=== PATIENT | male | born 1950 | race Caucasian/White ===

== ENCOUNTER 2020-07-03 07:52 | Outpatient (REF) | payer OTHER, SELFPAY ==
--- NOTE | 2020-07-03 | XR_ITS ---
EXAMINATION: LEFT KNEE X-RAY CLINICAL INFORMATION: Pain COMPARISON: None TECHNIQUE: 3 views of the left knee FINDINGS: Bone alignment is normal. No fracture or dislocation is seen. There is arthritis at the medial femoral tibial and patellofemoral joints with joint space narrowing and osteophyte formation. There is a small joint effusion. IMPRESSION: Arthritis and small joint effusion. EXAMINATION: Right shoulder x-ray CLINICAL INFORMATION: Pain COMPARISON: None. TECHNIQUE: 2 views of the right shoulder FINDINGS: Bone alignment is normal. No acute fracture or dislocation is seen. There is a mild arthritis at the glenohumeral joint and moderate arthritis at the acromioclavicular joint with joint space narrowing and osteophyte formation. There are degenerative changes of the greater tuberosity. Soft tissues are unremarkable. There may be an old right anterior fourth rib fracture. IMPRESSION: Arthritis.
== END 2020-07-03 07:53 | disposition home or self-care (01) ==
LOC: HO.XRAY 07:52
PROVIDERS: PCP Internal Medicine; Visit Provider Internal Medicine
DX: M25.511 Pain in right shoulder (principal); M25.562 Pain in left knee; I25.10 Atherosclerotic heart disease of native coronary artery without angina pectoris
CPT/HCPCS: 73030; 73560

== ENCOUNTER → 2020-07-11 12:57 | Outpatient (REF) | payer OTHER, SELFPAY ==
--- NOTE | 2020-07-11 12:55 | CA_ITS ---
Transthoracic Echocardiogram Patient (Last, First, Middle): Серегй Harvey, Gender: Male Date of : 1950 Age: 70 Procedure Date: 07/11/2020 Procedure Type: Transthoracic Echocardiogram Location: OP Height: 172.72 cm Weight: 104.33 kg BSA: 2.17 m2 Heart Rate: bpm BP: 138 / 82 mmHg Plastics Nurse: Referring MD: Bryson Templeton MD Symptoms: I77.810 ascendingaorta dilatation Study Quality: Fair ECG Rhythm: Sinus Conclusions: - Normal left ventricular cavity size. There is mildly increased left ventricular wall thickness. The left ventricular systolic function is low normal. - Normal right ventricular cavity size and systolic function. - There is trace mitral valve regurgitation. - There is moderate dilatation of the ascending aorta (4.24 cm). Findings Left Ventricle Normal left ventricular cavity size. There is mildly increased left ventricular wall thickness. The left ventricular systolic function is low normal. The visually estimated ejection fraction is between 50-55%. Regional wall motion abnormalities can not be excluded due to suboptimal endocardial definition. Abnormal diastolic function is noted. Spectral Doppler is indicative of an impaired relaxation filling pattern. E/E prime ratio is between 8 and 15 consistent with indeterminate filling pressures. Right Ventricle Normal right ventricular cavity size and systolic function. Atria The left atrium is moderately dilated. Interatrial shunt cannot be excluded by color Doppler. Aortic Valve There is a normal trileaflet aortic valve. There is mild calcification of the aortic valve. There is no aortic valve stenosis. There is trace (trivial) aortic valve regurgitation. Mitral Valve Normal mitral valve structure and function. There is mild mitral annular calcification. There is trace mitral valve regurgitation. There is no mitral valve stenosis. Pulmonic Valve The pulmonic valve is likely normal. Tricuspid Valve Normal tricuspid valve structure and function. There is trace tricuspid valve regurgitation. Normal right atrial pressure. There is no evidence of pulmonary hypertension. Great Vessels There is moderate dilatation of the ascending aorta. The visualized portions of the pulmonary artery and branches are normal. Venous The inferior vena cava is normal in size and collapses greater than 50% with inspiration. Pericardium/Pleural There is no evidence of pericardial effusion. Prior Study Comparison Changes noted compared to prior study dated: 01/12/2020. EF low normal. Ascending aorta 4.24 cm (previously measured at 4.4 cm). No significant change in aortic size. Recommendations, Care & Conclusions Recommend contrast in the future to improve endocardial definition. Measurements 2D Linear Measurements IVSd: 1.29 0.6-0.9/0.6-1.0 cm LVIDd: 3.78 3.9-5.3/4.2-5.9 cm LVIDd Index: 1.74 2.4-3.2/2.2-3.1 cm/m2 LVIDs: 2.58 2.0-3.6 cm LVPWd: 1.20 0.7-1.1 cm Ao Root: 3.60 2.1-3.5 cm LA Diam: 3.60 2.7-3.8/3.0-4.0 cm LAIDs Index: 1.66 1.5-2.3 cm/m2 LV Mass: 200.18 67-162/88-224 g LV Mass Index: 92.25 43-95/49-115 g/m2 LVOT Diam: 2.60 3.0+(-)1.3 cm 2D Systolic Function EF 4C: 49.40 >55% EF 2C: 44.80 >55% EF BiP: 48.40 >55% Mitral Valve MV Pk E: 0.61 MV PK A: 0.77 MV Decel Time: 222.00 E/A: 0.80 E'Lateral: 5.13 E'Medial: 4.93 E/E' Med: 12.40 E/E' Lat: 11.90 PHT: 65.00 MVA PHT: 3.38 Decel [place]: 2.76 Aortic Valve AoV Pk Bo: 1.58 AoV Mn Bo: 1.05 AoV VTI: 0.34 AoV Pk Grad: 10.00 Aov Mn Grad: 5.00 ANIRUDH Cont.VTI: 3.59 LVOT LVOT Pk Bo: 0.99 LVOT Mn Bo: 0.60 LVOT VTI: 0.25 LVOT Pk Grad: 4.00 LVOT Mn Grad: 2.00 LVOT Diam: 2.60 LVOT Area: 5.31 Diastolic Function MV Pk E: 0.61 MV Pk A: 0.77 E/A: 0.80 E'Medial: 4.93 E/E' Med: 12.40 E' Laterial: 5.13 E/E' Lat: 11.90 Tricuspid Valve TR Pk Bo: 1.58 TR Pk Grad: 10.00 RA Press: 3.00 RVSP: 13.00 Great Vessels Aorta Ao Root-2D: 3.60 2.0-3.7 cm Ao Asc: 4.24 2.1-3.4 cm Pulmonary Valve PV Pk Bo: 1.05 Peak PV Grad: 4.00 Updated in Other Vendor System with Status of Final Juaquin Fraser MD electronically signed on 07/12/2020 4:22:08 PM with status of Final
== END ==
LOC: HO.CARD 12:57
PROVIDERS: PCP Internal Medicine; Visit Provider Internal Medicine
DX: E66.9 Obesity, unspecified (principal); Z68.34 Body mass index [BMI] 34.0-34.9, adult; I77.810 Thoracic aortic ectasia; Z71.3 Dietary counseling and surveillance
CPT/HCPCS: 93306

== ENCOUNTER → 2020-08-14 15:48 | Outpatient (BNVA) | payer OTHER, SELFPAY | PROVIDERS: PCP Internal Medicine; Visit Provider Dietitian, Registered | DX: Z76.89 Persons encountering health services in other specified circumstances (principal) ==

== ENCOUNTER → 2020-10-25 09:51 | Outpatient (BNVA) | payer OTHER, SELFPAY | PROVIDERS: PCP Internal Medicine; Visit Provider Surgery | DX: L02.211 Cutaneous abscess of abdominal wall (principal) | CPT/HCPCS: 99202 ==

== ENCOUNTER → 2020-11-08 10:06 | Outpatient (BNVA) | payer OTHER, SELFPAY | PROVIDERS: PCP Internal Medicine; Visit Provider Surgery | DX: L02.211 Cutaneous abscess of abdominal wall (principal) | CPT/HCPCS: 99212 ==

== ENCOUNTER → 2020-11-13 14:04 | Outpatient (BNVA) | payer OTHER, SELFPAY | PROVIDERS: PCP Internal Medicine; Referring Provider Internal Medicine; Visit Provider Dietitian, Registered ==

== ENCOUNTER 2020-11-15 12:05 | Outpatient (REF) | payer OTHER, SELFPAY | END 2020-11-15 12:06 | disposition home or self-care (01) | LOC: HO.LAB 12:05 | PROVIDERS: Visit Provider Internal Medicine | DX: Z20.822 Contact with and (suspected) exposure to COVID-19 (principal) | CPT/HCPCS: 36415; C9803; U0003; U0005 ==

== ENCOUNTER → 2020-11-29 09:25 | Outpatient (BNVA) | payer OTHER, SELFPAY | PROVIDERS: PCP Internal Medicine; Referring Provider Internal Medicine; Visit Provider Internal Medicine Gastroenterology | DX: K21.9 Gastro-esophageal reflux disease without esophagitis (principal); D12.6 Benign neoplasm of colon, unspecified | CPT/HCPCS: 99212; Q3014 ==

== ENCOUNTER 2020-12-05 08:13 | Outpatient (REF) | payer OTHER, SELFPAY ==
[2020-12-05 08:57] LABS: MANUAL DIFF FLAG NO
[2020-12-05 09:01] LABS: Basophils Percent Auto 0.7 % (0-2); Eosinophils Absolute Auto 0.3 X10*3/uL (0.0-0.4); Eosinophils Percent Auto 5.1 % (0-4); Hematocrit 44.6 % (42-52); Hemoglobin 14.7 g/dl (14.0-18.0); Imm Gran Abs Auto 0.04 X10*3/uL (0.00-0.03); Imm Gran Pct Auto 0.7 % (0.0-0.4); Lymphocytes Absolute Auto 1.6 X10*3/uL (1.2-4.9); Lymphocytes Percent Auto 28.9 % (20-40); Mean Corpuscular Hemoglobin 31.1 pg (27.0-33.0); Mean Corpuscular Volume 94.3 fL (80-98); Mean Platelet Volume 11.1 fL (9.4-12.4); Monocytes Absolute Auto 0.5 X10*3/uL (0.1-1.2); Monocytes Percent Auto 8.6 % (2-11); Neutrophils Absolute Auto 3.1 X10*3/uL (2.0-8.3); Platelet Count 167 X10*3/uL (160-400); Red Blood Count 4.73 X10*6/uL (4.60-5.80); Red Cell Distribution Width 12.2 % (11.0-16.0); White Blood Count 5.5 X10*3/uL (4.8-10.8)
[2020-12-05 09:29] LABS: Alanine Aminotransferase 18 U/L (0-40); Albumin Level 4.2 g/dL (3.5-5.0); Alkaline Phosphatase 119 U/L (39-117); Anion Gap 9 (12-20); Aspartate Amino Transferase 20 U/L (5-37); Bilirubin Total 0.7 mg/dL (0.0-1.0); Blood Urea Nitrogen 9 mg/dL (9-16); Carbon Dioxide 34 mmol/L (22-29); Chloride 100 mmol/L (96-108); Cholesterol 168 mg/dL; Estimated Glomerular Filt Rate > 60; Glucose Random 134 mg/dL (60-115); HDL Cholesterol 44 mg/dL; LDL Cholesterol Calculated 80 mg/dl; Potassium 4.4 mmol/L (3.3-5.1); Sodium 139 mmol/L (135-145); Total Protein 7.3 g/dL (6.5-8.0); Triglycerides 221 mg/dL
[2020-12-05 10:00] LABS: Folate 8.6 ng/mL (> or = 4.0); Vitamin B12 311 pg/mL (200-900)
[2020-12-05 11:17] LABS: Creatinine Urine 65.42 mg/dL; Microalbum/Creatinine Ratio Ur 22.9 ug/mg cr
== END 2020-12-05 08:14 | disposition home or self-care (01) ==
LOC: HO.LAB 08:13
PROVIDERS: PCP Internal Medicine; Visit Provider Internal Medicine
DX: L02.211 Cutaneous abscess of abdominal wall (principal); E78.00 Pure hypercholesterolemia, unspecified; I25.10 Atherosclerotic heart disease of native coronary artery without angina pectoris; E11.65 Type 2 diabetes mellitus with hyperglycemia; Z79.82 Long term (current) use of aspirin; Z79.899 Other long term (current) drug therapy
CPT/HCPCS: 36415; 80053; 80061; 82043; 82607; 82746; 84443; 85025; 99212

== ENCOUNTER 2021-02-05 08:07 | Day surgery (SDC) | payer OTHER, SELFPAY ==
--- NOTE | 2021-01-31 10:36 | HO.ANESPROP2 ---
Documented by User: Deepti Hernandez 01/31/21 10:39 HPI - Anesthesia Eval Consult details Narrative: 70yo M for Colonoscopy PMFSH Active Problems Active Problems: All Active Problems (Updated 01/15/21 @ 07:32 by Stephanie Elizabeth MD) Tubular adenoma of colon (Acute) Impaired glucose tolerance (Acute) Obesity (BMI 30-39.9) (Acute) Abdominal wall abscess (Acute) Ascending aorta dilatation (Acute) Coronary artery disease (Acute) GERD (gastroesophageal reflux disease) (Acute) Hypercholesterolemia (Acute) Obstructive sleep apnea (Acute) COPD (chronic obstructive pulmonary disease) (Acute) Hypertension (Acute) Past Medical History Medical History Ascending aorta dilatation COPD (chronic obstructive pulmonary disease) Coronary artery disease Degenerative disc disease, lumbar GERD (gastroesophageal reflux disease) History of renal calculi Hypercholesterolemia Hypertension Knee osteoarthritis Obesity (BMI 30-39.9) Obstructive sleep apnea Osteoarthritis of right shoulder Peripheral vascular disease Polysubstance abuse Tubular adenoma of colon Vitamin D deficiency Family History Family History Father Stroke Heart attack Mother No problems noted. Sister Breast cancer Surgical History Surgical History History of esophagogastroduodenoscopy (EGD) Hx laparoscopic cholecystectomy Hx of colonoscopy No pertinent past surgical history Social History Social History Household Members: Spouse Alcohol intake: current Alcohol intake frequency: does not drink Smoking Status: Never smoker Second Hand Smoke Exposure: No Use of substances other than those prescribed or required for medical reasons: No Advance Directives: No Advance Directives Information Provided: Yes Recently lost weight without trying: No Nutrition Risks: No Nutritional Risk Meds Allergies Allergy/AdvReac Type Severity Reaction Status Date / Time No Known Allergies Allergy Verified 12/05/20 09:54 Home Medications Medication Instructions Recorded Confirmed Last Taken Type gabapentin 300 mg capsule 300 mg PO TID 07/20/20 12/05/20 Unknown History lisinopril 40 mg tablet 40 mg PO DAILY 07/20/20 12/05/20 Unknown History furosemide 20 mg tablet 20 mg PO DAILY 10/16/20 12/05/20 Unknown History Exam Exam Date and Time: January 31, 2021 1036 Pertinent Lab Results Pertinent Lab Results: Laboratory Tests 12/05/20 12/05/20 08:28 08:28 WBC 5.5 Hgb 14.7 Hct 44.6 Plt Count 167 Sodium 139 Potassium 4.4 Chloride 100 Carbon Dioxide 34 H BUN 9 Creatinine 0.95 Narrative Narrative: ECHO 06/2020 Conclusions: - Normal left ventricular cavity size. There is mildly increased left ventricular wall thickness. The left ventricular systolic function is low normal. - Normal right ventricular cavity size and systolic function. - There is trace mitral valve regurgitation. - There is moderate dilatation of the ascending aorta (4.24 cm). Per 03/2020 Cardiac note Myocardial perfusion imaging study (2017) shows nontransmural infarct of inferior wall with no ischemia. Clinically, no angina. Continue medical therapy for stable coronary disease. Assessment and Plan Assessment Anesthesia Assessment: Chart Reviewed Documented by User: Davis Santos 02/05/21 09:17 [facility] Past Medical History Medical History Ascending aorta dilatation COPD (chronic obstructive pulmonary disease) Coronary artery disease Degenerative disc disease, lumbar GERD (gastroesophageal reflux disease) History of renal calculi Hypercholesterolemia Hypertension Knee osteoarthritis Obesity (BMI 30-39.9) Obstructive sleep apnea Osteoarthritis of right shoulder Peripheral vascular disease Polysubstance abuse Tubular adenoma of colon Vitamin D deficiency Family History Family History Father Stroke Heart attack Mother No problems noted. Sister Breast cancer Surgical History Surgical History History of esophagogastroduodenoscopy (EGD) Hx laparoscopic cholecystectomy Hx of colonoscopy No pertinent past surgical history Social History Social History Household Members: Spouse Alcohol intake: current Alcohol intake frequency: does not drink Smoking Status: Never smoker Second Hand Smoke Exposure: No Use of substances other than those prescribed or required for medical reasons: No Advance Directives: No Advance Directives Information Provided: Yes Recently lost weight without trying: No Nutrition Risks: No Nutritional Risk Meds Allergies Allergy/AdvReac Type Severity Reaction Status Date / Time No Known Allergies Allergy Verified 12/05/20 09:54 Home Medications Medication Instructions Recorded Confirmed Last Taken Type gabapentin 300 mg capsule 300 mg PO TID 07/20/20 12/05/20 Unknown History lisinopril 40 mg tablet 40 mg PO DAILY 07/20/20 12/05/20 Unknown History furosemide 20 mg tablet 20 mg PO DAILY 10/16/20 12/05/20 Unknown History Exam Airway Mallampati Class: II TM Dist: >3cm Neck ROM: Full Denture: Upper and Lower Heart: [id number] Lungs: decrease breath sounds bilaterally Assessment and Plan Assessment Anesthesia Assessment: Anesthesia Plan Discussed, PAT Visit and Chart Reviewed Final Anesthetic Review NPO: Yes ASA Class: III Final Preanesthetic Review: No Changes in Pt Med Stat, Meds/Allgs Chart Reviewed, Consent Obtained/Reviewed and Anes Risks/Benef Reviewed Patient Risk: Intermediate Procedure Risk: Low Assessment/Block/Sedation in SS: Assess/Block/Sedation-SS Anesthetic Plan Anesthetic Plan: MAC: and Agree w/ Assess. and Plan Disposition: Standard PACU
[2021-02-05 08:24] VITALS: BP 159/82; PULSE 63; RESP 18; TEMP 36.4; O2SAT 96; BMI 34.9
[2021-02-05] MEDS: Lactated Ringers 1,000 ML 50 ML IV (08:40)
--- NOTE | 2021-02-05 08:45 | MHC.SHP ---
Pre-Procedural Eval Section B Chief Complaint: tubular adenoma of colon Relevant Family History (Specify if Yes): No Relevant Social History: None Present Medications: see Short Stay Collaborative assessment Medical History: Significant History (Ascending aorta dilatation COPD (chronic obstructive pulmonary disease) Coronary artery disease Degenerative disc disease, lumbar GERD (gastroesophageal reflux disease) History of renal calculi Hypercholesterolemia Hypertension Knee osteoarthritis Obesity (BMI 30-39.9) Obstructive sleep apnea Osteoa) History of Previous Operations: Relevant previous surgery/procedure and date(s) (cholecystectomy) Allergies: Allergies Allergy/AdvReac Type Severity Reaction Status Date / Time No Known Allergies Allergy Verified 12/05/20 09:54 Review of Systems Sugical H&P ROS: Negative: Constitution, Cardiovascular, Respiratory, Neurological, Psychiatric, Hem-Onc, Allergic/Immunologic, Gastrointestinal, Genitourinary, Musculoskeletal, Integumentary, Endocrine and Eyes/Ears/Nose/Throat Exam Surgical H&P Exam: Normal: HEENT, Normal: Heart, Normal: Lungs, Normal: Extremities, Normal: Abdomen, Normal: Skin and Normal: Neurological Plan Diagnosis/Plan: Unchanged I have reviewed the history and physical and performed a pertinent physical examination on my patient. No changes have occurred unless specified.
--- NOTE | 2021-02-05 08:46 | PM.OP ---
Brief Operative Note Date of Service: 02/05/21 Pre-op diagnosis: hx of colon polyps Post-op diagnosis: same Procedure: see op note Surgeon: Miley Charles MD Anesthesia: MAC Was an [employer] used for this Procedure?: No Estimated blood loss (mL): 0 Condition: stable Disposition: PACU
--- NOTE | 2021-02-05 08:46 | W.PM.OPN ---
Operative Note Operative Note Date of Service: 02/05/21 Narrative: Operative Information Procedure Description: Colonoscopy COLONOSCOPY Instrument: Olympus variable stiffness pediatric scope 190L Colonoscopy Monitoring: Vital signs and clinical assessment, continuous EKG monitoring, Pulse oximetry, Carbon Dioxide monitoring and blood pressure monitoring were done throughout the procedure. Colon withdrawal time was 14 minutes. Procedure: The patient was placed in the left lateral decubitis position and pre-procedure medications were administered. After a digital rectal examination of the ano-rectum, the video colonoscope was inserted into the rectum and advanced through the colon to the cecum/TI. The colonoscope was slowly withdrawn in a retrograde panoramic fashion and the colon mucosa was carefully examined including a retroflexed view of the rectum. Findings and interventions are described below. Procedure Difficulty:easy Findings: Terminal Ileum-normal Cecum:normal Ascending Colon: normal Transverse Colon -normal Descending Colon: x 3 polyps noted, 8-10 mm, x 2 removed with forceps and x1 with cold snare Sigmoid Colon: moderate severe diverticulosis with mucosal hypertrophy and variable sized tics Rectum: Retroflexion with large internal hemorrhoids, grade II Anorectum - internal hemorrhoids noted on forward view as well as an external hemorrhoid Colon preparation: [place] Bowel Preparation Scale Right colon; 2 Transverse colon: 2 Left colon; 1 (0 = Unprepared colon segment with mucosa not seen due to solid stool that cannot be cleared. 1 = Portion of mucosa of the colon segment seen, but other areas of the colon segment not well seen due to staining, residual stool and/or opaque liquid. 2 = Minor amount of residual staining, small fragments of stool and/or opaque liquid, but mucosa of colon segment seen well. 3 = Entire mucosa of colon segment seen well with no residual staining, small fragments of stool or opaque liquid) Impression and Post Procedure Diagnosis: polyps internal hemorrhoids diverticular disease Plan: High fiber diet leaflet Avoid straining at stool, epsom salts and sitz bath on d/c, anusol supps or cream --may need surgical referral if symptomatic Repeat Colonoscopy in 5 years or earlier if clinically indicated Above findings were reviewed with the patient and relevant handouts were provided if indicated.
[2021-02-05 09:28] VITALS: BP 113/58; PULSE 63; RESP 16; TEMP 35.9; O2SAT 97
[2021-02-05 09:44] VITALS: BP 122/69; PULSE 52; RESP 18; TEMP 36.6; O2SAT 95
--- NOTE | 2021-02-05 12:43 | HO.POSTANES ---
Post Anesthesia Evaluation Post Anesthesia Evaluation Vital Signs: Vital Signs Temp Pulse Resp BP Pulse Ox 02/05/21 09:44 97.9 F 52 18 122/69 95 02/05/21 09:28 96.6 F L 63 16 113/58 L 97 02/05/21 08:24 97.5 F 63 18 159/82 H 96 Anesthesia: Monitored Mental Status: Awake Pain Control: Satisfactory Nausea/Vomiting: None Hydration: Adequate Anesthesia-Related Issues: No Anes. Related Issues Comments: w
== END 2021-02-05 11:11 | disposition home or self-care (01) ==
PROVIDERS: PCP Internal Medicine; Visit Provider Internal Medicine Gastroenterology
PROC: 0DJD8ZZ Inspection of Lower Intestinal Tract, Via Natural or Artificial Opening Endoscopic (ICD-10-PCS; CPT 45378; principal; 2021-02-05 09:10)
DX: Z12.11 Encounter for screening for malignant neoplasm of colon (principal); Z86.010 Personal history of colon polyps; D12.4 Benign neoplasm of descending colon; K57.30 Diverticulosis of large intestine without perforation or abscess without bleeding; K64.1 Second degree hemorrhoids; K21.9 Gastro-esophageal reflux disease without esophagitis; I10 Essential (primary) hypertension; J44.9 Chronic obstructive pulmonary disease, unspecified; G47.33 Obstructive sleep apnea (adult) (pediatric); Z90.49 Acquired absence of other specified parts of digestive tract; Z79.899 Other long term (current) drug therapy
CPT/HCPCS: 45385; 45380; 88305

== ENCOUNTER → 2021-02-12 14:09 | Outpatient (BNVA) | payer OTHER, SELFPAY | PROVIDERS: PCP Internal Medicine; Visit Provider Dietitian, Registered | DX: E66.9 Obesity, unspecified (principal); Z68.35 Body mass index [BMI] 35.0-35.9, adult | CPT/HCPCS: 97803 ==

== ENCOUNTER → 2021-05-14 13:31 | Outpatient (BNVA) | payer OTHER, SELFPAY | PROVIDERS: PCP Internal Medicine; Visit Provider Dietitian, Registered | DX: E66.9 Obesity, unspecified (principal); Z68.35 Body mass index [BMI] 35.0-35.9, adult; R73.02 Impaired glucose tolerance (oral); Z71.3 Dietary counseling and surveillance | CPT/HCPCS: 97803 ==

== ENCOUNTER → 2021-06-15 08:41 | Outpatient (BNVA) | payer OTHER, SELFPAY | PROVIDERS: PCP Internal Medicine; Referring Provider Internal Medicine; Visit Provider Internal Medicine Gastroenterology | DX: K21.9 Gastro-esophageal reflux disease without esophagitis (principal); D12.6 Benign neoplasm of colon, unspecified | CPT/HCPCS: 99212 ==

== ENCOUNTER → 2021-06-25 12:16 | Outpatient (BNVA) | payer OTHER, SELFPAY | PROVIDERS: PCP Internal Medicine; Visit Provider Dietitian, Registered | DX: E66.9 Obesity, unspecified (principal) | CPT/HCPCS: 97803 ==

== ENCOUNTER 2021-08-15 07:33 | Outpatient (REF) | payer OTHER, SELFPAY ==
[2021-08-15 07:50] LABS: MANUAL DIFF FLAG NO
[2021-08-15 08:16] LABS: Basophils Percent Auto 0.5 % (0-2); Eosinophils Absolute Auto 0.3 X10*3/uL (0.0-0.4); Eosinophils Percent Auto 5.5 % (0-4); Hematocrit 44.9 % (42.0-52.0); Hemoglobin 14.6 g/dl (14.0-18.0); Imm Gran Abs Auto 0.02 X10*3/uL (0.00-0.03); Imm Gran Pct Auto 0.4 % (0.0-0.4); Lymphocytes Absolute Auto 1.6 X10*3/uL (1.2-4.9); Lymphocytes Percent Auto 29.3 % (20-40); Mean Corpuscular HGB Conc 32.5 g/dl (31.0-36.0); Mean Corpuscular Hemoglobin 30.5 pg (27.0-33.0); Mean Corpuscular Volume 93.7 fL (80.0-98.0); Mean Platelet Volume 10.8 fL (9.4-12.4); Monocytes Absolute Auto 0.6 X10*3/uL (0.1-1.2); Monocytes Percent Auto 10.8 % (2-11); Neutrophils Absolute Auto 2.9 x10*3/uL (2.0-8.3); Neutrophils Percent Auto 53.5 % (45-73); Platelet Count 172 X10*3/uL (160-400); Red Blood Count 4.79 X10*6/uL (4.60-5.80); Red Cell Distribution Width 12.8 % (11.0-16.0); White Blood Count 5.5 X10*3/uL (4.8-10.8)
[2021-08-15 08:25] LABS: Estimated Average Glucose 126 mg/dL
[2021-08-15 08:47] LABS: B Type Natriuretic Peptide 32 pg/mL (<100)
[2021-08-15 08:54] LABS: Alanine Aminotransferase 29 U/L (0-40); Albumin Level 4.1 g/dL (3.5-5.0); Alkaline Phosphatase 100 U/L (39-117); Anion Gap 12 (12-20); Aspartate Amino Transferase 28 U/L (5-37); Blood Urea Nitrogen 15 mg/dL (9-16); Calcium 9.2 mg/dL (8.4-10.2); Carbon Dioxide 28 mmol/L (22-29); Chloride 103 mmol/L (96-108); Cholesterol 153 mg/dL; Estimated Glomerular Filt Rate > 60; Glucose Random 127 mg/dL (60-115); HDL Cholesterol 45 mg/dL; LDL Cholesterol Calculated 76 mg/dl; Potassium 4.3 mmol/L (3.3-5.1); Sodium 139 mmol/L (135-145); Total Protein 7.3 g/dL (6.5-8.0); Triglycerides 162 mg/dL
[2021-08-15 09:16] LABS: Free T4 (Free Thyroxine) 1.03 ng/dL (0.71-1.85); Thyroid Stimulating Hormone 1.15 uIU/mL (0.32-4.0)
[2021-08-15 09:20] LABS: Creatinine Urine 186.86 mg/dL
[2021-08-15 09:32] LABS: Folate 8.4 ng/mL (> or = 4.0); Vitamin B12 328 pg/mL (200-900)
== END 2021-08-15 07:34 | disposition home or self-care (01) ==
LOC: HO.LAB 07:33
PROVIDERS: PCP Internal Medicine; Visit Provider Internal Medicine
DX: I25.10 Atherosclerotic heart disease of native coronary artery without angina pectoris (principal); E11.65 Type 2 diabetes mellitus with hyperglycemia; E78.00 Pure hypercholesterolemia, unspecified
CPT/HCPCS: 36415; 80053; 80061; 82607; 82746; 83036; 83880; 84439; 84443; 85025

== ENCOUNTER → 2021-09-13 14:19 | Outpatient (BNVA) | payer OTHER, SELFPAY | PROVIDERS: PCP Internal Medicine; Referring Provider Internal Medicine; Visit Provider Internal Medicine | DX: I77.810 Thoracic aortic ectasia (principal); I25.10 Atherosclerotic heart disease of native coronary artery without angina pectoris; I10 Essential (primary) hypertension; R00.1 Bradycardia, unspecified | CPT/HCPCS: 93005; 99212 ==

== ENCOUNTER 2021-09-28 08:38 | Outpatient (REF) | payer OTHER, SELFPAY ==
[2021-09-28 10:17] LABS: Binax Internal Control QC Valid; Binax Now Covid-19 Ag Positive (Negative)
== END 2021-09-28 08:39 | disposition home or self-care (01) ==
LOC: HO.LAB 08:38
PROVIDERS: PCP Internal Medicine; Visit Provider Internal Medicine
DX: Z20.822 Contact with and (suspected) exposure to COVID-19 (principal)
CPT/HCPCS: 36415; C9803

== ENCOUNTER 2021-10-02 10:35 | Outpatient (REF) | payer OTHER, SELFPAY ==
[2021-10-02 13:25] LABS: Binax Internal Control QC Valid; Binax Now Covid-19 Ag Positive (Negative)
== END 2021-10-02 10:36 | disposition home or self-care (01) ==
LOC: HO.LAB 10:35
PROVIDERS: Visit Provider Internal Medicine
DX: Z20.822 Contact with and (suspected) exposure to COVID-19 (principal)
CPT/HCPCS: C9803

== ENCOUNTER 2021-10-09 07:56 | Outpatient (REF) | payer OTHER, SELFPAY ==
[2021-10-09 08:32] LABS: COVID-19 Test Positive (Negative); IDNOW Serial# 16C4AD1C
== END 2021-10-09 07:57 | disposition home or self-care (01) ==
LOC: HO.LAB 07:56
PROVIDERS: Visit Provider Internal Medicine
DX: Z20.822 Contact with and (suspected) exposure to COVID-19 (principal)
CPT/HCPCS: 87635; C9803

== ENCOUNTER 2021-10-15 08:32 | Outpatient (REF) | payer OTHER, SELFPAY ==
[2021-10-15 09:46] LABS: Binax Internal Control QC Valid; Binax Now Covid-19 Ag Negative (Negative)
== END 2021-10-15 08:33 | disposition home or self-care (01) ==
LOC: HO.LAB 08:32
PROVIDERS: Visit Provider Internal Medicine
DX: Z20.822 Contact with and (suspected) exposure to COVID-19 (principal)
CPT/HCPCS: C9803

== ENCOUNTER → 2021-10-23 13:54 | Outpatient (REF) | payer OTHER, SELFPAY ==
--- NOTE | 2021-10-23 13:57 | CA_ITS ---
Transthoracic Echocardiogram Patient (Last, First, Middle): Сергей Harvey, Gender: Male Date of : 1950 Age: 71 Procedure Date: 10/23/2021 Procedure Type: Transthoracic Echocardiogram Location: OP Height: 172.72 cm Weight: 104.33 kg BSA: 2.17 m2 Heart Rate: bpm BP: 138 / 72 mmHg Abalone Diver: MICHEL Referring MD: Neo Baig MD Symptoms: I77.810 - Thoracic aortic ectasia Study Quality: Good ECG Rhythm: Sinus Conclusions: - The left ventricular systolic function is normal. The calculated ejection fraction is 54% by biplane method. - The basal inferior segment is hypokinetic. - There is mild calcification of the aortic valve. - There is mild dilatation of the ascending aorta measuring 4.30 cm. Findings Left Ventricle Normal left ventricular cavity size. There is moderately increased left ventricular wall thickness. The left ventricular systolic function is normal. The calculated ejection fraction is 54% by biplane method. There is evidence of regional wall motion abnormalities. E/E prime ratio is between 8 and 15 consistent with indeterminate filling pressures. Evidence suggests grade I (mild) diastolic dysfunction. Wall Motion Rest Echo Findings The basal inferior segment is hypokinetic. Right Ventricle Normal right ventricular cavity size and systolic function. Atria Both atria are normal in size. Aortic Valve There is a normal trileaflet aortic valve. There is mild calcification of the aortic valve. There is no aortic valve stenosis. There is trace (trivial) aortic valve regurgitation. Mitral Valve The mitral valve appears normal. There is trace mitral valve regurgitation. There is no mitral valve stenosis. Pulmonic Valve The pulmonic valve was not well visualized. Tricuspid Valve Normal tricuspid valve structure. There is trace tricuspid valve regurgitation. The pulmonary artery systolic pressure is normal. Great Vessels There is mild dilatation of the ascending aorta measuring 4.30 cm. Venous The inferior vena cava is normal in size and collapses greater than 50% with inspiration. Pericardium/Pleural There is no evidence of pericardial effusion. Prior Study Comparison Changes noted compared to prior study dated: 07/11/2020. See comment on wall motion. Measurements 2D Linear Measurements IVSd: 1.27 0.6-0.9/0.6-1.0 cm LVIDd: 5.31 3.9-5.3/4.2-5.9 cm LVIDd Index: 2.45 2.4-3.2/2.2-3.1 cm/m2 LVIDs: 3.83 2.0-3.6 cm LVPWd: 1.62 0.7-1.1 cm Ao Root: 3.50 2.1-3.5 cm LA Diam: 3.40 2.7-3.8/3.0-4.0 cm LAIDs Index: 1.57 1.5-2.3 cm/m2 LV Mass: 417.71 67-162/88-224 g LV Mass Index: 192.49 43-95/49-115 g/m2 LVOT Diam: 2.10 3.0+(-)1.3 cm 2D Systolic Function EF 4C: 50.20 >55% EF 2C: 56.10 >55% EF BiP: 53.70 >55% Mitral Valve MV Pk E: 0.69 MV PK A: 0.74 MV Decel Time: 247.00 E/A: 0.90 E'Lateral: 6.42 E'Medial: 6.09 E/E' Med: 11.40 E/E' Lat: 10.80 PHT: 72.00 MVA PHT: 3.06 Decel [place]: 2.81 Aortic Valve AoV Pk Bo: 1.52 AoV Mn Bo: 1.12 AoV VTI: 0.36 AoV Pk Grad: 9.00 Aov Mn Grad: 5.00 ANIRUDH Cont.VTI: 2.34 LVOT LVOT Pk Bo: 1.02 LVOT Mn Bo: 0.72 LVOT VTI: 0.25 LVOT Pk Grad: 4.00 LVOT Mn Grad: 2.00 LVOT Diam: 2.10 LVOT Area: 3.46 Diastolic Function MV Pk E: 0.69 MV Pk A: 0.74 E/A: 0.90 E'Medial: 6.09 E/E' Med: 11.40 E' Laterial: 6.42 E/E' Lat: 10.80 Right Ventricle TAPSE (mm): 27.00 TVS' Bo: 14.00 Tricuspid Valve TR Pk Bo: 1.51 TR Pk Grad: 9.00 RA Press: 3.00 RVSP: 12.00 Great Vessels Aorta Ao Root-2D: 3.50 2.0-3.7 cm Ao Asc: 4.30 2.1-3.4 cm Ao Arch: 3.40 Updated in Other Vendor System with Status of Final Bryson Templeton MD electronically signed on 10/24/2021 11:59:20 AM with status of Final
== END ==
LOC: HO.CARD 13:54
PROVIDERS: PCP Internal Medicine; Visit Provider Internal Medicine
DX: I77.810 Thoracic aortic ectasia (principal)
CPT/HCPCS: 93306

== ENCOUNTER → 2021-12-18 15:15 | Outpatient (REF) | payer OTHER, SELFPAY | LOC: HO.SL 15:15 | PROVIDERS: PCP Internal Medicine; Visit Provider Internal Medicine | DX: G47.33 Obstructive sleep apnea (adult) (pediatric) (principal) | CPT/HCPCS: 95806 ==

== ENCOUNTER 2022-01-28 07:00 | Outpatient (REF) | payer OTHER, SELFPAY ==
[2022-01-28 08:11] LABS: Alanine Aminotransferase 22 U/L (0-40); Alkaline Phosphatase 105 U/L (39-117); Anion Gap 12 (12-20); Aspartate Amino Transferase 23 U/L (5-37); Bilirubin Total 0.8 mg/dL (0.0-1.0); Blood Urea Nitrogen 10 mg/dL (9-16); Calcium 9.8 mg/dL (8.4-10.2); Carbon Dioxide 30 mmol/L (22-29); Chloride 102 mmol/L (96-108); Cholesterol 148 mg/dL; Estimated Glomerular Filt Rate > 60; Glucose Random 140 mg/dL (60-115); HDL Cholesterol 46 mg/dL; LDL Cholesterol Calculated 76 mg/dl; Potassium 4.7 mmol/L (3.3-5.1); Sodium 139 mmol/L (135-145); Total Protein 7.8 g/dL (6.5-8.0); Triglycerides 131 mg/dL
== END 2022-01-28 07:01 | disposition home or self-care (01) ==
LOC: HO.LAB 07:00
PROVIDERS: PCP Internal Medicine; Visit Provider Internal Medicine
DX: E78.00 Pure hypercholesterolemia, unspecified (principal)
CPT/HCPCS: 36415; 80053; 80061

== ENCOUNTER → 2022-02-06 14:22 | Outpatient (BNVA) | payer OTHER, SELFPAY | PROVIDERS: PCP Internal Medicine; Visit Provider Internal Medicine | DX: J43.1 Panlobular emphysema (principal); G47.33 Obstructive sleep apnea (adult) (pediatric); E66.9 Obesity, unspecified; Z68.36 Body mass index [BMI] 36.0-36.9, adult | CPT/HCPCS: 99202 ==

== ENCOUNTER → 2022-04-03 10:21 | Outpatient (BNVA) | payer OTHER, SELFPAY | PROVIDERS: PCP Internal Medicine; Visit Provider Internal Medicine | DX: J43.1 Panlobular emphysema (principal); G47.33 Obstructive sleep apnea (adult) (pediatric); E66.9 Obesity, unspecified; Z68.36 Body mass index [BMI] 36.0-36.9, adult | CPT/HCPCS: 99212 ==

== ENCOUNTER 2022-04-25 15:40 | Outpatient (REF) | payer OTHER, SELFPAY ==
--- NOTE | 2022-04-25 17:06 | PFT_ITS ---
Forced vital capacity 87%, FEV1 93%, FEV1/FVC ratio 81. SHP09-26 124% and MVV is 100%. Post bronchodilator therapy, there is no change. Total lung capacity 87%. Residual volume 88%. Diffusion capacity 72% CONCLUSION: Normal pulmonary function test. No evidence of obstructive or restrictive pulmonary disorder. MD YARITZA Maynard/IDANIA / [id number]
== END 2022-04-25 15:41 | disposition home or self-care (01) ==
LOC: HO.RESP 15:40
PROVIDERS: PCP Internal Medicine; Visit Provider Internal Medicine
DX: E66.9 Obesity, unspecified (principal); J43.1 Panlobular emphysema
CPT/HCPCS: 94060; 94727; 94729

== ENCOUNTER 2022-06-25 07:06 | Outpatient (REF) | payer OTHER, SELFPAY ==
[2022-06-25 07:39] LABS: MANUAL DIFF FLAG NO
[2022-06-25 08:04] LABS: Basophils Percent Auto 0.7 % (0-2); Eosinophils Absolute Auto 0.3 X10*3/uL (0.0-0.4); Eosinophils Percent Auto 5.1 % (0-4); Hematocrit 46.8 % (42.0-52.0); Hemoglobin 15.3 g/dl (14.0-18.0); Imm Gran Abs Auto 0.02 X10*3/uL (0.00-0.03); Imm Gran Pct Auto 0.3 % (0.0-0.4); Lymphocytes Absolute Auto 1.4 X10*3/uL (1.2-4.9); Lymphocytes Percent Auto 24.7 % (20-40); Mean Corpuscular HGB Conc 32.7 g/dl (31.0-36.0); Mean Corpuscular Hemoglobin 30.7 pg (27.0-33.0); Mean Corpuscular Volume 93.8 fL (80.0-98.0); Mean Platelet Volume 10.4 fL (9.4-12.4); Monocytes Absolute Auto 0.6 X10*3/uL (0.1-1.2); Monocytes Percent Auto 9.8 % (2-11); Neutrophils Absolute Auto 3.4 x10*3/uL (2.0-8.3); Neutrophils Percent Auto 59.4 % (45-73); Platelet Count 172 X10*3/uL (160-400); Red Blood Count 4.99 X10*6/uL (4.60-5.80); Red Cell Distribution Width 12.8 % (11.0-16.0); White Blood Count 5.7 X10*3/uL (4.8-10.8)
[2022-06-25 08:23] LABS: Estimated Average Glucose 128 mg/dL; Hemoglobin A1c % 6.1 %
[2022-06-25 08:37] LABS: Appearance Urine Cloudy; Color Urine Yellow; Glucose Urine UA Negative (Negative); Leukocyte Esterase Urine Negative (Negative); Nitrite Urine Negative (Negative); PH 8.5 (5.0-9.0); Specific Gravity - Urine 1.015 (1.005-1.025); UMIC TRIGGER UA YES; Urine Blood Large (3+) (Negative); Urine Ketones Negative (Negative); Urine Protein Negative (Neg-Trace)
[2022-06-25 08:41] LABS: Alanine Aminotransferase 31 U/L (0-40); Albumin Level 4.3 g/dL (3.5-5.0); Alkaline Phosphatase 107 U/L (39-117); Anion Gap 14 (12-20); Aspartate Amino Transferase 28 U/L (5-37); Bilirubin Total 0.7 mg/dL (0.0-1.0); Blood Urea Nitrogen 13 mg/dL (9-16); Calcium 9.4 mg/dL (8.4-10.2); Carbon Dioxide 29 mmol/L (22-29); Chloride 102 mmol/L (96-108); Cholesterol 142 mg/dL; Estimated Glomerular Filt Rate > 60; Glucose Random 128 mg/dL (60-115); HDL Cholesterol 50 mg/dL; LDL Cholesterol Calculated 71 mg/dl; Potassium 4.9 mmol/L (3.3-5.1); Sodium 140 mmol/L (135-145); Total Protein 7.8 g/dL (6.5-8.0); Triglycerides 105 mg/dL
[2022-06-25 08:42] LABS: Bacteria Urine None Seen (None Seen); Hyaline Casts Urine 0-2 /LPF (0-2); RBC Urine >20 /HPF (0-2); Squamous Epithelial Cell Urine 0-2 /HPF (0-2); WBC Urine 0-5 /HPF (0-5)
[2022-06-25 08:44] LABS: Creatinine Urine 58.81 mg/dL
[2022-06-25 08:47] LABS: Free T4 (Free Thyroxine) 0.94 ng/dL (0.71-1.85); Thyroid Stimulating Hormone 0.86 uIU/mL (0.32-4.0)
[2022-06-25 09:06] LABS: Folate 10.9 ng/mL (> or = 4.0); Vitamin B12 337 pg/mL (200-900)
== END 2022-06-25 07:07 | disposition home or self-care (01) ==
LOC: HO.LAB 07:06
PROVIDERS: PCP Internal Medicine; Visit Provider Internal Medicine
DX: G47.33 Obstructive sleep apnea (adult) (pediatric) (principal); E66.9 Obesity, unspecified; I25.10 Atherosclerotic heart disease of native coronary artery without angina pectoris; E78.00 Pure hypercholesterolemia, unspecified; E11.65 Type 2 diabetes mellitus with hyperglycemia; Z79.899 Other long term (current) drug therapy; Z99.89 Dependence on other enabling machines and devices
CPT/HCPCS: 36415; 80053; 80061; 81001; 82043; 82607; 82746; 83036; 84439; 84443; 85025; 99212

== ENCOUNTER 2022-07-26 10:48 | Emergency (ER) | payer OTHER, SELFPAY ==
--- NOTE | ~2022-07-26 | XR_ITS ---
EXAMINATION: XR LUMBOSACRAL SPINE CLINICAL INFORMATION: Pain COMPARISON: 11/20/2018 TECHNIQUE: Three views of the lumbosacral spine. FINDINGS: No acute fracture or subluxation. Grade 1 anterolisthesis of L4 on L5 is unchanged. Vertebral body height and alignment otherwise maintained. Disc spaces are maintained. Small multilevel endplate osteophytes. Left abdominal calcification noted measuring 2.1 cm. This is similar to prior. Right upper quadrant surgical clips. XR/XR lumbar spine 2-3V IMPRESSION: Mild degenerative changes of the lumbar spine, similar to prior.
--- NOTE | ~2022-07-26 | CT_ITS ---
EXAMINATION: CT ABDOMEN AND PELVIS WITHOUT CONTRAST CLINICAL INFORMATION: Left flank pain. COMPARISON: CT abdomen pelvis 01/09/2017 TECHNIQUE: Multidetector volumetric imaging was performed from the superior aspect of the liver through the pubic symphysis. Sagittal and coronal reformatted images were obtained on the technologist's workstation. This CT examination was performed using dose optimization techniques as appropriate, variously including the following: *Automated exposure control *Adjustment of mA and/or kV according to patient size (this includes techniques or standardized protocols for targeted exams where dose is matched to indication/reason for exam; i.e. extremities or head) *Use of iterative reconstruction technique DLP: 800 mGy-cm FINDINGS: LUNG BASES: The visualized lung bases are unremarkable. LIVER, GALLBLADDER, AND BILIARY TREE: The liver is normal in size, shape, and attenuation. No focal hepatic lesion or biliary ductal dilatation is present. Status post cholecystectomy. PANCREAS: Unremarkable. SPLEEN: Unremarkable. ADRENAL GLANDS: Unremarkable. KIDNEYS AND URETERS: Left kidney: Rounded calcification in the renal pelvis measuring 1.6 x 2 x 1 cm. This has a density measurement of 1304 Hounsfield units. This stone is 11 cm from the posterior skin line. No hydronephrosis. No hydroureter. Right kidney: No calculus or hydronephrosis. BLADDER: Unremarkable. GASTROINTESTINAL TRACT: The small and large bowel are unremarkable. The appendix is unremarkable. ABDOMINAL WALL: No significant hernia is appreciated. Intramuscular lipoma along the right flank involving the abdominal wall measuring 4 x 5 x 2 cm. Axial image 46/98 series 3. LYMPH NODES: Normal. VASCULAR: Unremarkable. PELVIC VISCERA: Prostate measures 5 cm transverse. OSSEOUS STRUCTURES: Multilevel degenerative spondylosis spine. CT/CT abdomen pelvis wo IV con IMPRESSION: 1. Large stone in the left renal pelvis. No hydronephrosis. 2. Status post cholecystectomy. Fleischner guidelines were followed.
[2022-07-26 10:54] VITALS: BP 158/77; PULSE 82; RESP 20; TEMP 37.1; O2SAT 95; BMI 36.5
--- NOTE | 2022-07-26 14:40 | ED.GENADULT ---
HPI - General Adult General Chief complaint: Back Pain/Injury Stated complaint: back pain Time Seen by Provider: 07/26/22 13:08 Source: patient Mode of arrival: ambulatory Limitations: no limitations History of Present Illness HPI narrative: 72 yold mal presents to the ED for lower back pain radiating down leg. Patient states having these symptoms for the past 2 weeks. Patient denies any abdominal pain, nausea, vomitting, fever, chills, hematuria, testicular pain, or any recent trauma. Related Data Previous Rx's Medication Instructions Recorded gabapentin 300 mg capsule 300 mg PO TID #270 caps 06/13/21 furosemide 20 mg tablet 20 mg PO DAILY 60 days #60 tabs 06/29/21 atorvastatin 40 mg tablet 40 mg PO DAILY 90 days #90 tabs 10/19/21 zohra.stocking,knee,reg,xlrg #12 ea 10/29/21 AUTO PAP 6-20 cm H2O humidified AIR #1 ea 12/26/21 aspirin 81 mg tablet,delayed 81 mg PO DAILY 90 days #90 tabs 01/18/22 release (Adult Aspirin Regimen) amlodipine 5 mg tablet 5 mg PO DAILY #90 tabs 03/11/22 blood sugar diagnostic (FreeStyle #100 ea 04/26/22 Lite Strips) blood-glucose meter (FreeStyle #1 ea 04/26/22 Lite Meter kit) lancets 28 gauge (FreeStyle #100 ea 04/26/22 Lancets) meloxicam 7.5 mg tablet 7.5 mg PO DAILY #90 tabs 05/01/22 clotrimazole 1 % topical cream 1 appl topical BID 4 weeks #45 06/07/22 grams miconazole nitrate 2 % topical 1 appl topical BID 90 days #85 06/07/22 powder (Zeasorb AF) grams omeprazole 20 mg capsule,delayed 20 mg PO DAILY #90 caps 06/26/22 release sennosides 8.6 mg-docusate sodium 2 tab-cap PO BEDTIME #60 tabs 06/26/22 50 mg tablet (Senna-S) oxycodone 5 mg capsule 5 mg PO Q8H PRN pain 3 days #9 caps 07/26/22 prednisone 20 mg tablet 40 mg PO DAILY 5 days #10 tabs 07/26/22 Allergies Allergy/AdvReac Type Severity Reaction Status Date / Time No Known Allergies Allergy Verified 06/26/22 14:07 Review of Systems Review of Systems: Back pain Yes all other systems are reviewed and are negative [facility] Past Medical History Medical History (Updated 07/27/22 @ 00:03 by Jose Cyr) Ascending aorta dilatation Constipation COPD (chronic obstructive pulmonary disease) Coronary artery disease Degenerative disc disease, lumbar GERD (gastroesophageal reflux disease) History of renal calculi Hypercholesterolemia Hypertension Knee osteoarthritis Obesity (BMI 30-39.9) Obstructive sleep apnea STANLEY (obstructive sleep apnea) Osteoarthritis of right shoulder Peripheral vascular disease Polysubstance abuse Tubular adenoma of colon Vitamin D deficiency Surgical History History of esophagogastroduodenoscopy (EGD) Hx laparoscopic cholecystectomy Hx of colonoscopy No pertinent past surgical history Family History Family History Father Stroke Heart attack Mother No problems noted. Sister Breast cancer Social History Social History Household Members: Spouse Housing: Apartment Alcohol intake: current Alcohol intake frequency: does not drink Patient Tobacco Use Status: Never used Tobacco Smoked in Last 30 Days: No e-Cigarette/Vaping Use: Never Used Second Hand Smoke Exposure: No Use of substances other than those prescribed or required for medical reasons: No Advance Directives: No Advance Directives Information Provided: Yes service: No Current occupational status: retired and disabled Cognitive needs: No Hearing needs: No Vision needs: Yes Physical Exam ED Vital Signs: Vital Signs - 24 hr 07/26/22 19:44 Temperature 97.9 F Pulse Rate 88 Respiratory Rate 14 Blood Pressure 164/91 H Pulse Oximetry 96 Oxygen Delivery Method Room Air BMI result Body Mass Index 36.5 Const General: cooperative, healthy appearing, comfortable, no acute distress, well developed, alert, awake and Physically active Orientation/consciousness: oriented to time and patient oriented x3 HENMT Head: Yes normal to inspection, Yes No palpable skull fracture present, Yes normocephalic, Yes atraumatic and No abrasion Eyes General: appearance normal, both eyes and all related structures Neck Neck: Yes normal visual inspection, Yes full ROM, Yes no lymphadenopathy, Yes no meningeal signs, Yes trachea midline, Yes supple, No anterior neck swelling and No tender Chest Chest palpation & inspection: normal inspection of the chest and normal palpation of entire chest wall Resp Effort & Inspection: normal respiratory effort and able to speak in complete sentences Auscultation: clear to auscultation bilaterally Cardio Jugular venous distension: no JVD Heart sounds: S1 normal heart sound present and S2 normal heart sound present GI Inspection: Yes normal to inspection and No abdominal wall ecchymosis Palpation (GI): Soft to palpation, not firm, nontender, no guarding and not rigid General: Yes CVA tenderness (left) and Yes no CVA tenderness Back/Spine/Pelvis Back: no CVA tenderness, CVA tenderness (left) and back tenderness (lumbar) Skin General skin exam: no rashes or lesions noted and elasticity normal Neuro General: oriented to time, patient oriented x3, gait normal, tone normal, no meningeal signs and CN's II-XI intact bilaterally Cranial nerves: Yes CN's II-XII intact bilaterally Extrem General: Yes normal to inspection and Yes full ROM Psych Appearance: grossly normal, well kempt and not disheveled Course Course Course Narrative: by x-ray ordered and UA. Toradol steroid ordered Reevaluation(s) Reevaluation #1: had x-ray shows spinal arthritis but due to small blood in urine patient was sent for abdominal CT scan to rule out kidney stones. CT scan shows left renal kidney stone without any hydronephrosis. Negative for any ureter stone. CBC normal. Negative for renal failure. UA negative for UTI. Patient is safe for discharge Time: 19:11 Medical Decision Making [facility] Narrative Medical decision making narrative: Kidney stones. Lumbar radiculpathy Lab Data Result diagrams: 07/26/22 18:41 07/26/22 18:41 Labs: Lab Results 07/26/22 07/26/22 07/26/22 Range/Units 15:28 18:41 18:41 WBC 6.9 (4.8-10.8) X10*3/uL RBC 5.32 (4.60-5.80) X10*6/uL Hgb 16.3 (14.0-18.0) g/dl Hct 48.9 (42.0-52.0) % MCV 91.9 (80.0-98.0) fL MCH 30.6 (27.0-33.0) pg MCHC 33.3 (31.0-36.0) g/dl RDW 12.5 (11.0-16.0) % Plt Count 166 (160-400) X10*3/uL MPV 10.3 (9.4-12.4) fL Immature Gran % (Auto) 0.3 (0.0-0.4) % Neut % (Auto) 80.7 H (45-73) % Lymph % (Auto) 15.6 L (20-40) % Reynolds % (Auto) 2.0 (2-11) % Eos % (Auto) 1.0 (0-4) % Baso % (Auto) 0.4 (0-2) % Lymph # (Auto) 1.1 L (1.2-4.9) X10*3/uL Reynolds # (Auto) 0.1 (0.1-1.2) X10*3/uL Eos # (Auto) 0.1 (0.0-0.4) X10*3/uL Baso # (Auto) 0.0 (0.0-0.2) X10*3/uL Abs Immat Gran (auto) 0.02 (0.00-0.03) X10*3/uL Absolute Neuts (auto) 5.5 (2.0-8.3) x10*3/uL Absolute Nucleated RBC 0.000 (0.0-0.012) X10*3/uL Nucleated RBC % (auto) 0.0 (0.0-0.2) /100WBC Sodium 140 (135-145) mmol/L Potassium 4.3 (3.3-5.1) mmol/L Chloride 101 (96-108) mmol/L Carbon Dioxide 27 (22-29) mmol/L Anion Gap 16 (12-20) BUN 9 (9-16) mg/dL Creatinine 0.91 (0.5-1.4) mg/dL Estim Creat Clear Calc 86.4 Estimated GFR > 60 Random Glucose 153 H (60-115) mg/dL Calcium 9.8 (8.4-10.2) mg/dL Total Bilirubin 1.5 H (0.0-1.0) mg/dL AST 30 (5-37) U/L ALT 34 (0-40) U/L Alkaline Phosphatase 127 H (39-117) U/L Total Protein 8.4 H (6.5-8.0) g/dL Albumin 4.6 (3.5-5.0) g/dL Urine Color Yellow Urine Appearance Clear Urine pH 7.5 (5.0-9.0) Ur Specific [place] 1.010 (1.005-1.025) Urine Protein Negative (Neg-Trace) mg/dL Urine Glucose (UA) Negative (Negative) mg/dL Urine Ketones Negative (Negative) mg/dL Urine Blood Trace H (Negative) Urine Nitrite Negative (Negative) Ur Leukocyte Esterase Negative (Negative) Urine RBC 0-2 (0-2) /HPF Urine WBC 0-5 (0-5) /HPF Ur Squamous Epith Cells 0-2 (0-2) /HPF Urine Bacteria None Seen (None Seen) Hyaline Casts 0-2 (0-2) /LPF Discharge Plan Discharge Clinical Impression: Lumbar radiculopathy, Kidney stone Patient Disposition: Home, Self-Care Instructions: Kidney Stones (ED), Lumbar Radiculopathy (ED) Additional Instructions: La radiograf?a muestra radiculopat?a lumbar. La tomograf?a computarizada del abdomen y la pelvis muestra un c?lculo en la pelvis renal izquierda. El an?lisis de torie result? normal. La funci?n renal es normal. La orina muestra torie linda negativa para infecci?n. Ser? dado de ana con analg?sicos y esteroides. Debe hacer un seguimiento con frey proveedor de atenci?n primaria y frey neur?logo. Regrese al servicio de urgencias por cualquier incontinencia urinaria o intestinal, fiebre, escalofr?os, dolor de espalda intenso, hematuria, n?useas, v?mitos, dolor testicular, secreci?n del pene o cualquier otro s?ntoma preocupante. Prescriptions: New oxycodone 5 mg capsule 5 mg PO Q8H PRN (Reason: pain) 3 Days Qty: 9 0RF Rx Instructions: Partial Fill upon patient request. side effect is drowsiness. Do not take at work or while driving. prednisone 20 mg tablet 40 mg PO DAILY 5 Days Qty: 10 0RF No Action gabapentin 300 mg capsule 300 mg PO TID Qty: 270 2RF furosemide 20 mg tablet 20 mg PO DAILY 60 Days Qty: 60 0RF Rx Instructions: Must make a cardiology follow-up for refills (DME) zohra.stocking,knee,reg,xlrg Misc See Rx Instructions .Route Qty: 12 0RF Rx Instructions: As directed 20-30 mm HG (DME) AUTO PAP 6-20 cm H2O humidified AIR See Rx Instructions .Route .MEDSUPPLY Qty: 1 0RF Rx Instructions: As directed amlodipine 5 mg tablet 5 mg PO DAILY Qty: 90 2RF meloxicam 7.5 mg tablet 7.5 mg PO DAILY Qty: 90 0RF (DME) blood-glucose meter [FreeStyle Lite Meter] Kit See Rx Instructions .ROUTE .MEDSUPPLY Qty: 1 0RF Rx Instructions: As directed (DME) FreeStyle Lite Strips Strip See Rx Instructions .ROUTE .MEDSUPPLY Qty: 100 3RF Rx Instructions: As directed check the BS QD (DME) lancets [FreeStyle Lancets] 28 gauge misc See Rx Instructions .ROUTE .MEDSUPPLY Qty: 100 3RF Rx Instructions: As directed check BS QD omeprazole 20 mg capsule,delayed release(DR/EC) 20 mg PO DAILY Qty: 90 1RF sennosides-docusate sodium [Senna-S] 8.6-50 mg tablet 2 tab-cap PO BEDTIME Qty: 60 0RF atorvastatin 40 mg tablet 40 mg PO DAILY 90 Days Qty: 90 3RF aspirin [Adult Aspirin Regimen] 81 mg tablet,delayed release (DR/EC) 81 mg PO DAILY 90 Days Qty: 90 3RF clotrimazole 1 % cream 1 appl topical BID 28 Days Qty: 45 1RF miconazole nitrate [Zeasorb AF] 2 % powder 1 appl topical BID 90 Days Qty: 85 0RF Referrals: [facility] [Provider Group] ( lumbar radiculopathy. Kidney stones) Po,Neo Oro MD [Primary Care Provider] - ( Lumbar radiculopathy. Kidney stone) Interventions: ED Discharge Assessment Last Done: 07/26/22 19:46 Discharge Date/Time: 07/26/22 19:46 Print Language: Turkish
[2022-07-26 15:20] VITALS: BP 162/85; PULSE 65; RESP 12; O2SAT 97
[2022-07-26] MEDS: Ketorolac Tromethamine 30 MG/ML VIAL IM (15:23)
[2022-07-26] MEDS: predniSONE 20 MG TABLET 40 MG PO (15:24)
[2022-07-26 15:36] LABS: Appearance Urine Clear; Color Urine Yellow; Glucose Urine UA Negative (Negative); Leukocyte Esterase Urine Negative (Negative); Nitrite Urine Negative (Negative); PH 7.5 (5.0-9.0); UMIC TRIGGER UACC YES; Urine Blood Trace (Negative); Urine Ketones Negative (Negative); Urine Protein Negative (Neg-Trace)
[2022-07-26 15:41] LABS: Bacteria Urine None Seen (None Seen); Hyaline Casts Urine 0-2 /LPF (0-2); RBC Urine 0-2 /HPF (0-2); Squamous Epithelial Cell Urine 0-2 /HPF (0-2); WBC Urine 0-5 /HPF (0-5)
[2022-07-26 18:45] LABS: MANUAL DIFF FLAG NO
[2022-07-26 18:46] LABS: Basophils Percent Auto 0.4 % (0-2); Eosinophils Absolute Auto 0.1 X10*3/uL (0.0-0.4); Hematocrit 48.9 % (42.0-52.0); Hemoglobin 16.3 g/dl (14.0-18.0); Imm Gran Abs Auto 0.02 X10*3/uL (0.00-0.03); Imm Gran Pct Auto 0.3 % (0.0-0.4); Lymphocytes Absolute Auto 1.1 X10*3/uL (1.2-4.9); Lymphocytes Percent Auto 15.6 % (20-40); Mean Corpuscular HGB Conc 33.3 g/dl (31.0-36.0); Mean Corpuscular Hemoglobin 30.6 pg (27.0-33.0); Mean Corpuscular Volume 91.9 fL (80.0-98.0); Mean Platelet Volume 10.3 fL (9.4-12.4); Monocytes Absolute Auto 0.1 X10*3/uL (0.1-1.2); Neutrophils Absolute Auto 5.5 x10*3/uL (2.0-8.3); Neutrophils Percent Auto 80.7 % (45-73); Platelet Count 166 X10*3/uL (160-400); Red Blood Count 5.32 X10*6/uL (4.60-5.80); Red Cell Distribution Width 12.5 % (11.0-16.0); White Blood Count 6.9 X10*3/uL (4.8-10.8)
[2022-07-26 19:02] LABS: Alanine Aminotransferase 34 U/L (0-40); Albumin Level 4.6 g/dL (3.5-5.0); Alkaline Phosphatase 127 U/L (39-117); Anion Gap 16 (12-20); Aspartate Amino Transferase 30 U/L (5-37); Bilirubin Total 1.5 mg/dL (0.0-1.0); Blood Urea Nitrogen 9 mg/dL (9-16); Calcium 9.8 mg/dL (8.4-10.2); Carbon Dioxide 27 mmol/L (22-29); Chloride 101 mmol/L (96-108); Creatinine Clr Calc Pharmacy 86.4; Estimated Glomerular Filt Rate > 60; Glucose Random 153 mg/dL (60-115); Potassium 4.3 mmol/L (3.3-5.1); Sodium 140 mmol/L (135-145); Total Protein 8.4 g/dL (6.5-8.0)
[2022-07-26 19:44] VITALS: BP 164/91; PULSE 88; RESP 14; TEMP 36.6; O2SAT 96
--- NOTE | 2022-07-26 19:45 | PC.NURSE ---
Pt aox4. Discharged instructions reviewed with pt. Pt verbalizes understanding.
== END 2022-07-26 19:46 | disposition home or self-care (01) ==
PROVIDERS: Physician Assistant; Emergency Provider Emergency Medicine; PCP Internal Medicine
DX: N20.0 Calculus of kidney (principal); M54.50 Low back pain, unspecified; M79.605 Pain in left leg; M79.604 Pain in right leg; Z79.899 Other long term (current) drug therapy
CPT/HCPCS: 36415; 72100; 74176; 80053; 81001; 85025; 96372; 99284; J1885

== ENCOUNTER → 2022-08-08 13:01 | Outpatient (BNVA) | payer OTHER, SELFPAY | PROVIDERS: PCP Physician Assistant; Visit Provider Urology | DX: N20.0 Calculus of kidney (principal); R10.9 Unspecified abdominal pain | CPT/HCPCS: 99202 ==

== ENCOUNTER 2022-08-28 08:14 | Day surgery (SDC) | payer OTHER, SELFPAY ==
--- NOTE | 2022-08-27 09:22 | HO.ANESPROP2 ---
HPI - Anesthesia Eval Consult details Narrative: 72yo M?for Left Lithotripsy ESW Follows [facility] [place] cardiology yearly for CAD, asc PMFSH Active Problems Active Problems: All Active Problems (Updated 08/08/22 @ 14:12 by Shaina Bianchi MD) Kidney stone on left side (Acute) Flank pain (Acute) Nephrolithiasis (Acute) Constipation (Acute) Vertigo (Acute) Hearing difficulty (Acute) Impacted cerumen of both ears (Acute) Tinea pedis (Acute) Dizziness (Acute) Knee osteoarthritis (Acute) STANLEY (obstructive sleep apnea) (Acute) Type 2 diabetes mellitus with hyperglycemia (Acute) COVID-19 virus infection (Acute) Sinus bradycardia (Acute) Essential hypertension (Acute) Atherosclerotic cardiovascular disease (Acute) Osteoarthritis of knees, bilateral (Acute) Peripheral vascular disease (Acute) Tubular adenoma of colon (Acute) Obesity (BMI 30-39.9) (Acute) Abdominal wall abscess (Acute) Ascending aorta dilatation (Acute) Coronary artery disease (Acute) GERD (gastroesophageal reflux disease) (Acute) Hypercholesterolemia (Acute) Obstructive sleep apnea (Acute) COPD (chronic obstructive pulmonary disease) (Acute) Past Medical History Medical History Ascending aorta dilatation Constipation COPD (chronic obstructive pulmonary disease) Coronary artery disease Degenerative disc disease, lumbar GERD (gastroesophageal reflux disease) History of renal calculi Hypercholesterolemia Hypertension Knee osteoarthritis Obesity (BMI 30-39.9) Obstructive sleep apnea STANLEY (obstructive sleep apnea) Osteoarthritis of right shoulder Peripheral vascular disease Polysubstance abuse Tubular adenoma of colon Vitamin D deficiency Family History Family History Father Stroke Heart attack Mother No problems noted. Sister Breast cancer Surgical History Surgical History History of esophagogastroduodenoscopy (EGD) Hx laparoscopic cholecystectomy Hx of colonoscopy No pertinent past surgical history Social History Social History Household Members: Spouse Housing: Apartment Alcohol intake: current Alcohol intake frequency: does not drink Patient Tobacco Use Status: Never used Tobacco e-Cigarette/Vaping Use: Never Used Second Hand Smoke Exposure: No service: No Current occupational status: retired and disabled Cognitive needs: No Hearing needs: No Vision needs: Yes Meds Allergies Allergy/AdvReac Type Severity Reaction Status Date / Time No Known Allergies Allergy Verified 08/08/22 13:12 Exam Exam Date and Time: August 27, 2022921 Narrative Narrative: ECHO 10/2021 Conclusions: - The left ventricular systolic function is normal.? The ? calculated ejection fraction is 54% by biplane method. ? - The basal inferior segment is hypokinetic. ? - There is mild calcification of the aortic valve. ? - There is mild dilatation of the ascending aorta measuring 4.30 cm.??
--- NOTE | 2022-08-27 13:53 | HO.ANESPROP2 ---
Documented by User: Deepti Hernandez NP 08/27/22 14:11 HPI - Anesthesia Eval Consult details Narrative: 72yo M for Left Lithotripsy ESW Cardiac cleared Unless any new concerns since last seen, may proceed with procedure for kidney stones. Low to intermediate cardiac risk. Pulmo cleared FROM PULMONARY POINT OF VIEW , NO CONTRAINDICATION , PT DOES NOT NEED TO USE CPAP DURING THE PROCEDURE T/C with patients 08/27/22: Pt has not had any CP or SOB. Intermittent lower extremity long standing. [facility] Active Problems Active Problems: All Active Problems (Updated 08/08/22 @ 14:12 by Shaina Bianchi MD) Kidney stone on left side (Acute) Flank pain (Acute) Nephrolithiasis (Acute) Constipation (Acute) Vertigo (Acute) Hearing difficulty (Acute) Impacted cerumen of both ears (Acute) Tinea pedis (Acute) Dizziness (Acute) Knee osteoarthritis (Acute) STANLEY (obstructive sleep apnea) (Acute) Type 2 diabetes mellitus with hyperglycemia (Acute) COVID-19 virus infection (Acute) Sinus bradycardia (Acute) Essential hypertension (Acute) Atherosclerotic cardiovascular disease (Acute) Osteoarthritis of knees, bilateral (Acute) Peripheral vascular disease (Acute) Tubular adenoma of colon (Acute) Obesity (BMI 30-39.9) (Acute) Abdominal wall abscess (Acute) Ascending aorta dilatation (Acute) Coronary artery disease (Acute) GERD (gastroesophageal reflux disease) (Acute) Hypercholesterolemia (Acute) Obstructive sleep apnea (Acute) COPD (chronic obstructive pulmonary disease) (Acute) Past Medical History Medical History Ascending aorta dilatation Constipation COPD (chronic obstructive pulmonary disease) Coronary artery disease Degenerative disc disease, lumbar GERD (gastroesophageal reflux disease) History of renal calculi Hypercholesterolemia Hypertension Knee osteoarthritis Obesity (BMI 30-39.9) Obstructive sleep apnea STANLEY (obstructive sleep apnea) Osteoarthritis of right shoulder Peripheral vascular disease Polysubstance abuse Tubular adenoma of colon Vitamin D deficiency Family History Family History Father Stroke Heart attack Mother No problems noted. Sister Breast cancer Surgical History Surgical History History of esophagogastroduodenoscopy (EGD) Hx laparoscopic cholecystectomy Hx of colonoscopy No pertinent past surgical history Social History Social History Household Members: Spouse Housing: Apartment Alcohol intake: current Alcohol intake frequency: former alcohol drinker Patient Tobacco Use Status: Never used Tobacco e-Cigarette/Vaping Use: Never Used Second Hand Smoke Exposure: No Use of substances other than those prescribed or required for medical reasons: No Are you DNR?: No Advance Directives: No Advance Directives Information Provided: Yes service: No Current occupational status: retired and disabled Cognitive needs: No Hearing needs: No Vision needs: Yes Meds Allergies Allergy/AdvReac Type Severity Reaction Status Date / Time No Known Allergies Allergy Verified 08/08/22 13:12 Exam Exam Date and Time: August 27, 2022 1353 Pertinent Lab Results Pertinent Lab Results: Laboratory Tests 07/26/22 07/26/22 18:41 18:41 WBC 6.9 Hgb 16.3 Hct 48.9 Plt Count 166 Sodium 140 Potassium 4.3 Chloride 101 Carbon Dioxide 27 BUN 9 Creatinine 0.91 Narrative Narrative: ECHO 10/2021 Conclusions: - The left ventricular systolic function is normal.? The ? calculated ejection fraction is 54% by biplane method. ? - The basal inferior segment is hypokinetic. ? - There is mild calcification of the aortic valve. ? - There is mild dilatation of the ascending aorta measuring 4.30 cm.?? Assessment and Plan Assessment Anesthesia Assessment: Chart Reviewed Documented by User: Marta Javier MD 08/28/22 11:19 PMFSH Active Problems Active Problems: All Active Problems (Updated 08/08/22 @ 14:12 by Shaina Bianchi MD) Kidney stone on left side (Acute) Flank pain (Acute) Nephrolithiasis (Acute) Constipation (Acute) Vertigo (Acute) Hearing difficulty (Acute) Impacted cerumen of both ears (Acute) Tinea pedis (Acute) Dizziness (Acute) Knee osteoarthritis (Acute) Type 2 diabetes mellitus with hyperglycemia (Acute) COVID-19 virus infection (Acute) Sinus bradycardia (Acute) Essential hypertension (Acute) Atherosclerotic cardiovascular disease (Acute) Osteoarthritis of knees, bilateral (Acute) Peripheral vascular disease (Acute) Tubular adenoma of colon (Acute) Obesity (BMI 30-39.9) (Acute) Abdominal wall abscess (Acute) Ascending aorta dilatation (Acute)- 4.3cm Coronary artery disease (Acute)- Denies recent chest pain GERD (gastroesophageal reflux disease) (Acute) Hypercholesterolemia (Acute) Obstructive sleep apnea (Acute)- Uses CPAP sometimes COPD (chronic obstructive pulmonary disease) (Acute) Past Medical History Medical History Ascending aorta dilatation Constipation COPD (chronic obstructive pulmonary disease) Coronary artery disease Degenerative disc disease, lumbar GERD (gastroesophageal reflux disease) History of renal calculi Hypercholesterolemia Hypertension Knee osteoarthritis Obesity (BMI 30-39.9) Obstructive sleep apnea STANLEY (obstructive sleep apnea) Osteoarthritis of right shoulder Peripheral vascular disease Polysubstance abuse Tubular adenoma of colon Vitamin D deficiency Family History Family History Father Stroke Heart attack Mother No problems noted. Sister Breast cancer Family history of problems with anesthesia: No Surgical History Surgical History History of esophagogastroduodenoscopy (EGD) Hx laparoscopic cholecystectomy Hx of colonoscopy No pertinent past surgical history History of Problems with Anesthesia: No Social History Social History Household Members: Spouse Housing: Apartment Alcohol intake: current Alcohol intake frequency: former alcohol drinker Patient Tobacco Use Status: Never used Tobacco e-Cigarette/Vaping Use: Never Used Second Hand Smoke Exposure: No Use of substances other than those prescribed or required for medical reasons: No Are you DNR?: No Advance Directives: No Advance Directives Information Provided: Yes service: No Current occupational status: retired and disabled Cognitive needs: No Hearing needs: No Vision needs: Yes Meds Allergies Allergy/AdvReac Type Severity Reaction Status Date / Time No Known Allergies Allergy Verified 08/08/22 13:12 Exam Height,Weight and Vital Signs: Height 5 ft 8 in Weight 104.043 kg Vital Signs Temp Pulse Resp BP Pulse Ox O2 Del Method 08/28/22 09:33 97.7 F 57 16 164/79 H 96 Room Air Narrative Narrative: ECHO 10/2021 Conclusions: - The left ventricular systolic function is normal.? The ? calculated ejection fraction is 54% by biplane method. ? - The basal inferior segment is hypokinetic. ? - There is mild calcification of the aortic valve. ? - There is mild dilatation of the ascending aorta measuring 4.30 cm.?? EKG 09/13/21 SB 48. Non-specific St and T wave abnormality Airway Mallampati Class: II TM Dist: >3cm Neck ROM: Full Denture: Upper and Lower Heart: RRR Lungs: CTAB Assessment and Plan Assessment Anesthesia Assessment: Anesthesia Plan Discussed Final Anesthetic Review Family History of Problems with Anesthesia: No History of Problems with Anesthesia: No NPO: Yes ASA Class: III Final Preanesthetic Review: No Changes in Pt Med Stat, Meds/Allgs Chart Reviewed, Consent Obtained/Reviewed and Anes Risks/Benef Reviewed Patient Risk: Intermediate Procedure Risk: Low Assessment/Block/Sedation in SS: Assess/Block/Sedation- Anesthetic Plan Anesthetic Plan: MAC: Disposition: Standard PACU
[2022-08-28] VITALS (25 sets, daily range): BP systolic 141–189; BP diastolic 58–96; PULSE 47–75; RESP 12–20; TEMP 36.5–37.1; O2SAT 93–99; BMI 34.9; BMI 35.8
--- NOTE | ~2022-08-28 | XR_ITS ---
EXAMINATION: XR ABDOMEN KUB CLINICAL INDICATION: Pre-ESWL COMPARISON: 07/26/2022 TECHNIQUE: AP view of the abdomen. FINDINGS: There is a 2.5 cm calculus overlying the left renal pelvis, corresponding to the appearance on prior CT. No additional suspicious calcifications overlying the expected position of either kidney or ureter. Right upper quadrant surgical clips. The lung bases are clear. Degenerative change throughout the spine. Nonobstructive bowel gas pattern. Phleboliths in the pelvis. XR/XR KUB IMPRESSION: 2.5 cm calculus overlying the left renal pelvis. This corresponds to the appearance on prior CT.
--- NOTE | ~2022-08-28 | CT_ITS ---
EXAMINATION: CT ABDOMEN AND PELVIS WITHOUT CONTRAST CLINICAL INFORMATION: Pain following left ESWL COMPARISON: CT 07/26/2022 TECHNIQUE: Multidetector volumetric imaging was performed from the superior aspect of the liver through the pubic symphysis. Sagittal and coronal reformatted images were obtained on the technologist's workstation. This CT examination was performed using dose optimization techniques as appropriate, variously including the following: *Automated exposure control *Adjustment of mA and/or kV according to patient size (this includes techniques or standardized protocols for targeted exams where dose is matched to indication/reason for exam; i.e. extremities or head) *Use of iterative reconstruction technique DLP: 627 mGy-cm FINDINGS: LUNG BASES: The visualized lung bases are unremarkable. LIVER, GALLBLADDER, AND BILIARY TREE: The liver is normal in size, shape, and attenuation. No focal hepatic lesion or biliary ductal dilatation is present. Gallbladder surgically absent. No change. PANCREAS: Unremarkable. SPLEEN: Unremarkable. ADRENAL GLANDS: Unremarkable. KIDNEYS AND URETERS: There is a left subcapsular hematoma which measures approximately 6.9 cm in AP dimension, up to 2.8 cm in transverse dimension, and a length of 9.3 cm along the periphery of the upper in the midpole. Mild perinephric stranding which is slightly increased. Previously demonstrated calculus in the renal pelvis now appears elongated, likely innumerable tiny fragments conforming to the posterior upper and mid calyces and renal pelvis with a small amount of debris in the dependent urinary bladder. No hydronephrosis. BLADDER: Thin layer of calcific debris in the dependent urinary bladder. GASTROINTESTINAL TRACT: The small and large bowel are unremarkable. The appendix is unremarkable. ABDOMINAL WALL: No significant hernia is appreciated. LYMPH NODES: Normal. VASCULAR: Scattered atherosclerotic calcifications. PELVIC VISCERA: Unremarkable. OSSEOUS STRUCTURES: Unremarkable. CT/CT abdomen pelvis wo IV con IMPRESSION: 1. There is a left renal subcapsular hematoma which measures approximately 6.9 x 2.8 x 9.3 cm. Mass effect greatest on the upper and midpole aspects. 2. Previously demonstrated calculus in the left renal pelvis now appears elongated, likely innumerable tiny fragments conforming to the posterior calyx and renal pelvis with a small amount of debris in the dependent urinary bladder. No hydronephrosis.
--- NOTE | 2022-08-28 10:50 | MHC.SHP ---
Pre-Procedural Eval Section A Date of Service: 08/28/22 The patient is an INPATIENT: No Section B Chief Complaint: Calculus of kidney Allergies: Allergies Allergy/AdvReac Type Severity Reaction Status Date / Time No Known Allergies Allergy Verified 08/08/22 13:12 Plan Diagnosis/Plan: Unchanged I have reviewed the history and physical and performed a pertinent physical examination on my patient. No changes have occurred unless specified. Large Left renal stone. Discussed planned staged procedure due to size of stone, likely need to repeat procedure if stone is not completely fragmented due to sized > 1 cm. Discussed risks to include but not limited to, blood in the urine, bruising to the skin, kidney hematoma, possible need for another procedure if a stone fragment obstructs the ureter while passing,
--- NOTE | 2022-08-28 12:22 | W.PM.OPN ---
Operative Note Operative Note Date of Service: 08/28/22 Narrative: PreOperative Diagnosis:? ? Left Renal stone Post Operative Diagnosis:?Left? Renal stone Procedure:?Left? ESWL Surgeon:?Dr Shaina Bianchi Anesthesia:? General Indications for procedure: The patient understands ESWL may be a staged procedure and subsequent intervention may be required based on imaging after ESWL.? They also understand? there is a risk of bleeding to the kidney, infection, damage to adjacent organs, and stone migration following the procedure. - Imaging KUB 2 cm left renal stone Procedure: After informed consent was verified the patient was brought to the operating room and placed in a supine position.? Anesthesia was performed per protocol. Safety pause time-out was performed. Imaging was displayed in the room and laterality confirmed. ESWL was performed.?The stone was visualized on both fluoroscopy and ultrasound.? Shockwave lithotripsy was performed, the first 300 shocks at 60 hertz.? A pause for 3 minutes.? A total of 2000 shocks to a maximum of power of 20 with a maximum rate of 120 hertz.? Some fragmentation of the stone was appreciated. The patient tolerated the procedure well and was transferred to the recovery area upon completion. There was no evidence for flank discoloration. Complications: None
[2022-08-28] MEDS: Acetaminophen 325 MG TABLET 650 MG PO ×2 (13:03→19:10)
[2022-08-28] MEDS: fentaNYL citrate/PF 100 MCG/2 ML VIAL 25 MCG IVPUSH ×4 (13:04→14:10)
[2022-08-28] MEDS: oxyCODONE HCl Immed Release 5 MG TABLET PO ×2 (13:27→19:11)
[2022-08-28] MEDS: ondansetron HCL 4 MG/2 ML VIAL IVPUSH (15:31)
[2022-08-28] MEDS: Sodium Chloride 0.45 % 1,000 ML 100 ML IVCONT (18:29)
[2022-08-28] MEDS: Docusate Sodium 100 MG CAPSULE PO (19:14)
[2022-08-28 19:28] LABS: MANUAL DIFF FLAG NO
[2022-08-28 19:34] LABS: Basophils Percent Auto 0.2 % (0-2); Eosinophils Percent Auto 0.1 % (0-4); Hematocrit 45.3 % (42.0-52.0); Hemoglobin 15.2 g/dl (14.0-18.0); Imm Gran Abs Auto 0.03 X10*3/uL (0.00-0.03); Imm Gran Pct Auto 0.3 % (0.0-0.4); Lymphocytes Absolute Auto 1.1 X10*3/uL (1.2-4.9); Lymphocytes Percent Auto 10.5 % (20-40); Mean Corpuscular HGB Conc 33.6 g/dl (31.0-36.0); Mean Corpuscular Hemoglobin 30.8 pg (27.0-33.0); Mean Corpuscular Volume 91.7 fL (80.0-98.0); Mean Platelet Volume 10.2 fL (9.4-12.4); Monocytes Absolute Auto 0.9 X10*3/uL (0.1-1.2); Monocytes Percent Auto 7.9 % (2-11); Neutrophils Absolute Auto 8.7 x10*3/uL (2.0-8.3); Platelet Count 193 X10*3/uL (160-400); Red Blood Count 4.94 X10*6/uL (4.60-5.80); Red Cell Distribution Width 12.7 % (11.0-16.0); White Blood Count 10.7 X10*3/uL (4.8-10.8)
[2022-08-28 19:48] LABS: Anion Gap 14 (12-20); Blood Urea Nitrogen 11 mg/dL (9-16); Calcium 9.3 mg/dL (8.4-10.2); Carbon Dioxide 28 mmol/L (22-29); Chloride 102 mmol/L (96-108); Creatinine Clr Calc Pharmacy 64.6; Estimated Glomerular Filt Rate 60; Glucose Random 148 mg/dL (60-115); Potassium 4.2 mmol/L (3.3-5.1); Sodium 140 mmol/L (135-145)
[2022-08-29] MEDS: Sodium Chloride 0.45 % 1,000 ML 100 ML IVCONT (03:58)
[2022-08-29 04:00] VITALS: BP 158/83; PULSE 91; RESP 18; TEMP 37.1; O2SAT 94
[2022-08-29 07:27] VITALS: BP 164/85; PULSE 80; RESP 18; TEMP 37.7; O2SAT 91
--- NOTE | 2022-08-29 08:28 | MHC.CM.PN ---
DP: PT MEDICALLY CLEARED FOR DC HOME, NO SERVICES. PER PT, BROTHER WILL TRANSPORT HOME.
[2022-08-29] MEDS: oxyCODONE HCl Immed Release 5 MG TABLET PO (09:01)
--- NOTE | 2022-08-29 14:13 | HO.POSTANES ---
Post Anesthesia Evaluation Post Anesthesia Evaluation Vital Signs: Vital Signs Temp Pulse Resp BP Pulse Ox O2 Del Method 08/29/22 07:27 99.8 F 80 18 164/85 H 91 L Room Air 08/29/22 04:00 98.7 F 91 18 158/83 H 94 Room Air Anesthesia: General Mental Status: Awake Pain Control: Satisfactory Nausea/Vomiting: None Hydration: Adequate Anesthesia-Related Issues: No Anes. Related Issues
== END 2022-08-29 12:08 | disposition home or self-care (01) ==
LOC: HO.SSS 12:26 → HO.S3 17:40
PROVIDERS: PCP Internal Medicine; Visit Provider Urology
PROC: (CPT 50590; principal; 2022-08-28 10:10)
DX: N20.0 Calculus of kidney (principal); N99.840 Postprocedural hematoma of a genitourinary system organ or structure following a genitourinary system procedure; Y83.8 Other surgical procedures as the cause of abnormal reaction of the patient, or of later complication, without mention of misadventure at the time of the procedure; Y92.234 Operating room of hospital as the place of occurrence of the external cause; I10 Essential (primary) hypertension; I25.10 Atherosclerotic heart disease of native coronary artery without angina pectoris; J44.9 Chronic obstructive pulmonary disease, unspecified; Z79.82 Long term (current) use of aspirin; Z79.899 Other long term (current) drug therapy
CPT/HCPCS: 50590; 36415; 74018; 74176; 80048; 85025; J0690; J2405; J3010

== ENCOUNTER → 2022-09-17 13:57 | Outpatient (BNVA) | payer OTHER, SELFPAY | PROVIDERS: PCP Internal Medicine; Referring Provider Internal Medicine; Visit Provider Internal Medicine | DX: I25.10 Atherosclerotic heart disease of native coronary artery without angina pectoris (principal); I77.810 Thoracic aortic ectasia; I10 Essential (primary) hypertension; I45.10 Unspecified right bundle-branch block; Z79.899 Other long term (current) drug therapy | CPT/HCPCS: 93005; 99212 ==

== ENCOUNTER 2022-09-25 11:50 | Outpatient (REF) | payer OTHER, SELFPAY ==
--- NOTE | ~2022-09-25 | XR_ITS ---
EXAMINATION: XR ABDOMEN KUB CLINICAL INDICATION: Calculus of kidney COMPARISON: 08/28/2022 TECHNIQUE: AP view of the abdomen. FINDINGS: Nonobstructive abdominal bowel gas pattern. Right upper quadrant cholecystectomy clips. Degenerative changes of the lumbar spine. The previously seen 2.5 cm left renal calculus is no longer seen. There is crescentic 1.3 cm density which is most likely associated with a bowel loop rather than a calcification. There is a left pelvic phlebolith. XR/XR KUB IMPRESSION: Previously seen 2.5 cm left renal calculus no longer seen. There is a crescentic 1.3 cm density projecting in the region of the left kidney which is most likely from a bowel loop rather than a residual calcification.
== END 2022-09-25 11:51 | disposition home or self-care (01) ==
LOC: HO.XRAY 11:50
PROVIDERS: PCP Internal Medicine; Visit Provider Urology
DX: N20.0 Calculus of kidney (principal)
CPT/HCPCS: 74018

== ENCOUNTER → 2022-09-26 10:48 | Outpatient (BNVA) | payer OTHER, SELFPAY | PROVIDERS: PCP Internal Medicine; Visit Provider Internal Medicine | DX: G47.33 Obstructive sleep apnea (adult) (pediatric) (principal); J43.1 Panlobular emphysema; E66.9 Obesity, unspecified; Z68.34 Body mass index [BMI] 34.0-34.9, adult | CPT/HCPCS: 99212 ==

== ENCOUNTER → 2022-10-02 12:47 | Outpatient (BNVA) | payer OTHER, SELFPAY | PROVIDERS: PCP Internal Medicine; Visit Provider Urology | DX: Z13.89 Encounter for screening for other disorder (principal) ==

== ENCOUNTER → 2022-10-07 08:12 | Outpatient (REF) | payer OTHER, SELFPAY ==
--- NOTE | 2022-10-07 08:14 | CA_ITS ---
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 Low normal LV systolic function with LVEF of 50-55% with impaired relaxation filling pattern 2. Mildly dilated left atrium 3. Mild aortic regurgitation 4. Mildly dilated ascending aorta at 4.1 cm on this study 5. Normal RV systolic pressure 6. No gross pericardial effusion Findings Left Ventricle Normal left ventricular cavity size. There is mildly increased left ventricular wall thickness. The left ventricular systolic function is low normal. The visually estimated ejection fraction is between 50-55%. Spectral Doppler is indicative of an impaired relaxation filling pattern. E/E prime ratio is between 8 and 15 consistent with indeterminate filling pressures. Right Ventricle Normal right ventricular cavity size and systolic function. Atria The left atrium is mildly dilated. There is no evidence of interatrial shunt. The right atrium is normal in size. Aortic Valve There is mild thickening of the aortic valve. There is no aortic valve stenosis. There is mild aortic valve regurgitation. Mitral Valve There is mild anterior and posterior mitral leaflet thickening. There is trace mitral valve regurgitation. There is no mitral valve stenosis. Pulmonic Valve The pulmonic valve was not well visualized. Tricuspid Valve Likely normal tricuspid valve structure and function. There is trace tricuspid valve regurgitation. The right ventricular systolic pressure is normal. The right ventricular systolic pressure is 23 mmHg. Normal right atrial pressure. There is no evidence of pulmonary hypertension. Great Vessels The pulmonary artery was not well visualized. There is mild dilatation of the ascending aorta measuring 4.10 cm. Venous The inferior vena cava is normal in size and collapses greater than 50% with inspiration. Pericardium/Pleural There is no evidence of pericardial effusion. Prior Study Comparison No significant change compared to prior study dated: 10/23/2021. Measurements 2D Linear Measurements IVSd: 1.36 0.6-0.9/0.6-1.0 cm LVIDd: 5.01 3.9-5.3/4.2-5.9 cm LVIDd Index: 2.32 2.4-3.2/2.2-3.1 cm/m2 LVIDs: 3.44 2.0-3.6 cm LVPWd: 1.35 0.7-1.1 cm Ao Root: 3.80 2.1-3.5 cm LA Diam: 4.40 2.7-3.8/3.0-4.0 cm LAIDs Index: 2.04 1.5-2.3 cm/m2 LV Mass: 347.72 67-162/88-224 g LV Mass Index: 160.98 43-95/49-115 g/m2 LVOT Diam: 2.50 3.0+(-)1.3 cm 2D Systolic Function EF 4C: 55.30 >55% EF 2C: 41.90 >55% EF BiP: 50.50 >55% Mitral Valve MV Pk E: 0.44 MV PK A: 0.79 MV Decel Time: 249.00 E/A: 0.60 E'Lateral: 6.09 E'Medial: 4.79 E/E' Med: 9.10 E/E' Lat: 7.20 PHT: 73.00 MVA PHT: 3.01 Decel [place]: 1.75 Aortic Valve AoV Pk Bo: 1.62 AoV Mn Bo: 1.05 AoV VTI: 0.37 AoV Pk Grad: 10.00 Aov Mn Grad: 6.00 ANIRUDH Cont.VTI: 2.99 AI Pk Bo: 4.31 AI [place]: 2.35 LVOT LVOT Pk Bo: 0.92 LVOT Mn Bo: 0.61 LVOT VTI: 0.22 LVOT Pk Grad: 3.00 LVOT Mn Grad: 2.00 LVOT Diam: 2.50 LVOT Area: 4.91 Diastolic Function MV Pk E: 0.44 MV Pk A: 0.79 E/A: 0.60 E'Medial: 4.79 E/E' Med: 9.10 E' Laterial: 6.09 E/E' Lat: 7.20 Right Ventricle TAPSE (mm): 21.00 TVS' Bo: 10.00 Tricuspid Valve TR Pk Bo: 2.26 TR Pk Grad: 20.00 RA Press: 3.00 RVSP: 23.00 Great Vessels Aorta Ao Root-2D: 3.80 2.0-3.7 cm Ao Asc: 4.10 2.1-3.4 cm Pulmonary Valve PV Pk Bo: 1.00 Peak PV Grad: 4.00 Updated in Other Vendor System with Status of Final Guilherme Ward MD electronically signed on 10/08/2022 11:56:30 AM with status of Final
== END ==
LOC: HO.CARD 08:12
PROVIDERS: PCP Internal Medicine; Visit Provider Internal Medicine
DX: I77.810 Thoracic aortic ectasia (principal)
CPT/HCPCS: 93306

== ENCOUNTER → 2022-10-11 08:06 | Outpatient (REF) | payer OTHER, SELFPAY ==
--- NOTE | ~2022-10-11 | NM_ITS ---
Myocardial perfusion study Indication: Atherosclerotic heart disease to evaluate for myocardial ischemia Technique: The patient was brought in for a Lexiscan perfusion study on 10/11/2022. Patient performed low-level exercise and was injected 0.4 mg of Lexiscan intravenously. Within a minute of injection, 35 mCi of sestamibi was given intravenously. Images were obtained using the SPECT gamma camera interlaced with the gating device. Images were obtained in supine position. Resting perfusion study was performed on 10/14/2022. Patient was administered 35 mCi of sestamibi intravenously at rest. Images were then obtained in supine position. Images obtained with and without CT attenuation. Total DLP 97 mGy-cm. Images were processed with the software and compared side to side in short axis, horizontal long axis and vertical long axis views. Findings: The stress perfusion study showed non attenuated images show moderately reduced uptake in the basal inferior and mildly reduced uptake in the inferoapical wall of the LV myocardium. Is also mildly to moderately reduced uptake in the basal inferolateral and lateral wall of the LV myocardium. Attenuation corrected images show moderately reduced uptake in the apex and inferoapical wall of the LV myocardium. There is also mildly reduced uptake and thinning of the inferolateral wall of the. The gated study shows low normal LV systolic function with calculated LVEF of 51%. LV cavity is mildly dilated size. The gated study shows reduced wall thickening and contraction of basal inferior and inferolateral wall of the LV myocardium segments. Resting study shows non attenuated images show moderately reduced uptake in the basal inferior as well as minimally reduced uptake in the mid inferior and apical inferior wall of the LV myocardium. The uptake in the basal lateral and inferolateral wall of the LV myocardium. Attenuation corrected images show no improvement in the apical and inferoapical uptake with minimally improved uptake in the lateral wall of the LV myocardium.. Gating at rest reveals basal inferior inferolateral wall motion with ejection fraction at 50%. The findings are consistent with this predominantly fixed defect of the basal inferior as well as inferoapical and apical wall with minimal reversibility in the basal lateral wall of the LV myocardium which may suggest ischemia.. NM/NM cardiolite stress test Impression: 1. Myocardial perfusion imaging study shows transmural infarct of the basal inferior as well as possibly inferoapical wall of myocardium. There is mild intensity reversible defect in the basal lateral wall which may suggest branch vessel disease 2. Gated LVEF is 51% 3. Transient ischemic dilatation not present but LV cavity is dilated EKG nondiagnostic for ischemia
--- NOTE | 2022-10-11 08:09 | CA_ITS ---
Acquisition Time: 2022-10-11 09:05:00 Total Exercise Time: 00:02:00 Test Indications: CAD Medications: AMLODIPINE ASA Protocol: LEXISCAN Max HR: 100 BPM 68% of Pred: 147 BPM Max BP: 130/080 mmHG Max Work Load: 1.0 METS Pharmacological stress test with Lexiscan injection, while sitting and kicking his legs without anginal symptoms, with isolated PACs, with normotensive response to injection, with nondiagnostic EKG for ischemia. Nuclear images pending. Test reviewed with Dr Ward Referred By: Bryson Templeton Overread By: ZEUS LUU
== END ==
LOC: HO.CARD 08:06
PROVIDERS: PCP Internal Medicine; Visit Provider Internal Medicine
DX: I25.10 Atherosclerotic heart disease of native coronary artery without angina pectoris (principal)
CPT/HCPCS: 78452; 93017; A9500; J0280; J2785

== ENCOUNTER → 2022-11-04 08:50 | Outpatient (BNVA) | payer OTHER, SELFPAY | PROVIDERS: PCP Internal Medicine; Visit Provider Internal Medicine | DX: I25.10 Atherosclerotic heart disease of native coronary artery without angina pectoris (principal); I77.810 Thoracic aortic ectasia; I45.10 Unspecified right bundle-branch block; I10 Essential (primary) hypertension | CPT/HCPCS: 99212 ==

== ENCOUNTER 2022-11-25 08:57 | Outpatient (REF) | payer OTHER, SELFPAY ==
--- NOTE | ~2022-11-25 | US_ITS ---
EXAMINATION: US RETROPERITONEAL LIMITED (RENAL ONLY) CLINICAL INFORMATION: Renal calculi. COMPARISON: None TECHNIQUE: Ultrasound of the kidneys was performed. FINDINGS: RIGHT KIDNEY: 11.6 x 6.5 x 6.3 cm (SAG x AP x TRV). The kidney is normal in size, contour, and echogenicity. Renal cortical thickness is normal. No calculi or focal parenchymal lesions. No hydronephrosis. LEFT KIDNEY: 12.4 x 5.3 x 5.4 cm (SAG x AP x TRV). The kidney is normal in size, contour, and echogenicity. Renal cortical thickness is normal. No calculi or focal parenchymal lesions. No hydronephrosis. US/US renal BI IMPRESSION: Normal-appearing kidneys.
== END 2022-11-25 08:58 | disposition home or self-care (01) ==
LOC: HO.US 08:57
PROVIDERS: PCP Internal Medicine; Visit Provider Urology
DX: N20.0 Calculus of kidney (principal)
CPT/HCPCS: 76775

== ENCOUNTER 2022-12-02 08:27 | Outpatient (REF) | payer OTHER, SELFPAY ==
[2022-12-02 09:14] LABS: Hematocrit 45.2 % (42.0-52.0); Hemoglobin 14.7 g/dl (14.0-18.0); Mean Corpuscular HGB Conc 32.5 g/dl (31.0-36.0); Mean Corpuscular Hemoglobin 29.9 pg (27.0-33.0); Mean Corpuscular Volume 92.1 fL (80.0-98.0); Mean Platelet Volume 9.9 fL (9.4-12.4); Platelet Count 192 X10*3/uL (160-400); Red Blood Count 4.91 X10*6/uL (4.60-5.80); White Blood Count 6.4 X10*3/uL (4.8-10.8)
[2022-12-02 09:18] LABS: Prothrombin Time 11.6 SEC (10.0-13.1)
[2022-12-02 10:15] LABS: Anion Gap 11 (12-20); Blood Urea Nitrogen 11 mg/dL (9-16); Calcium 8.9 mg/dL (8.4-10.2); Carbon Dioxide 31 mmol/L (22-29); Chloride 102 mmol/L (96-108); Estimated Glomerular Filt Rate > 60; Glucose Random 178 mg/dL (60-115); Potassium 4.3 mmol/L (3.3-5.1); Sodium 140 mmol/L (135-145)
== END 2022-12-02 08:28 | disposition home or self-care (01) ==
LOC: HO.LAB 08:27
PROVIDERS: PCP Internal Medicine; Visit Provider Internal Medicine
DX: I25.10 Atherosclerotic heart disease of native coronary artery without angina pectoris (principal)
CPT/HCPCS: 36415; 80048; 85027; 85610

== ENCOUNTER → 2022-12-09 10:00 | Outpatient (BNVA) | payer OTHER, SELFPAY | PROVIDERS: PCP Internal Medicine; Visit Provider Urology | DX: N20.0 Calculus of kidney (principal); N40.1 Benign prostatic hyperplasia with lower urinary tract symptoms | CPT/HCPCS: 51798; 99212 ==

== ENCOUNTER → 2022-12-24 10:24 | Outpatient (BNVA) | payer OTHER, SELFPAY | PROVIDERS: PCP Internal Medicine; Visit Provider Internal Medicine | DX: I77.810 Thoracic aortic ectasia (principal); I25.10 Atherosclerotic heart disease of native coronary artery without angina pectoris; I45.10 Unspecified right bundle-branch block; I10 Essential (primary) hypertension; Z98.890 Other specified postprocedural states | CPT/HCPCS: 99212 ==

== ENCOUNTER → 2023-01-27 10:23 | Outpatient (BNVA) | payer OTHER, SELFPAY | PROVIDERS: PCP Internal Medicine; Visit Provider Internal Medicine | DX: G47.33 Obstructive sleep apnea (adult) (pediatric) (principal) | CPT/HCPCS: 99212 ==

== ENCOUNTER 2023-07-08 09:09 | Outpatient (AMB) | payer OTHER, SELFPAY ==
[2023-07-08 09:13] VITALS: BP 170/90; PULSE 60; O2SAT 98; BMI 33.3
--- NOTE | 2023-07-08 09:13 | A.OFFPC_ITS ---
Vital Signs 07/08/23 09:13 07/08/23 09:51 Height 5 ft 8 in Weight 219 lb BMI 33.3 BP 170/90 H 152/70 H Blood Pressure Location Lt brachial Lt brachial Position Sitting Sitting Pulse 60 Pulse Source Pulse Oximeter Pulse Oximetry (%) 98 Oxygen Delivery Method Room Air Intake Visit Reasons: DM Allergies No Known Allergies Allergy (Verified 07/08/23 09:13) Medication List - Last Reconciled 07/08/23 by Neo Baig MD amlodipine 5 mg PO DAILY aspirin (Adult Aspirin Regimen) 81 mg PO DAILY 90 days atorvastatin 40 mg PO DAILY 90 days [AUTO PAP 6-20 cm H2O humidified AIR As directed] blood sugar diagnostic (FreeStyle Lite Strips) As directed check the BS QD blood-glucose meter (FreeStyle Lite Meter kit) As directed [email or web address] As directed 20-30 mm HG diclofenac sodium 1% (Voltaren Arthritis Pain) 4 grams topical TID PRN gabapentin 300 mg PO TID lancets (FreeStyle Lancets) As directed check BS QD lisinopril 5 mg PO DAILY metoprolol succinate ER (Toprol XL) 25 mg PO DAILY omeprazole 20 mg PO DAILY pyridoxine (vitamin B6) 100 mg PO DAILY tirzepatide (Mounjaro) 2.5 mg (0.5 mL) subcut QWEEK 4 weeks Tobacco use date assessed: 03/27/23 Fall risk assessment: No Falls in past year Last assessed Fall Risk: 07/08/23 Dental Screening Dental Screen Date: 07/08/23 Did you have a dental visit in the last 12 months?: Yes Did you have a dental problem in the last 6 months where you did not have access to dental care?: No Was dental information given to patient?: Patient has dentist HPI DM HPI Details 73-year-old obese male with controlled d iabetes mellitus hypertension coronary artery disease obstructive sleep apnea GERD hypercholesterolemia COPD and knee osteoarthritis coming in for follow-up. Patient was last seen in March 2023. Patient is up-to-date with colonoscopy. For the CPAP patient has been compliant until 04/28/2023. Susan 89. complains of chest pain intermittently mild- pressure this has been occuring week . cardiac cath 11/2022 mild cardiac disease. advised aggresive risk reduction. mostly lying in bed, deny sob, no cough patient seems to be confused as he has a friend 45 years old recently. Discussed on the need to control the blood pressure. Diabetes presently good needs to get blood work done discussed about COVID-19 vaccinations also [facility] Medical History Flank pain Nephrolithiasis Constipation Hearing difficulty Dizziness STANLEY (obstructive sleep apnea) Obesity (BMI 30-39.9) Tubular adenoma of colon Polysubstance abuse Knee osteoarthritis Degenerative disc disease, lumbar Osteoarthritis of right shoulder Ascending aorta dilatation Coronary artery disease History of renal calculi GERD (gastroesophageal reflux disease) Vitamin D deficiency Peripheral vascular disease Hypercholesterolemia Obstructive sleep apnea COPD (chronic obstructive pulmonary disease) Hypertension Surgical History Hx of cardiac cath Hx laparoscopic cholecystectomy Hx of colonoscopy History of esophagogastroduodenoscopy (EGD) Family History Father Stroke Heart attack Mother No problems noted. Sister Breast cancer Social History Household Members: Spouse Housing: House Do you presently have visiting nurse or other home services: No Alcohol intake: former Year quit: 2009 Patient Tobacco Use Status: Never used Tobacco e-Cigarette/Vaping Use: Never Used Second Hand Smoke Exposure: No service: No Current occupational status: retired and disabled Cognitive needs: No Hearing needs: No Vision needs: Yes Questionnaire PHQ-9 Over the last 2 weeks, how often have you been bothered by any of the following problems? 1. Little interest or pleasure in doing things: not at all 2. Feeling down, depressed, or hopeless: not at all 3. Trouble falling or staying asleep, or sleeping too much: not at all 4. Feeling tired or having little energy: not at all 5. Poor appetite or overeating: not at all 6. Feeling bad about yourself - or that you are a failure or have let yourself or your family down: not at all 7. Trouble concentrating on things, such as reading the newspaper or watching television: not at all 8. Moving or speaking so slowly that other people could have noticed. Or the opposite - being so fidgety or restless that you have been moving around a lot more than usual: not at all 9. Thoughts that you would be better off or of hurting yourself in some way: not at all Total score: 0 Depression Screening Interpretation: Negative Depression Screening Done: Yes Source: Developed by Drs. Trae Bailey, Sakshi Ren, Master King and colleagues, with an educational osmel from [email or web address]. Thrive Questionnaire Date Thrive assessed: 03/27/23 AUDIT C Alcohol Use Questionnaire (AUDIT-C) 1. How often do you have a drink containing alcohol?: Never 2. How many drinks containing alcohol do you have on a typical day when you are drinking?: 1 or 2 (0) 3. How often do you have six or more drinks on one occasion?: Never Total Score: 0 AMAURY-7 AMB Questionnaire AMAURY-7 Date AMAURY - 7 assessed: 03/27/23 Source: Developed by Drs. Trae Bailey, Sakshi Ren, Master King and colleagues, with an educational osmel from [email or web address]. Physical exam (Primary Care) Vital Signs: Last Vital Signs Pulse 60 07/08/23 09:13 BP 170/90 H 07/08/23 09:13 Pulse Ox 98 07/08/23 09:13 Oxygen Delivery Method Room Air 07/08/23 09:13 BMI result Body Mass Index 33.3 Tobacco/Smoking Status: Tobacco use Status Tobacco use date assessed 03/27/23 07/08/23 09:14 Patient Tobacco Use Status Never used Tobacco 07/08/23 09:14 e-Cigarette/Vaping Use Never Used 07/08/23 09:14 PHQ-9: PHQ-9 Score PHQ-9: Total score 0 07/08/23 09:30 Depression Screening Interpretation: Negative Thrive Assessment: Date of Thrive Assessment Date Thrive assessed 03/27/23 07/08/23 09:14 Const General: alert; No acute distress Eyes Conjunctivae: conjunctivae normal Resp Auscultation: clear to auscultation bilaterally Cardio Rate: regular rate Rhythm: regular rhythm GI Inspection: Yes normal to inspection Extrem General: Yes normal to inspection and No edema Results AMB Hemoglobin A1c AMB Hemoglobin A1c 5.8 % Last Edit by WILBER Gonzalez on 07/08/23 09:31 Results Reviewed Results Reviewed: Laboratory Last Values Hgb A1c (Clinic) 5.8 % (4.0-6.0) 07/08/23 09:15 Assessment and Plan Assessment & Plan (1) Type 2 diabetes mellitus with hyperglycemia: Comment: Dr. Bee Code(s): E11.65 - Type 2 diabetes mellitus with hyperglycemia Plan: Decrease the amount of carbohydrate intake, pasta, bread, rice and potatoes are all sugar and that is aside from all the sweet stuff, remember that fruits are good but they are Sweet also. Hemoglobin A1c goal of less than 7.0 patient is on Mounjaro (2) Essential hypertension: Code(s): I10 - Essential (primary) hypertension Plan: Continue with blood pressure medication. Decrease salt intake and exercise patient on amlodipine 5 mg once a day metoprolol 25 mg once a day and lisinopril 5 mg once a day (3) Atherosclerotic cardiovascular disease: Comment: Cardiac catheterization November 2022 minimal irregularities Code(s): I25.10 - Atherosclerotic heart disease of [place] coronary artery without angina pectoris Plan: Control the cholesterol, weight, blood pressure, diabetes continue with aspirin (4) Obesity (BMI 30-39.9): Comment: PATIENT IS MODERATELY OBESE AND WOULD NEED TO LOSE SOME WEIGHT. I TRIED TO EXPLAIN TO HIM THROUGH THE TAILERCPA, HE WILL HAVE DIFFICULTY IN LOSING WEIGHT BECAUSE HE CANNOT WALK MUCH DUE TO OSTEOARTHRITIS OF THE KNEES, IT IS HARD FOR HIM TO UNDERSTAND THE NEED FOR DIETING AT THIS TIME. AGAIN EXPLAINED TO HIM THROUGH THE TAILERCPA AND HE SAID THAT HE IS TRYING TO LIMIT THE CALORIES INTAKE. Code(s): E66.9 - Obesity, unspecified Plan: Diet and exercise (5) GERD (gastroesophageal reflux disease): Code(s): K21.9 - Gastro-esophageal reflux disease without esophagitis Plan: Avoid the foods that causes that usually spicy foods, tomato products, juices, coffee, soda and foods that your sensitive to. After eating do not lie down, allow 3-4 hours before in lie down. And keep the head of bed above 30 degrees to avoid the acid from going up. (6) Hypercholesterolemia: Code(s): E78.00 - Pure hypercholesterolemia, unspecified Plan: Avoid fried foods, chicken skin, eggs, butter margarine, pastries and meat. Be it pork or beef they have a lot of cholesterol LDL goal of less than 70 and triglyceride of less than 150. Patient is on atorvastatin 40 mg once a day June 2022- will need blood work (7) Obstructive sleep apnea: Comment: 12/18/2021 Code(s): G47.33 - Obstructive sleep apnea (adult) (pediatric) (8) COPD (chronic obstructive pulmonary disease): Comment: HE MAY HAVE VERY MILD DEGREE OF CHRONIC OBSTRUCTIVE PULMONARY DISEASE, AND IS STAYING RELATIVELY ASYMPTOMATIC. PLAN WAS TO DO A PULMONARY FUNCTION TEST, AND THEN DECIDE IF HE IS GOING TO NEED SOME BRONCHODILATOR INHALER. IT HAS NOT BEEN DONE YET . Code(s): J44.9 - Chronic obstructive pulmonary disease, unspecified Qualifiers: COPD type: emphysema Emphysema type: panlobular Qualified Code(s): J43.1 - Panlobular emphysema Plan: Stable Orders: Orders AMB Hemoglobin A1c Today E11.65 - Type 2 diabetes mellitus with hyperglycemia Coding Level of Care Code Est Pt Level 4 (53559) Diagnoses Type 2 diabetes mellitus with hyperglycemia E11.65 Essential hypertension I10 Atherosclerotic cardiovascular disease I25.10 Obesity (BMI 30-39.9) E66.9 GERD (gastroesophageal reflux disease) K21.9 Hypercholesterolemia E78.00 Obstructive sleep apnea G47.33 Panlobular emphysema J43.1 COPD type: emphysema Emphysema type: panlobular
[2023-07-08 09:51] VITALS: BP 152/70
== END 2023-07-08 10:21 | disposition home or self-care (01) ==
PROVIDERS: PCP Internal Medicine; Visit Provider Internal Medicine
DX: E11.65 Type 2 diabetes mellitus with hyperglycemia (principal); J43.1 Panlobular emphysema; E66.9 Obesity, unspecified; I10 Essential (primary) hypertension; I25.10 Atherosclerotic heart disease of native coronary artery without angina pectoris; Z23 Encounter for immunization; Z68.33 Body mass index [BMI] 33.0-33.9, adult; K21.9 Gastro-esophageal reflux disease without esophagitis; E78.00 Pure hypercholesterolemia, unspecified; G47.33 Obstructive sleep apnea (adult) (pediatric)
CPT/HCPCS: 83036; 90471; 90686; 99214

== ENCOUNTER 2023-07-09 06:51 | Outpatient (REF) | payer OTHER, SELFPAY ==
[2023-07-09 07:06] LABS: MANUAL DIFF FLAG NO
[2023-07-09 07:53] LABS: Basophils Percent Auto 0.7 % (0-2); Eosinophils Absolute Auto 0.4 X10*3/uL (0.0-0.4); Eosinophils Percent Auto 6.7 % (0-4); Hematocrit 42.8 % (42.0-52.0); Hemoglobin 14.1 g/dl (14.0-18.0); Imm Gran Abs Auto 0.03 X10*3/uL (0.00-0.03); Imm Gran Pct Auto 0.5 % (0.0-0.4); Lymphocytes Absolute Auto 1.3 X10*3/uL (1.2-4.9); Mean Corpuscular HGB Conc 32.9 g/dl (31.0-36.0); Mean Corpuscular Hemoglobin 30.3 pg (27.0-33.0); Mean Platelet Volume 10.2 fL (9.4-12.4); Monocytes Absolute Auto 0.6 X10*3/uL (0.1-1.2); Monocytes Percent Auto 10.2 % (2-11); Neutrophils Absolute Auto 3.4 x10*3/uL (2.0-8.3); Neutrophils Percent Auto 58.9 % (45-73); Platelet Count 181 X10*3/uL (160-400); Red Blood Count 4.65 X10*6/uL (4.60-5.80); White Blood Count 5.8 X10*3/uL (4.8-10.8)
[2023-07-09 07:58] LABS: Estimated Average Glucose 103 mg/dL; Hemoglobin A1c % 5.2 % (<6.0)
[2023-07-09 08:23] LABS: Alanine Aminotransferase 32 U/L (0-40); Albumin Level 3.9 g/dL (3.5-5.0); Alkaline Phosphatase 100 U/L (39-117); Anion Gap 13 (12-20); Aspartate Amino Transferase 35 U/L (5-37); Bilirubin Total 0.7 mg/dL (0.0-1.0); Blood Urea Nitrogen 9 mg/dL (9-16); Calcium 9.5 mg/dL (8.4-10.2); Carbon Dioxide 27 mmol/L (22-29); Chloride 105 mmol/L (96-108); Cholesterol 127 mg/dL (<200); Estimated Glomerular Filt Rate > 60; Glucose Random 109 mg/dL (60-115); HDL Cholesterol 44 mg/dL (>40); LDL Cholesterol Calculated 56 mg/dL (<100); Potassium 4.5 mmol/L (3.3-5.1); Sodium 140 mmol/L (135-145); Total Protein 7.2 g/dL (6.5-8.0); Triglycerides 139 mg/dL (<150)
[2023-07-09 08:41] LABS: Free T4 (Free Thyroxine) 0.92 ng/dL (0.71-1.85); Thyroid Stimulating Hormone 0.74 uIU/mL (0.32-4.0)
[2023-07-09 08:46] LABS: Folate 6.8 ng/mL (> or = 4.0); Vitamin B12 414 pg/mL (200-900)
[2023-07-09 09:54] LABS: Creatinine Urine 72.36 mg/dL; Microalbum/Creatinine Ratio Ur 8.2 ug/mg cr (<30)
== END 2023-07-09 06:52 | disposition home or self-care (01) ==
LOC: HO.LAB 06:51
PROVIDERS: PCP Internal Medicine; Visit Provider Internal Medicine
DX: E11.65 Type 2 diabetes mellitus with hyperglycemia (principal); E78.00 Pure hypercholesterolemia, unspecified
CPT/HCPCS: 36415; 80053; 80061; 82043; 82570; 82607; 82746; 83036; 84439; 84443; 85025

== ENCOUNTER 2023-07-10 08:52 | Outpatient (AMB) | payer OTHER, SELFPAY ==
--- NOTE | 2023-07-10 08:59 | A.OFFVIS_ITS ---
Intake Intake Visit Reasons: 7m/litholink Intake Note: Patient presents today for a follow-up on [facility] Results: Meds- Vitamin B6 Allergies to Antibiotic- No Known Allergies Blood Thinner- Aspirin Felter Tennis Balls Required: No Accompanied by: Self / Same As Patient Allergies No Known Allergies Allergy (Verified 07/10/23 08:59) HPI HPI Comments History of Present Illness Details Сергей is a 73-year-old male who presents today to the office for a follow-up. 07/10/23? Сергей is followed for BPH and kidney stones. He is followed today to review 24- hour urine collection. The patient is a [place]ian speaking male. 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 He has a past medical history significant for diabetes and hypertension. I reviewed the 24-hour urine collection results from 05/08/23 revealed urine volume 2.38 litres, urine calcium was 367, urine oxalate was 34, urine citrate was 911, and urine sodium was 207. I will refer to nephrology for hypercalcuria on prior testing his urine calcium was 333 and urine sodium was 164. 07/10/23: Plan: Vitamin B6 100 mg Refer to nephrology for hypercalcuria. [facility] Medical History (Updated 07/27/23 @ 16:07 by Shaina Bianchi MD) Nephrolithiasis Flank pain Constipation Hearing difficulty Dizziness STANLEY (obstructive sleep apnea) Obesity (BMI 30-39.9) Tubular adenoma of colon Polysubstance abuse Knee osteoarthritis Degenerative disc disease, lumbar Osteoarthritis of right shoulder Ascending aorta dilatation Coronary artery disease History of renal calculi GERD (gastroesophageal reflux disease) Vitamin D deficiency Peripheral vascular disease Hypercholesterolemia Obstructive sleep apnea COPD (chronic obstructive pulmonary disease) Hypertension Surgical History Hx of cardiac cath Hx laparoscopic cholecystectomy Hx of colonoscopy History of esophagogastroduodenoscopy (EGD) Family History Father Stroke Heart attack Mother No problems noted. Sister Breast cancer Social History Household Members: Spouse Housing: House Do you presently have visiting nurse or other home services: No Alcohol intake: former Year quit: 2009 Patient Tobacco Use Status: Never used Tobacco e-Cigarette/Vaping Use: Never Used Second Hand Smoke Exposure: No service: No Current occupational status: retired and disabled Cognitive needs: No Hearing needs: No Vision needs: Yes Review of Systems Const All systems reviewed & are unremarkable except as noted in HPI and below Reports snoring Eyes Reports no additional complaints ENT Reports no additional complaints Card Denies chest pain, Denies irregular heart rhythm, Denies leg edema and Reports dyspnea on exertion Resp Denies cough, Reports dyspnea on exertion, Reports snoring and Denies wheezing GI Reports no additional complaints Reports no additional complaints Musc Reports back pain and Reports arthralgias Skin/Breast Reports system reviewed and no additional complaints, except as documented Neuro Reports no additional complaints Psych Reports no additional complaints Aller/Immun Denies wheezing Results AMB Urinalysis, Automated UA Leukoctes 0 John Paul/uL Last Edit by WILBER Maldonado on 07/10/23 09:03 UA Nitrite Negative Last Edit by WILBER Maldonado on 07/10/23 09:03 UA Urobilinogen 0.2 mg/dL Last Edit by WILBER Maldonado on 07/10/23 09:0 3 UA Protein 0 mg/dL Last Edit by WILBER Maldonado on 07/10/23 09:03 UA pH 6.5 Last Edit by WILBER Maldonado on 07/10/23 09:03 UA Blood 0 Markus/uL Last Edit by WILBER Maldonado on 07/10/23 09:03 UA Specific [place] 1.010 Last Edit by WILBER Maldonado on 07/10/23 09: 03 UA Ketone Negative Last Edit by WILBER Maldonado on 07/10/23 09:03 UA Bilirubin 0 mg/dL Last Edit by WILBER Maldonado on 07/10/23 09:03 UA Glucose 0 mg/dL Last Edit by WILBER Maldonado on 07/10/23 09:03 Results Reviewed Results Reviewed: Laboratory Last Values Urine pH (Auto) 6.5 07/10/23 09:00 Specific [place] (Auto) 1.010 07/10/23 09:00 Urine Protein (Auto) 0 mg/dL 07/10/23 09:00 Glucose (UA)(Auto) 0 mg/dL 07/10/23 09:00 Urine Ketones (Auto) Negative 07/10/23 09:00 Urine Blood (Auto) 0 Markus/uL 07/10/23 09:00 Urine Nitrite (Auto) Negative 07/10/23 09:00 Urine Bilirubin (Auto) 0 mg/dL 07/10/23 09:00 Urine Urobilinogen (Auto) 0.2 mg/dL 07/10/23 09:00 Leukocyte Esterase (Auto) 0 John Paul/uL 07/10/23 09:00 Assessment & Plan Assessment & Plan (1) History of renal calculi: Code(s): Z87.442 - Personal history of urinary calculi (2) BPH loc w urin obs/LUTS: Code(s): N40.1 - Benign prostatic hyperplasia with lower urinary tract symptoms (3) Hypercalciuria: Code(s): R82.994 - Hypercalciuria (4) Nephrolithiasis: Code(s): N20.0 - Calculus of kidney Plan Vitamin B6 100 mg Refer to nephrology for hypercalcuria. Orders: Orders AMB Urinalysis Automated 07/10/23 Z13.9 - Encounter for screening, unspecified US renal BI 5 Months Z87.442 - Personal history of urinary calculi Medications: Refilled pyridoxine (vitamin B6) 100 mg PO DAILY 90 tabs 3RF Patient Instructions: The patient had an opportunity to ask questions regarding treatment plan. All questions were answered. Imaging, Laboratory studies and physical exam results were discussed and reviewed in detail. No major barriers to understanding were identified. The patient expressed understanding and agreement with the above treatment plan.? ? ? The patient is aware they should contact our office by phone for worsening of their current condition or the appearance of new symptoms. Compliance is encouraged with any medications and followup testing that is ordered.? ? ? It is a privilege to be allowed the opportunity to participate in the urologic care of your patient. If you have any questions or concerns regarding treatment for the above conditions please do not hesitate to contact me. The office telephone contact is [phone].? ? ? This note is constructed in part using voice recognition software. While every effort has been made to ensure accuracy sleeve bottom feller errors may have been included.? ? ? Yours sincerely,? ? ? Shaina Bianchi MD? Coding Level of Care Code Est Pt Level 4 (98974) Diagnoses History of renal calculi Z87.442 BPH loc w urin obs/LUTS N40.1 Hypercalciuria R82.994 Nephrolithiasis N20.0
== END 2023-07-10 09:44 | disposition home or self-care (01) ==
PROVIDERS: Visit Provider Urology
DX: Z87.442 Personal history of urinary calculi (principal); N40.1 Benign prostatic hyperplasia with lower urinary tract symptoms; R82.994 Hypercalciuria; N20.0 Calculus of kidney
CPT/HCPCS: 99214

== ENCOUNTER → 2023-07-10 08:52 | Outpatient (BNVA) | payer OTHER, SELFPAY | PROVIDERS: Visit Provider Urology | DX: N40.1 Benign prostatic hyperplasia with lower urinary tract symptoms (principal); Z87.442 Personal history of urinary calculi; N20.0 Calculus of kidney; R82.994 Hypercalciuria | CPT/HCPCS: 81003; 99212 ==

== ENCOUNTER 2023-09-19 10:57 | Outpatient (AMB) | payer OTHER, SELFPAY ==
[2023-09-19 11:03] VITALS: BP 142/78; PULSE 59; O2SAT 95; BMI 32.7
--- NOTE | 2023-09-19 11:03 | MHC.PC.OV ---
Vital Signs 09/19/23 11:03 Height 5 ft 8 in Weight 215 lb 0.8 oz BMI 32.7 BP 142/78 H Blood Pressure Location Lt brachial Position Sitting Pulse 59 Pulse Source Pulse Oximeter Pulse Oximetry (%) 95 Oxygen Delivery Method Room Air Intake Visit Reasons: Hypertension Auto Repair Technician Required: No Allergies No Known Allergies Allergy (Verified 09/19/23 11:28) Medication List - Last Reconciled 09/19/23 by Neo Baig MD amlodipine 5 mg PO DAILY aspirin (Adult Aspirin Regimen) 81 mg PO DAILY 90 days atorvastatin 40 mg PO DAILY 90 days [AUTO PAP 6-20 cm H2O humidified AIR As directed] blood sugar diagnostic (FreeStyle Lite Strips) As directed check the BS QD blood-glucose meter (FreeStyle Lite Meter kit) As directed [email or web address] As directed 20-30 mm HG diclofenac sodium 1% (Voltaren Arthritis Pain) 4 grams topical TID PRN gabapentin 300 mg PO TID lancets (FreeStyle Lancets) As directed check BS QD lisinopril 5 mg PO DAILY metoprolol succinate ER (Toprol XL) 25 mg PO DAILY omeprazole 20 mg PO DAILY pyridoxine (vitamin B6) 100 mg PO DAILY tirzepatide (Mounjaro) 2.5 mg (0.5 mL) subcut QWEEK 4 weeks Tobacco use date assessed: 09/19/23 Fall risk assessment: No Falls in past year Last assessed Fall Risk: 09/19/23 HPI Hypertension HPI Details 73-year-old obese male with COPD diabetes mellitus controlled hypertension CAD GERD hypercholesterolemia obstructive sleep apnea last seen in June 2023. Patient is here for follow-up. Colonoscopy is up-to-date. Review of the notes was seen by Urology for nephrolithiasis referral done for hypercalciuria [facility] Medical History (Updated 09/19/23 @ 12:20 by Neo Baig MD) Nephrolithiasis Flank pain Constipation Hearing difficulty Dizziness STANLEY (obstructive sleep apnea) Obesity (BMI 30-39.9) Tubular adenoma of colon Polysubstance abuse Knee osteoarthritis Degenerative disc disease, lumbar Osteoarthritis of right shoulder Ascending aorta dilatation Coronary artery disease History of renal calculi GERD (gastroesophageal reflux disease) Vitamin D deficiency Peripheral vascular disease Hypercholesterolemia Obstructive sleep apnea COPD (chronic obstructive pulmonary disease) Hypertension Surgical History Hx of cardiac cath Hx laparoscopic cholecystectomy Hx of colonoscopy History of esophagogastroduodenoscopy (EGD) Family History Father Stroke Heart attack Mother No problems noted. Sister Breast cancer Social History Household Members: Spouse Housing: House Do you presently have visiting nurse or other home services: No Alcohol intake: former Year quit: 2009 Patient Tobacco Use Status: Never used Tobacco e-Cigarette/Vaping Use: Never Used Second Hand Smoke Exposure: No service: No Current occupational status: retired and disabled Cognitive needs: No Hearing needs: No Vision needs: Yes Questionnaire Thrive Questionnaire Date Thrive assessed: 03/27/23 AUDIT C Alcohol Use Questionnaire (AUDIT-C) 1. How often do you have a drink containing alcohol?: Never 2. How many drinks containing alcohol do you have on a typical day when you are drinking?: 1 or 2 (0) 3. How often do you have six or more drinks on one occasion?: Never Total Score: 0 AMAURY-7 AMB Questionnaire AMAURY-7 Date AMAURY - 7 assessed: 03/27/23 Source: Developed by Drs. Trae Bailey, Sakshi Ren, Master King and colleagues, with an educational osmel from [employer]. Physical exam (Primary Care) Vital Signs: Last Vital Signs Pulse 59 09/19/23 11:03 BP 142/78 H 09/19/23 11:03 Pulse Ox 95 09/19/23 11:03 Oxygen Delivery Method Room Air 09/19/23 11:03 BMI result Body Mass Index 32.7 Tobacco/Smoking Status: Tobacco use Status Tobacco use date assessed 09/19/23 09/19/23 11:04 Patient Tobacco Use Status Never used Tobacco 09/19/23 11:04 e-Cigarette/Vaping Use Never Used 09/19/23 11:04 Thrive Assessment: Date of Thrive Assessment Date Thrive assessed 03/27/23 09/19/23 11:04 Const General: alert; No acute distress Eyes Conjunctivae: conjunctivae normal Resp Auscultation: clear to auscultation bilaterally Cardio Rate: regular rate Rhythm: regular rhythm GI Inspection: Yes normal to inspection Extrem General: Yes normal to inspection and No edema Results AMB Hemoglobin A1c AMB Hemoglobin A1c 5.4 % Last Edit by WILBER Garcia on 09/19/23 11:35 AMB Urinalysis, Automated UA Leukoctes 0 John Paul/uL Last Edit by Yelena Simpson CMA on 09/19/23 12:31 UA Nitrite Negative Last Edit by Yelena Simpson, [facility] on 09/19/23 12:31 UA Urobilinogen 0.2 mg/dL Last Edit by Yelena Simpson, [facility] on 09/19/23 12:31 UA Protein 15 mg/dL Last Edit by Yelena Simpson, [facility] on 09/19/23 12:31 UA pH 7.5 Last Edit by Yelena Simpson, [facility] on 09/19/23 12:31 UA Blood 0 Markus/uL Last Edit by Yelena Simpson, [facility] on 09/19/23 12:31 UA Specific [place] 1.010 Last Edit by Yelena Simpson, [facility] on 09/19/23 12:31 UA Ketone Negative Last Edit by Yelena Simpson, [facility] on 09/19/23 12:31 UA Bilirubin 0 mg/dL Last Edit by Yelena Simpson, [facility] on 09/19/23 12:31 UA Glucose 0 mg/dL Last Edit by Yelena Simpson, [facility] on 09/19/23 12:31 Results Reviewed Results Reviewed: Laboratory Last Values Hgb A1c (Clinic) 5.4 % (4.0-6.0) 09/19/23 11:05 Assessment and Plan Assessment & Plan (1) Type 2 diabetes mellitus with hyperglycemia: Comment: Dr. Bee Code(s): E11.65 - Type 2 diabetes mellitus with hyperglycemia Plan: Decrease the amount of carbohydrate intake, pasta, bread, rice and potatoes are all sugar and that is aside from all the sweet stuff, remember that fruits are good but they are Sweet also. Hemoglobin A1c goal of less than 7.0. Patient is taking mounjaro (2) STANLEY (obstructive sleep apnea): Comment: OBSTRUCTIVE SLEEP APNEA, SEVERE, WITH TOTAL SLEEP TIME AHI 38. PATIENT DOES HAVE HISTORY OF SLEEP APNEA SINCE 2014. USING CPAP with auto PAP mode and pressure setting of 6-20 cm SINCE 05/21/2022. There is a technical error and some confusion about his compliance report. We are trying to contact the DME and try to rectify this. He needs a new mask with new lining, and an order for new supplies is sent, Will re-evaluate him in 4 months Code(s): G47.33 - Obstructive sleep apnea (adult) (pediatric) Plan: Continue with CPAP more than 4 hours a night and benefits from this (3) Essential hypertension: Code(s): I10 - Essential (primary) hypertension Plan: Continue with blood pressure medication. Decrease salt intake and exercise patient takes metoprolol 25 mg once a day lisinopril 5 mg once a day and amlodipine 5 mg once a day (4) Atherosclerotic cardiovascular disease: Comment: Cardiac catheterization November 2022 minimal irregularities Code(s): I25.10 - Atherosclerotic heart disease of [place] coronary artery without angina pectoris Plan: Control the cholesterol, weight, blood pressure, diabetes and continue with aspirin 81 mg once a day (5) Obesity (BMI 30-39.9): Comment: PATIENT IS MODERATELY OBESE AND WOULD NEED TO LOSE SOME WEIGHT. I TRIED TO EXPLAIN TO HIM THROUGH THE DICTATING TRANSCRIBING MACHINE SERVICER, HE WILL HAVE DIFFICULTY IN LOSING WEIGHT BECAUSE HE CANNOT WALK MUCH DUE TO OSTEOARTHRITIS OF THE KNEES, IT IS HARD FOR HIM TO UNDERSTAND THE NEED FOR DIETING AT THIS TIME. AGAIN EXPLAINED TO HIM THROUGH THE DICTATING TRANSCRIBING MACHINE SERVICER AND HE SAID THAT HE IS TRYING TO LIMIT THE CALORIES INTAKE. Code(s): E66.9 - Obesity, unspecified Plan: Diet and exercise (6) Hypercholesterolemia: Code(s): E78.00 - Pure hypercholesterolemia, unspecified Plan: Avoid fried foods, chicken skin, eggs, butter margarine, pastries and meat. Be it pork or beef they have a lot of cholesterol LDL goal of less than 70 and triglyceride of less than 150 (7) Kidney stone on left side: Comment: Left ESWL Dr. George Elizabeth August 2022, 10/02/2022 Code(s): N20.0 - Calculus of kidney Plan: Patient is being seen by urology and has been referred to Nephrology (8) Frequency of micturition: Code(s): R35.0 - Frequency of micturition Plan: discussed that patient drinks a lot of coffee. - advised to decrease but will work up (9) Cognitive decline: Code(s): R41.89 - Other symptoms and signs involving cognitive functions and awareness (10) Hearing deficit: Code(s): H91.90 - Unspecified hearing loss, unspecified ear Orders: Orders US bladder Today R35.0 - Frequency of micturition AMB Hemoglobin A1c Today E11.65 - Type 2 diabetes mellitus with hyperglycemia AMB Urinalysis Automated Today R35.0 - Frequency of micturition, Z13.9 - Encounter for screening, unspecified Referrals Podiatry Referral E11.65 - Type 2 diabetes mellitus with hyperglycemia Speech and Hearing Referral H91.90 - Unspecified hearing loss, unspecified ear Medications: Refilled tirzepatide (Mounjaro) 2.5 mg (0.5 mL) subcut QWEEK 4 weeks 2 mL 0RF E11.65 - Type 2 diabetes mellitus with hyperglycemia amlodipine 5 mg PO DAILY 90 tabs 2RF I10 - Essential (primary) hypertension Coding Level of Care Code Est Pt Level 4 (18232) Diagnoses Type 2 diabetes mellitus with hyperglycemia E11.65 STANLEY (obstructive sleep apnea) G47.33 Essential hypertension I10 Atherosclerotic cardiovascular disease I25.10 Obesity (BMI 30-39.9) E66.9 Hypercholesterolemia E78.00 Kidney stone on left side N20.0 Frequency of micturition R35.0 Cognitive decline R41.89 Hearing deficit H91.90
== END 2023-09-19 12:25 | disposition home or self-care (01) ==
PROVIDERS: PCP Internal Medicine; Visit Provider Internal Medicine
DX: E11.65 Type 2 diabetes mellitus with hyperglycemia (principal); G47.33 Obstructive sleep apnea (adult) (pediatric); I10 Essential (primary) hypertension; I25.10 Atherosclerotic heart disease of native coronary artery without angina pectoris; E66.9 Obesity, unspecified; E78.00 Pure hypercholesterolemia, unspecified; N20.0 Calculus of kidney; R35.0 Frequency of micturition; R41.89 Other symptoms and signs involving cognitive functions and awareness; H91.90 Unspecified hearing loss, unspecified ear; Z13.9 Encounter for screening, unspecified
CPT/HCPCS: 81003; 83036; 99214

== ENCOUNTER 2023-09-30 13:28 | Outpatient (AMB) | payer OTHER, SELFPAY ==
[2023-09-30 13:43] VITALS: BP 130/60; PULSE 69; O2SAT 96; BMI 33.3
--- NOTE | 2023-09-30 13:43 | HO.NEPHOV ---
HPI HPI Comments History of Present Illness Details Elderly man with referred for nephrolithiasis and hypercalciuria Accompanied by family NO specific complaints today PFSH Medical History (Updated 09/30/23 @ 14:00 by Taran Contreras MD) Hypertension Nephrolithiasis Flank pain Constipation Hearing difficulty Dizziness STANLEY (obstructive sleep apnea) Obesity (BMI 30-39.9) Tubular adenoma of colon Polysubstance abuse Knee osteoarthritis Degenerative disc disease, lumbar Osteoarthritis of right shoulder Ascending aorta dilatation Coronary artery disease History of renal calculi GERD (gastroesophageal reflux disease) Vitamin D deficiency Peripheral vascular disease Hypercholesterolemia Obstructive sleep apnea COPD (chronic obstructive pulmonary disease) Surgical History Hx of cardiac cath Hx laparoscopic cholecystectomy Hx of colonoscopy History of esophagogastroduodenoscopy (EGD) Family History Father Stroke Heart attack Mother No problems noted. Sister Breast cancer Social History Household Members: Spouse Housing: House Do you presently have visiting nurse or other home services: No Alcohol intake: former Year quit: 2009 Patient Tobacco Use Status: Never used Tobacco e-Cigarette/Vaping Use: Never Used Second Hand Smoke Exposure: No service: No Current occupational status: retired and disabled Cognitive needs: No Hearing needs: No Vision needs: Yes Vital Signs 09/30/23 13:43 Height 5 ft 8 in Weight 219 lb 2 oz BMI 33.3 BP 130/60 Blood Pressure Location Lt brachial Pulse 69 Pulse Source Pulse Oximeter Pulse Oximetry (%) 96 Oxygen Delivery Method Room Air Physical Exam Vital Signs: Last Vital Signs Pulse 69 09/30/23 13:43 BP 130/60 09/30/23 13:43 Pulse Ox 96 09/30/23 13:43 Oxygen Delivery Method Room Air 09/30/23 13:43 BMI result Body Mass Index 33.3 Const General: comfortable Nutritional Appearance: well nourished Orientation/consciousness: patient oriented x3 HEENT Head: No normal to inspection Mouth: moist mucous membranes Neck Neck: Yes supple and Yes no JVD Resp Auscultation: clear to auscultation bilaterally, no rales and rub present Cardio Jugular venous distension: no JVD Palpation: no palpable S3 and no palpable S4 Heart sounds: no rubs GI Palpation (GI): Soft to palpation and nontender Percussion: No Fluid wave present General: Yes no CVA tenderness Back/Spine/Pelvis Back: no CVA tenderness Skin General skin exam: no rashes or lesions noted Neuro General: patient oriented x3 Extrem General: Yes no pedal edema and No clubbing Assessment & Plan Assessment & Plan (1) Hypercalciuria: Code(s): R82.994 - Hypercalciuria Plan Elderly man with nephrolithiasis and hypercalciuria Serum calcium normal Work up initiated for hypercalciuria Follow up ultrasound ordered Discussed LOW sodium diet Increase PO fluid intake Orders: Orders Electrolytes 09/30/23 R82.994 - Hypercalciuria Blood Urea Nitrogen 09/30/23 R82.994 - Hypercalciuria Phosphorus 09/30/23 R82.994 - Hypercalciuria Parathyroid Hormone Intact 09/30/23 R82.994 - Hypercalciuria Vitamin D 25-OH (D2 and D3) 09/30/23 R82.994 - Hypercalciuria US renal BI 09/30/23 N20.0 - Calculus of kidney Creatinine 09/30/23 R82.994 - Hypercalciuria Calcium 09/30/23 R82.994 - Hypercalciuria UA and rflx microscopic 09/30/23 R82.994 - Hypercalciuria Creatinine Urine 09/30/23 R82.994 - Hypercalciuria Sodium Urine Random 09/30/23 R82.994 - Hypercalciuria Coding Level of Care Code New Pt Level 4 (31320) Diagnoses Hypercalciuria R82.994 Results Reviewed Nephrology Results: Hgb 14.1 g/dl (14.0-18.0) 07/09/23 WBC 5.8 X10*3/uL (4.8-10.8) 07/09/23 Plt Count 181 X10*3/uL (160-400) 07/09/23 Sodium 141 mmol/L (135-145) 09/30/23 Potassium 3.7 mmol/L (3.3-5.1) 09/30/23 Chloride 103 mmol/L (96-108) 09/30/23 Carbon Dioxide 29 mmol/L (22-29) 09/30/23 BUN 9 mg/dL (9-16) 09/30/23 Creatinine 0.96 mg/dL (0.5-1.4) 09/30/23 Calcium 9.8 mg/dL (8.4-10.2) 09/30/23 Phosphorus 2.9 mg/dL (2.7-4.5) 09/30/23 PTH Intact 102.8 pg/mL (8.7-77.1) H 09/30/23 Urine Protein Negative mg/dL (Neg-Trace) 09/30/23 Urine Creatinine 111.97 mg/dL 09/30/23
== END 2023-09-30 14:04 | disposition home or self-care (01) ==
PROVIDERS: PCP Internal Medicine; Referring Provider Urology; Visit Provider Internal Medicine Hypertension Specialist
DX: R82.994 Hypercalciuria (principal)
CPT/HCPCS: 99204

== ENCOUNTER 2023-09-30 13:28 | Outpatient (REF) | payer OTHER, SELFPAY ==
[2023-09-30 15:37] LABS: Appearance Urine Clear; Color Urine Yellow; Glucose Urine UA Negative (Negative); Leukocyte Esterase Urine Negative (Negative); Nitrite Urine Negative (Negative); PH 6.5 (5.0-9.0); Specific Gravity - Urine 1.015 (1.005-1.025); Urine Blood Negative (Negative); Urine Ketones Negative (Negative); Urine Protein Negative (Neg-Trace)
[2023-09-30 15:52] LABS: Creatinine Urine 111.97 mg/dL
[2023-09-30 15:59] LABS: Anion Gap 13 (12-20); Blood Urea Nitrogen 9 mg/dL (9-16); Calcium 9.8 mg/dL (8.4-10.2); Carbon Dioxide 29 mmol/L (22-29); Chloride 103 mmol/L (96-108); Estimated Glomerular Filt Rate > 60; Phosphorus 2.9 mg/dL (2.7-4.5); Potassium 3.7 mmol/L (3.3-5.1); Sodium 141 mmol/L (135-145)
[2023-09-30 16:03] LABS: Parathyroid Hormone Intact 102.8 pg/mL (8.7-77.1)
[2023-10-05 16:18] LABS: Vitamin D 25-OH, D2 <4 ng/mL; Vitamin D 25-OH, D3 20 ng/mL; Vitamin D 25-OH, Total 20 ng/mL (30-100)
== END 2023-09-30 13:29 | disposition home or self-care (01) ==
LOC: HO.LAB 13:28
PROVIDERS: PCP Internal Medicine; Referring Provider Urology; Visit Provider Internal Medicine Hypertension Specialist
DX: R82.994 Hypercalciuria (principal); N20.0 Calculus of kidney
CPT/HCPCS: 36415; 80051; 81003; 82306; 82310; 82565; 82570; 83970; 84100; 84300; 84520; 99202

== ENCOUNTER 2023-10-24 12:47 | Outpatient (REF) | payer OTHER, SELFPAY ==
--- NOTE | ~2023-10-24 | US_ITS ---
EXAMINATION: US RETROPERITONEAL LIMITED (RENAL ONLY) CLINICAL INFORMATION: Calculus of kidney. COMPARISON: Renal ultrasound 11/25/2022 and 03/05/2017. TECHNIQUE: Real-time imaging of the kidneys. FINDINGS: RIGHT KIDNEY: 11.2 x 6.2 x 6.5 cm (SAG x AP x TRV). The kidney is normal in size, contour, and echogenicity. Renal cortical thickness is normal. No calculi or focal parenchymal lesions. No hydronephrosis. LEFT KIDNEY: 10.8 x 5.1 x 4.6 cm (SAG x AP x TRV). The kidney is normal in size, contour, and echogenicity. Renal cortical thickness is normal. No calculi or focal parenchymal lesions. No hydronephrosis. US/US renal BI IMPRESSION: No visible nephrolithiasis. No hydronephrosis.
== END 2023-10-24 12:48 | disposition home or self-care (01) ==
LOC: HO.US 12:47
PROVIDERS: PCP Internal Medicine; Referring Provider Urology; Visit Provider Internal Medicine Hypertension Specialist
DX: N20.0 Calculus of kidney (principal); Z87.442 Personal history of urinary calculi
CPT/HCPCS: 76775

== ENCOUNTER 2023-10-27 15:02 | Outpatient (AMB) | payer OTHER, SELFPAY ==
--- NOTE | 2023-10-27 15:06 | HO.NEPHOV ---
HPI HPI Comments History of Present Illness Details Elderly man with referred for nephrolithiasis and hypercalciuria Accompanied by family NO specific complaints today PFSH Medical History (Updated 09/30/23 @ 14:00 by Taran Contreras MD) Hypertension Nephrolithiasis Flank pain Constipation Hearing difficulty Dizziness STANLEY (obstructive sleep apnea) Obesity (BMI 30-39.9) Tubular adenoma of colon Polysubstance abuse Knee osteoarthritis Degenerative disc disease, lumbar Osteoarthritis of right shoulder Ascending aorta dilatation Coronary artery disease History of renal calculi GERD (gastroesophageal reflux disease) Vitamin D deficiency Peripheral vascular disease Hypercholesterolemia Obstructive sleep apnea COPD (chronic obstructive pulmonary disease) Surgical History Hx of cardiac cath Hx laparoscopic cholecystectomy Hx of colonoscopy History of esophagogastroduodenoscopy (EGD) Family History Father Stroke Heart attack Mother No problems noted. Sister Breast cancer Social History Household Members: Spouse Housing: House Do you presently have visiting nurse or other home services: No Alcohol intake: former Year quit: 2009 Patient Tobacco Use Status: Never used Tobacco e-Cigarette/Vaping Use: Never Used Second Hand Smoke Exposure: No service: No Current occupational status: retired and disabled Cognitive needs: No Hearing needs: No Vision needs: Yes Vital Signs 10/27/23 15:07 Height 5 ft 8 in Weight 219 lb 2 oz BMI 33.3 BP 122/62 Blood Pressure Location Lt brachial Position Sitting Pulse 61 Pulse Source Pulse Oximeter Pulse Oximetry (%) 97 Oxygen Delivery Method Room Air Physical Exam Vital Signs: Last Vital Signs Pulse 61 10/27/23 15:07 BP 122/62 10/27/23 15:07 Pulse Ox 97 10/27/23 15:07 Oxygen Delivery Method Room Air 10/27/23 15:07 BMI result Body Mass Index 33.3 Const General: comfortable Nutritional Appearance: well nourished Orientation/consciousness: patient oriented x3 HEENT Head: No normal to inspection Mouth: moist mucous membranes Neck Neck: Yes supple and Yes no JVD Resp Auscultation: clear to auscultation bilaterally, no rales and rub present Cardio Jugular venous distension: no JVD Palpation: no palpable S3 and no palpable S4 Heart sounds: no rubs GI Palpation (GI): Soft to palpation and nontender Percussion: No Fluid wave present General: Yes no CVA tenderness Back/Spine/Pelvis Back: no CVA tenderness Skin General skin exam: no rashes or lesions noted Neuro General: patient oriented x3 Extrem General: No clubbing Assessment & Plan Assessment & Plan (1) Hypertension: Code(s): I10 - Essential (primary) hypertension Qualifiers: Hypertension type: essential hypertension Qualified Code(s): I10 - Essential (primary) hypertension (2) Nephrolithiasis: Code(s): N20.0 - Calculus of kidney (3) Hypercalciuria: Code(s): R82.994 - Hypercalciuria Plan Elderly man with nephrolithiasis and hypercalciuria Serum calcium normal Serum calcium is normal. Intact is mildly elevated as expected. Blood pressure is well controlled. In view of the hypercalciuria I would add hydrochlorothiazide 25 mg a day. However his blood pressure is in the range of 120/70 mm of mercury. By adding HCTZ blood pressure might drop further. Therefore I will discontinue amlodipine. The leg edema should improve after discontinuing amlodipine. I will recheck urine calcium excretion in the next few months. Discussed LOW sodium diet Increase PO fluid intake Orders: Orders Creatinine Urine 2 Months I10 - Essential (primary) hypertension, N20.0 - Calculus of kidney, R82.994 - Hypercalciuria Calcium, Random Urine 2 Months I10 - Essential (primary) hypertension, N20.0 - Calculus of kidney, R82.994 - Hypercalciuria Basic Metabolic Panel 2 Months I10 - Essential (primary) hypertension, N20.0 - Calculus of kidney, R82.994 - Hypercalciuria Medications: New hydrochlorothiazide 25 mg PO DAILY 30 tabs 2RF Discontinued amlodipine Discontinued Reason: Doctor's Order 5 mg PO DAILY 90 tabs 2RF I10 - Essential (primary) hypertension Coding Level of Care Code Est Pt Level 4 (22389) Diagnoses Essential hypertension I10 Hypertension type: essential hypertension Nephrolithiasis N20.0 Hypercalciuria R82.994 Results Reviewed Nephrology Results: Hgb 14.1 g/dl (14.0-18.0) 07/09/23 WBC 5.8 X10*3/uL (4.8-10.8) 07/09/23 Plt Count 181 X10*3/uL (160-400) 07/09/23 Sodium 141 mmol/L (135-145) 09/30/23 Potassium 3.7 mmol/L (3.3-5.1) 09/30/23 Chloride 103 mmol/L (96-108) 09/30/23 Carbon Dioxide 29 mmol/L (22-29) 09/30/23 BUN 9 mg/dL (9-16) 09/30/23 Creatinine 0.96 mg/dL (0.5-1.4) 09/30/23 Calcium 9.8 mg/dL (8.4-10.2) 09/30/23 Phosphorus 2.9 mg/dL (2.7-4.5) 09/30/23 PTH Intact 102.8 pg/mL (8.7-77.1) H 09/30/23 Urine Protein Negative mg/dL (Neg-Trace) 09/30/23 Urine Creatinine 111.97 mg/dL 09/30/23 Renal US 10/24/23
[2023-10-27 15:07] VITALS: BP 122/62; PULSE 61; O2SAT 97; BMI 33.3
== END 2023-10-27 15:23 | disposition home or self-care (01) ==
PROVIDERS: PCP Internal Medicine; Visit Provider Internal Medicine Hypertension Specialist
DX: I10 Essential (primary) hypertension (principal); N20.0 Calculus of kidney; R82.994 Hypercalciuria
CPT/HCPCS: 99214

== ENCOUNTER → 2023-10-27 15:02 | Outpatient (BNVA) | payer OTHER, SELFPAY | PROVIDERS: PCP Internal Medicine; Visit Provider Internal Medicine Hypertension Specialist | DX: I10 Essential (primary) hypertension (principal); N20.0 Calculus of kidney; R82.994 Hypercalciuria | CPT/HCPCS: 99212 ==

== ENCOUNTER → 2023-11-26 09:59 | Outpatient (REF) | payer OTHER, SELFPAY ==
--- NOTE | 2023-11-26 10:03 | CA_ITS ---
Transthoracic Echocardiogram Patient (Last, First, Middle): Сергей Harvey, Gender: Male Date of : 1950 Age: 73 Procedure Date: 11/26/2023 Procedure Type: Transthoracic Echocardiogram Location: OP Height: 172.72 cm Weight: 104.78 kg BSA: 2.17 m2 Heart Rate: bpm BP: 130 / 70 mmHg Assembler Garment Form: TO Referring MD: Bryson Templeton MD Drafter Commercial: Guilherme Ward MD Symptoms: I77.810 - Thoracic aortic ectasia Study Quality: Fair ECG Rhythm: Sinus Conclusions: - 1. Mildly dilated left ventricle with mildly reduced LV ejection fraction of 45-50% with regional wall motion abnormality consistent with ischemic cardiomyopathy with grade 1 diastolic dysfunction 2. Trace to mild aortic regurgitation 3. Mildly dilated ascending aorta at 4.1 cm 4. No gross pericardial effusion Findings Procedure Information The patient declines contrast. Left Ventricle Mildly increased left ventricular cavity size. There is normal left ventricular wall thickness. The left ventricular systolic function is mildly decreased. The visually estimated ejection fraction is between 45-50%. Spectral Doppler is indicative of an impaired relaxation filling pattern. E/E prime ratio is <8, consistent with normal filling pressures. Wall Motion Rest Echo Findings The mid inferior and mid inferoseptal segments are hypokinetic. The basal inferior and basal inferoseptal segments are akinetic. All other scored wall segments showed normal motion. Right Ventricle Normal right ventricular cavity size. Atria The left atrium is mildly dilated. There is no evidence of interatrial shunt. The right atrium is normal in size. Aortic Valve There is mild calcification of the aortic valve. There is no aortic valve stenosis. There is trace (trivial) aortic valve regurgitation. Mitral Valve There is mild anterior and posterior mitral leaflet thickening. There is no mitral valve regurgitation. There is no mitral valve stenosis. Pulmonic Valve The pulmonic valve is likely normal. Tricuspid Valve Likely normal tricuspid valve structure and function. Tricuspid regurgitation envelope is inadequate for calculation of right ventricular systolic pressure. Normal right atrial pressure. Great Vessels The pulmonary artery was not well visualized. There is mild dilatation of the ascending aorta measuring 4.10 cm. Venous The inferior vena cava is normal in size and collapses greater than 50% with inspiration. Pericardium/Pleural There is no evidence of pericardial effusion. Prior Study Comparison Changes noted compared to prior study dated: 10/07/2022. LV systolic function is marginally depressed Measurements 2D Linear Measurements IVSd: 1.00 0.6-0.9/0.6-1.0 cm LVIDd: 6.00 3.9-5.3/4.2-5.9 cm LVIDd Index: 2.76 2.4-3.2/2.2-3.1 cm/m2 LVIDs: 4.57 2.0-3.6 cm LVPWd: 1.10 0.7-1.1 cm LA Diam: 4.40 2.7-3.8/3.0-4.0 cm LAIDs Index: 2.03 1.5-2.3 cm/m2 LV Mass: 328.06 67-162/88-224 g LV Mass Index: 151.18 43-95/49-115 g/m2 LVOT Diam: 2.30 3.0+(-)1.3 cm 2D Systolic Function EF 4C: 48.30 >55% Mitral Valve MV Pk E: 0.67 MV PK A: 0.71 MV Decel Time: 204.00 E/A: 0.90 E'Lateral: 8.49 E'Medial: 7.29 E/E' Med: 9.20 E/E' Lat: 7.90 PHT: 60.00 MVA PHT: 3.67 Decel [place]: 3.28 Aortic Valve AoV Pk Bo: 1.61 AoV Mn Bo: 1.17 AoV VTI: 0.35 AoV Pk Grad: 10.00 Aov Mn Grad: 6.00 ANIRUDH Cont.VTI: 2.63 LVOT LVOT Pk Bo: 0.95 LVOT Mn Bo: 0.65 LVOT VTI: 0.22 LVOT Pk Grad: 4.00 LVOT Mn Grad: 2.00 LVOT Diam: 2.30 LVOT Area: 4.15 Diastolic Function MV Pk E: 0.67 MV Pk A: 0.71 E/A: 0.90 E'Medial: 7.29 E/E' Med: 9.20 E' Laterial: 8.49 E/E' Lat: 7.90 Right Ventricle TAPSE (mm): 19.90 TVS' Bo: 10.70 Tricuspid Valve RA Press: 8.00 Great Vessels Aorta Sinus of Valsalva: 3.82 2.0-3.[address] [place]: 2.94 1.7-3.4 cm Ao Asc: 4.10 2.1-3.4 cm Ao Arch: 3.50 Updated in Other Vendor System with Status of Final Guilherme Ward MD electronically signed on 11/26/2023 3:09:19 PM with status of Final
== END ==
LOC: HO.CARD 09:59
PROVIDERS: PCP Internal Medicine; Visit Provider Internal Medicine
DX: I77.810 Thoracic aortic ectasia (principal)
CPT/HCPCS: 93306

== ENCOUNTER → 2023-11-26 10:03 | Outpatient (BNV) | payer OTHER, SELFPAY | PROVIDERS: PCP Internal Medicine; Visit Provider Internal Medicine Cardiovascular Disease | DX: I35.8 Other nonrheumatic aortic valve disorders (principal); I77.810 Thoracic aortic ectasia | CPT/HCPCS: 93306 ==

== ENCOUNTER 2023-12-18 09:20 | Outpatient (AMB) | payer OTHER, SELFPAY ==
--- NOTE | 2023-12-18 09:31 | A.OFFPC_ITS ---
Vital Signs 12/18/23 09:32 Height 5 ft 8 in Weight 227 lb BMI 34.5 BP 130/66 Blood Pressure Location Lt brachial Position Sitting Pulse 60 Pulse Source Pulse Oximeter Pulse Oximetry (%) 97 Oxygen Delivery Method Room Air Intake Visit Reasons: DM Director Professional Services Required: No Allergies No Known Allergies Allergy (Verified 12/18/23 09:32) Tobacco use date assessed: 12/18/23 Fall risk assessment: No Falls in past year Last assessed Fall Risk: 12/18/23 HPI DM HPI Details 73-year-old obese male with controlled d iabetes mellitus hypertension coronary artery disease hypercholesterolemia obstructive sleep apnea coming in for follow-up. Patient also has cognitive decline. Patient's last colon test was done in January 2021 and repeat in 5 years. Echocardiogram recently done 11/26/2023Mildly dilated left ventricle with mildly reduced LV ejection fraction of 45-50% with regional wall motion abnormality consistent with ischemic cardiomyopathy with grade 1 diastolic dysfunction 2. Trace to mild aortic regurgitation 3. Mildly dilated ascending aorta at 4.1 cm 4. No gross pericardial effusion patient also follows up with Nephrology with hypertension and renal calculi blood pressure is well controlled advised to add hydrochlorothiazide 25 mg once a day but discontinue the amlodipine due to the hypercalciuria. FAMILY IS HERE problem with depression has been eating a lot of candiy , complains of low back pain Right side, does sit a lot, also has the jury duty letter [facility] Medical History (Updated 12/18/23 @ 10:27 by Neo Baig MD) Hearing difficulty Hypertension Nephrolithiasis Flank pain Constipation Dizziness STANLEY (obstructive sleep apnea) Obesity (BMI 30-39.9) Tubular adenoma of colon Polysubstance abuse Knee osteoarthritis Degenerative disc disease, lumbar Osteoarthritis of right shoulder Ascending aorta dilatation Coronary artery disease History of renal calculi GERD (gastroesophageal reflux disease) Vitamin D deficiency Peripheral vascular disease Hypercholesterolemia Obstructive sleep apnea COPD (chronic obstructive pulmonary disease) Surgical History Hx of cardiac cath Hx laparoscopic cholecystectomy Hx of colonoscopy History of esophagogastroduodenoscopy (EGD) Family History Father Stroke Heart attack Mother No problems noted. Sister Breast cancer Social History Household Members: Spouse Housing: House Do you presently have visiting nurse or other home services: No Alcohol intake: former Year quit: 2010 Patient Tobacco Use Status: Never used Tobacco e-Cigarette/Vaping Use: Never Used Second Hand Smoke Exposure: No service: No Current occupational status: retired and disabled Cognitive needs: No Hearing needs: No Vision needs: Yes Questionnaire Thrive Questionnaire Date Thrive assessed: 12/18/23 I am a: Patient What is your living situation today?: I have a steady place to live Within the past 12 months, did the food you bought not last and you didn't have the money to get more?: Never true Within the past 12 months, did you worry whether your food would run out before you got money to buy more?: Never true Do you have trouble paying for medicines?: No Do you have trouble getting transportation to medical appointments?: No Do you have trouble paying your heating and electricity bill?: No Do you have trouble taking care of your child, family member or friend?: No Do you have trouble with day-to-day activities such as bathing, preparing meals, shopping, managing finances, etc.?: No Are you currently unemployed and looking for a job?: No Are you interested in more education?: No Please select the resources that you would like help with: None THRIVE Score: 0 AUDIT C Alcohol Use Questionnaire (AUDIT-C) 1. How often do you have a drink containing alcohol?: Never 2. How many drinks containing alcohol do you have on a typical day when you are drinking?: 1 or 2 (0) 3. How often do you have six or more drinks on one occasion?: Never Total Score: 0 AMAURY-7 AMB Questionnaire AMAURY-7 Date AMAURY - 7 assessed: 12/18/23 Source: Developed by Drs. Trae Bailey, Sakshi Ren, Master King and colleagues, with an educational osmel from [employer]. Physical exam (Primary Care) Vital Signs: Last Vital Signs Pulse 60 12/18/23 09:32 BP 130/66 12/18/23 09:32 Pulse Ox 97 12/18/23 09:32 Oxygen Delivery Method Room Air 12/18/23 09:32 BMI result Body Mass Index 34.5 Tobacco/Smoking Status: Tobacco use Status Tobacco use date assessed 12/18/23 12/18/23 09:33 Patient Tobacco Use Status Never used Tobacco 12/18/23 09:33 e-Cigarette/Vaping Use Never Used 12/18/23 09:33 Thrive Assessment: Date of Thrive Assessment Date Thrive assessed 12/18/23 12/18/23 09:33 Const General: alert; No acute distress Eyes Conjunctivae: conjunctivae normal Resp Auscultation: clear to auscultation bilaterally Cardio Rate: regular rate Rhythm: regular rhythm GI Inspection: Yes normal to inspection Extrem General: Yes normal to inspection and No edema Results AMB Hemoglobin A1c AMB Hemoglobin A1c 5.6 % Last Edit by WILBER Garcia on 12/18/23 09:44 Results Reviewed Results Reviewed: Laboratory Last Values Hgb A1c (Clinic) 5.6 % (4.0-6.0) 12/18/23 08:54 Assessment and Plan Assessment & Plan (1) Essential hypertension: Code(s): I10 - Essential (primary) hypertension Plan: Patient has followed up with Nephrology presently on metoprolol 25 mg once a day lisinopril 5 mg once a day due to the hypercalciuria started on hydrochlorothiazide 25 mg once a day and discontinued amlodipine. (2) Atherosclerotic cardiovascular disease: Comment: Cardiac catheterization November 2022 minimal irregularities Code(s): I25.10 - Atherosclerotic heart disease of [place] coronary artery without angina pectoris Plan: Control the cholesterol, weight, blood pressure, diabetes (3) Obesity (BMI 30-39.9): Comment: PATIENT IS MODERATELY OBESE AND WOULD NEED TO LOSE SOME WEIGHT. I TRIED TO EXPLAIN TO HIM THROUGH THE HAND PICKER, HE WILL HAVE DIFFICULTY IN LOSING WEIGHT BECAUSE HE CANNOT WALK MUCH DUE TO OSTEOARTHRITIS OF THE KNEES, IT IS HARD FOR HIM TO UNDERSTAND THE NEED FOR DIETING AT THIS TIME. AGAIN EXPLAINED TO HIM THROUGH THE HAND PICKER AND HE SAID THAT HE IS TRYING TO LIMIT THE CALORIES INTAKE. Code(s): E66.9 - Obesity, unspecified Plan: Diet and exercise (4) Type 2 diabetes mellitus with hyperglycemia: Comment: Dr. Bee Code(s): E11.65 - Type 2 diabetes mellitus with hyperglycemia Plan: Decrease the amount of carbohydrate intake, pasta, bread, rice and potatoes are all sugar and that is aside from all the sweet stuff, remember that fruits are good but they are Sweet also. Hemoglobin A1c goal of less than 7.0 patient is Narinder and the A1c is normal (5) STANLEY (obstructive sleep apnea): Comment: OBSTRUCTIVE SLEEP APNEA, SEVERE, WITH TOTAL SLEEP TIME AHI 38. PATIENT DOES HAVE HISTORY OF SLEEP APNEA SINCE 2013. USING CPAP with auto PAP mode and pressure setting of 6-20 cm SINCE 05/21/2022. There is a technical error and some confusion about his compliance report. We are trying to contact the DME and try to rectify this. He needs a new mask with new lining, and an order for new supplies is sent, Will re-evaluate him in 4 months Code(s): G47.33 - Obstructive sleep apnea (adult) (pediatric) Plan: Was just told by Family , patient not using the CPAP. discussed the importance of using this (6) BPH loc w urin obs/LUTS: Code(s): N40.1 - Benign prostatic hyperplasia with lower urinary tract symptoms Plan: Stable (7) Major depression: Code(s): F32.9 - Major depressive disorder, single episode, unspecified Plan: decline counselling . prescription made (8) Low back pain: Code(s): M54.50 - Low back pain, unspecified Plan: xray requested (9) Ischemic cardiomyopathy: Code(s): I25.5 - Ischemic cardiomyopathy Plan: cardiology referral (10) Hearing difficulty: Code(s): H91.90 - Unspecified hearing loss, unspecified ear Plan: referral for hearing test Orders: Orders AMB Hemoglobin A1c Today E11.65 - Type 2 diabetes mellitus with hyperglycemia XR lumbar spine 2-3V Today M54.50 - Low back pain, unspecified PT Evaluation and Treatment Today M54.50 - Low back pain, unspecified Referrals Cardiology Referral I25.5 - Ischemic cardiomyopathy Speech and Hearing Referral H91.90 - Unspecified hearing loss, unspecified ear Medications: New escitalopram oxalate (Lexapro) 5 mg PO DAILY 30 tabs 3RF F32.9 - Major depressive disorder, single episode, unspecified Coding Level of Care Code Est Pt Level 4 (38741) Diagnoses Essential hypertension I10 Atherosclerotic cardiovascular disease I25.10 Obesity (BMI 30-39.9) E66.9 Type 2 diabetes mellitus with hyperglycemia E11.65 STANLEY (obstructive sleep apnea) G47.33 BPH loc w urin obs/LUTS N40.1 Major depression F32.9 Low back pain M54.50 Ischemic cardiomyopathy I25.5 Hearing difficulty H91.90
[2023-12-18 09:32] VITALS: BP 130/66; PULSE 60; O2SAT 97; BMI 34.5
== END 2023-12-18 10:32 | disposition home or self-care (01) ==
PROVIDERS: PCP Internal Medicine; Visit Provider Internal Medicine
DX: I10 Essential (primary) hypertension (principal); E11.65 Type 2 diabetes mellitus with hyperglycemia; I25.10 Atherosclerotic heart disease of native coronary artery without angina pectoris; Z68.34 Body mass index [BMI] 34.0-34.9, adult; E66.9 Obesity, unspecified; G47.33 Obstructive sleep apnea (adult) (pediatric); N40.1 Benign prostatic hyperplasia with lower urinary tract symptoms; F32.9 Major depressive disorder, single episode, unspecified; M54.50 Low back pain, unspecified; I25.5 Ischemic cardiomyopathy; H91.90 Unspecified hearing loss, unspecified ear
CPT/HCPCS: 83036; 99214

== ENCOUNTER 2023-12-24 09:06 | Outpatient (REF) | payer OTHER, SELFPAY ==
--- NOTE | ~2023-12-24 | XR_ITS ---
EXAMINATION: XR LUMBOSACRAL SPINE CLINICAL INFORMATION: Low back pain. COMPARISON: KUB 09/25/2022, lumbar spine 07/26/2022 TECHNIQUE: Three views of the lumbosacral spine. FINDINGS: Mild dextroscoliosis of the lumbar spine. Moderate degenerative changes in the bilateral sacroiliac joints. The bones are diffusely demineralized. Surgical clips in the right upper quadrant. Advanced degenerative changes in the imaged lower thoracic spine. Facet arthritis in the mid to lower lumbar spine. Multilevel lumbar spondylosis. Grade 1 anterolisthesis of L4 on L5. Lumbar disc space heights are preserved. XR/XR lumbar spine 2-3V IMPRESSION: 1. Facet arthritis in the mid to lower lumbar spine. 2. Multilevel lumbar spondylosis.
[2023-12-24 11:21] LABS: Anion Gap 10 (12-20); Blood Urea Nitrogen 11 mg/dL (9-16); Calcium 9.4 mg/dL (8.4-10.2); Carbon Dioxide 30 mmol/L (22-29); Chloride 102 mmol/L (96-108); Estimated Glomerular Filt Rate > 60; Glucose Random 123 mg/dL (60-115); Potassium 4.1 mmol/L (3.3-5.1); Sodium 138 mmol/L (135-145)
[2023-12-24 11:51] LABS: Creatinine Urine 65.43 mg/dL
[2023-12-25 15:53] LABS: Calcium, Random Urine 5.3 mg/dL
== END 2023-12-24 09:07 | disposition home or self-care (01) ==
LOC: HO.LAB 09:06
PROVIDERS: PCP Internal Medicine; Visit Provider Internal Medicine Hypertension Specialist
DX: I10 Essential (primary) hypertension (principal); N20.0 Calculus of kidney; R82.994 Hypercalciuria; M54.50 Low back pain, unspecified
CPT/HCPCS: 36415; 72100; 80048; 82310; 82570

== ENCOUNTER 2023-12-25 08:53 | Outpatient (AMB) | payer OTHER, SELFPAY ==
--- NOTE | 2023-12-25 08:57 | A.OFFVIS_ITS ---
Intake Vital Signs 12/25/23 09:02 Height 5 ft 8 in Weight 227 lb 1.218 oz BMI 34.5 BP 140/80 H Blood Pressure Location Lt brachial Position Sitting Pulse 64 Intake Visit Reasons: 1 year follow up echo Intake Note: 1 year follow up w/ EKG Administrative Director Required: No Accompanied by: Family/Other Allergies No Known Allergies Allergy (Verified 12/25/23 09:01) Medication List - Last Reconciled 12/25/23 by Bryson Templeton MD aspirin (Adult Aspirin Regimen) 81 mg PO DAILY 90 days atorvastatin 40 mg PO DAILY 90 days [AUTO PAP 6-20 cm H2O humidified AIR As directed] blood sugar diagnostic ([employer] Verio test strips) test once daily blood-glucose meter ([employer] Verio Flex Meter) test once daily zohra.stocking,knee,reg,xlrg As directed 20-30 mm HG diclofenac sodium 1% (Voltaren Arthritis Pain) 4 grams topical TID PRN escitalopram oxalate (Lexapro) 5 mg PO DAILY gabapentin 300 mg PO TID hydrochlorothiazide 25 mg PO DAILY lancets ([place] [employer] UltraSoft 2 Lancet) test once daily lisinopril 5 mg PO DAILY metoprolol succinate ER 25 mg PO DAILY omeprazole 20 mg PO DAILY pyridoxine (vitamin B6) 100 mg PO DAILY tirzepatide (Mounjaro) 2.5 mg (0.5 mL) subcut QWEEK 4 weeks HPI HPI Comments History of Present Illness Details Сергей returns for follow-up regarding suspected coronary disease as well as ascending aortic dilatation. In the past, he had described chest pains that led to stress testing that had shown nontransmural infarct of inferior wall, but without any ischemia. He has been maintained on medical therapy for stable coronary disease. In a prior visit, he was still describing some nonspecific discomfort and that led to cardiac catheterization. However, no significant disease. He is accompanied by his family. They say that he is just about the same as before. No specific concerns. [facility] Medical History (Updated 12/18/23 @ 10:27 by Neo Baig MD) Hearing difficulty Hypertension Nephrolithiasis Flank pain Constipation Dizziness STANLEY (obstructive sleep apnea) Obesity (BMI 30-39.9) Tubular adenoma of colon Polysubstance abuse Knee osteoarthritis Degenerative disc disease, lumbar Osteoarthritis of right shoulder Ascending aorta dilatation Coronary artery disease History of renal calculi GERD (gastroesophageal reflux disease) Vitamin D deficiency Peripheral vascular disease Hypercholesterolemia Obstructive sleep apnea COPD (chronic obstructive pulmonary disease) Surgical History Hx of cardiac cath Hx laparoscopic cholecystectomy Hx of colonoscopy History of esophagogastroduodenoscopy (EGD) Family History Father Stroke Heart attack Mother No problems noted. Sister Breast cancer Social History Household Members: Spouse Housing: House Do you presently have visiting nurse or other home services: No Alcohol intake: former Year quit: 2009 Patient Tobacco Use Status: Never used Tobacco e-Cigarette/Vaping Use: Never Used Second Hand Smoke Exposure: No service: No Current occupational status: retired and disabled Cognitive needs: No Hearing needs: No Vision needs: Yes Review of Systems Const Denies weakness ENT Denies dizziness Card Denies chest pain, Denies chest pain with activity, Denies syncope, Denies rapid heart rate, Denies pedal edema, Denies edema, Denies leg edema, Denies lightheadedness, Denies palpitations, Denies dyspnea, Denies dyspnea on exertion and Denies orthopnea Resp Denies cough, Denies dyspnea and Denies dyspnea on exertion GI Denies hematochezia and Denies change in stool character Musc Denies abnormal gait, Denies muscle cramps, Denies muscle weakness, Denies numbness, Denies radiating pain into limb and Denies tingling Neuro Denies abnormal gait, Denies dizziness, Denies syncope, Denies numbness, Denies tingling and Denies weakness Endo Denies palpitations Physical Exam Vital Signs: Last Vital Signs Pulse 64 12/25/23 09:02 BP 140/80 H 12/25/23 09:02 BMI result Body Mass Index 34.5 Const General: comfortable and no acute distress Orientation/consciousness: patient oriented x3 HEENT Other: Unremarkable Head: Yes normal to inspection Neck Neck: Yes normal visual inspection Chest Chest palpation & inspection: normal inspection of the chest Resp Auscultation: clear to auscultation bilaterally Cardio Palpation: normal PMI Heart sounds: S1 normal heart sound present, S2 normal heart sound present, no gallops, no murmurs and no rubs GI Palpation (GI): Soft to palpation Back/Spine/Pelvis Other: unremarkable Skin General skin exam: no rashes or lesions noted Neuro General: patient oriented x3 Extrem General: Yes normal to inspection Psych Mental Status: mental status grossly normal Office Procedures EKG Details: EKG with sinus rhythm at 64/Min; right bundle-branch block and left anterior fascicular block. [id number], Complete Assessment & Plan Assessment & Plan (1) Atherosclerotic cardiovascular disease: Comment: Cardiac catheterization November 2022 minimal irregularities Code(s): I25.10 - Atherosclerotic heart disease of [place] coronary artery without angina pectoris Plan: Myocardial perfusion imaging study from 2017 had shown nontransmural infarct of the inferior wall without ischemia. In the repeat study, transmural infarct of the basal inferior/possibly inferior apical wall. Mild intensity reversible defect in the basal lateral wall. In the cardiac catheterization, minimal irregularities in the circumflex and right coronary artery but other arteries were essentially normal. Hence etiology for the perfusion abnormalities are clear. Continue aspirin, beta-blockers and statins. Cholesterol is well controlled with an LDL of 56 mg/dL. Triglycerides 139 mg/dL. (2) Ascending aorta dilatation: Comment: 11/2022 4.1 cm Code(s): I77.810 - Thoracic aortic ectasia Plan: In the most recent echocardiogram, ascending aortic size 4.1 cm. Previously reported to be at 4.3 cm. Probably all technical. Check in 1 year. (3) Essential hypertension: Code(s): I10 - Essential (primary) hypertension Plan: Remains on amlodipine. Discussed with family as well as patient regarding checking some home blood pressures. Advised him to report through patient portal and if necessary, we can make changes. They understand. (4) Right bundle branch block: Code(s): I45.10 - Unspecified right bundle-branch block Plan: Can be followed on EKGs. Orders: Orders CA echo transthoracic complete 1 Year I25.10 - Atherosclerotic heart disease of [place] coronary artery without angina pectoris Coding Level of Care Code Est Pt Level 4 (01852) Diagnoses Atherosclerotic cardiovascular disease I25.10 Ascending aorta dilatation I77.810 Essential hypertension I10 Right bundle branch block I45.10 CPT Codes EKG - CPT: 36200-[id number], Complete ([id number])
[2023-12-25 09:02] VITALS: BP 140/80; PULSE 64; BMI 34.5
== END 2023-12-25 09:24 | disposition home or self-care (01) ==
PROVIDERS: Visit Provider Internal Medicine
DX: I25.10 Atherosclerotic heart disease of native coronary artery without angina pectoris (principal); I77.810 Thoracic aortic ectasia; I10 Essential (primary) hypertension; I45.10 Unspecified right bundle-branch block
CPT/HCPCS: 93010; 99214

== ENCOUNTER → 2023-12-25 08:53 | Outpatient (BNVA) | payer OTHER, SELFPAY | PROVIDERS: Visit Provider Internal Medicine | DX: I45.2 Bifascicular block (principal); I25.10 Atherosclerotic heart disease of native coronary artery without angina pectoris; I77.810 Thoracic aortic ectasia; I10 Essential (primary) hypertension | CPT/HCPCS: 93005; 99212 ==

== ENCOUNTER 2023-12-29 11:08 | Outpatient (AMB) | payer OTHER, SELFPAY ==
--- NOTE | 2023-12-29 11:11 | HO.NEPHOV_ITS ---
HPI HPI Comments History of Present Illness Details Elderly man with referred for nephrolithiasis and hypercalciuria Accompanied by family Tolerating HCTZ Edema is better No specific complaints today PFSH Medical History (Updated 12/18/23 @ 10:27 by Neo Baig MD) Hearing difficulty Hypertension Nephrolithiasis Flank pain Constipation Dizziness STANLEY (obstructive sleep apnea) Obesity (BMI 30-39.9) Tubular adenoma of colon Polysubstance abuse Knee osteoarthritis Degenerative disc disease, lumbar Osteoarthritis of right shoulder Ascending aorta dilatation Coronary artery disease History of renal calculi GERD (gastroesophageal reflux disease) Vitamin D deficiency Peripheral vascular disease Hypercholesterolemia Obstructive sleep apnea COPD (chronic obstructive pulmonary disease) Surgical History Hx of cardiac cath Hx laparoscopic cholecystectomy Hx of colonoscopy History of esophagogastroduodenoscopy (EGD) Family History Father Stroke Heart attack Mother No problems noted. Sister Breast cancer Social History Household Members: Spouse Housing: House Do you presently have visiting nurse or other home services: No Alcohol intake: former Year quit: 2009 Patient Tobacco Use Status: Never used Tobacco e-Cigarette/Vaping Use: Never Used Second Hand Smoke Exposure: No service: No Current occupational status: retired and disabled Cognitive needs: No Hearing needs: No Vision needs: Yes Vital Signs 12/29/23 11:12 12/29/23 11:22 Height 5 ft 8 in Weight 225 lb 8 oz BMI 34.3 BP 150/70 H 130/60 Blood Pressure Location Rt brachial Rt brachial Position Sitting Sitting Pulse 64 Pulse Source Pulse Oximeter Pulse Oximetry (%) 97 Oxygen Delivery Method Room Air Physical Exam Vital Signs: Last Vital Signs Pulse 64 12/29/23 11:12 BP 150/70 H 12/29/23 11:12 Pulse Ox 97 12/29/23 11:12 Oxygen Delivery Method Room Air 12/29/23 11:12 BMI result Body Mass Index 34.3 Const General: comfortable Nutritional Appearance: well nourished Orientation/consciousness: patient oriented x3 HEENT Head: No normal to inspection Mouth: moist mucous membranes Neck Neck: Yes supple and Yes no JVD Resp Auscultation: clear to auscultation bilaterally, no rales and rub present Cardio Jugular venous distension: no JVD Palpation: no palpable S3 and no palpable S4 Heart sounds: no rubs GI Palpation (GI): Soft to palpation and nontender Percussion: No Fluid wave present General: Yes no CVA tenderness Back/Spine/Pelvis Back: no CVA tenderness Skin General skin exam: no rashes or lesions noted Neuro General: patient oriented x3 Extrem General: No clubbing Assessment & Plan Assessment & Plan (1) Hypertension: Code(s): I10 - Essential (primary) hypertension Qualifiers: Hypertension type: essential hypertension Qualified Code(s): I10 - Essential (primary) hypertension (2) Nephrolithiasis: Code(s): N20.0 - Calculus of kidney (3) Hypercalciuria: Code(s): R82.994 - Hypercalciuria Plan Elderly man with nephrolithiasis and hypercalciuria Serum calcium normal Serum calcium is normal. Intact is mildly elevated as expected. Blood pressure is well controlled. In view of the hypercalciuria I would keep hydrochlorothiazide 25 mg a day. Amlodipine stopped due to edema. The leg edema improved after discontinuing amlodipine. I will follow urine calcium excretion in the next few months. Discussed LOW sodium diet Increase PO fluid intake Orders: Orders Basic Metabolic Panel 4 Months N20.0 - Calculus of kidney, R82.994 - Hyper calciuria Parathyroid Hormone Intact 4 Months N20.0 - Calculus of kidney, R82.994 - Hypercalciuria Coding Level of Care Code Est Pt Level 4 (65638) Diagnoses Essential hypertension I10 Hypertension type: essential hypertension Nephrolithiasis N20.0 Hypercalciuria R82.994 Results Reviewed Nephrology Results: Sodium 138 mmol/L (135-145) 12/24/23 Potassium 4.1 mmol/L (3.3-5.1) 12/24/23 Chloride 102 mmol/L (96-108) 12/24/23 Carbon Dioxide 30 mmol/L (22-29) H 12/24/23 BUN 11 mg/dL (9-16) 12/24/23 Creatinine 1.15 mg/dL (0.5-1.4) 12/24/23 Calcium 9.4 mg/dL (8.4-10.2) 12/24/23 Phosphorus 2.9 mg/dL (2.7-4.5) 09/30/23 PTH Intact 102.8 pg/mL (8.7-77.1) H 09/30/23 Urine Protein Negative mg/dL (Neg-Trace) 09/30/23 Urine Creatinine 65.43 mg/dL 12/24/23 Renal US 10/24/23
[2023-12-29 11:12] VITALS: BP 150/70; PULSE 64; O2SAT 97; BMI 34.3
[2023-12-29 11:22] VITALS: BP 130/60
== END 2023-12-29 11:33 | disposition home or self-care (01) ==
PROVIDERS: PCP Internal Medicine; Visit Provider Internal Medicine Hypertension Specialist
DX: I10 Essential (primary) hypertension (principal); N20.0 Calculus of kidney; R82.994 Hypercalciuria
CPT/HCPCS: 99214

== ENCOUNTER → 2023-12-29 11:08 | Outpatient (BNVA) | payer OTHER, SELFPAY | PROVIDERS: PCP Internal Medicine; Visit Provider Internal Medicine Hypertension Specialist | DX: I10 Essential (primary) hypertension (principal); N20.0 Calculus of kidney; R82.994 Hypercalciuria | CPT/HCPCS: 99212 ==

== ENCOUNTER 2024-01-01 08:33 | Outpatient (AMB) | payer OTHER, SELFPAY ==
--- NOTE | 2024-01-01 08:35 | A.OFFVIS_ITS ---
Intake Visit Reasons: 6m/US Intake Note: Patient presents today for a follow-up on US Results: Meds- Vitamin B6 Allergies to Antibiotic- No Known Allergies Blood Thinner- Aspirin Post Void Residual: 72 mL Nuclear Reactor Technician Required: No Accompanied by: Self / Same As Patient Allergies No Known Allergies Allergy (Verified 12/29/23 11:14) HPI Comments Details: 01/01/24--Сергей is a 73-year-old male who presents today to the office for a follow-up. Сергей is followed for BPH and kidney stones. LV-07/10/23?He is followed today to review 24-hour urine collection. discussed refer to nephrology for hypercalcuria on prior testing his urine calcium was 333 and urine sodium was 164. The patient is a [place]atian speaking male. Certified video tape duplicator was present during the visit. He has a past medical history significant for diabetes and hypertension. Discussed renal US 10/24/23 no recurrent renal stones. Review of chart: 24-hour urine collection results from 05/08/23 revealed urine volume 2.38 litres, urine calcium was 367, urine oxalate was 34, urine citrate was 911, and urine sodium was 207. 01/01/24: Plan: Vitamin B6 100 mg Monitor kidneys, renal US in 9 months [facility] Medical History Hearing difficulty Hypertension Nephrolithiasis Flank pain Constipation Dizziness STANLEY (obstructive sleep apnea) Obesity (BMI 30-39.9) Tubular adenoma of colon Polysubstance abuse Knee osteoarthritis Degenerative disc disease, lumbar Osteoarthritis of right shoulder Ascending aorta dilatation Coronary artery disease History of renal calculi GERD (gastroesophageal reflux disease) Vitamin D deficiency Peripheral vascular disease Hypercholesterolemia Obstructive sleep apnea COPD (chronic obstructive pulmonary disease) Surgical History Hx of cardiac cath Hx laparoscopic cholecystectomy Hx of colonoscopy History of esophagogastroduodenoscopy (EGD) Family History Father Stroke Heart attack Mother No problems noted. Sister Breast cancer Social History Household Members: Spouse Housing: House Do you presently have visiting nurse or other home services: No Alcohol intake: former Year quit: 2009 Patient Tobacco Use Status: Never used Tobacco e-Cigarette/Vaping Use: Never Used Second Hand Smoke Exposure: No service: No Current occupational status: retired and disabled Cognitive needs: No Hearing needs: No Vision needs: Yes Review of Systems Const All systems reviewed & are unremarkable except as noted in HPI and below Reports no additional complaints Eyes Reports no additional complaints ENT Reports no additional complaints Card Reports no additional complaints Resp Reports no additional complaints GI Reports no additional complaints Reports as per HPI Musc Reports no additional complaints Skin/Breast Reports system reviewed and no additional complaints, except as documented Neuro Reports no additional complaints Psych Reports no additional complaints Endo Reports no additional complaints Tadeo/Lymph Reports no additional complaints Aller/Immun Reports no additional complaints Office Procedures Post Void Residual Post Residual Void Post Void Residual (PVR): 72 [id number] Void Residual by ultrasound Results AMB Urinalysis, Automated UA Leukoctes 0 John Paul/uL Last Edit by WILBER Maldonado on 01/01/24 08:54 UA Nitrite Negative Last Edit by WILBER Maldonado on 01/01/24 08:54 UA Urobilinogen 0.2 mg/dL Last Edit by WILBER Maldonado on 01/01/24 08:5 4 UA Protein 0 mg/dL Last Edit by WILBER Maldonado on 01/01/24 08:54 UA pH 7.0 Last Edit by WILBER Maldonado on 01/01/24 08:54 UA Blood 0 Markus/uL Last Edit by WILBER Maldonado on 01/01/24 08:54 UA Specific [place] 1.010 Last Edit by WILBER Maldonado on 01/01/24 08: 54 UA Ketone Negative Last Edit by WILBER Maldonado on 01/01/24 08:54 UA Bilirubin 0 mg/dL Last Edit by WILBER Maldonado on 01/01/24 08:54 UA Glucose 0 mg/dL Last Edit by WILBER Maldonado on 01/01/24 08:54 Results Reviewed Results Reviewed: Laboratory Last Values Urine pH (Auto) 7.0 01/01/24 08:52 Specific [place] (Auto) 1.010 01/01/24 08:52 Urine Protein (Auto) 0 mg/dL 01/01/24 08:52 Glucose (UA)(Auto) 0 mg/dL 01/01/24 08:52 Urine Ketones (Auto) Negative 01/01/24 08:52 Urine Blood (Auto) 0 Markus/uL 01/01/24 08:52 Urine Nitrite (Auto) Negative 01/01/24 08:52 Urine Bilirubin (Auto) 0 mg/dL 01/01/24 08:52 Urine Urobilinogen (Auto) 0.2 mg/dL 01/01/24 08:52 Leukocyte Esterase (Auto) 0 John Paul/uL 01/01/24 08:52 Date of Service: 10/24/23 EXAMINATION: US RETROPERITONEAL LIMITED (RENAL ONLY) CLINICAL INFORMATION: Calculus of kidney. COMPARISON: Renal ultrasound 11/25/2022 and 03/05/2017. TECHNIQUE: Real-time imaging of the kidneys. FINDINGS: RIGHT KIDNEY: 11.2 x 6.2 x 6.5 cm (SAG x AP x TRV). The kidney is normal in size, contour, and echogenicity. Renal cortical thickness is normal. No calculi or focal parenchymal lesions. No hydronephrosis. LEFT KIDNEY: 10.8 x 5.1 x 4.6 cm (SAG x AP x TRV). The kidney is normal in size, contour, and echogenicity. Renal cortical thickness is normal. No calculi or focal parenchymal lesions. No hydronephrosis. IMPRESSION: No visible nephrolithiasis. No hydronephrosis. Assessment & Plan Assessment & Plan (1) History of renal calculi: Code(s): Z87.442 - Personal history of urinary calculi Category: Medical (2) BPH loc w urin obs/LUTS: Code(s): N40.1 - Benign prostatic hyperplasia with lower urinary tract symptoms Category: Medical (3) Hypercalciuria: Code(s): R82.994 - Hypercalciuria Category: Medical Plan Vitamin B6 100 mg Monitor kidneys, renal US in 9 months Orders: Orders AMB Urinalysis Automated 01/01/24 Z13.9 - Encounter for screening, unspecified AMB Post Void Residual by ultrasound 01/01/24 N39.8 - Other specified disorders of urinary system US renal BI 8 Months Z87.442 - Personal history of urinary calculi, N40.1 - Benign prostatic hyperplasia with lower urinary tract symptoms Patient Instructions: The patient had an opportunity to ask questions regarding treatment plan. The patient expressed understanding and agreement with the above treatment plan. The patient is aware they should contact our office by phone for worsening of their current condition or the appearance of new symptoms. Compliance is encouraged with any medications and followup testing that is ordered. It is a privilege to be allowed the opportunity to participate in the urologic care of your patient. If you have any questions or concerns regarding treatment for the above conditions please do not hesitate to contact me. The office telephone contact is [phone]. This note is constructed in part using voice recognition software. While every effort has been made to ensure accuracy fiction and nonfiction author errors may have been included. Yours sincerely, Shaina Bianchi MD Coding Level of Care Code Est Pt Level 3 (34619) Diagnoses History of renal calculi Z87.442 BPH loc w urin obs/LUTS N40.1 Hypercalciuria R82.994 CPT Codes Post Residual Void - PVR CPT Code: 21325-Rqhq Void Residual by ultrasound ([id number])
== END 2024-01-01 09:16 | disposition home or self-care (01) ==
PROVIDERS: PCP Internal Medicine; Visit Provider Urology
DX: Z87.442 Personal history of urinary calculi (principal); N40.1 Benign prostatic hyperplasia with lower urinary tract symptoms; R82.994 Hypercalciuria
CPT/HCPCS: 99213

== ENCOUNTER → 2024-01-01 08:33 | Outpatient (BNVA) | payer OTHER, SELFPAY | PROVIDERS: PCP Internal Medicine; Visit Provider Urology | DX: N40.1 Benign prostatic hyperplasia with lower urinary tract symptoms (principal); N39.8 Other specified disorders of urinary system; R82.994 Hypercalciuria; Z87.442 Personal history of urinary calculi | CPT/HCPCS: 51798; 81003; 99212 ==

== ENCOUNTER 2024-01-14 11:00 | Outpatient (RCR) | payer OTHER, SELFPAY ==
--- NOTE | 2023-12-26 15:24 | MHC.PT.EP ---
[facility] [place] Office [place] Office [place] Office [address] [phone] F: [phone] F: [phone] F: [phone] F: [phone] Physical Therapy Plan of Care Date of Evaluation: 12/26/23 Date of Surgery: Diagnosis: LBP Assessment: 73 YO MALE REF TO PT FOR LBP- HE IS AND HAS BEEN RESIDING W HIS SON x 6 MONTHS. 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 OBJECTIVELY, THE Pt HAS (+) HYPOMOBILITY IN ESTHELA HIP ROTATORS AND HS, TIGHT TRUNK FLEX AND SB, (+) ABDOM WEAKNESS W VALSALVA TENDNECIES, AND DECR ACTIVITY REFUGIO. HE IS MORE SEDENTARY OVER THE LAST 6 MONTHS. THE Pt NOTED HE HAD DECR PAIN AFTER THE EXER AND GENTLE STRETCHES PERFORMED TODAY AT HIS EVAL- HIS Rt LE SXS DO NOT APPEAR TO CURRENTLY BE RADICULAR- MORE DUE TO HIP HYPOMOBILITY/ TISSUE TENSION IN THE HIP COMPLEX WITH LB STIFFNESS-> AWAIT REPORT FROM [facility] 12/24/23. Frequency and Duration: The patient will be seen 2 x WK x 4 WKS Short Term Goals: *IMPROVE HIP FLEXIB ESTHELA *DECR LBP TO 2-3/10 AND DECR Rt THIGH SXS BY 50% *IMPROVE SQUAT MECH *INITIATE HEP Dust Mixer Goals: *Pt WILL IMPROVE LUMBOPELVIC/ Lt LE STRENGTH *Pt REPORT INCREASED ADL/ ACTIVITY REFUGIO-> INITIATE FITNESS WALKING EVIDENT W IMPROVED OSWESTRY SCORE (AT EVAL45/50) *Pt INDEP W PROGRESSIVE HEP AND SELF-SX MGMT TECHN *Pt DEMON 2:2 SIMUL ADLs W PROPER MECH Treatment Plan: Modalities to reduce pain, spasms and effusion. Manual therapy to restore motion and function. Therapeutic exercise to improve strength and flexibility. Neuromuscular re-education for posture and balance. Therapeutic activities to return to functional activities of daily living. Electronically signed by: ANY HARDIN,PT Please sign and return to therapist. Thank you for your referral.
--- NOTE | 2024-01-14 15:13 | MHC.PT.DC ---
[facility] [place] Office [place] Office [place] Office [address] Lucille Jennings [address] [facility] [phone] F: [phone] F: [phone] F: [phone] F: [phone] Physical Therapy Discharge Report Diagnosis: LBP Date of Surgery: Date of Evaluation: 12/26/23 Date of Discharge: 01/14/24 Treatments to Date: 7 Cancellations to Date: 0 No Shows to Date: 0 Discharge Status: Achieved Goals Improved Function Independent with HEP Patient Elected to Stop Discharge Summary: THE Pt HAS MADE SIGNIF PROGRESS IN PT- HE DEMON IMPROVED BODY MECH , INCR HIP FLEXIB AND TRUNK AROM, AND GENERAL LEs STRENGTH- ULTIMATELY, HIS LBP HAS RESOLVED AND HE IS READY FOR DISCHARGE FROM PT AT THIS TIME W HIS HEP Electronically signed by: ANY HARDIN,PT Please sign and return to therapist. Thank you for your referral.
== END 2024-06-25 12:14 | disposition home or self-care (01) ==
LOC: HO.PT 11:00
PROVIDERS: PCP Internal Medicine; Visit Provider Internal Medicine
DX: M54.50 Low back pain, unspecified (principal)
CPT/HCPCS: 97110; 97162; 97530

== ENCOUNTER 2024-01-30 10:15 | Outpatient (REF) | payer OTHER, SELFPAY | END 2024-01-30 10:16 | disposition home or self-care (01) | LOC: HO.SH 10:15 | PROVIDERS: Visit Provider Internal Medicine | DX: Z01.118 Encounter for examination of ears and hearing with other abnormal findings (principal); H90.3 Sensorineural hearing loss, bilateral | CPT/HCPCS: 92557; 92567 ==

== ENCOUNTER → 2024-02-02 12:22 | Outpatient (REF) | payer OTHER, SELFPAY | LOC: HO.SL 12:22 | PROVIDERS: PCP Internal Medicine; Visit Provider Internal Medicine | DX: G47.33 Obstructive sleep apnea (adult) (pediatric) (principal) | CPT/HCPCS: 95806 ==

== ENCOUNTER → 2024-02-02 12:57 | Outpatient (BNV) | payer OTHER, SELFPAY | PROVIDERS: PCP Internal Medicine; Visit Provider Internal Medicine | DX: R06.83 Snoring (principal) | CPT/HCPCS: 95806 ==

== ENCOUNTER 2024-04-12 11:29 | Outpatient (REF) | payer OTHER, SELFPAY ==
[2024-04-12 13:19] LABS: Anion Gap 14 (12-20); Blood Urea Nitrogen 9 mg/dL (9-16); Calcium 9.7 mg/dL (8.4-10.2); Carbon Dioxide 29 mmol/L (22-29); Chloride 100 mmol/L (96-108); Estimated Glomerular Filt Rate > 60; Glucose Random 114 mg/dL (60-115); Potassium 3.7 mmol/L (3.3-5.1); Sodium 139 mmol/L (135-145)
[2024-04-12 13:47] LABS: Parathyroid Hormone Intact 66.6 pg/mL (8.7-77.1)
== END 2024-04-12 11:30 | disposition home or self-care (01) ==
LOC: HO.LAB 11:29
PROVIDERS: Absent Provider Internal Medicine; PCP Internal Medicine; Visit Provider Internal Medicine Hypertension Specialist
DX: N20.0 Calculus of kidney (principal); R82.994 Hypercalciuria
CPT/HCPCS: 36415; 80048; 83970

== ENCOUNTER 2024-04-15 09:31 | Outpatient (AMB) | payer OTHER, SELFPAY ==
[2024-04-15 09:34] VITALS: BP 136/68; PULSE 56; O2SAT 96; BMI 34.5
--- NOTE | 2024-04-15 09:34 | A.OFFPC_ITS ---
Vital Signs 04/15/24 09:34 Height 5 ft 8 in Weight 227 lb BMI 34.5 BP 136/68 Blood Pressure Location Lt brachial Position Sitting Pulse 56 Pulse Source Pulse Oximeter Pulse Oximetry (%) 96 Oxygen Delivery Method Room Air Intake Visit Reasons: DM , cardiomyopathy, STANLEY Allergies No Known Allergies Allergy (Verified 04/15/24 09:35) Medication List - Last Reconciled 04/15/24 by Neo Baig MD aspirin (Adult Aspirin Regimen) 81 mg PO DAILY 90 days atorvastatin 40 mg PO DAILY 90 days [AUTO PAP 6-20 cm H2O humidified AIR As directed] blood sugar diagnostic ([employer] Verio test strips) test once daily blood-glucose meter ([employer] Verio Flex Meter) test once daily zohra.stocking,knee,reg,xlrg As directed 20-30 mm HG [DIABETIC SHOES As directed] diclofenac sodium 1% (Voltaren Arthritis Pain) 4 grams topical TID PRN diclofenac sodium 1% (Voltaren Arthritis Pain) 4 grams topical QID escitalopram oxalate (Lexapro) 5 mg PO DAILY gabapentin 300 mg PO TID hydrochlorothiazide 25 mg PO DAILY lancets ([employer] Delica Plus Lancet) USE TO TEST ONCE DAILY lisinopril 5 mg PO DAILY metoprolol succinate ER 25 mg PO DAILY omeprazole 20 mg PO DAILY pyridoxine (vitamin B6) 100 mg PO DAILY tirzepatide 5 mg (0.5 mL) subcut QWEEK 4 weeks Tobacco use date assessed: 12/18/23 Fall risk assessment: No Falls in past year Last assessed Fall Risk: 04/15/24 Dental Screening Dental Screen Date: 04/15/24 Did you have a dental visit in the last 12 months?: No Did you have a dental problem in the last 6 months where you did not have access to dental care?: No Was dental information given to patient?: No HPI DM , cardiomyopathy, STANLEY HPI Details 73-year-old obese male with diabetes sameer litus controlled coronary artery disease hypertension obstructive sleep apnea BPH ischemic cardiomyopathy coming in for follow-up. Last seen in November 2023. Patient's colonoscopy is up-to-date january 2021 5 years echocardiogram done 10/11/2022 ascending aorta dilatation problem. Review of the notes in [id number] patient had a sleep study showing negative sleep apnea AHI of 2.8 only. Patient also follows up with urology for BPH and nephrolithiasis. Referral to Nephrology done for hypercalciuria ultrasound done in October 2023 reveals no renal calculi continuing with vitamin B6 and ultrasound surveillance. Patient did see Nephrology in December 2023 advised to keep hydrochlorothiazide 25 mg once a day amlodipine. Due to edema advised to increase oral fluids. Patient has also seen Cardiology December and cardiac catheterization showing now significant disease. With the thoracic aorta ectasia advised to follow-up in 1 year.. [facility] Medical History (Updated 04/15/24 @ 10:03 by Neo Baig MD) STANLEY (obstructive sleep apnea) Hearing difficulty Hypertension Nephrolithiasis Flank pain Constipation Dizziness Obesity (BMI 30-39.9) Tubular adenoma of colon Polysubstance abuse Knee osteoarthritis Degenerative disc disease, lumbar Osteoarthritis of right shoulder Ascending aorta dilatation Coronary artery disease History of renal calculi GERD (gastroesophageal reflux disease) Vitamin D deficiency Peripheral vascular disease Hypercholesterolemia Obstructive sleep apnea COPD (chronic obstructive pulmonary disease) Surgical History Hx of cardiac cath Hx laparoscopic cholecystectomy Hx of colonoscopy History of esophagogastroduodenoscopy (EGD) Family History Father Stroke Heart attack Mother No problems noted. Sister Breast cancer Social History Household Members: Spouse Housing: House Do you presently have visiting nurse or other home services: No Alcohol intake: former Year quit: 2009 Patient Tobacco Use Status: Never used Tobacco e-Cigarette/Vaping Use: Never Used Second Hand Smoke Exposure: No service: No Current occupational status: retired and disabled Cognitive needs: No Hearing needs: No Vision needs: Yes Questionnaire PHQ-9 Over the last 2 weeks, how often have you been bothered by any of the following problems? 1. Little interest or pleasure in doing things: not at all 2. Feeling down, depressed, or hopeless: not at all 3. Trouble falling or staying asleep, or sleeping too much: not at all 4. Feeling tired or having little energy: not at all 5. Poor appetite or overeating: not at all 6. Feeling bad about yourself - or that you are a failure or have let yourself or your family down: not at all 7. Trouble concentrating on things, such as reading the newspaper or watching television: not at all 8. Moving or speaking so slowly that other people could have noticed. Or the opposite - being so fidgety or restless that you have been moving around a lot more than usual: not at all 9. Thoughts that you would be better off or of hurting yourself in some way: not at all Total score: 0 Depression Screening Interpretation: Negative Depression Screening Done: Yes Source: Developed by Drs. Trae Bailey, Sakshi Ren, Master King and colleagues, with an educational osmel from [employer]. Thrive Questionnaire Date Thrive assessed: 12/18/23 AUDIT C Alcohol Use Questionnaire (AUDIT-C) 1. How often do you have a drink containing alcohol?: Never 2. How many drinks containing alcohol do you have on a typical day when you are drinking?: 1 or 2 (0) 3. How often do you have six or more drinks on one occasion?: Never Total Score: 0 AMAURY-7 AMB Questionnaire AMAURY-7 Date AMAURY - 7 assessed: 12/18/23 Source: Developed by Drs. Trae Bailey, Sakshi Ren, Master King and colleagues, with an educational osmel from [employer]. Physical exam (Primary Care) Vital Signs: Last Vital Signs Pulse 56 04/15/24 09:34 BP 136/68 04/15/24 09:34 Pulse Ox 96 04/15/24 09:34 Oxygen Delivery Method Room Air 04/15/24 09:34 BMI result Body Mass Index 34.5 Tobacco/Smoking Status: Tobacco use Status Tobacco use date assessed 12/18/23 04/15/24 09:36 Patient Tobacco Use Status Never used Tobacco 04/15/24 09:36 e-Cigarette/Vaping Use Never Used 04/15/24 09:36 PHQ-9: PHQ-9 Score PHQ-9: Total score 0 04/15/24 09:47 Depression Screening Interpretation: Negative Thrive Assessment: Date of Thrive Assessment Date Thrive assessed 12/18/23 04/15/24 09:36 Const General: alert; No acute distress Eyes Conjunctivae: conjunctivae normal Resp Auscultation: clear to auscultation bilaterally Cardio Rate: regular rate Rhythm: regular rhythm GI Inspection: Yes normal to inspection Extrem General: Yes normal to inspection and No edema Results AMB Hemoglobin A1c AMB Hemoglobin A1c 5.4 % Last Edit by Yelena Simpson CMA on 04/15/24 09 :48 Assessment and Plan Assessment & Plan (1) Type 2 diabetes mellitus with hyperglycemia: Comment: Dr. Bee Code(s): E11.65 - Type 2 diabetes mellitus with hyperglycemia Plan: Decrease the amount of carbohydrate intake, pasta, bread, rice and potatoes are all sugar and that is aside from all the sweet stuff, remember that fruits are good but they are Sweet also. Hemoglobin A1c goal of less than 7.0. Patient has been placed on the Mounjaro injection (2) Hypercholesterolemia: Code(s): E78.00 - Pure hypercholesterolemia, unspecified Plan: Avoid fried foods, chicken skin, eggs, butter margarine, pastries and meat. Be it pork or beef they have a lot of cholesterol 07/11/2023 last blood work will need a request for blood work (3) Coronary artery disease: Comment: Myocardial perfusion imaging study (2017) shows nontransmural infarct of inferior wall with no ischemia. Clinically, no angina. Continue medical therapy for stable coronary disease. Code(s): I25.10 - Atherosclerotic heart disease of [place] coronary artery without angina pectoris Qualifiers: Associated angina: without angina Coronary Disease-Associated Artery/Lesion type: [place] artery [place] vs. transplanted heart: [place] heart Qualified Code(s): I25.10 - Atherosclerotic heart disease of [place] coronary artery without angina pectoris Plan: Control the cholesterol, weight, blood pressure, diabetes continue with aspirin 81 mg once a day (4) GERD (gastroesophageal reflux disease): Code(s): K21.9 - Gastro-esophageal reflux disease without esophagitis Plan: Avoid the foods that causes that usually spicy foods, tomato products, juices, coffee, soda and foods that your sensitive to. After eating do not lie down, allow 3-4 hours before in lie down. And keep the head of bed above 30 degrees to avoid the acid from going up. (5) Ascending aorta dilatation: Comment: 11/2022 4.1 cm Code(s): I77.810 - Thoracic aortic ectasia Plan: Advised to follow-up echocardiogram in 1 year. (6) Obesity (BMI 30-39.9): Comment: PATIENT IS MODERATELY OBESE AND WOULD NEED TO LOSE SOME WEIGHT. I TRIED TO EXPLAIN TO HIM THROUGH THE COLORING ROOM WORKER, HE WILL HAVE DIFFICULTY IN LOSING WEIGHT BECAUSE HE CANNOT WALK MUCH DUE TO OSTEOARTHRITIS OF THE KNEES, IT IS HARD FOR HIM TO UNDERSTAND THE NEED FOR DIETING AT THIS TIME. AGAIN EXPLAINED TO HIM THROUGH THE COLORING ROOM WORKER AND HE SAID THAT HE IS TRYING TO LIMIT THE CALORIES INTAKE. Code(s): E66.9 - Obesity, unspecified Plan: Diet and exercise (7) Essential hypertension: Code(s): I10 - Essential (primary) hypertension Plan: Continue with blood pressure medication. Decrease salt intake and exercise takes hydrochlorothiazide 25 mg once a day lisinopril 5 mg once a day metoprolol 25 mg once a day (8) Kidney stone on left side: Comment: Left ESWL Dr. George Elizabeth August 2022, 10/02/2022 Code(s): N20.0 - Calculus of kidney Plan: Keep well hydrated, continued vitamin B6 (9) Osteoarthritis of knees, bilateral: Code(s): M17.0 - Bilateral primary osteoarthritis of knee Plan: X-ray of the knees sent for update and Voltaren gel prescription sent. If not helping may send to orthopedics. Orders: Orders Comprehensive Met. Panel 3 Months E11.65 - Type 2 diabetes mellitus with hyperglycemia Microalbumin, Random (w Creat) 3 Months E11.65 - Type 2 diabetes mellitus with hyperglycemia XR knee standing BI Today M17.0 - Bilateral primary osteoarthritis of knee AMB Hemoglobin A1c Today Z13.9 - Encounter for screening, unspecified Complete Blood Count Auto Diff 3 Months E11.65 - Type 2 diabetes mellitus with hyperglycemia Free T4 (Free Thyroxine) 3 Months E11.65 - Type 2 diabetes mellitus with hyperglycemia Vitamin B12 and Folate 3 Months E11.65 - Type 2 diabetes mellitus with hyperglycemia Thyroid Stimulating Hormone 3 Months E11.65 - Type 2 diabetes mellitus with hyperglycemia Lipid Panel 3 Months E11.65 - Type 2 diabetes mellitus with hyperglycemia, E78.00 - Pure hypercholesterolemia, unspecified Hemoglobin A1c 3 Months E11.65 - Type 2 diabetes mellitus with hyperglycemia Creatinine Urine 3 Months E11.65 - Type 2 diabetes mellitus with hyperglycemia UA w Microscopic 3 Months E11.65 - Type 2 diabetes mellitus with hyperglycemia Medications: New [DIABETIC SHOES] As directed 1 ea 0RF E11.65 - Type 2 diabetes mellitus with hyperglycemia diclofenac sodium 1% (Voltaren Arthritis Pain) apply to single knee, ankle, foot; for foot includes sole/toes/top of foot 4 grams topical QID 400 grams 3RF M17.0 - Bilateral primary osteoarthritis of knee Changed From tirzepatide (Mounjaro) 2.5 mg (0.5 mL) subcut QWEEK 4 weeks 2 mL 5RF E11.65 - Type 2 diabetes mellitus with hyperglycemia To tirzepatide 5 mg (0.5 mL) subcut QWEEK 4 weeks 2 mL 5RF E11.65 - Type 2 diabetes mellitus with hyperglycemia Discontinued diclofenac sodium 1% (Voltaren Arthritis Pain) apply to single knee, ankle, foot; for foot includes sole/toes/top of foot Discontinued Reason: Duplicate 4 grams topical TID PRN 100 grams 3RF pain M17.9 - Osteoarthritis of knee, unspecified Coding Level of Care Code Est Pt Level 4 (94359) Complex EM visit Add On G2211 Diagnoses Type 2 diabetes mellitus with hyperglycemia E11.65 Hypercholesterolemia E78.00 Coronary artery disease involving [place] coronary artery of [place] heart without angina pectoris I25.10 Associated angina: without angina Coronary Disease-Associated Artery/Lesion type: [place] artery [place] vs. transplanted heart: [place] heart GERD (gastroesophageal reflux disease) K21.9 Ascending aorta dilatation I77.810 Obesity (BMI 30-39.9) E66.9 Essential hypertension I10 Kidney stone on left side N20.0 Osteoarthritis of knees, bilateral M17.0
== END 2024-04-15 10:16 | disposition home or self-care (01) ==
PROVIDERS: PCP Internal Medicine; Visit Provider Internal Medicine
DX: E11.65 Type 2 diabetes mellitus with hyperglycemia (principal); E78.00 Pure hypercholesterolemia, unspecified; I25.10 Atherosclerotic heart disease of native coronary artery without angina pectoris; K21.9 Gastro-esophageal reflux disease without esophagitis; I77.810 Thoracic aortic ectasia; E66.9 Obesity, unspecified; I10 Essential (primary) hypertension; N20.0 Calculus of kidney; M17.0 Bilateral primary osteoarthritis of knee; Z13.9 Encounter for screening, unspecified
CPT/HCPCS: 83036; 99214; G2211

== ENCOUNTER 2024-04-20 10:13 | Outpatient (AMB) | payer OTHER, SELFPAY ==
[2024-04-20 10:25] VITALS: BP 138/74; PULSE 70; O2SAT 93; BMI 34.5
--- NOTE | 2024-04-20 10:25 | HO.NEPHOV_ITS ---
Vital Signs 04/20/24 10:25 Height 5 ft 8 in Weight 227 lb BMI 34.5 BP 138/74 Blood Pressure Location Lt brachial Position Sitting Pulse 70 Pulse Source Pulse Oximeter Pulse Oximetry (%) 93 Oxygen Delivery Method Room Air Intake Visit Reasons: 4 mon follow up-Confirmed [place]ake [place] [facility] [place] [facility] [place] declined patient refusal from scanned into chart. Heel Edge Inker Machine Required: No Heel Edge Inker Machine Services: Heel Edge Inker Machine Offered & Declined Accompanied by: Daughter and Son Allergies No Known Allergies Allergy (Verified 04/20/24 10:28) HPI Comments Details: Elderly man with referred for nephrolithiasis and hypercalciuria Accompanied by family Tolerating HCTZ Edema is better No specific complaints today No new issues today As per family , he is not on salt restriction! [facility] Medical History (Updated 04/15/24 @ 10:03 by Neo Baig MD) STANLEY (obstructive sleep apnea) Hearing difficulty Hypertension Nephrolithiasis Flank pain Constipation Dizziness Obesity (BMI 30-39.9) Tubular adenoma of colon Polysubstance abuse Knee osteoarthritis Degenerative disc disease, lumbar Osteoarthritis of right shoulder Ascending aorta dilatation Coronary artery disease History of renal calculi GERD (gastroesophageal reflux disease) Vitamin D deficiency Peripheral vascular disease Hypercholesterolemia Obstructive sleep apnea COPD (chronic obstructive pulmonary disease) Surgical History Hx of cardiac cath Hx laparoscopic cholecystectomy Hx of colonoscopy History of esophagogastroduodenoscopy (EGD) Family History Father Stroke Heart attack Mother No problems noted. Sister Breast cancer Social History Household Members: Spouse Housing: House Do you presently have visiting nurse or other home services: No Alcohol intake: former Year quit: 2009 Patient Tobacco Use Status: Never used Tobacco e-Cigarette/Vaping Use: Never Used Second Hand Smoke Exposure: No service: No Current occupational status: retired and disabled Cognitive needs: No Hearing needs: No Vision needs: Yes Physical Exam Vital Signs: Last Vital Signs Pulse 70 04/20/24 10:25 BP 138/74 04/20/24 10:25 Pulse Ox 93 04/20/24 10:25 Oxygen Delivery Method Room Air 04/20/24 10:25 BMI result Body Mass Index 34.5 Const General: comfortable; No acute distress Orientation/consciousness: patient oriented x3 Eyes General: appearance normal, both eyes and all related structures Visual Wolf: normal visual wolf by confrontation Neck Neck: Yes supple and Yes no JVD Resp Effort & Inspection: normal respiratory effort and respiratory effort not decreased Auscultation: rhonchi Cardio Palpation: no palpable S3 and no palpable S4 Heart sounds: no rubs GI Inspection: Yes normal to inspection Palpation (GI): Soft to palpation Percussion: Yes normal to percussion Auscultation: normal bowel sounds General: Yes no CVA tenderness Back/Spine/Pelvis Back: no CVA tenderness Skin General skin exam: no petechiae and no purpura Neuro General: patient oriented x3 and no focal motor deficits Extrem General: No clubbing and No edema Results Reviewed Nephrology Results: Sodium 139 mmol/L (135-145) 04/12/24 Potassium 3.7 mmol/L (3.3-5.1) 04/12/24 Chloride 100 mmol/L (96-108) 04/12/24 Carbon Dioxide 29 mmol/L (22-29) 04/12/24 BUN 9 mg/dL (9-16) 04/12/24 Creatinine 1.06 mg/dL (0.5-1.4) 04/12/24 Calcium 9.7 mg/dL (8.4-10.2) 04/12/24 PTH Intact 66.6 pg/mL (8.7-77.1) 04/12/24 Urine Creatinine 65.43 mg/dL 12/24/23 Assessment & Plan Assessment & Plan (1) Hypertension: Code(s): I10 - Essential (primary) hypertension Category: Medical Qualifiers: Hypertension type: essential hypertension Qualified Code(s): I10 - Essential (primary) hypertension (2) Nephrolithiasis: Code(s): N20.0 - Calculus of kidney Category: Medical (3) Hypercalciuria: Code(s): R82.994 - Hypercalciuria Category: Medical Plan Elderly man with nephrolithiasis and hypercalciuria Serum calcium normal Serum calcium is normal. Intact is mildly elevated as expected. Blood pressure is well controlled. In view of the hypercalciuria, keep hydrochlorothiazide 25 mg a day. Amlodipine stopped due to edema. The leg edema improved after discontinuing amlodipine. Repeat 24 hr urine for calcium excretion Discussed LOW sodium diet Increase PO fluid intake Orders: Orders Sodium, 24Hr Urine Group Today N20.0 - Calculus of kidney, R82.994 - Hypercalciuria Calcium, 24 Hr Ur Today N20.0 - Calculus of kidney, R82.994 - Hypercalciuria Basic Metabolic Panel 6 Months N20.0 - Calculus of kidney, R82.994 - Hypercalciuria Total Protein Urine Random 6 Months N20.0 - Calculus of kidney, R82.994 - Hype rcalciuria UA and rflx microscopic 6 Months N20.0 - Calculus of kidney, R82.994 - Hypercalciuria Creatinine, 24 Hr Group Today N20.0 - Calculus of kidney, R82.994 - Hypercalciuria Oxalate, 24 Hr Today N20.0 - Calculus of kidney, R82.994 - Hypercalciuria Parathyroid Hormone Intact 6 Months N20.0 - Calculus of kidney, R82.994 - Hypercalciuria Creatinine Urine 6 Months N20.0 - Calculus of kidney, R82.994 - Hypercalciuria Coding Level of Care Code Est Pt Level 4 (39615) Diagnoses Essential hypertension I10 Hypertension type: essential hypertension Nephrolithiasis N20.0 Hypercalciuria R82.994
== END 2024-04-20 10:42 | disposition home or self-care (01) ==
PROVIDERS: PCP Internal Medicine; Visit Provider Internal Medicine Hypertension Specialist
DX: I10 Essential (primary) hypertension (principal); N20.0 Calculus of kidney; R82.994 Hypercalciuria
CPT/HCPCS: 99214

== ENCOUNTER → 2024-04-20 10:13 | Outpatient (BNVA) | payer OTHER, SELFPAY | PROVIDERS: PCP Internal Medicine; Visit Provider Internal Medicine Hypertension Specialist | DX: I10 Essential (primary) hypertension (principal); N20.0 Calculus of kidney; R82.994 Hypercalciuria | CPT/HCPCS: 99212 ==

== ENCOUNTER 2024-06-22 14:54 | Outpatient (AMB) | payer OTHER, SELFPAY ==
--- NOTE | 2024-06-22 15:05 | A.OFFPC_ITS ---
Vital Signs 06/22/24 15:06 Height 5 ft 8 in Weight 222 lb 0.4 oz BMI 33.8 BP 112/60 Blood Pressure Location Lt brachial Position Sitting Pulse 61 Pulse Source Pulse Oximeter Pulse Oximetry (%) 97 Oxygen Delivery Method Room Air Intake Visit Reasons: burning swelling of feet, no SOB Senior Vice President & General Counsel Required: No Allergies No Known Allergies Allergy (Verified 06/22/24 15:06) Tobacco use date assessed: 12/18/23 Fall risk assessment: No Falls in past year Last assessed Fall Risk: 06/22/24 Dental Screening Dental Screen Date: 04/15/24 HPI burning swelling of feet, no SOB HPI Details 74-year-old obese male with COPD GERD hy pertension hypercholesterolemia coronary artery disease ascending aorta dilatation, diabetes mellitus knee osteoarthritis nephrolithiasis coming in for follow-up. Last seen in 02/09/2024. Patient had colonoscopy done in January 2021. Review of the notes follows up with Nephrology March 2024 with a hypertension advised to continue with hydrochlorothiazide which will help with the nephrolithiasis. Amlodipine stopped due to leg swelling. but comes today for leg swelling complains of pain on the veins- . Patient has been noted to be forgetting a lot and family is concerned about this. [facility] Medical History (Updated 06/22/24 @ 15:17 by Neo Baig MD) Coronary artery disease Abdominal wall abscess STANLEY (obstructive sleep apnea) Hearing difficulty Hypertension Nephrolithiasis Flank pain Constipation Dizziness Obesity (BMI 30-39.9) Tubular adenoma of colon Polysubstance abuse Knee osteoarthritis Degenerative disc disease, lumbar Osteoarthritis of right shoulder Ascending aorta dilatation History of renal calculi GERD (gastroesophageal reflux disease) Vitamin D deficiency Peripheral vascular disease Hypercholesterolemia Obstructive sleep apnea COPD (chronic obstructive pulmonary disease) Surgical History (Updated 06/22/24 @ 15:31 by Neo Baig MD) Hx of cardiac cath Hx laparoscopic cholecystectomy Hx of colonoscopy History of esophagogastroduodenoscopy (EGD) Family History Father Stroke Heart attack Mother No problems noted. Sister Breast cancer Social History Household Members: Spouse Housing: House Do you presently have visiting nurse or other home services: No Alcohol intake: former Year quit: 2009 Patient Tobacco Use Status: Never used Tobacco e-Cigarette/Vaping Use: Never Used Second Hand Smoke Exposure: No service: No Current occupational status: retired and disabled Cognitive needs: No Hearing needs: No Vision needs: Yes Questionnaire Thrive Questionnaire Date Thrive assessed: 12/18/23 AUDIT C Alcohol Use Questionnaire (AUDIT-C) 1. How often do you have a drink containing alcohol?: Never 2. How many drinks containing alcohol do you have on a typical day when you are drinking?: 1 or 2 (0) 3. How often do you have six or more drinks on one occasion?: Never Total Score: 0 AMAURY-7 AMB Questionnaire AMAURY-7 Date AMAURY - 7 assessed: 12/18/23 Source: Developed by Drs. Trae Bailey, Sakshi Ren, Master King and colleagues, with an educational osmel from [employer] Physical exam (Primary Care) Vital Signs: Last Vital Signs Pulse 61 06/22/24 15:06 BP 112/60 06/22/24 15:06 Pulse Ox 97 06/22/24 15:06 Oxygen Delivery Method Room Air 06/22/24 15:06 BMI result Body Mass Index 33.8 Tobacco/Smoking Status: Tobacco use Status Tobacco use date assessed 12/18/23 06/22/24 15:06 Patient Tobacco Use Status Never used Tobacco 06/22/24 15:06 e-Cigarette/Vaping Use Never Used 06/22/24 15:06 Thrive Assessment: Date of Thrive Assessment Date Thrive assessed 12/18/23 06/22/24 15:06 Const General: alert; No acute distress Eyes Conjunctivae: conjunctivae normal Resp Auscultation: clear to auscultation bilaterally Cardio Rate: regular rate Rhythm: regular rhythm GI Inspection: Yes normal to inspection Extrem General: Yes normal to inspection and No edema Office Procedures Flu Questionnaire Does the patient have a severe egg allergy?: No Does the patient have severe life threatening allergies?: No Does the patient have a fever or illness today?: No Has the patient ever had Guillain-[place] Syndrome?: No Has the patient ever had any past reaction to a flu shot?: No Immunizations Fluarix Triv [id number] (PF) 45 mcg (15 mcg x 3)/0.5 mL IM syringe Performing Provider: Neo Baig MD [facility] Administered by: WILBER Garcia on 06/22/24 15:42 Dose Route Admin Location Dispensed Lot Number Expiration Date [facility] Critical Care Rn 0.5 mL IM Left Deltoid 0.5 mL [id number] 03/21/25 [id number] VIS Given Date VIS Provided VIS Publication Date 06/22/24 Single Vaccine 21 Eligibility Eligibility Date Funding Source Not [facility] Eligible 06/22/24 Private Coding Level of Care Code Est Pt Level 4 (51733) Diagnoses Type 2 diabetes mellitus with hyperglycemia E11.65 Essential hypertension I10 Atherosclerotic cardiovascular disease I25.10 Obesity (BMI 30-39.9) E66.9 Ascending aorta dilatation I77.810 Hypercholesterolemia E78.00 GERD (gastroesophageal reflux disease) K21.9 Peripheral vascular disease I73.9 Leg swelling M79.89 Assessment & Plan Assessment & Plan (1) Type 2 diabetes mellitus with hyperglycemia: Comment: Dr. Bee Code(s): E11.65 - Type 2 diabetes mellitus with hyperglycemia Category: Medical Plan: Decrease the amount of carbohydrate intake, pasta, bread, rice and potatoes are all sugar and that is aside from all the sweet stuff, remember that fruits are good but they are Sweet also. Hemoglobin A1c goal of less than 7.0. Patient is on Mounjaro right now. (2) Essential hypertension: Code(s): I10 - Essential (primary) hypertension Category: Medical Plan: Continue with blood pressure medication. Decrease salt intake and exercise patient has seen Nephrology and has placed on metoprolol 25 mg once a day lisinopril 5 mg once a day and hydrochlorothiazide 25 mg once a day (3) Atherosclerotic cardiovascular disease: Comment: Cardiac catheterization November 2022 minimal irregularities Code(s): I25.10 - Atherosclerotic heart disease of [place] coronary artery without angina pectoris Category: Medical Plan: Control the cholesterol, weight, blood pressure, diabetes on aspirin 81 mg once a day (4) Obesity (BMI 30-39.9): Comment: PATIENT IS MODERATELY OBESE AND WOULD NEED TO LOSE SOME WEIGHT. I TRIED TO EXPLAIN TO HIM THROUGH THE WORKER'S COMPENSATION CLAIMS EXAMINER, HE WILL HAVE DIFFICULTY IN LOSING WEIGHT BECAUSE HE CANNOT WALK MUCH DUE TO OSTEOARTHRITIS OF THE KNEES, IT IS HARD FOR HIM TO UNDERSTAND THE NEED FOR DIETING AT THIS TIME. AGAIN EXPLAINED TO HIM THROUGH THE WORKER'S COMPENSATION CLAIMS EXAMINER AND HE SAID THAT HE IS TRYING TO LIMIT THE CALORIES INTAKE. Code(s): E66.9 - Obesity, unspecified Category: Medical Plan: Diet and exercise noted 5 lb weight loss (5) Ascending aorta dilatation: Comment: 11/2022 4.1 cm, 11/2023 4.1 cm Code(s): I77.810 - Thoracic aortic ectasia Category: Medical Plan: Continue to monitor. 12/10/2023 Mildly dilated left ventricle with mildly reduced LV ejection fraction of 45-50% with regional wall motion abnormality consistent with ischemic cardiomyopathy with grade 1 diastolic dysfunction 2. Trace to mild aortic regurgitation 3. Mildly dilated ascending aorta at 4.1 cm 4. No gross pericardial effusion (6) Hypercholesterolemia: Code(s): E78.00 - Pure hypercholesterolemia, unspecified Category: Medical Plan: Avoid fried foods, chicken skin, eggs, butter margarine, pastries and meat. Be it pork or beef they have a lot of cholesterol LDL goal of less than 70 and triglyceride of less than 150 patient is taking atorvastatin 40 mg once a day patient needs blood work (7) GERD (gastroesophageal reflux disease): Code(s): K21.9 - Gastro-esophageal reflux disease without esophagitis Category: Medical Plan: Avoid the foods that causes that usually spicy foods, tomato products, juices, coffee, soda and foods that your sensitive to. After eating do not lie down, allow 3-4 hours before in lie down. And keep the head of bed above 30 degrees to avoid the acid from going up. (8) Peripheral vascular disease: Code(s): I73.9 - Peripheral vascular disease, unspecified Category: Medical Plan: When sitting down elevate the legs, exercise, and support stockings (9) Leg swelling: Code(s): M79.89 - Other specified soft tissue disorders Category: Surgical Plan: Advised to get ultrasound of the venous system to check for DVT. Orders: Orders Influenza [id number] Immunization Today Z23 - Encounter for immunization US venous duplex LE BI Today M79.89 - Other specified soft tissue disorders CT head/brain wo IV con Today R41.89 - Other symptoms and signs involving cognitive functions and awareness Referrals Vascular Surgery Referral I73.9 - Peripheral vascular disease, unspecified Medications: New Fluarix Triv [id number] (PF) (flu vacc [id number] 6mos up(PF)) 0.5 mL IM ONCE 0.5 mL 0RF NS Z23 - Encounter for immunization
[2024-06-22 15:06] VITALS: BP 112/60; PULSE 61; O2SAT 97; BMI 33.8
== END 2024-06-22 15:37 | disposition home or self-care (01) ==
PROVIDERS: PCP Internal Medicine; Visit Provider Internal Medicine
DX: E11.65 Type 2 diabetes mellitus with hyperglycemia (principal); I77.810 Thoracic aortic ectasia; I73.9 Peripheral vascular disease, unspecified; E66.9 Obesity, unspecified; Z68.33 Body mass index [BMI] 33.0-33.9, adult; I10 Essential (primary) hypertension; I25.10 Atherosclerotic heart disease of native coronary artery without angina pectoris; E78.00 Pure hypercholesterolemia, unspecified; K21.9 Gastro-esophageal reflux disease without esophagitis; M79.89 Other specified soft tissue disorders; Z23 Encounter for immunization

== ENCOUNTER → 2024-06-22 14:54 | Outpatient (BNVA) | payer OTHER, SELFPAY | PROVIDERS: PCP Internal Medicine; Visit Provider Internal Medicine ==

== ENCOUNTER 2024-06-22 16:02 | Outpatient (REF) | payer OTHER, SELFPAY ==
--- NOTE | ~2024-06-22 | US_ITS ---
EXAMINATION: US TRIPLEX LOWER EXTREMITY, BILATERAL CLINICAL INFORMATION: M79.89, specified soft tissue disorders COMPARISON: Right lower extremity duplex on 07/05/2019 TECHNIQUE: Color-flow triplex imaging with spectral analysis and compression Doppler were performed on the bilateral lower extremities. FINDINGS: Respiratory variation, normal compression and augmented flow are noted throughout the bilateral lower extremities. The visualized common femoral vein, superficial femoral vein, profunda femoral vein, popliteal vein and midcalf peroneal and posterior tibial venous segments show no evidence of deep venous thrombosis bilaterally. There is no Liriano's cyst. Right groin lymph node measuring 2.2cm. US/US venous duplex LE BI IMPRESSION: No evidence of deep venous thrombosis involving the bilateral lower extremities. Electronically signed by: Carley Vicente MD 06/22/2024 05:04 PM EDT
== END 2024-06-22 16:03 | disposition home or self-care (01) ==
LOC: HO.US 16:02
PROVIDERS: PCP Internal Medicine; Visit Provider Internal Medicine
DX: M79.89 Other specified soft tissue disorders (principal); E11.65 Type 2 diabetes mellitus with hyperglycemia; I73.9 Peripheral vascular disease, unspecified; I10 Essential (primary) hypertension; I25.10 Atherosclerotic heart disease of native coronary artery without angina pectoris; E66.9 Obesity, unspecified; I77.810 Thoracic aortic ectasia; E78.00 Pure hypercholesterolemia, unspecified; K21.9 Gastro-esophageal reflux disease without esophagitis; R41.89 Other symptoms and signs involving cognitive functions and awareness; Z23 Encounter for immunization
CPT/HCPCS: 90471; 90656; 93970; 99212

== ENCOUNTER 2024-06-23 07:33 | Outpatient (REF) | payer OTHER, SELFPAY ==
[2024-06-23 08:05] LABS: MANUAL DIFF FLAG NO
[2024-06-23 08:18] LABS: Basophils Absolute Auto 0.1 X10*3/uL (0.0-0.2); Basophils Percent Auto 0.8 % (0-2); Eosinophils Absolute Auto 0.4 X10*3/uL (0.0-0.4); Eosinophils Percent Auto 6.1 % (0-4); Hematocrit 39.9 % (42.0-52.0); Hemoglobin 13.8 g/dl (14.0-18.0); Imm Gran Abs Auto 0.04 X10*3/uL (0.00-0.03); Imm Gran Pct Auto 0.7 % (0.0-0.4); Lymphocytes Absolute Auto 1.7 X10*3/uL (1.2-4.9); Lymphocytes Percent Auto 27.7 % (20-40); Mean Corpuscular HGB Conc 34.6 g/dl (31.0-36.0); Mean Corpuscular Hemoglobin 31.7 pg (27.0-33.0); Mean Corpuscular Volume 91.7 fL (80.0-98.0); Mean Platelet Volume 9.6 fL (9.4-12.4); Monocytes Absolute Auto 0.6 X10*3/uL (0.1-1.2); Monocytes Percent Auto 10.6 % (2-11); Neutrophils Absolute Auto 3.2 x10*3/uL (2.0-8.3); Neutrophils Percent Auto 54.1 % (45-73); Platelet Count 182 X10*3/uL (160-400); Red Blood Count 4.35 X10*6/uL (4.60-5.80)
[2024-06-23 08:25] LABS: Estimated Average Glucose 105 mg/dL; Hemoglobin A1C 117.5139 umol/L; Hemoglobin A1c % 5.3 % (<6.0); Total Hemoglobin (HGBA1C) 3464.4371 umol/L
[2024-06-23 08:49] LABS: Alanine Aminotransferase 22 U/L (0-40); Albumin Level 3.8 g/dL (3.5-5.0); Alkaline Phosphatase 79 U/L (39-117); Anion Gap 12 (12-20); Aspartate Amino Transferase 31 U/L (5-37); Bilirubin Total 0.9 mg/dL (0.0-1.0); Blood Urea Nitrogen 7 mg/dL (9-16); Calcium 9.2 mg/dL (8.4-10.2); Carbon Dioxide 30 mmol/L (22-29); Chloride 98 mmol/L (96-108); Cholesterol 141 mg/dL (<200); Estimated Glomerular Filt Rate > 60; Glucose Random 103 mg/dL (60-115); HDL Cholesterol 65 mg/dL (>40); LDL Cholesterol Calculated 51 mg/dL (<100); Potassium 4.1 mmol/L (3.3-5.1); Sodium 136 mmol/L (135-145); Total Protein 7.3 g/dL (6.5-8.0); Triglycerides 126 mg/dL (<150)
[2024-06-23 09:07] LABS: Free T4 (Free Thyroxine) 1.01 ng/dL (0.71-1.85); Thyroid Stimulating Hormone 1.13 uIU/mL (0.32-4.0)
[2024-06-23 09:17] LABS: Folate 5.6 ng/mL (> or = 4.0); Vitamin B12 372 pg/mL (200-900)
[2024-06-23 09:24] LABS: Appearance Urine Clear; Color Urine Dark Yellow; Glucose Urine UA Negative (Negative); Leukocyte Esterase Urine Trace (Negative); Nitrite Urine Negative (Negative); Specific Gravity - Urine 1.015 (1.005-1.025); UMIC TRIGGER UA YES; Urine Blood Negative (Negative); Urine Ketones Trace mg/dL (Negative); Urine Protein Negative (Neg-Trace)
[2024-06-23 09:26] LABS: Bacteria Urine None Seen (None Seen); Hyaline Casts Urine 0-2 /LPF (0-2); RBC Urine 0-2 /HPF (0-2); Squamous Epithelial Cell Urine 0-2 /HPF (0-2); WBC Urine 0-5 /HPF (0-5)
[2024-06-23 09:31] LABS: Creatinine Urine 269.47 mg/dL; Microalbum/Creatinine Ratio Ur 3.3 ug/mg cr (<30)
== END 2024-06-23 07:34 | disposition home or self-care (01) ==
LOC: HO.LAB 07:33
PROVIDERS: PCP Internal Medicine; Visit Provider Internal Medicine
DX: E11.65 Type 2 diabetes mellitus with hyperglycemia (principal); E78.00 Pure hypercholesterolemia, unspecified
CPT/HCPCS: 36415; 80053; 80061; 81001; 82043; 82570; 82607; 82746; 83036; 84439; 84443; 85025

== ENCOUNTER 2024-07-14 07:11 | Outpatient (REF) | payer OTHER, SELFPAY ==
--- NOTE | ~2024-07-14 | CT_ITS ---
EXAMINATION: CT HEAD WITHOUT CONTRAST CLINICAL INFORMATION: Cognitive decline COMPARISON: None available. TECHNIQUE: Contiguous axial imaging was performed from the skull base to vertex without intravenous administration of contrast. This CT examination was performed using dose optimization techniques as appropriate, variously including the following: *Automated exposure control *Adjustment of mA and/or kV according to patient size (this includes techniques or standardized protocols for targeted exams where dose is matched to indication/reason for exam; i.e. extremities or head) *Use of iterative reconstruction technique FINDINGS: No acute intracranial hemorrhage, mass effect, midline shift, hydrocephalus or herniation. Yancey-white matter differentiation is normal. Bilateral, multifocal, patchy deep periventricular white matter hypodensities involving centrum semiovale and santos radiata. Multifocal old lacunar infarcts, basal ganglia Prominence of the extra-axial CSF spaces, cerebral sulci and ventricles, likely volume loss. Posterior cranial fossa contents demonstrated no acute intracranial hemorrhage or mass effect. Bony calvarium is intact. No air-fluid levels in the included paranasal sinuses. For pneumatization, frontal sinuses. Tympanic cavities and mastoid air cells are aerated. Fatty replaced left parotid gland. Calcified plaques, V4 segments both vertebral arteries. Calcified plaques, cavernous segments of both ICA. 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 CT/CT head/brain wo IV con IMPRESSION: No acute intracranial hemorrhage. Small vessel occlusive disease. Global cerebral atrophy. Liposubstitution/atrophy, left parotid gland. Electronically signed by: Aniket Lopez MD 07/14/2024 08:32 AM EDT
== END 2024-07-14 07:12 | disposition home or self-care (01) ==
LOC: HO.CT 07:11
PROVIDERS: PCP Internal Medicine; Visit Provider Internal Medicine
DX: R41.89 Other symptoms and signs involving cognitive functions and awareness (principal)
CPT/HCPCS: 70450

== ENCOUNTER → 2024-07-14 07:13 | Outpatient (BNV) | payer OTHER, SELFPAY | PROVIDERS: PCP Internal Medicine; Visit Provider Radiology Diagnostic Radiology | DX: R41.81 Age-related cognitive decline (principal) | CPT/HCPCS: 70450 ==

== ENCOUNTER 2024-08-24 09:52 | Outpatient (AMB) | payer OTHER, SELFPAY ==
[2024-08-24 09:56] VITALS: BP 124/62; PULSE 74; O2SAT 97; BMI 33.3
--- NOTE | 2024-08-24 09:56 | MHC.PC.OV ---
Vital Signs 08/24/24 09:56 Height 5 ft 8 in Weight 219 lb BMI 33.3 BP 124/62 Blood Pressure Location Lt brachial Position Sitting Pulse 74 Pulse Source Pulse Oximeter Pulse Oximetry (%) 97 Oxygen Delivery Method Room Air Intake Visit Reasons: DM Allergies No Known Allergies Allergy (Verified 08/24/24 09:56) Tobacco use date assessed: 08/24/24 Fall risk assessment: No Falls in past year Last assessed Fall Risk: 08/24/24 Dental Screening Dental Screen Date: 04/15/24 HPI DM HPI Details 74-year-old obese male with controlled diabetes mellitus hypertension atherosclerotic cardiovascular disease ascending aorta dilatation hypercholesterolemia GERD peripheral vascular disease coming in for follow-up. Last seen in 07/11/2024 with concerns on leg swelling. Ultrasound done negative results. Patient is up-to-date with colon test 2020. 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 This was done in July 14 2024. [facility] Medical History (Updated 08/24/24 @ 10:09 by Neo Bagi MD) Obstructive sleep apnea Coronary artery disease Abdominal wall abscess Hearing difficulty Hypertension Nephrolithiasis Flank pain Constipation Dizziness Obesity (BMI 30-39.9) Tubular adenoma of colon Polysubstance abuse Knee osteoarthritis Degenerative disc disease, lumbar Osteoarthritis of right shoulder Ascending aorta dilatation History of renal calculi GERD (gastroesophageal reflux disease) Vitamin D deficiency Peripheral vascular disease Hypercholesterolemia COPD (chronic obstructive pulmonary disease) Surgical History (Updated 06/22/24 @ 15:31 by Neo Baig MD) Hx of cardiac cath Hx laparoscopic cholecystectomy Hx of colonoscopy History of esophagogastroduodenoscopy (EGD) Family History Father Stroke Heart attack Mother No problems noted. Sister Breast cancer Social History Household Members: Spouse Housing: House Do you presently have visiting nurse or other home services: No Alcohol intake: former Year quit: 2009 Patient Tobacco Use Status: Never used Tobacco Tobacco use type: Cigarette e-Cigarette/Vaping Use: Never Used Second Hand Smoke Exposure: No service: No Current occupational status: retired and disabled Cognitive needs: No Hearing needs: No Vision needs: Yes Questionnaire PHQ-9 Over the last 2 weeks, how often have you been bothered by any of the following problems? 1. Little interest or pleasure in doing things: not at all 2. Feeling down, depressed, or hopeless: not at all 3. Trouble falling or staying asleep, or sleeping too much: not at all 4. Feeling tired or having little energy: not at all 5. Poor appetite or overeating: not at all 6. Feeling bad about yourself - or that you are a failure or have let yourself or your family down: not at all 7. Trouble concentrating on things, such as reading the newspaper or watching television: not at all 8. Moving or speaking so slowly that other people could have noticed. Or the opposite - being so fidgety or restless that you have been moving around a lot more than usual: not at all 9. Thoughts that you would be better off or of hurting yourself in some way: not at all Total score: 0 Depression Screening Interpretation: Negative Depression Screening Done: Yes Source: Developed by Drs. Trae Bailey, Sakshi Ren, Master King and colleagues, with an educational osmel from [employer]. Thrive Questionnaire Date Thrive assessed: 12/18/23 AUDIT C Alcohol Use Questionnaire (AUDIT-C) 1. How often do you have a drink containing alcohol?: Never 2. How many drinks containing alcohol do you have on a typical day when you are drinking?: 1 or 2 (0) 3. How often do you have six or more drinks on one occasion?: Never Total Score: 0 AMAURY-7 AMB Questionnaire AMAURY-7 Date AMAURY - 7 assessed: 12/18/23 Source: Developed by Drs. Trae Bailey, Sakshi Ren, Master King and colleagues, with an educational osmel from [employer]. Physical exam (Primary Care) Vital Signs: Last Vital Signs Pulse 74 08/24/24 09:56 BP 124/62 08/24/24 09:56 Pulse Ox 97 08/24/24 09:56 Oxygen Delivery Method Room Air 08/24/24 09:56 BMI result Body Mass Index 33.3 Tobacco/Smoking Status: Tobacco use Status Tobacco use date assessed 08/24/24 08/24/24 09:57 Patient Tobacco Use Status Never used Tobacco 08/24/24 09:57 Tobacco use type Cigarette 08/24/24 09:57 e-Cigarette/Vaping Use Never Used 08/24/24 09:57 PHQ-9: PHQ-9 Score PHQ-9: Total score 0 08/24/24 10:03 Depression Screening Interpretation: Negative Thrive Assessment: Date of Thrive Assessment Date Thrive assessed 12/18/23 08/24/24 09:57 Const General: alert; No acute distress Eyes Conjunctivae: conjunctivae normal Resp Auscultation: clear to auscultation bilaterally Cardio Rate: regular rate Rhythm: regular rhythm GI Inspection: Yes normal to inspection Extrem General: Yes normal to inspection and No edema Coding Level of Care Code Est Pt Level 4 (75655) Complex EM visit Add On G2211 Diagnoses Obesity (BMI 30-39.9) E66.9 Ascending aorta dilatation I77.810 Gastroesophageal reflux disease without esophagitis K21.9 Esophagitis presence: without esophagitis Hypercholesterolemia E78.00 Atherosclerotic cardiovascular disease I25.10 Essential hypertension I10 Type 2 diabetes mellitus with hyperglycemia, without long-term current use of insulin E11.65 Diabetes mellitus group home insulin use: without group home use Cognitive decline R41.89 Assessment & Plan Assessment & Plan (1) Obesity (BMI 30-39.9): Comment: PATIENT IS MODERATELY OBESE AND WOULD NEED TO LOSE SOME WEIGHT. I TRIED TO EXPLAIN TO HIM THROUGH THE TEST CAR DRIVER, HE WILL HAVE DIFFICULTY IN LOSING WEIGHT BECAUSE HE CANNOT WALK MUCH DUE TO OSTEOARTHRITIS OF THE KNEES, IT IS HARD FOR HIM TO UNDERSTAND THE NEED FOR DIETING AT THIS TIME. AGAIN EXPLAINED TO HIM THROUGH THE TEST CAR DRIVER AND HE SAID THAT HE IS TRYING TO LIMIT THE CALORIES INTAKE. Code(s): E66.9 - Obesity, unspecified Category: Medical Plan: Continue with diet and exercise (2) Ascending aorta dilatation: Comment: 11/2022 4.1 cm, 11/2023 4.1 cm Code(s): I77.810 - Thoracic aortic ectasia Category: Medical Plan: Continuing to monitor and November 2023 the was the last test at 4.1 cm stable (3) GERD (gastroesophageal reflux disease): Code(s): K21.9 - Gastro-esophageal reflux disease without esophagitis Category: Medical Qualifiers: Esophagitis presence: without esophagitis Qualified Code(s): K21.9 - Gastro-esophageal reflux disease without esophagitis Plan: Avoid the foods that causes that usually spicy foods, tomato products, juices, coffee, soda and foods that your sensitive to. After eating do not lie down, allow 3-4 hours before in lie down. And keep the head of bed above 30 degrees to avoid the acid from going up. (4) Hypercholesterolemia: Code(s): E78.00 - Pure hypercholesterolemia, unspecified Category: Medical Plan: Avoid fried foods, chicken skin, eggs, butter margarine, pastries and meat. Be it pork or beef they have a lot of cholesterol LDL goal of less than 70 and triglyceride of less than 150 on atorvastatin 40 mg once a day (5) Atherosclerotic cardiovascular disease: Comment: Cardiac catheterization November 2022 minimal irregularities Code(s): I25.10 - Atherosclerotic heart disease of [place] coronary artery without angina pectoris Category: Medical Plan: Control the cholesterol, weight, blood pressure, diabetes continuing with aspirin 81 mg once a day (6) Essential hypertension: Code(s): I10 - Essential (primary) hypertension Category: Medical Plan: Continue with blood pressure medication. Decrease salt intake and exercise on hydrochlorothiazide lisinopril and metoprolol (7) Type 2 diabetes mellitus with hyperglycemia: Comment: Dr. Bee Code(s): E11.65 - Type 2 diabetes mellitus with hyperglycemia Category: Medical Qualifiers: Diabetes mellitus group home insulin use: without local intermodal truck driver use Qualified Code(s): E11.65 - Type 2 diabetes mellitus with hyperglycemia Plan: Decrease the amount of carbohydrate intake, pasta, bread, rice and potatoes are all sugar and that is aside from all the sweet stuff, remember that fruits are good but they are Sweet also. Takes there is appetite only and noted weight loss. (8) Cognitive decline: Code(s): R41.89 - Other symptoms and signs involving cognitive functions and awareness Category: Medical Plan: Stable
== END 2024-08-24 10:30 | disposition home or self-care (01) ==
PROVIDERS: PCP Internal Medicine; Visit Provider Internal Medicine
DX: E11.65 Type 2 diabetes mellitus with hyperglycemia (principal); I77.810 Thoracic aortic ectasia; E66.9 Obesity, unspecified; Z68.33 Body mass index [BMI] 33.0-33.9, adult; I25.10 Atherosclerotic heart disease of native coronary artery without angina pectoris; K21.9 Gastro-esophageal reflux disease without esophagitis; E78.00 Pure hypercholesterolemia, unspecified; I10 Essential (primary) hypertension; R41.89 Other symptoms and signs involving cognitive functions and awareness

== ENCOUNTER → 2024-08-24 09:52 | Outpatient (BNVA) | payer OTHER, SELFPAY | PROVIDERS: PCP Internal Medicine; Visit Provider Internal Medicine | DX: E66.9 Obesity, unspecified (principal); I77.810 Thoracic aortic ectasia; K21.9 Gastro-esophageal reflux disease without esophagitis; E78.00 Pure hypercholesterolemia, unspecified; I25.10 Atherosclerotic heart disease of native coronary artery without angina pectoris; I10 Essential (primary) hypertension; E11.65 Type 2 diabetes mellitus with hyperglycemia; R41.89 Other symptoms and signs involving cognitive functions and awareness | CPT/HCPCS: 96127; 99212 ==

== ENCOUNTER 2024-08-27 09:47 | Outpatient (AMB) | payer OTHER, SELFPAY ==
[2024-08-27 09:50] VITALS: BMI 33.3
--- NOTE | 2024-08-27 09:50 | A.OFFVIS_ITS ---
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 Started many years ago and starting to get pain. Has Hx bilateral GSV Venaseals in 2019. Pt states that he has burning over VV w/ or without ambulation. 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 His son is interpreting today. Complaints include pain over varicosities, swelling of lower extremities, cramping, fatigue, and heaviness of the lower extremities. It has been affecting their daily activities including walking and physical activity. It is noted more so in right leg. Patient has a normal to get compression stockings on in his family states they are unable to put them on him. He does not elevate his legs. He most recently was ruled out for DVT. Patient has had a right and left GSV venaseal, over [address] Nichols. Patient has not had follow up since then. Patient denies any history of DVT/ PE. Patient denies any history of phlebitis. Trial of compression includes - nothing They now present for vascular evaluation regarding their varicose veins. [facility] Medical History Obstructive sleep apnea Coronary artery disease Abdominal wall abscess Hearing difficulty Hypertension Nephrolithiasis Flank pain Constipation Dizziness Obesity (BMI 30-39.9) Tubular adenoma of colon Polysubstance abuse Knee osteoarthritis Degenerative disc disease, lumbar Osteoarthritis of right shoulder Ascending aorta dilatation History of renal calculi GERD (gastroesophageal reflux disease) Vitamin D deficiency Peripheral vascular disease Hypercholesterolemia COPD (chronic obstructive pulmonary disease) Surgical History Hx of cardiac cath Hx laparoscopic cholecystectomy Hx of colonoscopy History of esophagogastroduodenoscopy (EGD) Family History Father Stroke Heart attack Mother No problems noted. Sister Breast cancer Social History Household Members: Spouse Housing: House Do you presently have visiting nurse or other home services: No Alcohol intake: former Year quit: 2009 Patient Tobacco Use Status: Never used Tobacco Tobacco use type: Cigarette e-Cigarette/Vaping Use: Never Used Second Hand Smoke Exposure: No service: No Current occupational status: retired and disabled Cognitive needs: No Hearing needs: No Vision needs: Yes Review of Systems Const Reports as per HPI and Denies weakness ENT Reports Normal hearing present and Denies dizziness Card Reports as per HPI, Denies chest pain, Denies chest pain at rest, Denies chest pain with activity, Denies dyspnea and Denies dyspnea on exertion Resp Reports as per HPI, Denies cough, Denies dyspnea and Denies dyspnea on exertion GI Reports as per HPI, Denies abdominal pain, Denies nausea and Denies vomiting Musc Denies numbness Skin/Breast Reports as per HPI, Denies erythema and Denies wounds Neuro Reports Normal hearing present, Denies dizziness, Denies numbness, Denies Sensory deficit (Neuro) and Denies weakness Psych Reports no additional complaints Endo Reports no additional complaints Physical Exam Vital Signs: BMI result Body Mass Index 33.3 Const General: healthy appearing and no acute distress Orientation/consciousness: patient oriented x3 HEENT Head: Yes normal to inspection Ears: hearing grossly normal bilaterally Mouth: Normal oral and palatal mucosa present Resp Effort & Inspection: normal respiratory effort and able to speak in complete sentences Auscultation: clear to auscultation bilaterally Cardio Jugular venous distension: no JVD Rate: regular rate Rhythm: regular rhythm Heart sounds: S1 normal heart sound present and S2 normal heart sound present Bruits: no abdominal aortic bruits, no carotid bruits, no femoral bruits and no renal bruits Peripheral pulses: Peripheral pulses 2+ throughout GI Inspection: Yes normal to inspection Palpation (GI): No Abdominal aortic bruit present Skin General skin exam: no rashes or lesions noted Wounds: no wounds Hair: normal Neuro General: patient oriented x3 Cranial nerves: Yes Normal hearing present Cognition (Neuro): normal cognition Gait exam (Neuro): Normal gait present Motor exam (neuro): 5/5 motor strength present throughout Sensory Exam: No Sensory deficit (Neuro) Extrem Other: Right lower extremity: Several large tortuosities noted around the knee and medial lower extremity Left lower extremity: Tortuosity noted in the medial aspect and around the knee. Bilateral lower extremities: Discoloration noted proximally mid pulliam down to the toes. +2 peripheral edema. Palpable DP pulses. CEAP: C - 4 E - primary A - superficial P - reflux General: Yes normal to inspection, Yes full ROM, Yes capillary refill normal and Yes normal gait Assessment & Plan Assessment & Plan (1) Varicose veins of both lower extremities with inflammation: Code(s): I83.11 - Varicose veins of right lower extremity with inflammation; I83.12 - Varicose veins of left lower extremity with inflammation Category: Medical Plan: Сергей is presenting today for a history of over 4 years of bilateral varicose veins, right more than left. He states he has had increased swelling as well as pain. He is unable to get compression stockings on and has not been elevating his legs. He does have a history of bilateral GSV vena seal procedures done here with Dr. Nichols approximally 5 years ago, without follow up. In short, the patient has evidence of venous insufficiency. I have discussed the pathophysiology with the patient. In addition I have provided informational material regarding venous disease to the patient. We have discussed conservative measures including compression, elevation, and exercise. I have taken the liberty of ordering venous insufficiency testing with the patient. They will follow up with me after testing. The patient had an opportunity to ask questions regarding the treatment plan. All questions were answered. Imaging studies, laboratory studies and physical exam results were discussed and reviewed in detail. No major barriers to unders tanding were identified. The patient expressed understanding and agreement with the above treatment plan. The patient is aware they should contact our office by phone for worsening of the current condition or the appearance of new symptoms. Thank you for allowing me to participate in the vascular care of this patient. If you have any questions or concerns regarding the treatment for the above c ondition please do not hesitate to contact me. The office telephone contact is [phone]. This note is constructed using voice recognition software. While every effort has been made to ensure accuracy, lead handler errors may have been included. Thank you for allowing me to participate in the care of your patient. Yours sincerely, LAKEISHA Elder Orders: Orders US venous duplex LE BI 1 Week I83.11 - Varicose veins of right lower extremity with inflammation, I83.12 - Varicose veins of left lower extremity with inflammation Coding Level of Care Code New Pt Level 4 (73906) Diagnoses Varicose veins of both lower extremities with inflammation I83.11; I83.12
== END 2024-08-27 10:48 | disposition home or self-care (01) ==
PROVIDERS: PCP Internal Medicine; Visit Provider Surgery Vascular Surgery
DX: I83.11 Varicose veins of right lower extremity with inflammation (principal); I83.12 Varicose veins of left lower extremity with inflammation
CPT/HCPCS: 99204

== ENCOUNTER → 2024-08-27 09:47 | Outpatient (BNVA) | payer OTHER, SELFPAY | PROVIDERS: PCP Internal Medicine; Visit Provider Surgery Vascular Surgery | DX: I83.11 Varicose veins of right lower extremity with inflammation (principal); I83.12 Varicose veins of left lower extremity with inflammation | CPT/HCPCS: 99202 ==

== ENCOUNTER 2024-09-09 09:42 | Outpatient (REF) | payer OTHER, SELFPAY | END 2024-09-09 09:43 | disposition home or self-care (01) | LOC: HO.US 09:42 | PROVIDERS: PCP Internal Medicine; Visit Provider Urology | DX: N40.1 Benign prostatic hyperplasia with lower urinary tract symptoms (principal); Z87.442 Personal history of urinary calculi | CPT/HCPCS: 76775 ==

== ENCOUNTER 2024-09-30 09:32 | Outpatient (REF) | payer OTHER, SELFPAY ==
--- NOTE | ~2024-09-30 | US_ITS ---
CLINICAL HISTORY: I83.11 - Varicose veins of right lower extremity with inflammation Venous duplex ultrasound bilateral lower extremity Superficial venous reflux evaluation Comparison: None Findings: Deep veins: The visualized deep veins are fully compressible with normal Doppler color flow and spectral tracings. Reflux is noted along the common femoral and femoral vein bilaterally. Superficial venous system: Bilateral greater saphenous vein Venoseal closures, 2019. Right great saphenous vein: The right great saphenous vein is closed along a short segment from the saphenofemoral junction through the upper to mid thigh. Mid thigh: 1.3 cm, 2.3 seconds of reflux Above knee: 0.9 cm, 2.7 seconds of reflux Knee: 0.8 cm, 1.6 seconds of reflux Below-knee: 0.4 cm, 2.2 seconds of reflux Mid calf: 0.3 cm, 0.7 seconds of reflux At the ankle: 0.5 cm, 1.4 seconds of reflux. The small saphenous vein on the right measures 3 mm and demonstrates no reflux. Left great saphenous vein: The left great saphenous vein is closed along a short segment from the saphenofemoral junction to the mid thigh. Above knee: 0.6 cm, 2.7 seconds of reflux At knee: 0.4 cm, 2.3 seconds of reflux [id number]: 0.4 cm, 3 seconds of reflux Mid calf: 0.2 cm, 1.6 seconds of reflux Ankle: 0.2 cm, 2.2 seconds of reflux. The small saphenous vein demonstrates no reflux and measures 3 mm. Multiple varicosities and perforators are noted bilaterally. Impression: The great saphenous vein is closed along a short segment centrally and otherwise patent with reflux as detailed above. This document has been electronically signed by: Terry Schofield MD on 10/05/2024 08:16:26
== END 2024-09-30 09:33 | disposition home or self-care (01) ==
LOC: HO.US 09:32
PROVIDERS: PCP Internal Medicine; Visit Provider Physician Assistant Surgical
DX: I83.11 Varicose veins of right lower extremity with inflammation (principal); I83.12 Varicose veins of left lower extremity with inflammation
CPT/HCPCS: 93970

== ENCOUNTER → 2024-09-30 09:33 | Outpatient (BNV) | payer OTHER, SELFPAY | PROVIDERS: PCP Internal Medicine; Visit Provider Radiology Vascular & Interventional Radiology | DX: I83.11 Varicose veins of right lower extremity with inflammation (principal) | CPT/HCPCS: 93970 ==

== ENCOUNTER 2024-10-05 11:17 | Outpatient (AMB) | payer OTHER, SELFPAY ==
--- NOTE | 2024-10-05 11:24 | A.OFFVIS_ITS ---
Intake Visit Reasons: follow up s/p 09/22/24 Intake Note: Patient presents for [facility] follow up. States his knees are bothering him. No other complaints. Accompanied by: Step Child Allergies No Known Allergies Allergy (Verified 10/05/24 11:25) [facility] follow up s/p 09/22/24: Details: Very pleasant 74-year-old gentleman presents for routine follow-up regarding venous insufficiency. Has large swollen legs which have been quite painful and uncomfortable for him. Actually had prior venous ablation is in 2019. He now presents for routine follow-up with venous insufficiency testing. [facility] Medical History Obstructive sleep apnea Coronary artery disease Abdominal wall abscess Hearing difficulty Hypertension Nephrolithiasis Flank pain Constipation Dizziness Obesity (BMI 30-39.9) Tubular adenoma of colon Polysubstance abuse Knee osteoarthritis Degenerative disc disease, lumbar Osteoarthritis of right shoulder Ascending aorta dilatation History of renal calculi GERD (gastroesophageal reflux disease) Vitamin D deficiency Peripheral vascular disease Hypercholesterolemia COPD (chronic obstructive pulmonary disease) Surgical History Hx of cardiac cath Hx laparoscopic cholecystectomy Hx of colonoscopy History of esophagogastroduodenoscopy (EGD) Family History Father Stroke Heart attack Mother No problems noted. Sister Breast cancer Social History Household Members: Spouse Housing: House Do you presently have visiting nurse or other home services: No Alcohol intake: former Year quit: 2009 Patient Tobacco Use Status: Never used Tobacco Tobacco use type: Cigarette e-Cigarette/Vaping Use: Never Used Second Hand Smoke Exposure: No service: No Current occupational status: retired and disabled Cognitive needs: No Hearing needs: No Vision needs: Yes Review of Systems Const Reports as per HPI ENT Reports no additional complaints Card Denies chest pain, Denies chest pain at rest and Denies chest pain with activity Resp Denies chest congestion and Denies cough GI Reports no additional complaints Musc Details: pain over varicosities, aching of lower extremities, swelling, cramping, heaviness and tiredness, itching Denies abnormal gait Skin/Breast Reports pruritus and Denies wounds Neuro Reports no additional complaints and Denies abnormal gait Psych Denies no additional complaints Physical Exam Const General: cooperative, healthy appearing and comfortable Orientation/consciousness: oriented to person, oriented to place and oriented to time Neck Carotids: no bruits Chest Chest palpation & inspection: normal inspection of the chest and normal palpation of entire chest wall Resp Effort & Inspection: normal respiratory effort and able to speak in complete sentences Cardio Rate: regular rate Heart sounds: S1 normal heart sound present and S2 normal heart sound present Peripheral pulses: Peripheral pulses 2+ throughout GI Inspection: Yes normal to inspection Skin Other: +2 edema, large rope-like varicosities greater than 4 mm bilateral calf CEAP Classification C4 - skin color changes Ep - Etiology Primary As - superficial veins P - reflux General skin exam: dry skin Neuro General: oriented to person, oriented to place and oriented to time Extrem Right lower extremity: full ROM, normal capillary refill and edema Left lower extremity: full ROM, normal capillary refill and edema Psych Mental Status: mental status grossly normal Results Reviewed Results Reviewed: Brief summary of venous insufficiency testing is as follows: right great saphenous vein: Positive right small saphenous vein: negative right accessory vein: none present left great saphenous vein: Positive left small saphenous vein: negative left accessory vein: none present Please note there is no evidence of any venous aneurysms or significant tortuosity Assessment & Plan Assessment & Plan (1) Varicose veins of right lower extremity with inflammation: Code(s): I83.11 - Varicose veins of right lower extremity with inflammation Category: Medical Plan: This patient has varicose veins with inflammation. They continue to be a source of discomfort for the patient. The patient has tried conservative tr eatment with compression, leg elevation and exercise program for over 3 months time. They have been compliant with all treatment. This has provided minimal relief for the patient. I do not anticipate this course of treatment will alter the underlying etiology. The patient has been scheduled for lower extremity venous treatment inclusive of --- right great saphenous vein radiofrequency ablation. Risks, benefits, and complications of this procedure has been discussed in detail with the patient including but not limited to bleeding, infection, and the development of a DVT. The patient has demonstrated a clear understanding and has consented. We will schedule the patient as soon as possible. Thank you for allowing us to participate in this patient's care. If there are any questions or concerns please do not hesitate to contact us. Coding Level of Care Code Est Pt Level 4 (33463) Diagnoses Varicose veins of right lower extremity with inflammation I83.11
== END 2024-10-05 11:40 | disposition home or self-care (01) ==
PROVIDERS: PCP Internal Medicine; Visit Provider Surgery Vascular Surgery
DX: I83.11 Varicose veins of right lower extremity with inflammation (principal)
CPT/HCPCS: 99214

== ENCOUNTER → 2024-10-05 11:17 | Outpatient (BNVA) | payer OTHER, SELFPAY | PROVIDERS: PCP Internal Medicine; Visit Provider Surgery Vascular Surgery | DX: I83.11 Varicose veins of right lower extremity with inflammation (principal) | CPT/HCPCS: 99212 ==

== ENCOUNTER 2024-10-07 08:46 | Outpatient (REF) | payer OTHER, SELFPAY ==
[2024-10-07 09:18] LABS: Appearance Urine Clear; Color Urine Dark Yellow; Glucose Urine UA Negative (Negative); Leukocyte Esterase Urine Small (1+) (Negative); Nitrite Urine Positive (Negative); Specific Gravity - Urine 1.015 (1.005-1.025); UMIC TRIGGER UA YES; Urine Blood Negative (Negative); Urine Ketones Trace mg/dL (Negative); Urine Protein Negative (Neg-Trace)
[2024-10-07 09:30] LABS: Bacteria Urine 2+ (None Seen); Hyaline Casts Urine 0-2 /LPF (0-2); RBC Urine 0-2 /HPF (0-2); Squamous Epithelial Cell Urine 0-2 /HPF (0-2); WBC Urine 0-5 /HPF (0-5)
[2024-10-07 10:40] LABS: Parathyroid Hormone Intact 128.8 pg/mL (8.7-77.1)
[2024-10-07 10:45] LABS: Creatinine Urine 188.18 mg/dL; Total Protein Urine Random 14 mg/dL (<12)
[2024-10-07 10:48] LABS: Anion Gap 12 (12-20); Blood Urea Nitrogen 6 mg/dL (9-16); Calcium 9.1 mg/dL (8.4-10.2); Carbon Dioxide 30 mmol/L (22-29); Chloride 99 mmol/L (96-108); Estimated Glomerular Filt Rate > 60; Glucose Random 108 mg/dL (60-115); Potassium 4.2 mmol/L (3.3-5.1); Sodium 137 mmol/L (135-145)
== END 2024-10-07 08:47 | disposition home or self-care (01) ==
LOC: HO.LAB 08:46
PROVIDERS: PCP Internal Medicine; Visit Provider Internal Medicine Hypertension Specialist
DX: N20.0 Calculus of kidney (principal); R82.994 Hypercalciuria
CPT/HCPCS: 36415; 80048; 81001; 82570; 83970; 84156

== ENCOUNTER 2024-10-11 09:26 | Outpatient (AMB) | payer OTHER, SELFPAY ==
[2024-10-11 09:37] VITALS: BP 118/60; PULSE 70; O2SAT 93; BMI 33.1
--- NOTE | 2024-10-11 09:37 | HO.NEPHOV_ITS ---
Vital Signs 10/11/24 09:37 Height 5 ft 8 in Weight 218 lb BMI 33.1 BP 118/60 Blood Pressure Location Lt brachial Position Sitting Pulse 70 Pulse Source Pulse Oximeter Pulse Oximetry (%) 93 Oxygen Delivery Method Room Air Intake Visit Reasons: Hypercalciuria- Conf w/son Accompanied by: Family/Other Allergies No Known Allergies Allergy (Verified 10/11/24 09:40) Medication List - Last Reconciled 10/11/24 by Taran Contreras MD aspirin (Adult Aspirin Regimen) 81 mg PO DAILY 90 days atorvastatin 40 mg PO DAILY 90 days [AUTO PAP 6-20 cm H2O humidified AIR As directed] blood sugar diagnostic (P2P-Next Verio test strips) test once daily blood-glucose meter (P2P-Next Verio Flex Meter) test once daily zohra.stocking,knee,reg,xlrg As directed 20-30 mm HG [DIABETIC SHOES As directed] diclofenac sodium 1% (Voltaren Arthritis Pain) 4 grams topical QID escitalopram oxalate (Lexapro) 5 mg PO DAILY gabapentin 300 mg PO TID hydrochlorothiazide 25 mg PO DAILY lancets (P2P-Next Delica Plus Lancet) USE TO TEST ONCE DAILY lisinopril 5 mg PO DAILY metoprolol succinate ER 25 mg PO DAILY omeprazole 20 mg PO DAILY pyridoxine (vitamin B6) 100 mg PO DAILY semaglutide (Ozempic) 0.5 mg (0.736 mL) subcut QWEEK HPI Comments Details: Elderly man with referred for nephrolithiasis and hypercalciuria Accompanied by family Tolerating HCTZ Edema is better No specific complaints today No new issues today As per family , he is not on salt restriction! Did not perform 24 hr urine studies as ordered [facility] Medical History Obstructive sleep apnea Coronary artery disease Abdominal wall abscess Hearing difficulty Hypertension Nephrolithiasis Flank pain Constipation Dizziness Obesity (BMI 30-39.9) Tubular adenoma of colon Polysubstance abuse Knee osteoarthritis Degenerative disc disease, lumbar Osteoarthritis of right shoulder Ascending aorta dilatation History of renal calculi GERD (gastroesophageal reflux disease) Vitamin D deficiency Peripheral vascular disease Hypercholesterolemia COPD (chronic obstructive pulmonary disease) Surgical History Hx of cardiac cath Hx laparoscopic cholecystectomy Hx of colonoscopy History of esophagogastroduodenoscopy (EGD) Family History Father Stroke Heart attack Mother No problems noted. Sister Breast cancer Social History Household Members: Spouse Housing: House Do you presently have visiting nurse or other home services: No Alcohol intake: former Year quit: 2009 Patient Tobacco Use Status: Never used Tobacco Tobacco use type: Cigarette e-Cigarette/Vaping Use: Never Used Second Hand Smoke Exposure: No service: No Current occupational status: retired and disabled Cognitive needs: No Hearing needs: No Vision needs: Yes Physical Exam Vital Signs: Last Vital Signs Pulse 70 10/11/24 09:37 BP 118/60 10/11/24 09:37 Pulse Ox 93 10/11/24 09:37 Oxygen Delivery Method Room Air 10/11/24 09:37 BMI result Body Mass Index 33.1 Const General: comfortable; No acute distress Orientation/consciousness: patient oriented x3 Eyes General: appearance normal, both eyes and all related structures Visual Silver: normal visual silver by confrontation Neck Neck: Yes supple and Yes no JVD Resp Effort & Inspection: normal respiratory effort and respiratory effort not decreased Auscultation: rhonchi Cardio Palpation: no palpable S3 and no palpable S4 Heart sounds: no rubs GI Inspection: Yes normal to inspection Palpation (GI): Soft to palpation Percussion: Yes normal to percussion Auscultation: normal bowel sounds General: Yes no CVA tenderness Back/Spine/Pelvis Back: no CVA tenderness Skin General skin exam: no petechiae and no purpura Neuro General: patient oriented x3 and no focal motor deficits Extrem General: No clubbing and No edema Results Reviewed Nephrology Results: Sodium 137 mmol/L (135-145) 10/07/24 Potassium 4.2 mmol/L (3.3-5.1) 10/07/24 Chloride 99 mmol/L (96-108) 10/07/24 Carbon Dioxide 30 mmol/L (22-29) H 10/07/24 BUN 6 mg/dL (9-16) L 10/07/24 Creatinine 0.95 mg/dL (0.5-1.4) 01/16/25 Calcium 9.1 mg/dL (8.4-10.2) 10/07/24 PTH Intact 128.8 pg/mL (8.7-77.1) H 10/07/24 Urine Protein Negative mg/dL (Neg-Trace) 10/07/24 Urine Creatinine 188.18 mg/dL 10/07/24 Renal US 09/09/24 Assessment & Plan Assessment & Plan (1) Hypertension: Code(s): I10 - Essential (primary) hypertension Category: Medical Qualifiers: Hypertension type: essential hypertension Qualified Code(s): I10 - Essential (primary) hypertension (2) Nephrolithiasis: Code(s): N20.0 - Calculus of kidney Category: Medical (3) Hypercalciuria: Code(s): R82.994 - Hypercalciuria Category: Medical Plan Elderly man with nephrolithiasis and hypercalciuria Serum calcium normal Serum calcium is normal. Intact is mildly elevated as expected. Blood pressure is well controlled. In view of the hypercalciuria, keep hydrochlorothiazide 25 mg a day. Amlodipine stopped due to edema. The leg edema improved after discontinuing amlodipine. Repeat 24 hr urine for calcium excretion - reordered Discussed LOW sodium diet Increase PO fluid intake Orders: Orders Creatinine, 24 Hr Group Today N20.0 - Calculus of kidney, R82.994 - Hypercalciuria Calcium, 24 Hr Ur Today N20.0 - Calculus of kidney, R82.994 - Hypercalciuria Sodium, 24Hr Urine Group Today N20.0 - Calculus of kidney, R82.994 - Hypercalciuria Coding Level of Care Code Est Pt Level 4 (60213) Diagnoses Essential hypertension I10 Hypertension type: essential hypertension Nephrolithiasis N20.0 Hypercalciuria R82.994
== END 2024-10-11 09:54 | disposition home or self-care (01) ==
PROVIDERS: PCP Internal Medicine; Visit Provider Internal Medicine Hypertension Specialist
DX: I10 Essential (primary) hypertension (principal); N20.0 Calculus of kidney; R82.994 Hypercalciuria
CPT/HCPCS: 99214

== ENCOUNTER → 2024-10-11 09:26 | Outpatient (BNVA) | payer OTHER, SELFPAY | PROVIDERS: PCP Internal Medicine; Visit Provider Internal Medicine Hypertension Specialist ==

== ENCOUNTER 2024-10-14 09:11 | Outpatient (REF) | payer OTHER, SELFPAY ==
--- OUTSIDE RECORDS SUMMARY | 2024-10-14 10:07 | XMS_ITS ---
Author Organization [facility] Address [address] [place] [address] Care Team Providers Care Meter Installer Name Role Phone Neo Baig Primary Care Provider Jelena Peralta [phone] REASON FOR VISIT cx appt Encounters Encounter Location Date Provider Diagnosis [address] [id number] 09/24/2024 Jelena Craig Plan Of Treatment Next Appt Details Provider Name:Jelena lee, 11/30/2024 02:45:00 PM, [address] [place], [address], Progress Notes * Tammy HARVEYOB:1950 (74 yo M)Acc No.[id number]:09/24/2024 Patient:?Сергей HARVEY :1950???Age:74 Y???Sex:Male Address:[address] [place] [address], [id number] * true * Date:? Generated for Printi umesh/Dante/eTransmitting on:?10/14/2024 10:07 AM EST
--- OUTSIDE RECORDS SUMMARY | 2024-10-14 10:07 | XMS_ITS ---
Author Organization [facility] Address [address] [place] [address] Care Team Providers Care Soil Fertility Extension Specialist Name Role Phone Neo Baig Primary Care Provider Jelena Peralta Unavailable [phone] Medications Medication SIG (Take, Route, Frequency, Duration) Notes Start Date End Date Status Clotrimazole-Betamethas one 1-0.05 % 1 application to affected area Externally Twice a day to affected areas on feet for 30 days 10/29/2023 Active Extra Depth Orthopedic Shoes (1 Pair) with Customized Heat Molded Multidensity Innersoles (3 Pair) as directed Dx: NIDDM/Polyneuropathy (E11.42), Hammertoe Foot Deformity (M20.41,M20.42), Preulcerative Skin Lesion(s) (L85.1 Active Senna-S 8.6-50 MG 1 tablet as needed Orally Twice a day Active Ciclopirox Olamine 0.77 % 1 application Externally Once a day for 30 days 09/02/2022 Active Ciclopirox Olamine 0.77 % 1 application to affected area Externally Twice a day to effected areas on feet for 30 days 01/27/2024 Active Furosemide 20 MG 1 tablet Orally Once a day for 30 day(s) Active Omeprazole 300 mg 3x per day Active Meloxicam 7.5 MG 1 tablet Orally Once a day for 30 day(s) Active amLODIPine Besylate 5 MG 1 tablet Orally Once a day for 30 day(s) Active Atorvastatin Calcium 40 MG 1 tablet Orally Once a day for 30 day(s) Active zzzCompression Stockings 20-30mm Hg . . . for . Active Miconazole Nitrate A ctive Clotrimazole Active Aspirin 81 MG 1 tablet Orally Once a day for 30 day(s) Active Encounters Encounter Location Date Provider Diagnosis [facility] [address] [address] 09/24/2024 Jelena Craig Plan Of Treatment Next Appt Details Provider Name:Jelena lee, 11/30/2024 02:45:00 PM, [address] [place] [address], [phone], Progress Notes * MEGHAN, CashanDOB:1950 (74 yo M)Acc No.[id number]:09/24/2024 Progress Note Patient:?Сергей HARVEY Provider:?Jelena Craig DPM :1950???Age:74 Y???Sex:Male Humphrey e:09/24/2024 Address:[address] [place], [place] [id number] Pcp:Neo Baig Subjective: * Chief Complaints: * ??? * Medical History:?Arthritis, CAD (Cholesterol), type II diabetes, Gout, Osteoarthritis, Dizziness, Auto Pap 6-20, Tinea Pedis. * Medications:?Taking zzzCompr ession Stockings 20-30mm Hg 1 pair closed toe- [...] to effected areas on feet Objective: * Vitals:? Assessment: Plan: * Treatment: * Images: * The named appointment provid er may or may not be the originator of this progress note, and it is not deemed complete until electronically signed by the appointment provider. Sign off status: Pending * Provider:?Jelena Craig DPM Date:?11/2024 Generated for Fermín calvo/Dante/Rich on:?10/14/2024 10:07 AM EST
--- OUTSIDE RECORDS SUMMARY | 2024-10-14 10:08 | XMS_ITS | Patient Health Record ---
[facility] [place] Address [address] [place] [address] Care Team Providers Care Vessel Master Name Role Phone Neo Baig Primary Care Provider Jelena Peralta Unavailable [phone] Allergies No Known Allergies Reason For Referral Diagnosis 1 Other hammer toe(s) (acquired), right foot (M20.41) Diagnosis 2 Other hammer toe(s) (acquired), left foot (M20.42) Diagnosis 3 Type 2 diabetes carlos itus with diabetic polyneuropathy (E11.42) Diagnosis 4 Venous insufficiency (I87.2) Diagnosis 5 Plantar wart (B07.0) Referring Provider First Name Neo Referring Provider Last Name [facility] Referred Provider Jelena Craig Referred Address [address] [facility],[place], [place],[address], Referred Provider Specialty Podiatry Referral Priority Routine Medications Medication SIG (Take, Route, Frequency, Duration) Notes Start Date End Date Status zzzCompression Stockings 20-30mm Hg . . . for . Active Clotrimazole-Betamethas one 1-0.05 % 1 application to affected area Externally Twice a day to affected areas on feet for 30 days 10/29/2023 Active Miconazole Nitrate A ctive Extra Depth Orthopedic Shoes (1 Pair) with Customized Heat Molded Multidensity Innersoles (3 Pair) as directed Dx: NIDDM/Polyneuropathy (E11.42), Hammertoe Foot Deformity (M20.41,M20.42), Preulcerative Skin Lesion(s) (L85.1 Active Senna-S 8.6-50 MG 1 tablet as needed Orally Twice a day Active Ciclopirox Olamine 0.77 % 1 application Externally Once a day for 30 days 09/02/2022 Active Furosemide 20 MG 1 tablet Orally Once a day for 30 day(s) Active Omeprazole 300 mg 3x per day Active Meloxicam 7.5 MG 1 tablet Orally Once a day for 30 day(s) Active amLODIPine Besylate 5 MG 1 tablet Orally Once a day for 30 day(s) Active Atorvastatin Calcium 40 MG 1 tablet Orally Once a day for 30 day(s) Active Clotrimazole Active Ciclopirox Olamine 0.77 % 1 application to affected area Externally Twice a day to effected areas on feet for 30 days 01/27/2024 Active Aspirin 81 MG 1 tablet Orally Once a day for 30 day(s) Active Immunizations Vaccine Route Administration Date Status Comme nts Influenza Unknown 07/23/2023 Administered Social History Tobacco Use: Social History Observation Description Date Details (start date - stop date) Former Smoker NA - NA Tobacco Use/Smoking Question Answer Notes Are you a: former smoker Additional Findings: Tobacco Non-User Ex-cigaret te smoker Alcohol Screen Question Answer Notes Did you have a drink containing alcohol in the p ast year? No Points 0 Interpretation Negative Tobacco use other than smoking: Question Answer Notes Are you an other tobacco user? No Problems Problem Type SNOMED Code ICD Code Onset Dates Problem Status W/U Status Risk Notes Problem Acquired hammer toe of right foot (5729562070341567 ) Other hammer toe(s) (acquired), right foot (M20.41) Active confirmed Problem Acquired hammer toe of left foot (1262454583832941 ) Other hammer toe(s) (acquired), left foot (M20.42) Active confirmed Problem Plantar wart (11223863) Plantar wart (B07.0) Active confirmed Problem Polyneuropathy due to type 2 diabetes mellitus (426252711) Type 2 diabetes mellitus with diabetic polyneuropathy (E11.42) Active confirmed Problem 13860463 Venous insufficiency (I87.2) Active confirmed Vital Signs Height 5ft 8in in 06/23/2024 Weight 219 lbs 06/23/2024 BMI 33.3 kg/m2 06/23/2024 Encounters Encounter Location Date Provider Diagnosis [facility] [address] [place] [address] 10/29/2023 Jelena Craig Tinea pedis of both feet B35.3 ; Other hammer toe(s) (acquired), right foot M20.41 ; Other hammer toe(s) (acquired), left foot M20.42 ; Tinea unguium B35.1 ; Type 2 diabetes mellitus with diabetic polyneuropathy E11.42 ; Right foot pain M79.671 ; Plantar wart B07.0 and Left foot pain M79.[address] [address] 01/27/2024 Jelena Craig Tinea pedis of both feet B35.3 ; Other hammer toe(s) (acquired), right foot M20.41 ; Other hammer toe(s) (acquired), left foot M20.42 ; Tinea unguium B35.1 ; Type 2 diabetes mellitus with diabetic polyneuropathy E11.42 ; Right foot pain M79.671 ; Plantar wart B07.0 and Left foot pain M79.[address] [address] 06/23/2024 Jelena Craig Other hammer toe(s) (acquired), right foot M20.41 ; Muscle cramp, nocturnal R25.2 ; Tinea pedis of both feet B35.3 ; Other hammer toe(s) (acquired), left foot M20.42 ; Tinea unguium B35.1 ; Type 2 diabetes mellitus with diabetic polyneuropathy E11.42 ; Right foot pain M79.671 ; Plantar wart B07.0 and Left foot pain M79.[address] [address] 04/27/2024 Jelena Craig [address] [address] 09/24/2024 Jelena Craig Assessments Encounter Date Diagnosis (ICD Code) Assessment Notes Treatment Notes Treatment Clinical Notes Section Notes 10/29/2023 Tinea pedis of both feet (ICD-10 - B35.3) 01/27/2024 Tinea pedis of both feet (ICD-10 - B35.3) 06/23/2024 Other hammer toe(s) (acquired), right foot (ICD-10 - M20.41) 06/23/2024 Muscle cramp, nocturnal (ICD-10 - R25.2) 06/23/2024 Tinea pedis of both feet (ICD-10 - B35.3) 01/27/2024 Other hammer toe(s) (acquired), right foot (ICD-10 - M20.41) Patient Educated with: DIABETIC FOOT CARE INSTRUCTIONS. pdf (DIABETIC FOOT CARE INSTRUCTIONS. pdf) 10/29/2023 Other hammer toe(s) (acquired), right foot (ICD-10 - M20.41) Patient Educated with: DIABETIC FOOT CARE INSTRUCTIONS. pdf (DIABETIC FOOT CARE INSTRUCTIONS. pdf) 10/29/2023 Other hammer toe(s) (acquired), left foot (ICD-10 - M20.42) 10/29/2023 Tinea unguium (ICD-10 - B35.1) 06/23/2024 Other hammer toe(s) (acquired), left foot (ICD-10 - M20.42) 01/27/2024 Other hammer toe(s) (acquired), left foot (ICD-10 - M20.42) 06/23/2024 Tinea unguium (ICD-10 - B35.1) 01/27/2024 Tinea unguium (ICD-10 - B35.1) 10/29/2023 Type 2 diabetes mellitus with diabetic polyneuropathy (ICD-10 - E11.42) 10/29/2023 Right foot pain (ICD-10 - M79.671) 01/27/2024 Type 2 diabetes mellitus with diabetic polyneuropathy (ICD-10 - E11.42) 06/23/2024 Type 2 diabetes mellitus with diabetic polyneuropathy (ICD-10 - E11.42) 06/23/2024 Right foot pain (ICD-10 - M79.671) 01/27/2024 Right foot pain (ICD-10 - M79.671) 10/29/2023 Plantar wart (ICD-10 - B07.0) 10/29/2023 Left foot pain (ICD-10 - M79.672) 01/27/2024 Plantar wart (ICD-10 - B07.0) 06/23/2024 Plantar wart (ICD-10 - B07.0) 01/27/2024 Left foot pain (ICD-10 - M79.672) 06/23/2024 Left foot pain (ICD-10 - M79.672) Plan Of Treatment Pending Test Test Name Order Date [id number] NAIL, 6 OR MORE 09/02/2022 [id number] SKIN LESIONS, OVER 4 09/02/20 22 Next Appt Details Provider Name:Jelena lee, 11/30/2024 02:45:00 PM, [address] [place] [address], [phone], Insurance Providers Payer Name Payer Address Payer Phone Subscriber Number Group Number Insured Name Patient Relationship to Insured Coverage Start Date Coverage End Date [facility] [address] YAZMIN [place] [phone] [id number] Сергей Harvey Self - patient is the insured Medical (General) History Medical History History ICD Code Arthritis CAD (Cholesterol) type II diabetes Gout osteoarthritis dizziness Auto Pap 6-20 Tinea Pedis Surgical History Surgery Date(Month/Year) kidney stones 08/2022
--- OUTSIDE RECORDS SUMMARY | 2024-10-14 10:08 | XMS_ITS ---
Author Organization [facility] Address [address] [place] [address] Care Team Providers Care Cracking Still Operator Name Role Phone Neo Baig Primary Care Provider Jelena Peralta Unavailable [phone] Allergies No Known Allergies REASON FOR VISIT At Risk Footcare, Skin Problem, Wart(s), Foot/Leg pain Medications Medication SIG (Take, Route, Frequency, Duration) Notes Start Date End Date Status Senna-S 8.6-50 MG 1 tablet as needed Orally Twice a day Active Clotrimazole-Betamethas one 1-0.05 % 1 application to affected area Externally Twice a day to affected areas on feet for 30 days 10/29/2023 Active Ciclopirox Olamine 0.77 % 1 application Externally Once a day for 30 days 09/02/2022 Active Extra Depth Orthopedic Shoes (1 Pair) with Customized Heat Molded Multidensity Innersoles (3 Pair) as directed Dx: NIDDM/Polyneuropathy (E11.42), Hammertoe Foot Deformity (M20.41,M20.42), Preulcerative Skin Lesion(s) (L85.1 Active Ciclopirox Olamine 0.77 % 1 application to affected area Externally Twice a day to effected areas on feet for 30 days 01/27/2024 Active Omeprazole 300 mg 3x per day Active Meloxicam 7.5 MG 1 tablet Orally Once a day for 30 day(s) Active Atorvastatin Calcium 40 MG 1 tablet Orally Once a day for 30 day(s) Active Furosemide 20 MG 1 tablet Orally Once a day for 30 day(s) Active amLODIPine Besylate 5 MG 1 tablet Orally Once a day for 30 day(s) Active Miconazole Nitrate A ctive zzzCompression Stockings 20-30mm Hg . . . for . Active Aspirin 81 MG 1 tablet Orally Once a day for 30 day(s) Active Clotrimazole Active Social History Tobacco Use: Social History Observation [...] Are you an other tobacco user? No Vital Signs Height 5ft 8in in 06/23/2024 Weight 219 lbs 06/23/2024 BMI 33.3 kg/m2 06/23/2024 Encounters Encounter Location Date Provider Diagnosis [facility] [address] [address] 06/23/2024 Jelena Craig Other hammer toe(s) (acquired), right foot M20.41 ; Muscle cramp, nocturnal R25.2 ; Tinea pedis of both feet B35.3 ; Other hammer toe(s) (acquired), left foot M20.42 ; Tinea unguium B35.1 ; Type 2 diabetes mellitus with diabetic polyneuropathy E11.42 ; Right foot pain M79.671 ; Plantar wart B07.0 and Left foot pain M79.672 Assessments Encounter Date Diagnosis (ICD Code) Assessment Notes Treatment Notes Treatment Clinical Notes Section Notes 06/23/2024 Other hammer toe(s) (acquired), right foot (ICD-10 - M20.41) 06/23/2024 Muscle cramp, nocturnal (ICD-10 - R25.2) 06/23/2024 Tinea pedis of both feet (ICD-10 - B35.3) 06/23/2024 Other hammer toe(s) (acquired), left foot (ICD-10 - M20.42) 06/23/2024 Tinea unguium (ICD-10 - B35.1) 06/23/2024 Type 2 diabetes mellitus with diabetic polyneuropathy (ICD-10 - E11.42) 06/23/2024 Right foot pain (ICD-10 - M79.671) 06/23/2024 Plantar wart (ICD-10 - B07.0) 06/23/2024 Left foot pain (ICD-10 - M79.672) Plan Of Treatment Next Appt Details Follow Up: 3 Months, Reason: Provider Name:Jelena lee, 11/30/2024 02:45:00 PM, [address] [place], [address], Procedure Notes * Category Sub-Category Detail Notes Wart Treatment Procedure Verrucae were de brided to pin-point bleeding margins with sterile 15 surgical blade, silver nitrate chemocautery applied, recomm. immune-boosting meds such as zinc, recomm. follow up with topical chemosurgical agents, Pt defers any other forms of tx (44912) Debride Nail 6-10 Nail debridement Nail debridem ent performed extensively to reduce/remove overall nail length, girth, thickness, subungual debris, and necrotic tissue, by manual and electrical means through the use of a nail nipper and/or dremel, to more viable healthy nail plate or bed tissue 1-5. Silver nitrate used for any petechial bleeding as necessary. Patient chooses, no pharmaceutical tx (96386) Keratoma Treatment Parring or Cutting o f Benign Hyperkeratotic Lesion(s) 82228 ( More than 4 Lesions ) - The Benign hyperkeratotic lesions, as described above were pared, and/or cut utilizing a sterile 15 blade, tissue nippers, and/or dremel Progress Notes * Tammy HARVEYOB:1950 (74 yo M)Acc No.[id number]:06/23/2024 Progress Note Patient:?Сергей Harvey Provider:?Jelena Craig DPM :1950???Age:74 Y???Sex:Male Humphrey e:06/23/2024 Address:[address] [place], [place] [id number] Pcp:Neo Baig Subjective: * Chief Complaints: * ???At Risk FootcareSkin Prob lemWart(s)Foot/Leg pain * HPI: ???At Risk footcare:?Pt States Last PCP Visit:?Date?06/08/2024 ? Presents with son who provides translation. ???Skin problems:?Pt States PCP Visit: ?DATE?01/07/2024 ?Nature:?scaling , redness.?Location:?B/L .?Course:?worse.?Foot Pain:?Nature:?tightness, cramping, pulling, aching.?Location:?Foot, Leg , B/L.?Duration:?several weeks.?Onset:?sudden.?Course:?worse.?Treatments:?Pt had ultrasound yesterday, awaiting results.? * ROS:?General/Constitutional:?Nausea?denies, denies.?Vomiting?denies, denies.?Hunger Thirst?denies, denies.?Loss appetite?denies, denies.?Chills?denies, denies.?Fatigue?denies, denies.?Fever?denies, denies.?Night Sweats denies, denies.?Unexplained weight loss?denies, denies.?Unexplained weight gain?denies, denies.?HEENTM:?Dentures?denies, denies.?Dizziness?denies, denies.?Glasses/contacts?denies, denies.?Retinopathy?denies, denies.?Blurred/double vision?denies, denies.?TMJ?denies, denies.?Discharge/drainage?denies, denies.?Implants?denies, denies.?Sore throat?denies, denies.?Dental implants?denies, denies.?Hard of hearing ?denies, denies.?Difficulty chewing/swallowing/speaking?denies, denies.?Nose bleeds?denies, denies.?Sore mouth?denies, denies.?Respiratory:?On Oxygen?denies, denies.?Pneumonia/pleurisy?denies, denies.?Bronchitis?denies, denies.?Emphysema?denies, denies.?Coughing?denies, denies.?Cough blood?denies, denies.?Shortness of breath?denies, denies.?Wheezing?denies, denies.?Cardiovascular:?Pacemaker?denies, denies.?MVP?denies, denies.?WPW?denies, denies.?CHF?denies, denies.?Heart attack?denies, denies.?Septal defect?denies, denies.?Rapid beat?denies, denies.?Chest pain ?denies, denies.?Atrial Fib.?denies, denies.?Murmur/Palpitations?denies, denies.?Gastrointestinal:?Hemorrhoids?denies, denies.?Stomach/Abdominal pain?denies, denies.?Dark blood stool?denies, denies.?Irritable bowel ?denies, denies.?Constipation?denies, denies.?Diarrhea?denies, denies.?Hematology:?Swelling?denies, denies.?Clots?denies, denies.?Varicose Veins?denies, denies.?Bruising?denies, denies.?Bleeding problem?denies, denies.?Genitourinary:?Blood urine?denies, denies.?Frequent/Painfu/urination/bladder control?denies, denies.?Kidney stones?denies, denies.?Infection (UTI)?denies, denies.?Nephropathy?denies, denies.?sex trans dis (STD)?denies, denies.?Prostate?denies, denies.?Musculoskeletal:?Hammertoes?denies, denies.?Bunions?denies, denies.?Back Pain?denies, denies.?Muscle Cramps/ Resting?denies, denies.?Muscle cramps / walking?denies, denies.?Generalized aches and pains?denies, denies.?Weakness?denies, denies.?Integ.:?Mathews?denies, denies.?Scars?denies, denies.?Corns/calluses?denies, denies.?Ingrown nails?denies, denies.?Painful nails?denies, denies.?Open Sores?denies, denies.?Rashes?denies, denies.?Neurologic:?Difficulty sleeping?denies, denies.?Brain disorder?denies, denies.?Numbness?denies, denies.?Balance trouble?denies, denies.?Confusion?denies, denies.?Fainting/blackouts?denies, denies.?Tingling?denies, denies.?Tremors?denies, denies.? * Medical History:? * Surgical History:?kidney sto te 08/2022 * Hospitalization/Major Diagno stic Procedure:?Denies Past Hospitalization * Family History:?Mother: dece ased.?Father: .? * Social History:?Tobacco Use:?Tobacco Use/Smoking?Are you a:?former smoker ?Additional Findings: Tobacco Non-User?Ex-cigarette smoker ?Tobacco use other than smoking?Are you an other tobacco user??No ???Drugs/Alcohol:?Drugs?Have you used drugs other than those for medical reasons in the past 12 months??No ?Alcohol Screen?Did you have a drink containing alcohol in the past year??No ?Points?0 ?Interpretation?Negative ???Miscellaneous:?Caffeine: yes, frequency: 3 cups per day. ?Children: yes. ?no Exercise. ?Marital status: . ?Occupation: Retired. * Medications:?TakingzzzCompre ssion Stockings 20-30mm Hg 1 pair closed toe- knee high . . .Miconazole Nitrate Clotrimazole Aspirin 81 MG Tablet Chewable 1 tablet Orally Once a dayAtorvastatin Calcium 40 MG Tablet 1 tablet Orally Once a dayMeloxicam 7.5 MG Tablet 1 tablet Orally Once a dayamLODIPine Besylate 5 MG Tablet 1 tablet Orally Once a dayFurosemide 20 MG Tablet 1 tablet Orally Once a dayOmeprazole , Notes: 300 mg 3x per daySenna-S 8.6-50 MG Tablet 1 tablet as needed Orally Twice a dayCiclopirox Olamine 0.77 % Cream 1 application Externally Once a dayClotrimazole- Betamethasone 1-0.05 % Cream 1 application to affected area Externally Twice a day to affected areas on feetExtra Depth Orthopedic Shoes (1 Pair) with Customized Heat Molded Multidensity Innersoles (3 Pair) as directed Dx: NIDDM/Polyneuropathy (E11.42), Hammertoe Foot Deformity (M20.41,M20.42), Preulcerative Skin Lesion(s) (L85.1Ciclopirox Olamine 0.77 % Cream 1 application to affected area Externally Twice a day to effected areas on feetMedication List reviewed and reconciled with the patientTaking zzzCompression Stockings 20-30mm Hg 1 pair closed toe- knee high . . .Taking Miconazole Nitrate Taking Clotrimazole Taking Aspirin 81 MG Tablet Chewable 1 tablet Orally Once a dayTaking Atorvastatin Calcium 40 MG Tablet 1 tablet Orally Once a dayTaking Meloxicam 7.5 MG Tablet 1 tablet Orally Once a dayTaking amLODIPine Besylate 5 MG Tablet 1 tablet Orally Once a dayTaking Furosemide 20 MG Tablet 1 tablet Orally Once a dayTaking Omeprazole , Notes: 300 mg 3x per dayTaking Senna-S 8.6-50 MG Tablet 1 tablet as needed Orally Twice a dayTaking Ciclopirox Olamine 0.77 % Cream 1 application Externally Once a dayTaking Clotrimazole-Betamethasone 1- 0.05 % Cream 1 application to affected area Externally Twice a day to affected areas on feetTaking Extra Depth Orthopedic Shoes (1 Pair) with Customized Heat Molded Multidensity Innersoles (3 Pair) as directed Dx: NIDDM/Polyneuropathy (E11.42), Hammertoe Foot Deformity (M20.41,M20.42), Preulcerative Skin Lesion(s) (L85.1Taking Ciclopirox Olamine 0.77 % Cream 1 application to affected area Externally Twice a day to effected areas on feetMedication List reviewed and reconciled with the patient * Allergies:?N.K.D.A.yes[Kristin pelayo Verified] Objective: * Vitals:?Ht:5ft 8in, Wt:219, BMI:33.3, Shoe size:10.5, BS:not taken, Ht-cm: 172.72 cm, Wt-k.34 kg. * Examination: ???Ophthalmology Referral: ?DIABETES EYE EXAM?Neurological: ?SENSORY:? Neurological exam demonstrates, reduced light touch sensation, reduced sharp/dull pin prick discrimination , B/L, 5.07 monofilament test performed at plantar aspects of 5 varied sites per foot shows sensation, reduced , B/L.?Nails: ?NAILS are:?Elongated, overgrown, dystrophic, lytic, greater than 3mm thick, discolored and friable with crumbly malodorous subungual debris with dull to no pain on palpation due to neuropathy 1-5 B/L.?Dermatologic: ?SKIN FINDINGS:? Skin exam reveals Keratotic lesion(s) located at TA, T5, Heels B/L, Sub 5 right, , Skin shows sign(s) of, erythema, scaling, in a moccasin fashion, no fissure(s) present, B/L.?VERRUCA:? Reveals Multiple ( 4), multi-loculated , mosaic-patterned, round, raised, flat-topped, petechial bleeding papule(s), with cauliflower appearance and interruption of skin lines, with pain to lateral compression, and size estimated at 3mm diameter plantar Forefoot B/L.?Vascular: ?DP PULSES(B):?3/4, B/L.?PT PULSES(B):?3/4, B/L.?CAPILLARY FILL TIME:?immediate, all digits, B/L.?TEMPERTURE GRADIENT(C):? normal, warm to cool, proximal to distal, B/L.?PIGMENTATION:? brawny, B/L mottled, B/L.?TELANGECTASIA:? present.?VARICOSITIES:? present severe nonpainful.?Orthopedic: ?MUSCLE STRENGTH:?5/5 all groups in a symmetrical fashion, B/L.?DIGITAL DEFORMITIES:?Digital contracture, PIPJ, 2-5 B/L, incompl-reducible to push-up test, no over, nor underlapping, with evidence of shoe producing skin irritation.?FOOTWEAR:?worn, non-supportive, shoe gear properties exacerbate patient's foot/toe deformity , shoe gear properties exacerbate patients foot/toe deformity.?General Examination: ?GENERAL APPEARANCE:?Reveals a pleasant, alert, well nourished, well- developed, well hydrated individual, who demonstrates proper attention to hygiene/body habitus, and is in no acute distress, Pt serves as own historian for office visit today.?ORIENTED:?person, place, and time.?FOOT EXAM:?Footwear Evaluation? Assessment: * Assessment: 1.?Other hammer toe(s) (acqu ired), right foot - M20.41, Chronic problem, Worse (4),Rx Management (4)?2.?Muscle cramp, nocturnal - R25.2 (Primary), Acute problem, Uncomplicated (3)?3.?Tinea pedis of both feet - B35.3?4.?Other hammer toe(s) (acquired), left foot - M20.42, Chronic problem, Worse (4),Rx Management (4)?5.?Tinea unguium - B35.1?6.?Type 2 diabetes mellitus with diabetic polyneuropathy - E11.42?7.?Right foot pain - M79.671?8.?Plantar wart - B07.0?9.?Left foot pain - M79.672? Plan: * Treatment: * Procedures:?Debride Nail 6-10:?Nail debridement?Nail debridement performed extensively to reduce/remove overall nail length, girth, thickness, subungual debris, and necrotic tissue, by manual and electrical means through the use of a nail nipper and/or dremel, to more viable healthy nail plate or bed tissue 1-5. Silver nitrate used for any petechial bleeding as necessary. Patient chooses, no pharmaceutical tx (22839).?Keratoma Treatment:?Parring or Cutting of Benign Hyperkeratotic Lesion(s)?93337 ( More than 4 Lesions ) - The Benign hyperkeratotic lesions, as described above were pared, and/or cut utilizing a sterile 15 blade, tissue nippers, and/or dremel.?Wart Treatment:?Procedure?Verrucae were debrided to pin-point bleeding margins with sterile 15 surgical blade, silver nitrate chemocautery applied, recomm. immune-boosting meds such as zinc, recomm. follow up with topical chemosurgical agents, Pt defers any other forms of tx (81198).? * Procedure Codes:?00782 DEBRI DE NAIL, 6 OR MORE, Modifiers: XS 81423 Wart Destruction, 1-14, Modifiers: XS 31449 TRIM SKIN LESIONS, OVER 4, Modifiers: XS * Preventive Medicine:? ??Counseling:?Discussion:?-13: Office or other outpatient visit for the evaluation and management of an established patient, which required a medically appropriate history and/or examination and LOW level of DECISION MAKING for: 1 STABLE ACUTE UNCOMPLICATED PROBLEM, 2 OR MORE MINOR PROBLEMS, OR 1 STABLE CHRONIC PROBLEM, THAT POSE(S) A LOW RISK FOR MORBIDITY/MORTALITY. The visit on the day of the encounter encompassed interpreting the data and educating the patient as to the nature of their condition, treatment options available according to their individual PMH, meds, allergies, and overall health/living conditions, as well as any potential risks or complications that may occur from a failure to adhere to, and participate in, the recommended course of therapy. The discussion included a complete verbal, and/or written explanation of the examination results, any x-rays taken, the proposed diagnosis, and outline of the treatment plan. A schedule for future care needs was also explained. The patient verbalized an understanding of the instructions at this time and agreed to be an active participant in their treatment. If the patient should think of any questions or concerns after the visit, I have encouraged the patient to call the office.?Myositis/Tendonitis:?NIGHT CRAMPS: I explained to the patient the possible etiologies of their nightly muscle cramps, including, but not limited to: foot type, shoegear, activity level/exercise routine, dehydration due to insufficient fluid intake, caffeine, or alcohol, medications such as diuretics or statins, mineral or electrolyte deficiencies in K, Mg or Ca, nerve compression, or other metabolic/neurologic disease states. We discussed the risks/benefits of the different treatment options for their painful condition including: No treatment at all, proper hydraton, proper metabolite/electrolite consumption, stretching, massage, heat, proper shoegear/arch support, Vit B12/Mg/CoQ-10 supplementation, Tonic water infused with quinine (diet if DM), pickle juice (to be used with caution w/ hx of HTN), coconut water, and adjusting the sleeping position/untuck bedding to decrease foot pressure. The advantages and disadvantages of each option were discussed and the patient's questions re: shoegear, hydration, variuos foods beneficial to prevent night cramps (bananas, pickles, potatoes), electrolyte supplementation, and consistency in home treatment regimens for optimal success, were answered to their verbally confirmed satisfaction.? * Follow Up:?3 Months * Images: * Sign off status: Completed true * Provider:Wagner Craig DPM Date:?10/2023 Generated for Fermín calvo/Dante/Rich on:?10/14/2024 10:07 AM EST History and Physical Notes * HPI (History of Present Illness) Category Sub-Category Detail Notes Category Not es Skin problems Nature: scaling , redness Location: B/L Course: worse Pt States PCP Visit: DATE: 01/07/2024 At Risk footcare Pt States Last PCP Visit: Date: 06/08/2024 Presents with son wh o provides translation Foot Pain Nature: tightness, cramp ing, pulling, aching Location: Foot, Leg , B/L Duration: several weeks Onset: sudden Course: worse Treatments: Pt had ultrasound ye , awaiting results Examination Category Sub-Category Detail Notes Category Not es Neurological SENSORY: Neurological exa m demonstrates, reduced light touch sensation, reduced sharp/dull pin prick discrimination , B/L, 5.07 monofilament test performed at plantar aspects of 5 varied sites per foot shows sensation, reduced , B/L Dermatologic SKIN FINDINGS: Skin exam reveal s Keratotic lesion(s) located at TA, T5, Heels B/L, Sub 5 right, , Skin shows sign(s) of, erythema, scaling, in a moccasin fashion, no fissure(s) present, B/L VERRUCA: Reveals Multiple ( 4 ), multi-loculated , mosaic-patterned, round, raised, flat-topped, petechial bleeding papule(s), with cauliflower appearance and interruption of skin lines, with pain to lateral compression, and size estimated at 3mm diameter plantar Forefoot B/L Orthopedic FOOTWEAR: worn, non-suppor tive, shoe gear properties exacerbate patient's foot/toe deformity , shoe gear properties exacerbate patients foot/toe deformity DIGITAL DEFORMITIES: Digital contracture , PIPJ, 2-5 B/L, incompl-reducible to push-up test, no over, nor underlapping, with evidence of shoe producing skin irritation MUSCLE STRENGTH: 5/5 all groups in a symmetrical fashion, B/L General Examination GENERAL APPEARANCE: Reveals a pleasant, alert, well nourished, well-developed, well hydrated individual, who demonstrates proper attention to hygiene/body habitus, and is in no acute distress, Pt serves as own historian for office visit today FOOT EXAM: Lower Extremity Neurological Exa m performed:: Yes ORIENTED: person, place, and t iam Footwear Evaluation Footwear Evaluation performe d:: Yes Ophthalmology Referral DIABETES EYE EXAM Diabetic Retinopa thy Screening:: No Findings of Diabetic Eye Exam:: no retin opathy Vascular DP PULSES (B): 3/4, B/L PT PULSES (B): 3/4, B/L CAPILLARY FILL TIME: immediate, all digi ts, B/L TEMPERTURE GRADIENT (C): normal, warm to cool, proximal to distal, B/L TELANGECTASIA: present VARICOSITIES: present severe nonpa inful PIGMENTATION: brawny, B/L mottled, B/L Nails NAILS are: Elongated, overg rown, dystrophic, lytic, greater than 3mm thick, discolored and friable with crumbly malodorous subungual debris with dull to no pain on palpation due to neuropathy 1-5 B/L
[2024-10-14 11:08] LABS: Appearance Urine Clear; Color Urine Yellow; Glucose Urine UA 250 mg/dL (Negative); Leukocyte Esterase Urine Moderate (2+) (Negative); Nitrite Urine Negative (Negative); UMIC TRIGGER UA YES; Urine Blood Moderate (2+) (Negative); Urine Ketones Negative (Negative); Urine Protein 30 (1+) mg/dL (Neg-Trace)
[2024-10-14 11:15] LABS: Bacteria Urine None Seen (None Seen); Hyaline Casts Urine 0-2 /LPF (0-2); RBC Urine >20 /HPF (0-2); Squamous Epithelial Cell Urine 0-2 /HPF (0-2); WBC Urine >50 /HPF (0-5)
== END 2024-10-14 09:12 | disposition home or self-care (01) ==
LOC: HO.10HDLNP 09:11
PROVIDERS: Visit Provider Internal Medicine Hypertension Specialist
DX: E11.65 Type 2 diabetes mellitus with hyperglycemia (principal); I10 Essential (primary) hypertension; I25.10 Atherosclerotic heart disease of native coronary artery without angina pectoris; I73.9 Peripheral vascular disease, unspecified; E66.9 Obesity, unspecified; I77.810 Thoracic aortic ectasia; E78.00 Pure hypercholesterolemia, unspecified; J43.1 Panlobular emphysema; R35.0 Frequency of micturition
CPT/HCPCS: 81001; 81003; 83036; 87086; 99212

== ENCOUNTER 2024-10-14 09:20 | Outpatient (AMB) | payer OTHER, SELFPAY ==
[2024-10-14 09:36] VITALS: BP 146/72; PULSE 79; O2SAT 96; BMI 33.0
--- NOTE | 2024-10-14 09:36 | A.OFFPC_ITS ---
Vital Signs 10/14/24 09:36 Height 5 ft 8 in Weight 217 lb BMI 33.0 BP 146/72 H Blood Pressure Location Lt brachial Position Sitting Pulse 79 Pulse Source Pulse Oximeter Pulse Oximetry (%) 96 Oxygen Delivery Method Room Air Intake Visit Reasons: Diabetes mellitus PVD Allergies No Known Allergies Allergy (Verified 10/14/24 09:36) Tobacco use date assessed: 10/14/24 Fall risk assessment: No Falls in past year Last assessed Fall Risk: 10/14/24 Dental Screening Dental Screen Date: 10/14/24 Did you have a dental visit in the last 12 months?: Yes Did you have a dental problem in the last 6 months where you did not have access to dental care?: No Was dental information given to patient?: Patient has dentist HPI Diabetes mellitus PVD HPI Details The patient is a 74-year-old male presenting with concerns primarily related to frequent urination, weight management, and ongoing medication management. The polyuria, which includes waking up multiple times at night, has been a persistent issue. The patient was previously evaluated with renal ultrasounds, which did not include the bladder, and it was noted that the bladder ultrasound has not been conducted in the past four years. The possibility of the diuretic hydrochlorothiazide contributing to this symptom was acknowledged. The patient also mentioned having challenges with weight management. As part of previous management strategies, the patient was on Ozempic pending an insurance approval issue. The patient's last recorded weight was 217 lbs. The patient is also managing cholesterol levels with atorvastatin, which does not require night-time dosing. Anxiety and depression have been an ongoing issue, and a referral for therapy in [place] was suggested, following [facility]'s recommendation. The patient has a history of not tolerating devices related to sleep apnea but reports sleeping well currently. Regarding preventative measures, the patient has received a flu vaccine but inquires about tetanus and further vaccinations, given the current season. [facility] Medical History Obstructive sleep apnea Coronary artery disease Abdominal wall abscess Hearing difficulty Hypertension Nephrolithiasis Flank pain Constipation Dizziness Obesity (BMI 30-39.9) Tubular adenoma of colon Polysubstance abuse Knee osteoarthritis Degenerative disc disease, lumbar Osteoarthritis of right shoulder Ascending aorta dilatation History of renal calculi GERD (gastroesophageal reflux disease) Vitamin D deficiency Peripheral vascular disease Hypercholesterolemia COPD (chronic obstructive pulmonary disease) Surgical History Hx of cardiac cath Hx laparoscopic cholecystectomy Hx of colonoscopy History of esophagogastroduodenoscopy (EGD) Family History Father Stroke Heart attack Mother No problems noted. Sister Breast cancer Social History Household Members: Spouse Housing: House Do you presently have visiting nurse or other home services: No Alcohol intake: former Year quit: 2009 Patient Tobacco Use Status: Never used Tobacco Tobacco use type: Cigarette e-Cigarette/Vaping Use: Never Used Second Hand Smoke Exposure: No service: No Current occupational status: retired and disabled Cognitive needs: No Hearing needs: No Vision needs: Yes Questionnaire PHQ-9 Over the last 2 weeks, how often have you been bothered by any of the following problems? 1. Little interest or pleasure in doing things: not at all 2. Feeling down, depressed, or hopeless: not at all 3. Trouble falling or staying asleep, or sleeping too much: not at all 4. Feeling tired or having little energy: not at all 5. Poor appetite or overeating: not at all 6. Feeling bad about yourself - or that you are a failure or have let yourself or your family down: not at all 7. Trouble concentrating on things, such as reading the newspaper or watching television: not at all 8. Moving or speaking so slowly that other people could have noticed. Or the opposite - being so fidgety or restless that you have been moving around a lot more than usual: not at all 9. Thoughts that you would be better off or of hurting yourself in some way: not at all Total score: 0 Depression Screening Interpretation: Negative Depression Screening Done: Yes Source: Developed by Drs. rTae Bailey, Sakshi Ren, Master King and colleagues, with an educational osmel from [employer]. Thrive Questionnaire Date Thrive assessed: 10/14/24 I am a: Patient What is your living situation today?: I have a steady place to live Within the past 12 months, did the food you bought not last and you didn't have the money to get more?: Never true Within the past 12 months, did you worry whether your food would run out before you got money to buy more?: Never true Do you have trouble paying for medicines?: No Do you have trouble getting transportation to medical appointments?: No Do you have trouble paying your heating and electricity bill?: No Do you have trouble taking care of your child, family member or friend?: No Do you have trouble with day-to-day activities such as bathing, preparing meals, shopping, managing finances, etc.?: No Are you currently unemployed and looking for a job?: No Are you interested in more education?: No Currently or been in a relationship where the following occur: No concerns reported THRIVE Score: 0 AUDIT C Alcohol Use Questionnaire (AUDIT-C) 1. How often do you have a drink containing alcohol?: Never 2. How many drinks containing alcohol do you have on a typical day when you are drinking?: 1 or 2 (0) 3. How often do you have six or more drinks on one occasion?: Never Total Score: 0 AMAURY-7 AMB Questionnaire AMAURY-7 Date AMAURY - 7 assessed: 10/14/24 Feeling nervous, anxious, or on edge: 0 = Not at all Not being able to stop or control worryin = Not at all Worrying too much about different things: 0 = Not at all Trouble relaxin = Not at all Being so restless that it is hard to sit still: 0 = Not at all Becoming easily annoyed or irritable: 0 = Not at all Feeling afraid as if something awful might happen: 0 = Not at all Total AMAURY-7 score (0-4 normal; 5-9 mild; 10-14 moderate; 15-21 severe): 0 Source: Developed by Drs. Trae Bailey, Sakshi Ren, Master King and colleagues, with an educational osmel from [employer]. Physical exam (Primary Care) Vital Signs: Last Vital Signs Pulse 79 10/14/24 09:36 BP 146/72 H 10/14/24 09:36 Pulse Ox 96 10/14/24 09:36 Oxygen Delivery Method Room Air 10/14/24 09:36 BMI result Body Mass Index 33.0 Tobacco/Smoking Status: Tobacco use Status Tobacco use date assessed 10/14/24 10/14/24 09:37 Patient Tobacco Use Status Never used Tobacco 10/14/24 09:37 Tobacco use type Cigarette 10/14/24 09:37 e-Cigarette/Vaping Use Never Used 10/14/24 09:37 PHQ-9: PHQ-9 Score PHQ-9: Total score 0 10/14/24 11:27 Depression Screening Interpretation: Negative Thrive Assessment: Date of Thrive Assessment Date Thrive assessed 10/14/24 10/14/24 09:37 Currently or been in a relationship where the following occur: No concerns reported Const General: alert; No acute distress Eyes Conjunctivae: conjunctivae normal Resp Auscultation: clear to auscultation bilaterally Cardio Rate: regular rate Rhythm: regular rhythm GI Inspection: Yes normal to inspection Extrem General: Yes normal to inspection and No edema Results AMB Hemoglobin A1c AMB Hemoglobin A1c 5.4 % Last Edit by Yelena Simpson CMA on 10/14/24 10 :41 Results Reviewed Results Reviewed: Laboratory Last Values Hgb A1c (Clinic) 5.4 % (4.0-6.0) 10/14/24 09:37 Coding Level of Care Code Est Pt Level 4 (72709) Diagnoses Type 2 diabetes mellitus with hyperglycemia, without long-term current use of insulin E11.65 Diabetes mellitus halfway insulin use: without termite control service representative use Essential hypertension I10 Atherosclerotic cardiovascular disease I25.10 Peripheral vascular disease I73.9 Obesity (BMI 30-39.9) E66.9 Ascending aorta dilatation I77.810 Hypercholesterolemia E78.00 Panlobular emphysema J43.1 COPD type: emphysema Emphysema type: panlobular Frequency of micturition R35.0 Assessment & Plan Assessment & Plan (1) Type 2 diabetes mellitus with hyperglycemia: Comment: Dr. Bee Code(s): E11.65 - Type 2 diabetes mellitus with hyperglycemia Category: Medical Qualifiers: Diabetes mellitus halfway insulin use: without halfway use Qualified Code(s): E11.65 - Type 2 diabetes mellitus with hyperglycemia (2) Essential hypertension: Code(s): I10 - Essential (primary) hypertension Category: Medical (3) Atherosclerotic cardiovascular disease: Comment: Cardiac catheterization November 2022 minimal irregularities Code(s): I25.10 - Atherosclerotic heart disease of [place] coronary artery without angina pectoris Category: Medical (4) Peripheral vascular disease: Code(s): I73.9 - Peripheral vascular disease, unspecified Category: Medical (5) Obesity (BMI 30-39.9): Comment: PATIENT IS MODERATELY OBESE AND WOULD NEED TO LOSE SOME WEIGHT. I TRIED TO EXPLAIN TO HIM THROUGH THE MOLDER LABELS, HE WILL HAVE DIFFICULTY IN LOSING WEIGHT BECAUSE HE CANNOT WALK MUCH DUE TO OSTEOARTHRITIS OF THE KNEES, IT IS HARD FOR HIM TO UNDERSTAND THE NEED FOR DIETING AT THIS TIME. AGAIN EXPLAINED TO HIM THROUGH THE MOLDER LABELS AND HE SAID THAT HE IS TRYING TO LIMIT THE CALORIES INTAKE. Code(s): E66.9 - Obesity, unspecified Category: Medical (6) Ascending aorta dilatation: Comment: 11/2022 4.1 cm, 11/2023 4.1 cm Code(s): I77.810 - Thoracic aortic ectasia Category: Medical (7) Hypercholesterolemia: Code(s): E78.00 - Pure hypercholesterolemia, unspecified Category: Medical (8) COPD (chronic obstructive pulmonary disease): Comment: HE MAY HAVE VERY MILD DEGREE OF CHRONIC OBSTRUCTIVE PULMONARY DISEASE, AND IS STAYING RELATIVELY ASYMPTOMATIC. PLAN WAS TO DO A PULMONARY FUNCTION TEST, AND THEN DECIDE IF HE IS GOING TO NEED SOME BRONCHODILATOR INHALER. IT HAS NOT BEEN DONE YET . Code(s): J44.9 - Chronic obstructive pulmonary disease, unspecified Category: Medical Qualifiers: COPD type: emphysema Emphysema type: panlobular Qualified Code(s): J43.1 - Panlobular emphysema (9) Frequency of micturition: Code(s): R35.0 - Frequency of micturition Category: Medical Plan - Order a bladder ultrasound for better understanding and management of polyuria. - Coordinate with insurance for Ozempic approval to aid in weight management. - Encourage the continuation of atorvastatin for cholesterol management and monitor lipid levels. - Continue monitoring blood pressure and adjust antihypertensive therapy as necessary. - Facilitate a referral for therapy in [place] to address anxiety and depression. - Discuss the possibility of sleep apnea follow-up given patient's prior issues with the device. - Confirm recent administration of the flu vaccine and assess the need for additional vaccinations. - Educate the patient on lifestyle modifications to aid in weight management. - Reinforce hand hygiene and precautions to prevent viral infections during flu season. Orders: Orders AMB Hemoglobin A1c Today Z13.9 - Encounter for screening, unspecified US bladder Today R35.0 - Frequency of micturition Referrals Psychiatry Referral F32.9 - Major depressive disorder, single episode, unspecified Medications: Refilled semaglutide (Ozempic) 0.5 mg (0.736 mL) subcut QWEEK 3 mL 0RF I77.810 - Thoracic aortic ectasia
== END 2024-10-14 11:41 | disposition home or self-care (01) ==
PROVIDERS: PCP Internal Medicine; Visit Provider Internal Medicine
DX: E11.65 Type 2 diabetes mellitus with hyperglycemia (principal); I73.9 Peripheral vascular disease, unspecified; I77.810 Thoracic aortic ectasia; J43.1 Panlobular emphysema; E66.9 Obesity, unspecified; Z68.33 Body mass index [BMI] 33.0-33.9, adult; I10 Essential (primary) hypertension; I25.10 Atherosclerotic heart disease of native coronary artery without angina pectoris; E78.00 Pure hypercholesterolemia, unspecified; R35.0 Frequency of micturition

== ENCOUNTER 2024-10-18 06:00 | Outpatient (REF) | payer OTHER, SELFPAY ==
[2024-10-18 10:42] LABS: Creatinine, mg/dL 163.43
[2024-10-18 10:49] LABS: Creatinine, 24Hr Urine 1.4 G/Day (1.0-2.0); Sodium 24 Hr Urine 74.8 mmol/Day (40-220); Total Volume 24 Hour Urine 850 mL
--- OUTSIDE RECORDS SUMMARY | 2024-10-18 13:37 | XMS_ITS | Patient Health Record ---
Author Organization [facility] Address [address] [place] [address] Care Team Providers Care Relish Maker Name Role Phone Neo Baig Primary Care Provider Jelena Peralta Unavailable [phone] Allergies No Known Allergies Reason For Referral Diagnosis 1 Other hammer toe(s) (acquired), right foot (M20.41) Diagnosis 2 Other hammer toe(s) (acquired), left foot (M20.42) Diagnosis 3 Type 2 diabetes carlos itus with diabetic polyneuropathy (E11.42) Diagnosis 4 Venous insufficiency (I87.2) Diagnosis 5 Plantar wart (B07.0) Referring Provider First Name Neo Referring Provider Last Name [facility] Referred Provider Jelena Craig Referred Address [address] [facility],[place], [place],[address], Referred Provider Specialty Podiatry Referral Priority Routine [...] Problem Acquired hammer toe of right foot (6139018820365465 ) Other hammer toe(s) (acquired), right foot (M20.41) Active confirmed Problem Acquired hammer toe of left foot (8732060135473292 ) Other hammer toe(s) (acquired), left foot (M20.42) Active confirmed Problem Plantar wart (62179203) Plantar wart (B07.0) Active confirmed Problem Polyneuropathy due to type 2 diabetes mellitus (289959206) Type 2 diabetes mellitus with diabetic polyneuropathy (E11.42) Active confirmed Problem [id number] Venous insufficiency (I87.2) Active confirmed Vital Signs Height 5ft 8in in 06/23/2024 Weight 219 lbs 06/23/2024 BMI 33.3 kg/m2 06/23/2024 Encounters Encounter Location Date Provider Diagnosis [facility] [address] [place] [address] 10/29/2023 Jelena Craig Tinea pedis of both feet B35.3 ; Other hammer toe(s) (acquired), right foot M20.41 ; Other hammer toe(s) (acquired), left foot M20.42 ; Tinea unguium B35.1 ; Type 2 diabetes mellitus with diabetic polyneuropathy E11.42 ; Right foot pain M79.671 ; Plantar wart B07.0 and Left foot pain M79.[address] [address] 01/27/2024 Jelena Craig Tinea pedis of both feet B35.3 ; Other hammer toe(s) (acquired), right foot M20.41 ; Other hammer toe(s) (acquired), left foot M20.42 ; Tinea unguium B35.1 ; Type 2 diabetes mellitus with diabetic polyneuropathy E11.42 ; Right foot pain M79.671 ; Plantar wart B07.0 and Left foot pain M79.[address] [address] 06/23/2024 Jelena Craig Other hammer toe(s) (acquired), right foot M20.41 ; Muscle cramp, nocturnal R25.2 ; Tinea pedis of both feet B35.3 ; Other hammer toe(s) (acquired), left foot M20.42 ; Tinea unguium B35.1 ; Type 2 diabetes mellitus with diabetic polyneuropathy E11.42 ; Right foot pain M79.671 ; Plantar wart B07.0 and Left foot pain M79.[address] [address] 04/27/2024 Jelena Craig [address] [address] 09/24/2024 Jelena Craig Assessments Encounter Date Diagnosis [...] Treatment Pending Test Test Name Order Date [id number] NAIL, 6 OR MORE 09/02/2022 [id number] SKIN LESIONS, OVER 4 09/02/20 22 Next Appt Details Provider Name:Jelena lee, 11/30/2024 02:45:00 PM, [address] [place] [address], [phone], Insurance Providers Payer Name Payer Address Payer Phone Subscriber Number Group Number Insured Name Patient Relationship to Insured Coverage Start Date Coverage End Date [facility] [address] YAZMIN Gomez [phone] [id number] Сергей Harvey Self - patient is the insured Medical (General) History Medical History History ICD Code Arthritis CAD (Cholesterol) type II diabetes Gout osteoarthritis dizziness Auto Pap 6-20 Tinea Pedis Surgical History Surgery Date(Month/Year) kidney stones 08/2022
--- OUTSIDE RECORDS SUMMARY | 2024-10-18 13:37 | XMS_ITS ---
Author Organization [facility] Address [address] [place] [address] Care Team Providers Care Fat Pressroom Worker Name Role Phone Neo Baig Primary Care Provider Jelena Peralta Unavailable [phone] Medications Medication SIG (Take, Route, Frequency, Duration) [...] Active Encounters Encounter Location Date Provider Diagnosis [facility] [address] [address] 09/24/2024 Jelena Craig Plan Of Treatment Next Appt Details Provider Name:Jelena lee, 11/30/2024 02:45:00 PM, [address] [place] [address], [address], Progress Notes * MEGHAN, CashanDOB:1950 (74 yo M)Acc No.[id number]:09/24/2024 Progress Note Patient:?Сергей HARVEY Provider:?Jelena Craig DPM :1950???Age:74 Y???Sex:Male Humphrey e:09/24/2024 Address:[address] [place], [place] [address] Pcp:Neo Baig Subjective: * Chief Complaints: * [...] Craig DPM Date:?11/2024 Generated for Fermín calvo/Dante/Rich on:?10/18/2024 01:37 PM EST
--- OUTSIDE RECORDS SUMMARY | 2024-10-18 13:37 | XMS_ITS ---
Author Organization [facility] Address [address] [place] [address] Care Team Providers Care Domestic Violence Counselor Name Role Phone Neo Baig Primary Care Provider Jelena Peralta Unavailable [phone] Allergies No Known Allergies REASON FOR VISIT [...] 06/23/2024 Encounters Encounter Location Date Provider Diagnosis [facility] [address] [address] 06/23/2024 Jelena Craig Other hammer toe(s) (acquired), [...] Provider Name:Jelena lee, 11/30/2024 02:45:00 PM, [address] [place], [address], Procedure Notes * Category Sub-Category Detail Notes Wart Treatment Procedure Verrucae were de brided to pin-point bleeding margins with sterile 15 surgical blade, silver nitrate chemocautery applied, recomm. immune-boosting meds such as zinc, recomm. follow up with topical chemosurgical agents, Pt defers any other forms of tx (26097) Debride Nail 6-10 Nail debridement Nail debridem ent performed extensively to reduce/remove overall nail length, girth, thickness, subungual debris, and necrotic tissue, by manual and electrical means through the use of a nail nipper and/or dremel, to more viable healthy nail plate or bed tissue 1-5. Silver nitrate used for any petechial bleeding as necessary. Patient chooses, no pharmaceutical tx (14558) Keratoma Treatment Parring or Cutting o f Benign Hyperkeratotic Lesion(s) 38154 ( More than 4 Lesions ) - The Benign hyperkeratotic lesions, as described above were pared, and/or cut utilizing a sterile 15 blade, tissue nippers, and/or dremel Progress Notes * Tammy HARVEYOB:1950 (74 yo M)Acc No.[id number]:06/23/2024 Progress Note Patient:?Сергей Harvey Provider:?Jelena Craig DPM :1950???Age:74 Y???Sex:Male Humphrey e:06/23/2024 Address:[address] [place], [place] [id number] Pcp:Neo Baig Subjective: * Chief Complaints: * [...] as necessary. Patient chooses, no pharmaceutical tx (53091).?Keratoma Treatment:?Parring or Cutting of Benign Hyperkeratotic Lesion(s)?54147 ( More than 4 Lesions ) - The Benign hyperkeratotic lesions, as described above were pared, and/or cut utilizing a sterile 15 blade, tissue nippers, and/or dremel.?Wart Treatment:?Procedure?Verrucae were debrided to pin-point bleeding margins with sterile 15 surgical blade, silver nitrate chemocautery applied, recomm. immune-boosting meds such as zinc, recomm. follow up with topical chemosurgical agents, Pt defers any other forms of tx (77605).? * Procedure Codes:?87537 DEBRI DE NAIL, 6 OR MORE, Modifiers: XS 24573 Wart Destruction, 1-14, Modifiers: XS 67506 TRIM SKIN LESIONS, OVER 4, Modifiers: XS [...] Craig DPM Date:?10/2023 Generated for Fermín calvo/Dante/Rich on:?10/18/2024 01:37 PM EST History and Physical Notes * HPI [...]
--- OUTSIDE RECORDS SUMMARY | 2024-10-18 13:37 | XMS_ITS ---
Author Organization [facility] Address [address] [place] [address] Care Team Providers Care Probation Supervisor Name Role Phone Neo Baig Primary Care Provider Jelena Peralta [phone] REASON FOR VISIT cx appt Encounters Encounter Location Date Provider Diagnosis [address] [address] 09/24/2024 Jelena Craig Plan Of Treatment Next Appt Details Provider Name:Jelena lee, 11/30/2024 02:45:00 PM, [address] [place], [address], Progress Notes * Tammy HARVEYOB:1950 (74 yo M)Acc No.[id number]:09/24/2024 Patient:?Сергей HARVEY :1950???Age:74 Y???Sex:Male Address:[address] [place] [address], [address] * true * Date:? Generated for Printi uemsh/Dante/eTransmitting on:?10/18/2024 01:37 PM EST
[2024-10-19 20:33] LABS: Calcium, 24 Hr Urine 26 mg/24 h; Calcium/Creatinine Ratio 21 mg/g creat (30-210); Creatinine 24Hr Urine 1.23 g/24 h (0.50-2.15)
[2024-10-22 01:39] LABS: 24hr Urine Total Volume 850 mL; Oxalic Acid 24 Urine 26.6 mg/24 h (3.6-38.0)
== END 2024-10-18 06:01 | disposition home or self-care (01) ==
LOC: HO.LNP 06:00
PROVIDERS: Visit Provider Internal Medicine Hypertension Specialist
DX: N20.0 Calculus of kidney (principal); R82.994 Hypercalciuria
CPT/HCPCS: 82340; 82570; 83945; 84300

== ENCOUNTER 2024-10-27 15:49 | Outpatient (REF) | payer OTHER, SELFPAY ==
--- OUTSIDE RECORDS SUMMARY | 2024-10-27 16:31 | XMS_ITS | Data Portability ---
Author Organization [place] [facility], [facility] Address [address] [address] Care Team Providers Care Teletype Or Varitype Keyboard Operator Name Role Phone NOBLE COLEMAN Primary Care Provider [phone] Assessment No assessment recorded. Plan of Treatment Reminders Order Date Submit Date Provider Last Modified By Organization Details Last Modified Time Details Appointments GRAYSON Initial Fitting 2024 10:00A M Ana VEGA Not available Not available Not available Lab None recorded. Referral None recorded. Procedures None recorded. Surgeries None recorded. Imaging MRI, brain + internal auditory canal, w/wo contrast - MRI, BRAIN + INTERNAL AUDITORY CANAL, W/WO CONTRAST 2024 025 [facility] ([facility]), [address] [place], [address], 10/20/2024 10:19:43 Medication Orders None recorded. Patient TargetsNo targets recorded. Patient InstructionsNo instructions recorded. Reason for Referral None Reported. Results Created Date Observation Date Name Description Value Unit Range Abnormal Flag Note LastModifiedBy Organization Detail LastModifiedTime 10/20/19 25 audio gram No observ ation record ed. BARCODE Not Available 2024 10:44:55 Result Notes None recorded. Problems Name Problem SNOMED Code Status Onset Date Resolution Date Notes Provider Name and Address Organization Details Recorded Time Sensorineur al hearing loss of bilateral ears 819791233 Active 2024 Ana VEGA [address] [facility], [address], [place], [address], [facility] - [facility] 09:52:04 Sensorineur al hearing loss in right ear 0275109763029 0 Active 2024 TISHA Victoria MD [address] [address], [place], [address], [place] - [facility] 10:18:17 Bilateral tinnitus 9319823741301 Active 2024 TISHA Victoria MD [address] [address], [place], [address], [place] - [facility] 10:18:43 Problem Notes None recorded. Procedures Surgical History Date Name Laterality Status Provider Name and Address Organization Details Recorded Time 10/20/2024 Comp Audio with Tymps (06937 & 09655) completed Ana VEGA [address] [address], [place], [address], [facility] - [facility] 10/20/2024 09:51:58 Imaging Results Imaging Date Name Status LastModified by Organiz ation Details LastModified Time 10/20/2024 audiogram completed BARCODE Information no t available 10/20/2024 10:44:55 Procedure Notes None recorded. Medical Equipment None Reported. Medications Name Sig Start Date Stop Date Status Note LastModified by Organization Details LastModified Time atorvastatin 40 mg tablet TAKE 1 TABLET BY MOUTH EVERY DAY active Not Available Not Available No t Available aspirin 81 mg tablet,delay ed release TAKE 1 TABLET BY MOUTH EVERY DAY active Not Available Not Available No t Available clotrimazole -betamethaso ne 1 %-0.05 % topical cream APPLY TO AFFECTED AREA ON FEET TWICE A DAY active Not Available Not Available No t Available omeprazole 20 mg capsule,bill yed release TAKE 1 CAPSULE BY MOUTH EVERY DAY active Not Available Not Available No t Available lisinopril 5 mg tablet TAKE 1 TABLET (5 MG) ORALLY DAILY active Not Available Not Available No t Available hydrochlorot hiazide 25 mg tablet TAKE 1 TABLET BY MOUTH EVERY DAY active Not Available Not Available No t Available pyridoxine (vitamin B6) 100 mg tablet TAKE 1 TABLET BY MOUTH EVERY DAY active Not Available Not Available No t Available metoprolol succinate ER 25 mg tablet,exten ded release 24 hr TAKE 1 TABLET BY MOUTH EVERY DAY active Not Available Not Available No t Available ciclopirox 0.77 % topical cream APPLY TO AFFECTED AREA EXTERNALLY TWICE A DAY TO AREAS ON FEET active Not Available Not Available No t Available escitalopram 5 mg tablet TAKE 1 TABLET BY MOUTH EVERY DAY active Not Available Not Available No t Available diclofenac 1 % topical gel PLEASE SEE ATTACHED FOR DETAILED DIRECTIONS active Not Available Not Available N ot Available OneTouch Verio test strips USE TO CHECK BLOOD SUGAR DAILY active Not Available Not Available Not Available OneTouch Delica Plus Lancet 33 gauge USE TO TEST ONCE DAILY active Not Available Not Available N ot Available Mounjaro 5 mg/0.5 mL subcutaneous pen injector ADMINISTER 5 MG UNDER THE SKIN EVERY WEEK FOR 4 WEEKS active Not Available Not Available Not Available Mounjaro 2.5 mg/0.5 mL subcutaneous pen injector ADMINISTER 2.5 MG UNDER THE SKIN EVERY WEEK FOR 4 WEEKS active Not Available Not Available No t Available Ozempic 0.25 mg or 0.5 mg (2 mg/3 mL) subcutaneous pen injector INJECT 0.5 MG (0.736 ML) SUBCUTANEOU SLY EVERY WEEK active Not Available Not Available No t Available Vitals None Recorded Social History None recorded. Functional Status None recorded. Mental Status None recorded. Family History Nothing Reported. Medical History No medical history recorded. Past Encounters Encounter ID Performer Location Encounter Start Date Encounter Closed Date Diagnosis/Indication Diagnosis SNOMED-CT Code Diagnosis ICD10 Code Diagnosis Note [id number] TISHA FARR MD [facility] [address] [address] 10/20/2024 09:18:08 10/20/2024 10:19:09 Sensorineural hearing loss of bilateral ears 879545588 H90.3 Audiologic al evaluation results:Ri ght ear:Mild to moderate from 250 through {{006 787 0009* 1500 2000 3000 4000 6000 8000}} Hz {{sloping to a mild slopi ng to a moderate s loping to moderately severe slo ping to severe* sl oping to profound f lat high frequency low frequency mid frequency cookie bite khan curve}} {{with sen sorineural hearing loss with* cond uctive hearing loss with mixed hearing loss with}} {{excellen t good facundo r poor* no measurable }} word recognitio n.Left ear:Mild at 250 Hz rising to normal hearing from 500 through {{602 932 9783 1500 2000* 3000 4000 6000 8000}} Hz {{sloping to a mild slopi ng to a moderate s loping to moderately severe slo ping to severe* sl oping to profound f lat high frequency low frequency mid frequency cookie bite khan curve}} {{with sen sorineural hearing loss with* cond uctive hearing loss with mixed hearing loss with}} {{excellen t good* fa ir poor no measurable }} word recognitio n. Tympanomet ry:Right Ear:{{Type A* Type As Type Ad Type C Type C, shallow & rounded Ty pe B Type B with large volume Cou ld not maintain a hermetic seal}}Left Ear:{{Type A* Type As Type Ad Type C Type C, shallow & rounded Ty pe B Type B with large volume Cou ld not maintain a hermetic seal}} I recommende d a hearing aid evaluation . Sensorineu ral hearing loss in right ear [id number] 9100 H90.A21 Given the asymmetric hearing loss I recommend an MRI IAC with contrast to evaluate for retrocochl ear pathology. We will review results when complete. Bilateral tinnitus 17319 55946 102 H93.13 Ear exam was normal. Audiogram was reviewed. We discussed the associatio n between sensorineu ral hearing loss and tinnitus. We discussed masking for tinnitus. Health Concerns Section Related Observation LastModified by Organization Detai ls LastModified Time None Recorded Concern Status LastModified by Organization Details LastModified Time None Recorded Advance Directives Directive None Recorded Payers Encounter Date Sequence Insurance Name Policy Number Policy Chu Covered Member ID Chu Member ID Guarantor Name 10/20/2024 1 [facility] D[facility] ELIGIBLE - [facility] - SENIOR PLAN (MEDICARE REPLACEMENT/ ADVANTAGE - HMO) Сергей Harvey [id number] Сергей Harvey Notes Date Note Type Note Provider Name and Address Organization Details Recorded Time 10/20/2024 text/html Hx of gradual hearing loss over time. It has been worse on the right for years. Has tinnitus AU but worse AD. Audio showed asymmetric SNHL worse AD. TISHA FARR MD [address] [place] [address], [place], [address], [facility] - [facility] 10/20/2024 10:19:31
--- OUTSIDE RECORDS SUMMARY | 2024-10-27 16:32 | XMS_ITS | Continuity of Care Document ---
Author Organization [place] [facility], [facility] Address [address] [place] [address] Care Team Providers Care Hearing Aid Consultant Name Role Phone NOBLE COLEMAN Primary Care Provider [phone] Assessment No assessment recorded. Plan of Treatment [...] INTERNAL AUDITORY CANAL, W/WO CONTRAST 2024 025 [facility] ([facility]), [address] [place], [address], 10/20/2024 10:19:43 Medication Orders None recorded. Patient [...] Sensorineur al hearing loss of bilateral ears 741949102 Active 2024 TARSHA PHILLIP, Ana [address], [address], [facility] - [facility] 09:52:04 Sensorineur al hearing loss in right ear 0199882506209 0 Active 2024 TISHA Victoria MD 100 [facility] [address], [place], [address], [facility] - [facility] 10:18:17 Bilateral tinnitus 0125106335321 Active 2024 TISHA Victoria MD 100 [facility] [address], [place], [address], [facility] - [facility] 10:18:43 Problem Notes None recorded. Procedures Surgical History Date Name Laterality Status Provider Name and Address Organization Details Recorded Time 10/20/2024 Comp Audio with Tymps (43052 & 79602) completed Ana VEGA [address] [address], [place], [address], [facility] - [facility] 10/20/2024 09:51:58 Imaging Results None recorded. Procedure Notes None recorded. Medical Equipment None [...] SNOMED-CT Code Diagnosis ICD10 Code Diagnosis Note [id number] TISHA FARR MD [facility] [address] [address] 10/20/2024 09:18:08 10/20/2024 10:19:09 Sensorineural hearing loss of bilateral ears 589834254 H90.3 Audiologic al evaluation results:Ri ght ear:Mild to moderate from 250 through {{325 530 1530* 1500 2000 3000 4000 6000 8000}} Hz [...] rising to normal hearing from 500 through {{118 977 3657 1500 2000* 3000 4000 6000 8000}} Hz [...] Sensorineu ral hearing loss in right ear 8028028496 9100 H90.A21 Given the asymmetric hearing loss I recommend an MRI IAC with contrast to evaluate for retrocochl ear pathology. We will review results when complete. Bilateral tinnitus 18797 41893 102 H93.13 Ear exam was normal. Audiogram was reviewed. We discussed the associatio n between sensorineu ral hearing loss and tinnitus. We discussed masking for tinnitus. Health Concerns Section Related Observation LastModified by Organization Detai ls LastModified Time None Recorded Concern Status LastModified by Organization Details LastModified Time None Recorded Payers Encounter Date Sequence Insurance Name Policy Number Policy Chu Covered Member ID Chu Member ID Guarantor Name 10/20/2024 1 [employer] - DUAL ELIGIBLE - [facility] - SENIOR PLAN (MEDICARE REPLACEMENT/ ADVANTAGE - HMO) Сергей Harvey [id number] Сергей Harvey Notes Date Note Type Note Provider Name and Address Organization Details Recorded Time 10/20/2024 text/html Hx of gradual hearing loss over time. It has been worse on the right for years. Has tinnitus AU but worse AD. Audio showed asymmetric SNHL worse AD. TISHA FARR MD [address] [place] [address], [address], [facility] - [facility] 10/20/2024 10:19:31
== END 2024-10-27 15:50 | disposition home or self-care (01) ==
LOC: HO.US 15:49
PROVIDERS: PCP Internal Medicine; Visit Provider Internal Medicine
DX: Z13.89 Encounter for screening for other disorder (principal)

== ENCOUNTER 2024-11-01 09:48 | Outpatient (AMB) | payer OTHER, SELFPAY ==
--- NOTE | 2024-11-01 09:49 | MHC.OFFVIS ---
Intake Visit Reasons: Intake Note: Patient is present for 10W F/U Urology Medication:VITAMIN B6 Antibiotic Allergy:NONE Blood Thinner:ASPIRIN [employer] Required: No Allergies No Known Allergies Allergy (Verified 11/01/24 09:50) Medication List - Last Reconciled 11/01/24 by Shaina Bianchi MD aspirin (Adult Aspirin Regimen) 81 mg PO DAILY 90 days atorvastatin 40 mg PO DAILY 90 days blood sugar diagnostic (Health Outcomes WorldwideTouch Verio test strips) test once daily blood-glucose meter (Syntonic Wirelessuch Verio Flex Meter) test once daily zohra.stocking,knee,reg,xlrg As directed 20-30 mm HG [DIABETIC SHOES As directed] diclofenac sodium 1% (Voltaren Arthritis Pain) 4 grams topical QID escitalopram oxalate (Lexapro) 5 mg PO DAILY gabapentin 300 mg PO TID hydrochlorothiazide 25 mg PO DAILY lancets (Syntonic Wirelessuch Delica Plus Lancet) USE TO TEST ONCE DAILY lisinopril 5 mg PO DAILY metoprolol succinate ER 25 mg PO DAILY omeprazole 20 mg PO DAILY pyridoxine (vitamin B6) 100 mg PO DAILY semaglutide (Ozempic) 0.5 mg (0.736 mL) subcut QWEEK tamsulosin (Flomax) 0.4 mg PO BEDTIME HPI Comments Details: 11/01/24--Сергей is here with his son who interprets for him he has been followed for kidney stones. He had a renal ultrasound in August, no recurrent kidney stones. The patient complains of daytime urinary frequency and nocturia. In DISCUSSION WITH THE PATIENT DOES DRINK discussed this in 4 crease caffeine intake in addition started the patient on tamsulosin 0.4 mg daily 01/01/24--Сергей is a 73-year-old male who presents today to the office for a follow-up. Сергей is followed for BPH and kidney stones. LV-07/10/23?He is followed today to review 24-hour urine collection. discussed refer to nephrology for hypercalcuria on prior testing his urine calcium was 333 and urine sodium was 164. The patient is a Latvian speaking male. Certified itinerant teacher assistant was present during the visit. He has a past medical history significant for diabetes and hypertension. Discussed renal US 10/24/23 no recurrent renal stones. Review of chart: 24-hour urine collection results from 05/08/23 revealed urine volume 2.38 litres, urine calcium was 367, urine oxalate was 34, urine citrate was 911, and urine sodium was 207. 01/01/24: Plan: Vitamin B6 100 mg Monitor kidneys, renal US in 9 months [facility] Medical History Obstructive sleep apnea Coronary artery disease Abdominal wall abscess Hearing difficulty Hypertension Nephrolithiasis Flank pain Constipation Dizziness Obesity (BMI 30-39.9) Tubular adenoma of colon Polysubstance abuse Knee osteoarthritis Degenerative disc disease, lumbar Osteoarthritis of right shoulder Ascending aorta dilatation History of renal calculi GERD (gastroesophageal reflux disease) Vitamin D deficiency Peripheral vascular disease Hypercholesterolemia COPD (chronic obstructive pulmonary disease) Surgical History Hx of cardiac cath Hx laparoscopic cholecystectomy Hx of colonoscopy History of esophagogastroduodenoscopy (EGD) Family History Father Stroke Heart attack Mother No problems noted. Sister Breast cancer Social History Household Members: Spouse Housing: House Do you presently have visiting nurse or other home services: No Alcohol intake: former Year quit: 2009 Patient Tobacco Use Status: Never used Tobacco Tobacco use type: Cigarette e-Cigarette/Vaping Use: Never Used Second Hand Smoke Exposure: No service: No Current occupational status: retired and disabled Cognitive needs: No Hearing needs: No Vision needs: Yes Review of Systems Const All systems reviewed & are unremarkable except as noted in HPI and below Reports no additional complaints Eyes Reports no additional complaints ENT Reports no additional complaints Card Reports no additional complaints Resp Reports no additional complaints GI Reports no additional complaints Reports as per HPI Musc Reports no additional complaints Skin/Breast Reports system reviewed and no additional complaints, except as documented Neuro Reports no additional complaints Psych Reports no additional complaints Endo Reports no additional complaints Tadeo/Lymph Reports no additional complaints Aller/Immun Reports no additional complaints Office Procedures Post Void Residual Post Residual Void Post Void Residual (PVR): 26 [id number] Void Residual by ultrasound Results AMB Urinalysis, Automated UA Leukoctes 0 John Paul/uL Last Edit by RIO Pavon on 11/01/24 10:19 UA Nitrite Negative Last Edit by Mick Johns, [facility] on 11/01/24 10:19 UA Urobilinogen 0 mg/dL Last Edit by Mick Johns, [facility] on 11/01/24 10:19 UA Protein 1 mg/dL Last Edit by Mick Johns, [facility] on 11/01/24 10:19 UA pH 0 Last Edit by Mick Johns, [facility] on 11/01/24 10:19 UA Blood 6.5 Markus/uL Last Edit by Mick Johns, [facility] on 11/01/24 10:19 UA Specific Canmer 1.015 Last Edit by Mick Johns, [facility] on 11/01/24 10:19 UA Ketone Negative Last Edit by Mick Johns, [facility] on 11/01/24 10:19 UA Bilirubin 0 mg/dL Last Edit by Mick Johns [facility] on 11/01/24 10:19 UA Glucose 0 mg/dL Last Edit by Mick Johns [facility] on 11/01/24 10:19 Results Reviewed Results Reviewed: Laboratory Last Values Urine pH (Auto) 0 11/01/24 10:18 Specific Canmer (Auto) 1.015 11/01/24 10:18 Urine Protein (Auto) 1 mg/dL 11/01/24 10:18 Glucose (UA)(Auto) 0 mg/dL 11/01/24 10:18 Urine Ketones (Auto) Negative 11/01/24 10:18 Urine Blood (Auto) 6.5 Markus/uL 11/01/24 10:18 Urine Nitrite (Auto) Negative 11/01/24 10:18 Urine Bilirubin (Auto) 0 mg/dL 11/01/24 10:18 Urine Urobilinogen (Auto) 0 mg/dL 11/01/24 10:18 Leukocyte Esterase (Auto) 0 John Paul/uL 11/01/24 10:18 Date of Service: 09/09/24 US RETROPERITONEAL LIMITED (RENAL ONLY) CLINICAL INFORMATION: Personal history of urinary calculi. COMPARISON: Renal ultrasound 10/24/2023 and 11/25/2022. X-ray KUB 09/25/[address]22 and 08/28/2022. CT abdomen and pelvis 08/28/2022. TECHNIQUE: Real-time imaging of the kidneys. Limited visualization due to bowel gas. FINDINGS: RIGHT KIDNEY: 11.0 x 6.3 x 6.1 cm (SAG x AP x TRV). No hydronephrosis. No renal calculi. Renal cortical thickness is normal. Limited visualization. LEFT KIDNEY: 10.9 x 5.4 x 3.9 cm (SAG x AP x TRV). No hydronephrosis. No renal calculi. Renal cortical thickness is normal. Limited visualization. IMPRESSION: No hydronephrosis. No renal calculi.. Date of Service: 10/24/23 EXAMINATION: US RETROPERITONEAL LIMITED (RENAL ONLY) CLINICAL INFORMATION: Calculus of kidney. COMPARISON: Renal ultrasound 11/25/2022 and 03/05/2017. TECHNIQUE: Real-time imaging of the kidneys. FINDINGS: RIGHT KIDNEY: 11.2 x 6.2 x 6.5 cm (SAG x AP x TRV). The kidney is normal in size, contour, and echogenicity. Renal cortical thickness is normal. No calculi or focal parenchymal lesions. No hydronephrosis. LEFT KIDNEY: 10.8 x 5.1 x 4.6 cm (SAG x AP x TRV). The kidney is normal in size, contour, and echogenicity. Renal cortical thickness is normal. No calculi or focal parenchymal lesions. No hydronephrosis. IMPRESSION: No visible nephrolithiasis. No hydronephrosis. Assessment & Plan Assessment & Plan (1) Type 2 diabetes mellitus with hyperglycemia: Comment: Dr. Bee Code(s): E11.65 - Type 2 diabetes mellitus with hyperglycemia Category: Medical Qualifiers: Diabetes mellitus long term care social worker insulin use: without long term care social worker use Qualified Code(s): E11.65 - Type 2 diabetes mellitus with hyperglycemia (2) Obesity (BMI 30-39.9): Comment: PATIENT IS MODERATELY OBESE AND WOULD NEED TO LOSE SOME WEIGHT. I TRIED TO EXPLAIN TO HIM THROUGH THE TECHNOLOGY LAB TEACHER, HE WILL HAVE DIFFICULTY IN LOSING WEIGHT BECAUSE HE CANNOT WALK MUCH DUE TO OSTEOARTHRITIS OF THE KNEES, IT IS HARD FOR HIM TO UNDERSTAND THE NEED FOR DIETING AT THIS TIME. AGAIN EXPLAINED TO HIM THROUGH THE TECHNOLOGY LAB TEACHER AND HE SAID THAT HE IS TRYING TO LIMIT THE CALORIES INTAKE. Code(s): E66.9 - Obesity, unspecified Category: Medical (3) Frequency of micturition: Code(s): R35.0 - Frequency of micturition Category: Medical (4) History of renal calculi: Code(s): Z87.442 - Personal history of urinary calculi Category: Medical (5) BPH loc w urin obs/LUTS: Code(s): N40.1 - Benign prostatic hyperplasia with lower urinary tract symptoms Category: Medical (6) Hypercalciuria: Code(s): R82.994 - Hypercalciuria Category: Medical Plan Vitamin B6 100 mg Monitor kidneys, tamsulosin 0.4 mg daily advised on decreasing caffeine intake. Follow-up in 3 months Orders: Orders AMB Urinalysis Automated Today Z13.9 - Encounter for screening, unspecified AMB Post Void Residual by ultrasound Today N40.1 - Benign prostatic hyperplasia with lower urinary tract symptoms Medications: New tamsulosin (Flomax) 0.4 mg PO BEDTIME 30 caps 5RF Patient Instructions: The patient had an opportunity to ask questions regarding treatment plan. The patient expressed understanding and agreement with the above treatment plan. The patient is aware they should contact our office by phone for worsening of their current condition or the appearance of new symptoms. Compliance is encouraged with any medications and followup testing that is ordered. It is a privilege to be allowed the opportunity to participate in the urologic care of your patient. If you have any questions or concerns regarding treatment for the above conditions please do not hesitate to contact me. The office telephone contact is [phone]. This note is constructed in part using voice recognition software. While every effort has been made to ensure accuracy salesperson sheet music errors may have been included. Yours sincerely, Shaina Bianchi MD Coding Level of Care Code Est Pt Level 4 (36288) Complex EM visit Add On G2211 Diagnoses Type 2 diabetes mellitus with hyperglycemia, without long-term current use of insulin E11.65 Diabetes mellitus long term care social worker insulin use: without long term care social worker use Obesity (BMI 30-39.9) E66.9 Frequency of micturition R35.0 History of renal calculi Z87.442 BPH loc w urin obs/LUTS N40.1 Hypercalciuria R82.994 CPT Codes Post Residual Void - PVR CPT Code: 13803-Alwp Void Residual by ultrasound ([id number])
== END 2024-11-01 10:49 | disposition home or self-care (01) ==
PROVIDERS: PCP Internal Medicine; Visit Provider Urology
DX: Z13.9 Encounter for screening, unspecified (principal)

== ENCOUNTER → 2024-11-01 09:48 | Outpatient (BNVA) | payer OTHER, SELFPAY | PROVIDERS: PCP Internal Medicine; Visit Provider Urology | DX: N40.1 Benign prostatic hyperplasia with lower urinary tract symptoms (principal); R35.0 Frequency of micturition; R82.994 Hypercalciuria; E11.65 Type 2 diabetes mellitus with hyperglycemia; E66.9 Obesity, unspecified; Z87.442 Personal history of urinary calculi; Z79.82 Long term (current) use of aspirin | CPT/HCPCS: 51798; 81003; 99212 ==

== ENCOUNTER 2024-11-11 15:37 | Outpatient (REF) | payer OTHER, SELFPAY ==
--- NOTE | ~2024-11-11 | US_ITS ---
EXAMINATION: US PELVIS LIMITED (BLADDER) CLINICAL INFORMATION: Frequency micturition. COMPARISON: None available. TECHNIQUE: Real-time imaging of the bladder. FINDINGS: BLADDER: Fluid-filled. Bilateral ureteral jets are demonstrated. Prevoid bladder volume is 201 mL. Postvoid bladder volume is 19 mL. Prostate gland measures 5 cm in maximum length. Prostate volume: 41 cc. US/US bladder IMPRESSION: 19 cc residual urine in a post void image. Normal-sized prostate gland.. Electronically signed by: Aniket Lopez MD 11/12/2024 10:09 AM YOJANA
--- OUTSIDE RECORDS SUMMARY | 2024-11-11 16:35 | XMS_ITS ---
Author Organization [facility] Address [address] [place] [address] Care Team Providers Care Banking Officer Name Role Phone Neo Baig Primary Care Provider Jelena Peralta [phone] REASON FOR VISIT cx appt Encounters Encounter Location Date Provider Diagnosis [address] [address] 09/24/2024 Jelena Craig Plan Of Treatment Next Appt Details Provider Name:Jelena lee, 11/30/2024 02:45:00 PM, [address] [place], [address], Progress Notes * Tammy HARVEYOB:1950 (74 yo M)Acc No.[id number]:09/24/2024 Patient:?Сергей HARVEY :1950???Age:74 Y???Sex:Male Address:[address] [place] [address], [address] * true * Date:? Generated for Printi umesh/Dante/eTransmitting on:?11/11/2024 04:35 PM EST
--- OUTSIDE RECORDS SUMMARY | 2024-11-11 16:35 | XMS_ITS ---
Author Organization [facility] Address [address] [place] [address] Care Team Providers Care Beet Topper Name Role Phone Neo Baig Primary Care Provider Jelena Peralta Unavailable [phone] Allergies No Known Allergies REASON FOR VISIT [...] 06/23/2024 Encounters Encounter Location Date Provider Diagnosis [facility] [address] [address] 06/23/2024 Jelena Craig Other hammer toe(s) (acquired), [...] Provider Name:Jelena lee, 11/30/2024 02:45:00 PM, [address] [place], [address], Procedure Notes * Category Sub-Category Detail Notes Wart Treatment Procedure Verrucae were de brided to pin-point bleeding margins with sterile 15 surgical blade, silver nitrate chemocautery applied, recomm. immune-boosting meds such as zinc, recomm. follow up with topical chemosurgical agents, Pt defers any other forms of tx (10619) Debride Nail 6-10 Nail debridement Nail debridem ent performed extensively to reduce/remove overall nail length, girth, thickness, subungual debris, and necrotic tissue, by manual and electrical means through the use of a nail nipper and/or dremel, to more viable healthy nail plate or bed tissue 1-5. Silver nitrate used for any petechial bleeding as necessary. Patient chooses, no pharmaceutical tx (22797) Keratoma Treatment Parring or Cutting o f Benign Hyperkeratotic Lesion(s) 84662 ( More than 4 Lesions ) - The Benign hyperkeratotic lesions, as described above were pared, and/or cut utilizing a sterile 15 blade, tissue nippers, and/or dremel Progress Notes * Tammy HARVEYOB:1950 (74 yo M)Acc No.[id number]:06/23/2024 Progress Note Patient:?Сергей Harvey Provider:?Jelena Craig DPM :1950???Age:74 Y???Sex:Male Humphrey e:06/23/2024 Address:[address] [place], [place] [id number] Pcp:Neo Baig Subjective: * Chief Complaints: * [...] as necessary. Patient chooses, no pharmaceutical tx (26049).?Keratoma Treatment:?Parring or Cutting of Benign Hyperkeratotic Lesion(s)?12542 ( More than 4 Lesions ) - The Benign hyperkeratotic lesions, as described above were pared, and/or cut utilizing a sterile 15 blade, tissue nippers, and/or dremel.?Wart Treatment:?Procedure?Verrucae were debrided to pin-point bleeding margins with sterile 15 surgical blade, silver nitrate chemocautery applied, recomm. immune-boosting meds such as zinc, recomm. follow up with topical chemosurgical agents, Pt defers any other forms of tx (60810).? * Procedure Codes:?48693 DEBRI DE NAIL, 6 OR MORE, Modifiers: XS 73945 Wart Destruction, 1-14, Modifiers: XS 93499 TRIM SKIN LESIONS, OVER 4, Modifiers: XS [...] Craig DPM Date:?10/2023 Generated for Fermín calvo/Dante/Rich on:?11/11/2024 04:35 PM EST History and Physical Notes * [...]
--- OUTSIDE RECORDS SUMMARY | 2024-11-11 16:35 | XMS_ITS ---
Author Organization [facility] Address [address] [place] [address] Care Team Providers Care Awning Finisher Name Role Phone Neo Baig Primary Care Provider Jelena Peralta Unavailable [phone] Medications Medication SIG (Take, Route, Frequency, Duration) [...] Active Encounters Encounter Location Date Provider Diagnosis [facility] [address] [address] 09/24/2024 Jelena Craig Plan Of Treatment Next Appt Details Provider Name:Jelena lee, 11/30/2024 02:45:00 PM, [address] [place] [address], [phone], Progress Notes * MEGHAN, CashanDOB:1950 (74 yo M)Acc No.[id number]:09/24/2024 Progress Note Patient:?Сергей HARVEY Provider:?Jelena Craig DPM :1950???Age:74 Y???Sex:Male Humphrey e:09/24/2024 Address:[address] [place], [place] [address] Pcp:Neo Baig Subjective: * Chief Complaints: * [...] Craig DPM Date:?11/2024 Generated for Fermín calvo/Dante/Rich on:?11/11/2024 04:35 PM EST
--- OUTSIDE RECORDS SUMMARY | 2024-11-11 16:35 | XMS_ITS | Patient Health Record ---
Author Organization [facility] Address [address] [place] [address] Care Team Providers Care Shade Matcher Name Role Phone Neo Baig Primary Care Provider Jelena Peralta Unavailable [phone] Allergies No Known Allergies Reason For Referral Diagnosis 1 Other hammer toe(s) (acquired), right foot (M20.41) Diagnosis 2 Other hammer toe(s) (acquired), left foot (M20.42) Diagnosis 3 Type 2 diabetes carlos itus with diabetic polyneuropathy (E11.42) Diagnosis 4 Venous insufficiency (I87.2) Diagnosis 5 Plantar wart (B07.0) Diagnosis 6 Tinea unguium (B35.1 ) Diagnosis 7 Tinea pedis of both feet (B35.3) Diagnosis 8 Right foot pain (M79 .671) Diagnosis 9 Left foot pain (M79. 672) Referring Provider First Name Neo Referring Provider Last Name [facility] Referred Provider Jelena Craig Referred Address [address] [facility],[place],[address], Referred Provider Specialty Podiatry Referral Priority Routine [...] Problem Acquired hammer toe of right foot (8799188098783444 ) Other hammer toe(s) (acquired), right foot (M20.41) Active confirmed Problem Acquired hammer toe of left foot (5470090924844002 ) Other hammer toe(s) (acquired), left foot (M20.42) Active confirmed Problem Plantar wart (26812339) Plantar wart (B07.0) Active confirmed Problem Polyneuropathy due to type 2 diabetes mellitus (739161632) Type 2 diabetes mellitus with diabetic polyneuropathy (E11.42) Active confirmed Problem [id number] Venous insufficiency (I87.2) Active confirmed Vital Signs Height 5ft 8in in 06/23/2024 Weight 219 lbs 06/23/2024 BMI 33.3 kg/m2 06/23/2024 Encounters Encounter Location Date Provider Diagnosis [address] [address] 01/27/2024 Jelena Craig Tinea pedis of both feet B35.3 ; Other hammer toe(s) (acquired), right foot M20.41 ; Other hammer toe(s) (acquired), left foot M20.42 ; Tinea unguium B35.1 ; Type 2 diabetes mellitus with diabetic polyneuropathy E11.42 ; Right foot pain M79.671 ; Plantar wart B07.0 and Left foot pain M79.[address] [address] 06/23/2024 Jelena Craig Other hammer toe(s) (acquired), right foot M20.41 ; Muscle cramp, nocturnal R25.2 ; Tinea pedis of both feet B35.3 ; Other hammer toe(s) (acquired), left foot M20.42 ; Tinea unguium B35.1 ; Type 2 diabetes mellitus with diabetic polyneuropathy E11.42 ; Right foot pain M79.671 ; Plantar wart B07.0 and Left foot pain M79.[address] [address] 04/27/2024 Jelena Craig [address] [address] 09/24/2024 Jelena Craig Assessments Encounter Date Diagnosis (ICD Code) Assessment Notes Treatment Notes Treatment Clinical Notes Section Notes 01/27/2024 Tinea pedis of both feet (ICD-10 - B35.3) 06/23/2024 Other hammer toe(s) (acquired), right foot (ICD-10 - M20.41) 06/23/2024 Muscle cramp, nocturnal (ICD-10 - R25.2) 06/23/2024 Tinea pedis of both feet (ICD-10 - B35.3) 01/27/2024 Other hammer toe(s) (acquired), right foot (ICD-10 - M20.41) Patient Educated with: DIABETIC FOOT CARE INSTRUCTIONS. pdf (DIABETIC FOOT CARE INSTRUCTIONS. pdf) 06/23/2024 Other hammer toe(s) (acquired), left foot (ICD-10 - M20.42) 01/27/2024 Other hammer toe(s) (acquired), left foot (ICD-10 - M20.42) 06/23/2024 Tinea unguium (ICD-10 - B35.1) 01/27/2024 Tinea unguium (ICD-10 - B35.1) 01/27/2024 Type 2 diabetes mellitus with diabetic polyneuropathy (ICD-10 - E11.42) 06/23/2024 Type 2 diabetes mellitus with diabetic polyneuropathy (ICD-10 - E11.42) 06/23/2024 Right foot pain (ICD-10 - M79.671) 01/27/2024 Right foot pain (ICD-10 - M79.671) 01/27/2024 Plantar wart (ICD-10 - B07.0) 06/23/2024 Plantar wart (ICD-10 - B07.0) 01/27/2024 Left foot pain (ICD-10 - M79.672) 06/23/2024 Left foot pain (ICD-10 - M79.672) Plan Of Treatment Pending Test Test Name Order Date [id number] NAIL, 6 OR MORE 09/02/2022 [id number] SKIN LESIONS, OVER 4 09/02/20 22 Next Appt Details Provider Name:Jelena lee, 11/30/2024 02:45:00 PM, [address] [place] [address], [phone], Insurance Providers Payer Name Payer Address Payer Phone Subscriber Number Group Number Insured Name Patient Relationship to Insured Coverage Start Date Coverage End Date [facility] [address] YAZMIN Gomez [phone] [id number] Сергей Harvey Self - patient is the insured Medical (General) History Medical History History ICD Code Arthritis CAD (Cholesterol) type II diabetes Gout osteoarthritis dizziness Auto Pap 6-20 Tinea Pedis Surgical History Surgery Date(Month/Year) kidney stones 08/2022
--- OUTSIDE RECORDS SUMMARY | 2024-11-11 16:36 | XMS_ITS | Continuity of Care Document ---
Author Organization [place] - [facility], [facility] Address [address] [place] [address] Care Team Providers Care Skid Road Worker Name Role Phone NOBLE COLEMAN Primary Care Provider Assessment No assessment recorded. Plan of Treatment Reminders Order Date Submit Date Provider Last Modified By Organization Details Last Modified Time Details Appointments GRAYSON Initial Fitting 2024 10:00A M Ana VEGA Not available Not available Not available Test Results 15 2024 08:15A M TISHA Vitcoria MD Not available Not available Not available Lab None recorded. Referral None recorded. Procedures None recorded. Surgeries None recorded. Imaging MRI, brain + internal auditory canal, w/wo contrast - MRI, BRAIN + INTERNAL AUDITORY CANAL, W/WO CONTRAST 2024 025 [facility] ([facility]), [address] [place], [address], 11/05/2024 15:28:05 Medication Orders None recorded. Patient TargetsNo targets recorded. Patient InstructionsNo instructions recorded. Reason for Referral None Reported. Results Created Date Observation Date Name Description Value Unit Range Abnormal Flag Note LastModifiedBy Organization Detail LastModifiedTime 10/20/19 25 audio gram No observ ation record ed. BARCODE Not Available 2024 10:44:55 11/05/19 25 11/04/2024 MRI, brain + brain stem, w/wo contr ast [facility] Access ion Number : [id number] Abimael stone Name: Сергей Harveya l Record Number : [id number] Date of : 1949 Date of Exam: 2024 Referr ing Physic garima: Eppste iner, Tisha [facility] [place] [address] [place] [address] Exam: MR Brain (C-/C+ ) CPT 31176 [facility] CPT 69370 INDICA TION / CLINIC AL QUESTI ON: - Snsrnr l hear loss, uni, r ear, with rstrcd hear cntra side, Clinic al Indica tion: Asymme tric sensor ineura l hearin g loss - Snsrnr l hear loss, uni, r ear, with rstrcd hear cntra side, Clinic al Indica tion: Asymme tric sensor ineura l hearin g loss TECHNI QUE: MRI of the brain with attent ion to the technical internship al audito ry canals was perfor med with and withou t contra st utiliz ing sagitt al T1, axial T2, axial CUBE, axial and santos l T1, and post-c ontras t axial and santos l T1-alberto spear sequen og. 20 mL Dotare m intrav enous contra st was admini stered . COMPAR CONNOR: Head CT 2023. FINDIN GS: IAC: There is no mass or abnorm al enhanc ement in the technical internship al audito ry canals or cerebe llopon ginna angles . Course and calibe r of the 7th and 8th crania l nerves is normal bilate rally. Fluid signal is preser julia in the inner ear struct ures bilate rally. Brains tem demons trates normal signal . BRAIN and EXTRA- AXIAL SPACES : The ventri cles and sulci are promin ent reflec ting volume loss and there are scatte red nonspe cific T2 hyperi ntensi ties in the white matter probab ly reflec ting chroni c small vessel diseas e. Possib le small chroni c lacuna r infarc ts in the left cerebe llar hemisp here. EXTRAC RANIAL SOFT TISSUE S: Visual ized portio ns of the extrac ranial soft tissue s are unrema rkable . There is scatte red parana tenzin sinus mucosa l thicke lady, most promin ent in the right maxill razia sinus. Partia lly imaged asymme tric fatty replac ement of the left paroti d gland is noted. BONES: Visual ized marrow signal is preser julia. IMPRES KARI: No retroc ochlea r abnorm ality to explai n the patien t?s sympto msRadha Cheng onical ly Signed By: Stephanie echevarria MD INTERFACE [facility] ([facility]) [address] [facility], [place], [address], 11/05/2024 15:28:05 Result Notes None recorded. Problems Name Problem SNOMED Code Status Onset Date Resolution Date Notes Provider Name and Address Organization Details Recorded Time Sensorineur al hearing loss of bilateral ears 585066982 Active 2024 Ana VEGA [address] [place] [address], [place], [address], [facility] - [facility] [place] 09:52:04 Sensorineur al hearing loss in right ear 0833117923415 0 Active 2024 TISHA Victoria MD [address] [place] [address], [address], [facility] - [facility] [place] 5 10:18:17 Bilateral tinnitus 4656383387437 Active 2024 TISHA Victoria MD [address] [place] [address], [address], [facility] - [facility] [place] 10:18:43 Problem Notes None recorded. Procedures Surgical History Date Name Laterality Status Provider Name and Address Organization Details Recorded Time 10/20/2024 Comp Audio with Tymps (61857 & 70936) completed Ana VEGA [address], [address], [facility] - [facility] [place] 10/20/2024 09:51:58 Imaging Results None recorded. Procedure [...] SNOMED-CT Code Diagnosis ICD10 Code Diagnosis Note [id number] TISHA FARR MD [facility] of [address] [address] 10/20/2024 09:18:08 10/20/2024 10:19:09 Sensorineural hearing loss of bilateral ears 554178973 H90.3 Audiologic al evaluation results:Ri ght ear:Mild to moderate from 250 through {{703 099 3893* 1500 2000 3000 4000 6000 8000}} Hz [...] rising to normal hearing from 500 through {{874 203 7049 1500 2000* 3000 4000 6000 8000}} Hz [...] Sensorineu ral hearing loss in right ear 0901236059 9100 H90.A21 Given the asymmetric hearing loss I recommend an MRI IAC with contrast to evaluate for retrocochl ear pathology. We will review results when complete. Bilateral tinnitus 42598 63898 102 H93.13 Ear exam was normal. Audiogram [...] Chu Member ID Guarantor Name 10/20/2024 1 [facility] - [facility] ELIGIBLE [facility] (MEDICARE REPLACEMENT/ ADVANTAGE - HMO) Сергей Harvey [id number] Сергей Harvey Notes Date Note Type Note Provider Name and Address Organization Details Recorded Time 10/20/2024 text/html Hx of gradual hearing loss over time. It has been worse on the right for years. Has tinnitus AU but worse AD. Audio showed asymmetric SNHL worse AD. TISHA FARR MD [address] [place] [address], [place], [address], [facility] - [facility] 10/20/2024 10:19:31
== END 2024-11-11 15:38 | disposition home or self-care (01) ==
LOC: HO.US 15:37
PROVIDERS: PCP Internal Medicine; Visit Provider Internal Medicine
DX: R35.0 Frequency of micturition (principal)
CPT/HCPCS: 76857

== ENCOUNTER → 2024-11-11 15:39 | Outpatient (BNV) | payer OTHER, SELFPAY | PROVIDERS: PCP Internal Medicine; Visit Provider Radiology Diagnostic Radiology | DX: R35.0 Frequency of micturition (principal) | CPT/HCPCS: 76857 ==

== ENCOUNTER 2024-11-12 10:09 | Outpatient (AMB) | payer OTHER, SELFPAY ==
--- OUTSIDE RECORDS SUMMARY | 2024-11-12 10:53 | XMS_ITS | Patient Health Record ---
Author Organization [facility] Isaias jai Finley Address [address] [place] [address] Care Team Providers Care Jewelry Bench Worker Name Role Phone Neo Baig Primary Care Provider Jelena Peralta Unavailable [phone] Allergies No Known Allergies Reason For Referral [...] Name Neo Referring Provider Last Name [facility]erred [facility] Referred Provider Jelena Craig Referred Address [address] [facility],[place],[address], Referred Provider Specialty Podiatry Referral Priority Routine [...] Problem Acquired hammer toe of right foot (3488974452805653 ) Other hammer toe(s) (acquired), right foot (M20.41) Active confirmed Problem Acquired hammer toe of left foot (0238983366960062 ) Other hammer toe(s) (acquired), left foot (M20.42) Active confirmed Problem Plantar wart (55343635) Plantar wart (B07.0) Active confirmed Problem Polyneuropathy due to type 2 diabetes mellitus (428482961) Type 2 diabetes mellitus with diabetic polyneuropathy (E11.42) Active confirmed Problem 35688150 Venous insufficiency (I87.2) Active confirmed Vital Signs Height 5ft 8in in 06/23/2024 Weight 219 lbs 06/23/2024 BMI 33.3 kg/m2 06/23/2024 Encounters Encounter Location Date Provider Diagnosis [address] [address] 01/27/2024 Jelena Craig Tinea pedis of both feet B35.3 ; Other hammer toe(s) (acquired), right foot M20.41 ; Other hammer toe(s) (acquired), left foot M20.42 ; Tinea unguium B35.1 ; Type 2 diabetes mellitus with diabetic polyneuropathy E11.42 ; Right foot pain M79.671 ; Plantar wart B07.0 and Left foot pain M79.[address] [address] 06/23/2024 Jelena Craig Other hammer toe(s) (acquired), right foot M20.41 ; Muscle cramp, nocturnal R25.2 ; Tinea pedis of both feet B35.3 ; Other hammer toe(s) (acquired), left foot M20.42 ; Tinea unguium B35.1 ; Type 2 diabetes mellitus with diabetic polyneuropathy E11.42 ; Right foot pain M79.671 ; Plantar wart B07.0 and Left foot pain M79.[address] [address] 04/27/2024 Jelena Craig [address] [address] 09/24/2024 Jelena Craig Assessments Encounter Date Diagnosis [...] Treatment Pending Test Test Name Order Date 54093-JYFCKSB NAIL, 6 OR MORE 09/02/2022 37622-ELPO SKIN LESIONS, OVER 4 09/02/20 22 Next Appt Details Provider Name:Jelena lee, 11/30/2024 02:45:00 PM, [address] [place] [address], [phone], Insurance Providers Payer Name Payer Address Payer Phone Subscriber Number Group Number Insured Name Patient Relationship to Insured Coverage Start Date Coverage End Date [facility] [address] YAZMIN Gomez [phone] [id number] Сергей Harvey Self - patient is the insured Medical (General) History Medical History History ICD Code Arthritis CAD (Cholesterol) type II diabetes Gout osteoarthritis dizziness Auto Pap 6-20 Tinea Pedis Surgical History Surgery Date(Month/Year) kidney stones 08/2022
--- OUTSIDE RECORDS SUMMARY | 2024-11-12 10:53 | XMS_ITS ---
Author Organization [facility] Address [address] [place] [address] Care Team Providers Care Cardroom Drawing Runner Name Role Phone Neo Baig Primary Care Provider Jelena Peralta Unavailable [phone] Medications Medication SIG (Take, Route, Frequency, Duration) [...] Active Encounters Encounter Location Date Provider Diagnosis [facility] [address] [address] 09/24/2024 Jelena Craig Plan Of Treatment Next Appt Details Provider Name:Jelena lee, 11/30/2024 02:45:00 PM, [address] [place] [address], [address], Progress Notes * MEGHAN, CashanDOB:1950 (74 yo M)Acc No.[id number]:09/24/2024 Progress Note Patient:?Сергей HARVEY Provider:?Jelena Craig DPM :1950???Age:74 Y???Sex:Male Humphrey e:09/24/2024 Address:[address] [place], [place] [id number] Pcp:Neo Baig Subjective: * Chief Complaints: * [...] Craig DPM Date:?11/2024 Generated for Fermín calvo/Dante/Rich on:?11/12/2024 10:53 AM EST
--- OUTSIDE RECORDS SUMMARY | 2024-11-12 10:53 | XMS_ITS ---
Author Organization [facility] Address [address] [place] [address] Care Team Providers Care Outcomes Specialist Name Role Phone Neo Baig Primary Care Provider Jelena Peralta Unavailable [phone] Allergies No Known Allergies REASON FOR VISIT [...] 06/23/2024 Encounters Encounter Location Date Provider Diagnosis [facility] [address] [address] 06/23/2024 Jelena Craig Other hammer toe(s) (acquired), [...] Provider Name:Jelena lee, 11/30/2024 02:45:00 PM, [address] [place], [address], Procedure Notes * Category Sub-Category Detail Notes Wart Treatment Procedure Verrucae were de brided to pin-point bleeding margins with sterile 15 surgical blade, silver nitrate chemocautery applied, recomm. immune-boosting meds such as zinc, recomm. follow up with topical chemosurgical agents, Pt defers any other forms of tx (70076) Debride Nail 6-10 Nail debridement Nail debridem ent performed extensively to reduce/remove overall nail length, girth, thickness, subungual debris, and necrotic tissue, by manual and electrical means through the use of a nail nipper and/or dremel, to more viable healthy nail plate or bed tissue 1-5. Silver nitrate used for any petechial bleeding as necessary. Patient chooses, no pharmaceutical tx (52263) Keratoma Treatment Parring or Cutting o f Benign Hyperkeratotic Lesion(s) 53873 ( More than 4 Lesions ) - The Benign hyperkeratotic lesions, as described above were pared, and/or cut utilizing a sterile 15 blade, tissue nippers, and/or dremel Progress Notes * Tammy HARVEYOB:1950 (74 yo M)Acc No.[id number]:06/23/2024 Progress Note Patient:?Сергей Harvey Provider:?Jelena Craig DPM :1950???Age:74 Y???Sex:Male Humphrey e:06/23/2024 Address:[address] [place], [place] [id number] Pcp:eNo Baig Subjective: * Chief Complaints: * ???At [...] as necessary. Patient chooses, no pharmaceutical tx (69891).?Keratoma Treatment:?Parring or Cutting of Benign Hyperkeratotic Lesion(s)?67210 ( More than 4 Lesions ) - The Benign hyperkeratotic lesions, as described above were pared, and/or cut utilizing a sterile 15 blade, tissue nippers, and/or dremel.?Wart Treatment:?Procedure?Verrucae were debrided to pin-point bleeding margins with sterile 15 surgical blade, silver nitrate chemocautery applied, recomm. immune-boosting meds such as zinc, recomm. follow up with topical chemosurgical agents, Pt defers any other forms of tx (29335).? * Procedure Codes:?56174 DEBRI DE NAIL, 6 OR MORE, Modifiers: XS 89836 Wart Destruction, 1-14, Modifiers: XS 64294 TRIM SKIN LESIONS, OVER 4, Modifiers: XS [...] Craig DPM Date:?10/2023 Generated for Fermín calvo/Dante/Rich on:?11/12/2024 10:53 AM EST History and Physical Notes * [...]
--- OUTSIDE RECORDS SUMMARY | 2024-11-12 10:53 | XMS_ITS | Data Portability ---
Author Organization [place] - [facility], Allergy Address [address] [place] [address] Care Team Providers Care Aquatic Ecologist Name Role Phone NOBLE COLEMAN Primary Care Provider Assessment No assessment recorded. Plan of Treatment Reminders Order Date Submit Date Provider Last Modified By Organization Details Last Modified Time Details Appointments GRAYSON Initial Fitting 2024 10:00A M TARSHA PHILLIP, Ana Not available Not available Not available Test Results 15 2024 08:15A M TISHA Victoria MD Not available Not available Not available Lab None recorded. Referral None recorded. Procedures None recorded. Surgeries None recorded. Imaging MRI, brain + internal auditory canal, w/wo contrast - MRI, BRAIN + INTERNAL AUDITORY CANAL, W/WO CONTRAST 2024 025 [facility] ([facility]), [address] [place], [address], 11/05/2024 15:28:05 Medication Orders None recorded. Patient TargetsNo targets recorded. Patient InstructionsNo instructions recorded. Reason for Referral None Reported. Results Created Date Observation Date Name Description Value Unit Range Abnormal Flag Note LastModifiedBy Organization Detail LastModifiedTime 10/20/19 audio gram No observ ation record ed. BARCODE Not Available 2024 10:44:55 11/05/19 25 11/04/2024 MRI, brain + brain stem, w/wo contr ast [facility] Access ion Number : [id number] Abimael stone Name: Сергей Harvey sendy Record Number : [id number] Date of : 1949 Date of Exam: 2024 Referr ing Physic garima: Eppste iner, Tisha [facility] [place] [address] [place] [address] Exam: MR Brain (C-/C+ ) CPT 99118 Room Descri ption: [facility] 3T MR Brain (C-/C+ ) CPT 81710 INDICA TION / CLINIC AL QUESTI ON: [...] the brain with attent ion to the multicultural internship al audito ry canals was perfor med with and withou t contra st utiliz ing sagitt al T1, axial T2, axial CUBE, axial and santos l T1, and post-c ontras t axial and santos l T1-alberto ghted sequen og. 20 mL Dotare m intrav enous contra st was admini stered . COMPAR CONNOR: Head CT 2023. FINDIN GS: IAC: There is no mass or abnorm al enhanc ement in the multicultural internship al audito ry canals or cerebe [...] to explai n the patien t?s sympto ms. Electr onical ly Signed By: Stephanie echevarria MD INTERFACE [facility] ([facility]) [address], [place], [address], 11/05/2024 15:28:05 Result Notes None recorded. Problems Name Problem SNOMED Code Status Onset Date Resolution Date Notes Provider Name and Address Organization Details Recorded Time Sensorineur al hearing loss of bilateral ears 275368923 Active 2024 Ana VEGA [address] [address], [place], [address], [facility] - [facility] [place] 5 09:52:04 Sensorineur al hearing loss in right ear 5426919440287 0 Active 2024 TISHA Victoria MD [address] [address], [place], [address], [facility] - [facility] [place] 5 10:18:17 Bilateral tinnitus 5716754359277 Active 2024 TISHA Victoria MD [address] [address], [place], [address], [facility] [place] 5 10:18:43 Problem Notes None recorded. Procedures Surgical History Date Name Laterality Status Provider Name and Address Organization Details Recorded Time 10/20/2024 Comp Audio with Tymps (05423 & 44750) completed Ana VEGA [address] [facility] [address], [place], [address], [facility] - [facility] [place] 10/20/2024 09:51:58 Imaging Results Imaging Date Name Status LastModified by Organiz ation Details LastModified Time 10/20/2024 audiogram completed BARCODE Information no t available 10/20/2024 10:44:55 11/04/2024 MRI, brain + brain stem, w/wo contrast active INTERFACE [facility] ([facility]) [address], [place], [address], 11/05/2024 15:28:05 Procedure Notes None recorded. Medical Equipment None [...] SNOMED-CT Code Diagnosis ICD10 Code Diagnosis Note 72403 TISHA FARR MD [facility] of [address] [address] 10/20/2024 09:18:08 10/20/2024 10:19:09 Sensorineural hearing loss of bilateral ears 735792447 H90.3 Audiologic al evaluation results:Ri ght ear:Mild to moderate from 250 through {{036 149 7259* 1500 2000 3000 4000 6000 8000}} Hz [...] rising to normal hearing from 500 through {{558 800 6877 1500 2000* 3000 4000 6000 8000}} Hz [...] Sensorineu ral hearing loss in right ear 3360301355 9100 H90.A21 Given the asymmetric hearing loss I recommend an MRI IAC with contrast to evaluate for retrocochl ear pathology. We will review results when complete. Bilateral tinnitus 23396 27558 102 H93.13 Ear exam was normal. Audiogram [...] Chu Member ID Guarantor Name 10/20/2024 1 [employer] - DUAL ELIGIBLE - [facility] (MEDICARE REPLACEMENT/ ADVANTAGE - HMO) Сергей Harvey [id number] Сергей Harvey Notes Date Note Type Note Provider Name and Address Organization Details Recorded Time 10/20/2024 text/html Hx of gradual hearing loss over time. It has been worse on the right for years. Has tinnitus AU but worse AD. Audio showed asymmetric SNHL worse AD. TISHA FARR MD [address] [place] [address], [address], [facility] - [facility] 10/20/2024 10:19:31
--- OUTSIDE RECORDS SUMMARY | 2024-11-12 10:53 | XMS_ITS ---
Author Organization [facility] Address [address] [place] [address] Care Team Providers Care Union Steward Name Role Phone Neo Baig Primary Care Provider Jelena Peralta [phone] REASON FOR VISIT cx appt Encounters Encounter Location Date Provider Diagnosis [facility] [address] [place] [address] 09/24/2024 Jelena Craig Plan Of Treatment Next Appt Details Provider Name:Jelena lee, 11/30/2024 02:45:00 PM, [address] [place], [address], Progress Notes * Tammy HARVEYOB:1950 (74 yo M)Acc No.[id number]:09/24/2024 Patient:?Сергей HARVEY :1950???Age:74 Y???Sex:Male Address:[address] [place] [address], [address] * true * Date:? Generated for Printi umesh/Dante/eTransmitting on:?11/12/2024 10:53 AM EST
--- NOTE | 2024-11-12 11:10 | A.OFFVIS_ITS ---
Intake Visit Reasons: R GSV RFA Accompanied by: Self / Same As Patient Allergies No Known Allergies Allergy (Verified 11/12/24 11:10) PFSH Medical History Obstructive sleep apnea Coronary artery disease Abdominal wall abscess Hearing difficulty Hypertension Nephrolithiasis Flank pain Constipation Dizziness Obesity (BMI 30-39.9) Tubular adenoma of colon Polysubstance abuse Knee osteoarthritis Degenerative disc disease, lumbar Osteoarthritis of right shoulder Ascending aorta dilatation History of renal calculi GERD (gastroesophageal reflux disease) Vitamin D deficiency Peripheral vascular disease Hypercholesterolemia COPD (chronic obstructive pulmonary disease) Surgical History Hx of cardiac cath Hx laparoscopic cholecystectomy Hx of colonoscopy History of esophagogastroduodenoscopy (EGD) Family History Father Stroke Heart attack Mother No problems noted. Sister Breast cancer Social History Household Members: Spouse Housing: House Do you presently have visiting nurse or other home services: No Alcohol intake: former Year quit: 2009 Patient Tobacco Use Status: Never used Tobacco Tobacco use type: Cigarette e-Cigarette/Vaping Use: Never Used Second Hand Smoke Exposure: No service: No Current occupational status: retired and disabled Cognitive needs: No Hearing needs: No Vision needs: Yes Office Procedures Vascular Office Procedure Details Details: Diagnosis:? Varicose veins with inflammation of right leg Procedure: Endovenous radiofrequency ablation of the right great saphenous vein(s) of the lower extremity with Venclose RF ablation Anesthesia: Local infiltration 5 cc, Tumescent 100 cc. Estimated Blood Loss: Minimal The patient was transferred to the procedure suite and the insufficient saphenous vein was mapped by ultrasound and diagrammed on the overlying skin. The depth and diameter of the vein(s) to be treated was documented. The varicose tributary veins and suitable access sites were identified and mapped as well. The patient was then positioned supine on the procedure table. The affected limb was prepped and draped in the usual sterile fashion. The RF catheter was placed on the sterile field, flushed and wiped down, prepared, and connected by a sterile cable. The patient was placed in a supine position and local anesthesia was instilled in the skin overlying the access site. A skin incision was made overlying the identified and mapped great saphenous vein entry site. The vein was accessed using ultrasound guidance and the Seldinger technique, a guide wire was introduced through the needle, which was then exchanged over the guide wire for a 7F sheath, which was secured in place. The guide wire was removed and the sheath was flushed. The RF catheter was placed into the vein through the sheath and preferentially, imaging was used to place the catheter tip just inferior to the deep system. We actually accessed the vein around the knee and we advanced up to a large director traffic and planning. We placed the tip at the center of that director traffic and planning. After the RF catheter position was verified by ultrasound, tumescent anesthesia was infiltrated, under ultrasound guidance, precisely into the perivenous compartment along the entire length of vein from the entry site to the saphenofemoral junction until a halo of fluid was noted around the vein. The patient was appropriately position. After RF catheter position was again confirmed with ultrasound imaging, and under direct external compression along the length of the heating element, RF energy was applied. The vein was segmentally ablated by heating a 3 cm segment and then indexing the catheter forward by 2.5 cm until the treatment length is completed. Device temperature was maintained at 120 plus or minus 5 degrees C with an initial power level of 4W/cm dropping to below 2W/cm for each treatment. Total vein length treated 3 cm Total cycles of RF 2. Repeat ultrasound of the saphenous vein was performed, confirming successful treatment. The catheter and sheath were withdrawn and hemostasis established with direct pressure. After assuring hemostasis, the skin incision over the saphenous vein was closed with a steristip and a compression wrap was applied from the level of the foot to the most proximal level of the thigh. Discharge instructions were given to the patient inclusive of follow-up ultrasound and recommended follow-up with us. 87257 - Endovenous RF, 1st Vein All charges added?: Procedure code (CPT) selection complete Assessment & Plan Assessment & Plan (1) Varicose veins of right lower extremity with inflammation: Comment: 11/12/2024 - right great saphenous vein radiofrequency ablation Code(s): I83.11 - Varicose veins of right lower extremity with inflammation Category: Medical Plan: See op note Coding Level of Care Code Procedure Only Diagnoses Varicose veins of right lower extremity with inflammation I83.11 CPT Codes Details - Vascular 1: 91128 - Endovenous RF, 1st Vein ([id number])
== END 2024-11-12 12:02 | disposition home or self-care (01) ==
PROVIDERS: PCP Internal Medicine; Visit Provider Surgery Vascular Surgery
DX: I83.11 Varicose veins of right lower extremity with inflammation (principal)
CPT/HCPCS: 36475

== ENCOUNTER → 2024-11-12 10:09 | Outpatient (BNVA) | payer OTHER, SELFPAY | PROVIDERS: PCP Internal Medicine; Visit Provider Surgery Vascular Surgery | DX: I83.11 Varicose veins of right lower extremity with inflammation (principal) | CPT/HCPCS: 36475; J2004 ==

== ENCOUNTER 2024-11-25 09:55 | Outpatient (AMB) | payer OTHER, SELFPAY ==
--- NOTE | 2024-11-25 09:58 | MHC.OFFVIS ---
Intake Visit Reasons: 2 week follow up s/p R GSV RFA 11/12/24 Intake Note: Anna presents for follow up right gsv rfa on 11/12/24. No complaints. Accompanied by: Children Allergies No Known Allergies Allergy (Verified 11/25/24 09:59) HPI HPI 2 week follow up s/p R GSV RFA 11/12/24: Details: The patient is a 74-year-old male who is two weeks postoperative from a right great saphenous vein radiofrequency ablation conducted on November 12, 2024. The procedure was indicated due to significant venous insufficiency in the right leg, characterized primarily by swelling, which has since decreased. Concerns about similar venous issues in the left leg currently remain non-severe, according to the patient. He is happy with his right leg but reports that the left leg is not as severe PFSH Medical History Obstructive sleep apnea Coronary artery disease Abdominal wall abscess Hearing difficulty Hypertension Nephrolithiasis Flank pain Constipation Dizziness Obesity (BMI 30-39.9) Tubular adenoma of colon Polysubstance abuse Knee osteoarthritis Degenerative disc disease, lumbar Osteoarthritis of right shoulder Ascending aorta dilatation History of renal calculi GERD (gastroesophageal reflux disease) Vitamin D deficiency Peripheral vascular disease Hypercholesterolemia COPD (chronic obstructive pulmonary disease) Surgical History Hx of cardiac cath Hx laparoscopic cholecystectomy Hx of colonoscopy History of esophagogastroduodenoscopy (EGD) Family History Father Stroke Heart attack Mother No problems noted. Sister Breast cancer Social History Household Members: Spouse Housing: House Do you presently have visiting nurse or other home services: No Alcohol intake: former Year quit: 2009 Patient Tobacco Use Status: Never used Tobacco Tobacco use type: Cigarette e-Cigarette/Vaping Use: Never Used Second Hand Smoke Exposure: No service: No Current occupational status: retired and disabled Cognitive needs: No Hearing needs: No Vision needs: Yes Review of Systems Const Reports as per HPI ENT Reports no additional complaints Card Denies chest pain, Denies chest pain at rest and Denies chest pain with activity Resp Denies chest congestion and Denies cough GI Reports no additional complaints Musc Details: pain over varicosities, aching of lower extremities, swelling, cramping, heaviness and tiredness, itching Denies abnormal gait Skin/Breast Reports pruritus and Denies wounds Neuro Reports no additional complaints and Denies abnormal gait Psych Denies no additional complaints Physical Exam Const General: cooperative, healthy appearing and comfortable Orientation/consciousness: oriented to person, oriented to place and oriented to time Neck Carotids: no bruits Chest Chest palpation & inspection: normal inspection of the chest and normal palpation of entire chest wall Resp Effort & Inspection: normal respiratory effort and able to speak in complete sentences Cardio Rate: regular rate Heart sounds: S1 normal heart sound present and S2 normal heart sound present Peripheral pulses: Peripheral pulses 2+ throughout GI Inspection: Yes normal to inspection Skin Other: +2 edema, CEAP Classification C4 - skin color changes Ep - Etiology Primary As - superficial veins P - reflux General skin exam: dry skin Neuro General: oriented to person, oriented to place and oriented to time Extrem Right lower extremity: full ROM, normal capillary refill and edema Left lower extremity: full ROM, normal capillary refill and edema Psych Mental Status: mental status grossly normal Results Reviewed Results Reviewed: Brief summary of venous insufficiency testing is as follows: right great saphenous vein: Ablated right small saphenous vein: negative right accessory vein: none present left great saphenous vein: Positive left small saphenous vein: negative left accessory vein: none present Please note there is no evidence of any venous aneurysms or significant tortuosity Assessment & Plan Assessment & Plan (1) Varicose veins of right lower extremity with inflammation: Comment: 11/12/2024 - right great saphenous vein radiofrequency ablation Code(s): I83.11 - Varicose veins of right lower extremity with inflammation Category: Medical Plan: In short patient has done extremely well with right great saphenous vein ablation. At the current time he would like to hold off on left lower extremity intervention. He would like to continue with conservative measures including compression elevation and exercise. He will follow up with us on an as-needed basis. If he does wish to have his left lower extremity treated would be happy to see him back. Thank you for allowing us to assist in his care. If there are any questions or concerns please do not hesitate to contact us. Plan Patient was informed and verbally consented to the use of an ambient scribe for clinic note documentation during this visit. Patient Instructions: - Continue wearing compression stockings as tolerated. - Elevate legs regularly and engage in moderate walking. - Acquire mild compression stockings if current ones are uncomfortable. - Monitor for any symptoms or changes in the left leg and report if they become problematic. - Contact the clinic if additional symptoms arise or if there are questions about future interventions. Coding Level of Care Code Est Pt Level 3 (29154) Diagnoses Varicose veins of right lower extremity with inflammation I83.11
--- OUTSIDE RECORDS SUMMARY | 2024-11-25 11:31 | XMS_ITS ---
Author Organization [facility] Address [address] [place] [address] Care Team Providers Care Fluid Pump Operator Name Role Phone Neo Baig Primary Care Provider Jelena Peralta Unavailable [phone] Medications Medication SIG (Take, Route, Frequency, Duration) [...] Active Encounters Encounter Location Date Provider Diagnosis [facility] [address] [address] 09/24/2024 Jelena Craig Plan Of Treatment Next Appt Details Provider Name:Jelean lee, 11/30/2024 02:45:00 PM, [address] [place] [address], [phone], Progress Notes * MEGHAN, CashanDOB:1950 (74 yo M)Acc No.[id number]:09/24/2024 Progress Note Patient:?Сергей HARVEY Provider:?Jelena Craig DPM :1950???Age:74 Y???Sex:Male Humphrey e:09/24/2024 Address:[address] [place], [place] [id number] Pcp:Neo Baig Subjective: * Chief Complaints: * [...] Craig DPM Date:?11/2024 Generated for Fermín calvo/Dante/Rich on:?11/25/2024 11:31 AM EST
--- OUTSIDE RECORDS SUMMARY | 2024-11-25 11:31 | XMS_ITS | Data Portability ---
Author Organization [place] [facility], Allergy Address [address] [place] [address] Care Team Providers Care Motorcycle Repair Shop Supervisor Name Role Phone NOBLE COLEMAN Primary Care Provider [phone] Assessment Encounter Date Assessment Date Assessment LastModified by Organization Details LastModified Time 11/18/2024 11/18/2024 Reviewed with patient the options available for the latest amplification devices, the differences between makes/models of devices, and the importance of selecting the best make/model for their lifestyle and audiometric needs. Discussed the importance of optimizing the ability to perceive and understand speech by analyzing the output of devices using speech mapping as part of our real-ear verification procedure. The patient's concerns about using hearing devices were discussed. Taking into consideration the patient's lifestyle, personal preferences, severity of hearing loss & hearing handicap, a fitting of a pnyuizny-pw-nmz- canal hearing device is expected to provide a significant improvement in the patient's ability to communicate. The patient has a 100% coverage GRAYSON benefit at an in network provider and would like to investigate this option before ordering hearing aids through [employer] who is out of network. [email or web address] Not available 11/18/2024 10:39:01 Plan of Treatment Reminders Order Date Submit Date Provider Last Modified By Organization Details Last Modified Time Details Appointments Test Results 15 2024 08:15A M TISHA Victoria MD Not available Not available Not available Lab None recorded. Referral None recorded. Procedures None recorded. Surgeries None recorded. Imaging MRI, brain + internal auditory canal, w/wo contrast - MRI, BRAIN + INTERNAL AUDITORY CANAL, W/WO CONTRAST 2024 025 [facility] ([facility]), [address] [place], [address], 11/05/2024 15:28:05 Medication Orders None recorded. Patient TargetsNo targets recorded. Patient InstructionsNo instructions recorded. Reason for Referral None Reported. Results Created Date Observation Date Name Description Value Unit Range Abnormal Flag Note LastModifiedBy Organization Detail LastModifiedTime 10/20/19 audio gram No observ ation record ed. BARCODE Not Available 2024 10:44:55 11/05/19 25 11/04/2024 MRI, brain + brain stem, w/wo contr ast [facility] Access ion Number : [id number] [address] t Name: Сергей Harvey Record Number : [id number] Date of : 1949 Date of Exam: 2024 Referr ing Physic garima: Tisha Felipe Surgeo ns [facility] [address] [facility] [address] [place] [address] Exam: MR Brain (C-/C+ ) CPT 99929 [facility] CPT 70925 INDICA TION / [facility] ON: [...] the brain with attent ion to the phd internship al audito ry canals was perfor [...] or abnorm al enhanc ement in the phd internship al audito ry canals or cerebe [...] ms. Electr onical ly Signed By: Stephanie garcia [facility] ([facility]) [address] [facility], [place], [address], 11/16/2024 15:58:16 Result Notes None recorded. Problems Name Problem SNOMED Code Status Onset Date Resolution Date Notes Provider Name and Address Organization Details Recorded Time Sensorineur al hearing loss of bilateral ears 934893758 Active 2024 TARSHA PHILLIP, AuD [address] [address], [place], [phone], [facility] 5 09:52:04 Sensorineur al hearing loss in right ear 7287684011471 0 Active 2024 TISHA Victoria MD [address] [address], [place], [phone], [facility] - [facility] 5 10:18:17 Bilateral tinnitus 5329837934878 Active 2024 TISHA Victoria MD [address] [address], [place], [phone], [facility] - [facility] 10:18:43 Problem Notes None recorded. Procedures Surgical History Date Name Laterality Status Provider Name and Address Organization Details Recorded Time 10/20/2024 Comp Audio with Tymps (85488 & 18534) completed TARSHA PHILLIP, AuD [address] [facility],[address], [place], [address], [place] [facility] 10/20/2024 09:51:58 Imaging Results Imaging Date Name Status LastModified by Organiz ation Details LastModified Time 10/20/2024 audiogram completed BARCODE Information no t available 10/20/2024 10:44:55 11/04/2024 MRI, brain + brain stem, w/wo contrast completed radha [facility] ([facility]) [address] [facility], [place], [address], 11/16/2024 15:58:16 Procedure Notes None recorded. Medical Equipment None Reported. Medications Name Sig Start Date Stop Date Status Note LastModified by Organization Details LastModified Time atorvastatin 40 mg tablet TAKE 1 TABLET BY MOUTH EVERY DAY active Not Available Not Available No t Available aspirin 81 mg tablet,delay ed release TAKE 1 TABLET BY MOUTH EVERY DAY active Not Available Not Available No t Available tamsulosin 0.4 mg capsule TAKE 1 CAPSULE BY MOUTH EVERYDAY AT BEDTIME active Not Available Not Available No t [...] 0.5 MG (0.736 ML) SUBCUTANEOU SLY EVERY WEEKPAYA BLE 11/07/24 active Not Available Not Available Not Available Vitals None Recorded Social History None recorded. Functional Status None recorded. Mental Status None recorded. Family History Nothing Reported. Medical History No medical history recorded. Past Encounters Encounter ID Performer Location Encounter Start Date Encounter Closed Date Diagnosis/Indication Diagnosis SNOMED-CT Code Diagnosis ICD10 Code Diagnosis Note [id number] TISHA FARR MD [facility] [address] [address] 10/20/2024 09:18:08 10/20/2024 10:19:09 Sensorineural hearing loss of bilateral ears 411474965 H90.3 Audiologic al evaluation results:Ri ght ear:Mild to moderate from 250 through {{876 837 4544* 1500 2000 3000 4000 6000 8000}} Hz [...] rising to normal hearing from 500 through {{901 248 1903 1500 2000* 3000 4000 6000 8000}} Hz [...] Sensorineu ral hearing loss in right ear 8996813744 9100 H90.A21 Given the asymmetric hearing loss I recommend an MRI IAC with contrast to evaluate for retrocochl ear pathology. We will review results when complete. Bilateral tinnitus 81472 84782 102 H93.13 Ear exam was normal. Audiogram was reviewed. We discussed the associatio n between sensorineu ral hearing loss and tinnitus. We discussed masking for tinnitus. [id number] [address] 11/18/2024 10:15:07 11/19/2024 07:33:37 Sensorineural hearing loss of bilateral ears 504098351 H90.3 Health Concerns Section Related Observation LastModified by Organization Detai ls LastModified Time None Recorded Concern Status LastModified by Organization Details LastModified Time None Recorded Advance Directives Directive None Recorded Payers Encounter Date Sequence Insurance Name Policy Number Policy Chu Covered Member ID Chu Member ID Guarantor Name 10/20/2024 1 [facility] - DUAL ELIGIBLE - [employer] - SENIOR PLAN (MEDICARE REPLACEMENT/ ADVANTAGE - HMO) Сергей Harvey [id number] Сергей Harvey 11/18/2024 1 [facility] - DUAL ELIGIBLE - [employer] - SENIOR PLAN (MEDICARE REPLACEMENT/ ADVANTAGE - HMO) Сергей Harvey [id number] Сергей Harvey Notes Date Note Type Note Provider Name and Address Organization Details Recorded Time 10/20/2024 text/html Hx of gradual hearing loss over time. It has been worse on the right for years. Has tinnitus AU but worse AD. Audio showed asymmetric SNHL worse AD. TISHA FARR MD [address] [facility],[address] [address], [place], [address], [facility] - [facility] 10/20/2024 10:19:31 11/18/2024 text/html Patient returned to our office for the initial fitting of {{hearing devices* a hearing device in the right ear a hearing device in the left ear}} as a {{first time user of amplification longs tanding user of amplification longs tanding user of hearing devices longstandin g user of amplification in the right ear longstanding user of amplification in the left ear previously user of amplification (BTE style)#}}. They reportedly last used amplification ~10 years ago. They have reported significant difficulty communicating in {{adverse listening situations* both adverse listening situations and in quiet}} and amplification in the right earhas been recommended. Ana VEGA [address] [facility], [place], [address], [facility] 11/18/2024 10:39:32
--- OUTSIDE RECORDS SUMMARY | 2024-11-25 11:31 | XMS_ITS | Patient Health Record ---
Author Organization [facility] Address [address] [place] [address] Care Team Providers Care Woodwork Teacher Name Role Phone Neo Baig Primary Care Provider Jelena Peralta Unavailable [phone] Allergies No Known Allergies Reason For Referral [...] Name Neo Referring Provider Last Name [facility] Referred Provider Jelena Craig Referred Address [address] [facility],[place], [place],[address], Referred Provider Specialty Podiatry Referral Priority Routine [...] Problem Acquired hammer toe of right foot (5587456144498399 ) Other hammer toe(s) (acquired), right foot (M20.41) Active confirmed Problem Acquired hammer toe of left foot (4155925170910028 ) Other hammer toe(s) (acquired), left foot (M20.42) Active confirmed Problem Plantar wart (96085879) Plantar wart (B07.0) Active confirmed Problem Polyneuropathy due to type 2 diabetes mellitus (643024596) Type 2 diabetes mellitus with diabetic polyneuropathy (E11.42) Active confirmed Problem 37896607 Venous insufficiency (I87.2) Active confirmed Vital Signs Height 5ft 8in in 06/23/2024 Weight 219 lbs 06/23/2024 BMI 33.3 kg/m2 06/23/2024 Encounters Encounter Location Date Provider Diagnosis [address] [address] 01/27/2024 Jelena Craig Tinea pedis of both feet B35.3 ; Other hammer toe(s) (acquired), right foot M20.41 ; Other hammer toe(s) (acquired), left foot M20.42 ; Tinea unguium B35.1 ; Type 2 diabetes mellitus with diabetic polyneuropathy E11.42 ; Right foot pain M79.671 ; Plantar wart B07.0 and Left foot pain M79.[address] [address] 06/23/2024 Jelena Craig Other hammer toe(s) (acquired), right foot M20.41 ; Muscle cramp, nocturnal R25.2 ; Tinea pedis of both feet B35.3 ; Other hammer toe(s) (acquired), left foot M20.42 ; Tinea unguium B35.1 ; Type 2 diabetes mellitus with diabetic polyneuropathy E11.42 ; Right foot pain M79.671 ; Plantar wart B07.0 and Left foot pain M79.[address] [address] 04/27/2024 Jelena Craig [address] [address] 09/24/2024 Jelena Craig Assessments Encounter Date Diagnosis [...] B07.0) 06/23/2024 Plantar wart (ICD-10 - B07.0) 06/23/2024 Left foot pain (ICD-10 - M79.672) 01/27/2024 Left foot pain (ICD-10 - M79.672) Plan Of Treatment Pending Test Test Name Order Date [id number] NAIL, 6 OR MORE 09/02/2022 [id number]-[id number] SKIN LESIONS, OVER 4 09/02/20 22 Next Appt Details Provider Name:Jelena lee, 11/30/2024 02:45:00 PM, [address] [place] [address], [phone], Insurance Providers Payer Name Payer Address Payer Phone Subscriber Number Group Number Insured Name Patient Relationship to Insured Coverage Start Date Coverage End Date [facility] [address] [place] [phone] [id number] Сергей Harvey Self - patient is the insured Medical (General) History Medical History History ICD Code Arthritis CAD (Cholesterol) type II diabetes Gout osteoarthritis dizziness Auto Pap 6-20 Tinea Pedis Surgical History Surgery Date(Month/Year) kidney stones 08/2022
--- OUTSIDE RECORDS SUMMARY | 2024-11-25 11:32 | XMS_ITS ---
Author Organization [facility] Address [address] [place] [address] Care Team Providers Care Supervisor Waterproofing Name Role Phone Neo Baig Primary Care Provider Jelena Peralta [phone] REASON FOR VISIT cx appt Encounters Encounter Location Date Provider Diagnosis [facility] [address] [place] [address] 09/24/2024 Jelena Craig Plan Of Treatment Next Appt Details Provider Name:Jelena lee, 11/30/2024 02:45:00 PM, [address] [place], [address], Progress Notes * Tammy HARVEYOB:1950 (74 yo M)Acc No.[id number]:09/24/2024 Patient:?Сергей HARVEY :1950???Age:74 Y???Sex:Male Address:[address] [place] [address], [address] * true * Date:? Generated for Printi umesh/Dante/eTransmitting on:?11/25/2024 11:31 AM EST
--- OUTSIDE RECORDS SUMMARY | 2024-11-25 11:32 | XMS_ITS ---
Author Organization [facility] Address [address] [place] [address] Care Team Providers Care Blasting Coal Miner Name Role Phone Neo Baig Primary Care Provider Jelena Peralta Unavailable [phone] Allergies No Known Allergies REASON FOR VISIT [...] 06/23/2024 Encounters Encounter Location Date Provider Diagnosis [facility] [address] [address] 06/23/2024 Jelena Craig Other hammer toe(s) (acquired), [...] Provider Name:Jelena lee, 11/30/2024 02:45:00 PM, [address] [place], [address], Procedure Notes * Category Sub-Category Detail Notes Wart Treatment Procedure Verrucae were de brided to pin-point bleeding margins with sterile 15 surgical blade, silver nitrate chemocautery applied, recomm. immune-boosting meds such as zinc, recomm. follow up with topical chemosurgical agents, Pt defers any other forms of tx (39637) Debride Nail 6-10 Nail debridement Nail debridem ent performed extensively to reduce/remove overall nail length, girth, thickness, subungual debris, and necrotic tissue, by manual and electrical means through the use of a nail nipper and/or dremel, to more viable healthy nail plate or bed tissue 1-5. Silver nitrate used for any petechial bleeding as necessary. Patient chooses, no pharmaceutical tx (16387) Keratoma Treatment Parring or Cutting o f Benign Hyperkeratotic Lesion(s) 40122 ( More than 4 Lesions ) - The Benign hyperkeratotic lesions, as described above were pared, and/or cut utilizing a sterile 15 blade, tissue nippers, and/or dremel Progress Notes * Tammy HARVEYOB:1950 (74 yo M)Acc No.[id number]:06/23/2024 Progress Note Patient:?Сергей Harvey Provider:?Jelena Craig DPM :1950???Age:74 Y???Sex:Male Humphrey e:06/23/2024 Address:[address] [place], [place] [id number] Pcp:Neo Baig Subjective: * Chief Complaints: * [...] reviewed and reconciled with the patient * Allergies:?N.K.D.A.yes[Aller gies Verified] Objective: * Vitals:?Ht:5ft 8in, Wt:219, BMI:33.3, Shoe size:10.5, BS:not taken, Ht-cm: 172.72 cm, Wt-k.34 kg. * Examination: ???Ophthalmology Referral: ?DIABETES EYE EXAM?Diabetic Retinopathy Screening:?No ?Findings of Diabetic Eye Exam:?no retinopathy?Neurological: ?SENSORY:? Neurological exam demonstrates, reduced light touch [...] for office visit today.?ORIENTED:?person, place, and time.?FOOT EXAM:?Lower Extremity Neurological Exam performed:?Yes ?Footwear Evaluation?Footwear Evaluation performed:?Yes??? Assessment: * Assessment: 1.?Other hammer toe(s) (acqu [...] as necessary. Patient chooses, no pharmaceutical tx (37628).?Keratoma Treatment:?Parring or Cutting of Benign Hyperkeratotic Lesion(s)?56452 ( More than 4 Lesions ) - The Benign hyperkeratotic lesions, as described above were pared, and/or cut utilizing a sterile 15 blade, tissue nippers, and/or dremel.?Wart Treatment:?Procedure?Verrucae were debrided to pin-point bleeding margins with sterile 15 surgical blade, silver nitrate chemocautery applied, recomm. immune-boosting meds such as zinc, recomm. follow up with topical chemosurgical agents, Pt defers any other forms of tx (59942).? * Procedure Codes:?89080 DEBRI DE NAIL, 6 OR MORE, Modifiers: XS 48006 Wart Destruction, 1-14, Modifiers: XS 38340 TRIM SKIN LESIONS, OVER 4, Modifiers: XS [...] * Sign off status: Completed true * Provider:?Jelena Craig, DPM Date:?10/2023 Generated for Fermín calvo/Dante/Rich on:?11/25/2024 11:32 AM EST History and Physical Notes * [...] Course: worse Treatments: Pt had ultrasound ye sterday, awaiting results Examination Category Sub-Category Detail Notes [...]
--- OUTSIDE RECORDS SUMMARY | 2024-11-25 11:32 | XMS_ITS | Continuity of Care Document ---
Author Organization [place] [facility] Address [address] [place] [address] Care Team Providers Care Securities Broker Name Role Phone NOBLE COLEMAN Primary Care Provider [phone] Assessment Encounter Date Assessment Date Assessment LastModified [...] & hearing handicap, a fitting of a nctlbdea-cb-vzs- canal hearing device is expected to provide a significant improvement in the patient's ability to communicate. The patient has a 100% coverage GRAYSON benefit at an in network provider and would like to investigate this option before ordering hearing aids through [employer] who is out of network. [email or web address] Not available 11/18/2024 10:39:01 Plan of Treatment Reminders Order Date Submit Date Provider Last Modified By Organization Details Last Modified Time Details Appointments Test Results 15 2024 08:15A M TISHA Victoria MD Not available Not available Not available Lab None recorded . Referral None recorded . Procedures None recorded . Surgeries None recorded . Imaging None recorded . Medication Orders None recorded . Patient TargetsNo targets recorded. Patient InstructionsNo instructions recorded. Reason for Referral None Reported. Results Created Date Observation Date Name Description Value Unit Range Abnormal Flag Note LastModifiedBy Organization Detail LastModifiedTime 10/20/19 25 audio gram No observ ation record ed. BARCODE Not Available 2024 10:44:55 11/05/19 25 11/04/2024 MRI, brain + brain stem, w/wo contr ast [facility] Access ion Number : [id number] Abimael stone Name: Сергей Harvey Record Number : [id number] Date of : 1949 Date of Exam: 2024 Referr ing Physic garima: Anson harris, Tisha [facility] [place] [address] [facility] [place] [address] Exam: MR Brain (C-/C+ ) CPT 68002 Room Descri ption: Banner Pion 3T MR Brain (C-/C+ ) CPT 83094 INDICA TION / CLINIC AL QUESTI ON: [...] the brain with attent ion to the international accounting manager al audito ry canals was perfor med [...] or abnorm al enhanc ement in the international accounting manager al audito ry canals or cerebe llopon [...] Electr onical ly Signed By: Stephanie garcia [facility] ([facility]) [address] [facility], [place], [address], 11/16/2024 15:58:16 Result Notes None recorded. Problems Name Problem SNOMED Code Status Onset Date Resolution Date Notes Provider Name and Address Organization Details Recorded Time Sensorineur al hearing loss of bilateral ears 719843120 Active 20[address] VEGA [address] [place] [address], [place], [address], [facility] 5 09:52:04 Sensorineur al hearing loss in right ear 5278012514012 0 Active 2024 TISHA Victoria MD [address] [address], [place], [address], [facility] 5 10:18:17 Bilateral tinnitus 3538189089753 Active 2024 TISHA Victoria MD [address] [place] [address], [place], [address], [facility] 5 10:18:43 Problem Notes None recorded. Procedures Surgical History Date Name Laterality Status Provider Name and Address Organization Details Recorded Time 10/20/2024 Comp Audio with Tymps (04814 & 38459) completed Ana VEGA [address] [facility],[address] [address], [place], [address], [place] [facility] 10/20/2024 09:51:58 Imaging Results None recorded. Procedure [...] SNOMED-CT Code Diagnosis ICD10 Code Diagnosis Note [id number] TISHA FARR MD [facility] [address] [place] [address] 10/20/2024 09:18:08 10/20/2024 10:19:09 Sensorineural hearing loss of bilateral ears [id number] H90.3 Audiologic al evaluation results:Ri ght ear:Mild to moderate from 250 through {{448 614 7217* 1500 2000 3000 4000 6000 8000}} Hz [...] rising to normal hearing from 500 through {{983 795 7442 1500 2000* 3000 4000 6000 8000}} Hz [...] Sensorineu ral hearing loss in right ear [id number] 9100 H90.A21 Given the asymmetric hearing loss I recommend an MRI IAC with contrast to evaluate for retrocochl ear pathology. We will review results when complete. Bilateral tinnitus 28271 00879 102 H93.13 Ear exam was normal. Audiogram was reviewed. We discussed the associatio n between sensorineu ral hearing loss and tinnitus. We discussed masking for tinnitus. [id number] Ana VEGA [place] [address] [facility],[address] [place] [address] 11/18/2024 10:15:07 11/19/2024 07:33:37 Sensorineural hearing loss of bilateral ears 578180032 H90.3 Health Concerns Section Related Observation LastModified by Organization Detai ls LastModified Time None Recorded Concern Status LastModified by Organization Details LastModified Time None Recorded Payers Encounter Date Sequence Insurance Name Policy Number Policy Chu Covered Member ID Chu Member ID Guarantor Name 11/18/2024 1 [facility] - DUAL [facility]IG[facility] - [facility] [place] (MEDICARE REPLACEMENT/ ADVANTAGE - HMO) Сергей Harvey [id number] Сергей Harvey Notes Date Note Type Note Provider Name and Address Organization Details Recorded Time 11/18/2024 text/html Patient returned to our office [...] right earhas been recommended. Ana VEGA [address] [facility] [address], [place], [address], [facility] 11/18/2024 10:39:32
== END 2024-11-25 10:18 | disposition home or self-care (01) ==
PROVIDERS: PCP Internal Medicine; Visit Provider Surgery Vascular Surgery
DX: I83.11 Varicose veins of right lower extremity with inflammation (principal)
CPT/HCPCS: 99213

== ENCOUNTER → 2024-11-25 09:55 | Outpatient (BNVA) | payer OTHER, SELFPAY | PROVIDERS: PCP Internal Medicine; Visit Provider Surgery Vascular Surgery | DX: I83.11 Varicose veins of right lower extremity with inflammation (principal) | CPT/HCPCS: 99212 ==

== ENCOUNTER 2024-12-03 09:57 | Outpatient (AMB) | payer OTHER, SELFPAY ==
[2024-12-03 10:00] VITALS: BP 114/68; PULSE 68; O2SAT 98; BMI 33.4
--- NOTE | 2024-12-03 10:00 | MHC.PC.OV ---
Vital Signs 12/03/24 10:00 Height 5 ft 8 in Weight 220 lb BMI 33.4 BP 114/68 Blood Pressure Location Lt brachial Position Sitting Pulse 68 Pulse Source Pulse Oximeter Pulse Oximetry (%) 98 Oxygen Delivery Method Room Air Intake Visit Reasons: DM Allergies No Known Allergies Allergy (Verified 12/03/24 10:03) Tobacco use date assessed: 10/14/24 Fall risk assessment: No Falls in past year Last assessed Fall Risk: 12/03/24 Dental Screening Dental Screen Date: 12/03/24 Did you have a dental visit in the last 12 months?: No Did you have a dental problem in the last 6 months where you did not have access to dental care?: No Was dental information given to patient?: No PFSH Medical History Obstructive sleep apnea Coronary artery disease Abdominal wall abscess Hearing difficulty Hypertension Nephrolithiasis Flank pain Constipation Dizziness Obesity (BMI 30-39.9) Tubular adenoma of colon Polysubstance abuse Knee osteoarthritis Degenerative disc disease, lumbar Osteoarthritis of right shoulder Ascending aorta dilatation History of renal calculi GERD (gastroesophageal reflux disease) Vitamin D deficiency Peripheral vascular disease Hypercholesterolemia COPD (chronic obstructive pulmonary disease) Surgical History Hx of cardiac cath Hx laparoscopic cholecystectomy Hx of colonoscopy History of esophagogastroduodenoscopy (EGD) Family History Father Stroke Heart attack Mother No problems noted. Sister Breast cancer Social History Household Members: Spouse Housing: House Do you presently have visiting nurse or other home services: No Alcohol intake: former Year quit: 2009 Patient Tobacco Use Status: Never used Tobacco Tobacco use type: Cigarette e-Cigarette/Vaping Use: Never Used Second Hand Smoke Exposure: No service: No Current occupational status: retired and disabled Cognitive needs: No Hearing needs: No Vision needs: Yes Questionnaire PHQ-9 Over the last 2 weeks, how often have you been bothered by any of the following problems? 1. Little interest or pleasure in doing things: not at all 2. Feeling down, depressed, or hopeless: not at all 3. Trouble falling or staying asleep, or sleeping too much: not at all 4. Feeling tired or having little energy: not at all 5. Poor appetite or overeating: not at all 6. Feeling bad about yourself - or that you are a failure or have let yourself or your family down: not at all 7. Trouble concentrating on things, such as reading the newspaper or watching television: not at all 8. Moving or speaking so slowly that other people could have noticed. Or the opposite - being so fidgety or restless that you have been moving around a lot more than usual: not at all 9. Thoughts that you would be better off or of hurting yourself in some way: not at all Total score: 0 Depression Screening Interpretation: Negative Depression Screening Done: Yes Source: Developed by Drs. Trae Bailey, Sakshi Ren, Master King and colleagues, with an educational osmel from [employer]. Thrive Questionnaire Date Thrive assessed: 10/14/24 AUDIT C Alcohol Use Questionnaire (AUDIT-C) 1. How often do you have a drink containing alcohol?: Never 2. How many drinks containing alcohol do you have on a typical day when you are drinking?: 1 or 2 (0) 3. How often do you have six or more drinks on one occasion?: Never Total Score: 0 AMAURY-7 AMB Questionnaire AMAURY-7 Date AMAURY - 7 assessed: 10/14/24 Source: Developed by Drs. Trae Bailey, Sakshi Ren, Master King and colleagues, with an educational osmel from [employer]. Physical exam (Primary Care) Vital Signs: Last Vital Signs Pulse 68 12/03/24 10:00 BP 114/68 12/03/24 10:00 Pulse Ox 98 12/03/24 10:00 Oxygen Delivery Method Room Air 12/03/24 10:00 BMI result Body Mass Index 33.4 Tobacco/Smoking Status: Tobacco use Status Tobacco use date assessed 10/14/24 12/03/24 10:13 Patient Tobacco Use Status Never used Tobacco 12/03/24 10:13 Tobacco use type Cigarette 12/03/24 10:13 e-Cigarette/Vaping Use Never Used 12/03/24 10:13 PHQ-9: PHQ-9 Score PHQ-9: Total score 0 12/03/24 10:31 Depression Screening Interpretation: Negative Thrive Assessment: Date of Thrive Assessment Date Thrive assessed 10/14/24 12/03/24 10:13 Const General: alert; No acute distress Eyes Conjunctivae: conjunctivae normal Resp Auscultation: clear to auscultation bilaterally Cardio Rate: regular rate Rhythm: regular rhythm GI Inspection: Yes normal to inspection Extrem General: Yes normal to inspection and No edema Coding Level of Care Code Est Pt Level 4 (68448) Complex EM visit Add On G2211 Diagnoses Ischemic cardiomyopathy I25.5 BPH loc w urin obs/LUTS N40.1 Type 2 diabetes mellitus with hyperglycemia, without long-term current use of insulin E11.65 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 use: without usp use Essential hypertension I10 Atherosclerotic cardiovascular disease I25.10 Peripheral vascular disease I73.9 Obesity (BMI 30-39.9) E66.9 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 (3) Type 2 diabetes mellitus with hyperglycemia: Comment: Dr. 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 Hemoglobin A1c goal of less than 7.0 hemoglobin A1c is at goal (4) Essential hypertension: Code(s): I10 - Essential (primary) hypertension Category: Medical Plan: Continue with blood pressure medication. Decrease salt intake and exercise on hydrochlorothiazide lisinopril metoprolol (5) Atherosclerotic cardiovascular disease: Comment: Cardiac catheterization November 2022 minimal irregularities Code(s): I25.10 - Atherosclerotic heart disease of [place] coronary artery without angina pectoris Category: Medical Plan: Control the cholesterol, weight, blood pressure, diabetes continue with aspirin (6) Peripheral vascular disease: Code(s): I73.9 - Peripheral vascular disease, unspecified Category: Medical Plan: Patient follows up with vascular had right GSV ablation doing good continuing to monitor (7) Obesity (BMI 30-39.9): Code(s): E66.9 - Obesity, unspecified Category: Medical Plan: Diet and exercise (8) COPD (chronic obstructive pulmonary disease): Comment: HE MAY HAVE VERY MILD DEGREE OF CHRONIC OBSTRUCTIVE PULMONARY DISEASE, AND IS STAYING RELATIVELY ASYMPTOMATIC. PLAN WAS TO DO A PULMONARY FUNCTION TEST, AND THEN DECIDE IF HE IS GOING TO NEED SOME BRONCHODILATOR INHALER. IT HAS NOT BEEN DONE YET . Code(s): J44.9 - Chronic obstructive pulmonary disease, unspecified Category: Medical Qualifiers: COPD type: emphysema Emphysema type: panlobular Qualified Code(s): J43.1 - Panlobular emphysema Plan: Stable (9) Hypercholesterolemia: Code(s): E78.00 - Pure hypercholesterolemia, unspecified Category: Medical Plan: Avoid fried foods, chicken skin, eggs, butter margarine, pastries and meat. Be it pork or beef they have a lot of cholesterol LDL goal of less than 70 and triglyceride of less than 150 on atorvastatin 40 mg once a day 07/11/2024 last blood work Plan History of Present Illness The patient is a 74-year-old male presenting with a follow-up visit for multiple chronic medical conditions, including COPD, hypercholesterolemia, GERD, and cardiovascular issues. He has been managed for ascending aortic dilatation and tubular adenoma in the past. His diabetes is controlled with the current hemoglobin A1c at goal, and he maintains a stable cholesterol level with medication. The patient underwent right great saphenous vein ablation for peripheral vascular disease and was initiated on Ozempic since the last visit. Urinary frequency is being managed with tamsulosin, and recent assessments have ruled out nephrolithiasis. He has been referred for hearing loss evaluation and reports mild anemia from recent blood work. The patient manages episodes of syncope and arthritic back pain. Health Maintenance - Cholesterol management with atorvastatin, maintaining LDL at 50. - Diabetes management with hemoglobin A1c at goal. - Blood pressure managed through hydrochlorothiazide, lisinopril, and metoprolol. - Regular follow-up for peripheral vascular disease post-surgical intervention. - Screening for anemia with regular blood work. - Management of skin dryness using moisturizers. Social History - Reports potential need for assistance with medication administration (Ozempic). - Discussed recommendations for avoiding driving post-surgical procedures. - Advised regarding lifestyle modifications post-vascular surgery. Review of Systems - Cardiovascular: Reports back pain, potentially arthritic in nature. - Integumentary: Reports dry skin. Physical Exam Results - Labs: Hemoglobin 13.8 (mild anemia noted), LDL 50 - Diagnostics: Renal ultrasound indicating low postvoid residual, normal prostate gland Plan The patient will continue his current management for COPD and will regularly monitor his condition. For hypercholesterolemia, the LDL goal is set under 70, with atorvastatin being administered as needed, ensuring lipid levels stay within range. GERD management will be upheld with lifestyle and dietary changes to alleviate symptoms. The ascending aortic dilatation will require ongoing monitoring via imaging studies. Tubular adenomas need colonoscopic follow-up for any changes. Atherosclerotic cardiovascular disease is addressed with aspirin and lifestyle modifications. Blood pressure management will be maintained via hydrochlorothiazide, lisinopril, and metoprolol. The diabetes regimen including Ozempic will be continued with close monitoring of blood glucose and hemoglobin A1c levels. Nephrolithiasis management through tamsulosin and lifestyle advice will be sustained. Following right great saphenous vein ablation, vascular health will be monitored. Hearing evaluation is pending, and dry skin will continue to be managed with topical agents. Patient was informed and verbally consented to the use of an ambient scribe for clinic note documentation during this visit. Discussion Notes I discussed with the patient his current management plan for his multiple chronic conditions and emphasized the importance of adherence to prescribed medications and lifestyle modifications. We spoke about the risks and benefits of current medications, and the patient was advised on monitoring parameters for his conditions, including blood glucose levels for diabetes and symptom tracking for his cardiovascular conditions. I provided information about the echocardiogram ordered for further assessment of ischemic cardiomyopathy. The patient was informed about the need for regular follow-up appointments to monitor his health status and adjust treatment as necessary. I also highlighted the necessity of staying in contact regarding any new or worsening symptoms. Patient Instructions - Continue all current medications as prescribed. - Monitor blood pressure and blood glucose levels regularly. - Apply moisturizer daily to manage dry skin. - Follow dietary and lifestyle recommendations, focusing on a healthy diet and regular exercise. - Schedule and attend follow-up appointments for periodic health evaluations. - Contact the office if symptoms worsen or new symptoms arise. Medications: Changed From semaglutide (Ozempic) 0.5 mg (0.736 mL) subcut QWEEK 3 mL 0RF I77.810 - Thoracic aortic ectasia To semaglutide (Ozempic) 0.25 mg (0.368 mL) subcut QWEEK 1.84 mL 0RF 30 days I77.810 - Thoracic aortic ectasia Refilled semaglutide (Ozempic) 0.5 mg (0.736 mL) subcut QWEEK 3 mL 0RF I77.810 - Thoracic aortic ectasia
--- OUTSIDE RECORDS SUMMARY | 2024-12-03 11:09 | XMS_ITS ---
Author Organization [facility] Address [address] [place] [address] Care Team Providers Care Tree Girdler Name Role Phone Neo Baig Primary Care Provider Jelena Peralta Unavailable [phone] Allergies No Known Allergies REASON FOR VISIT At Risk Footcare, Skin Problem, Wart(s) Medications Medication SIG (Take, Route, Frequency, Duration) [...] Once a day for 30 day(s) Active Senna-S 8.6-50 MG 1 tablet as needed Orally Twice a day Active Miconazole Nitrate A ctive Atorvastatin Calcium 40 MG 1 tablet Orally Once a day for 30 day(s) Active Clotrimazole Active Aspirin 81 MG 1 tablet Orally Once a day for 30 day(s) Active Social History Tobacco Use: Social History Observation Description Date Details (start date - stop date) Never Smoker NA - NA Tobacco use other than smoking: Question Answer Notes Are you an other tobacco user? No Tobacco Control (Standard) Question Answer Notes Tobacco use: Nonsmoker Vital Signs Blood pressure systolic 127 mm Hg 12/01/19 25 Blood pressure diastolic 89 mm Hg 025 Height 5ft8in in 11/30/2024 Weight 225 lbs 11/30/2024 BMI 34.21 kg/m2 11/30/2024 Encounters Encounter Location Date Provider Diagnosis [facility] [address] [address] 11/30/2024 Jelena Craig Tinea pedis of both feet B35.3 ; Tinea unguium B35.1 ; Type 2 diabetes mellitus with diabetic polyneuropathy E11.42 ; Right foot pain M79.671 ; Plantar wart B07.0 and Left foot pain M79.672 Assessments Encounter Date Diagnosis (ICD Code) Assessment Notes Treatment Notes Treatment Clinical Notes Section Notes 11/30/2024 Tinea pedis of both feet (ICD-10 - B35.3) 11/30/2024 Tinea unguium (ICD-10 - B35.1) 11/30/2024 Type 2 diabetes mellitus with diabetic polyneuropathy (ICD-10 - E11.42) 11/30/2024 Right foot pain (ICD-10 - M79.671) 11/30/2024 Plantar wart (ICD-10 - B07.0) 11/30/2024 Left foot pain (ICD-10 - M79.672) Plan Of Treatment Next Appt Details Follow Up: 3 Months, Reason: Provider Name:Jelena lee, 03/08/2025 01:00:00 PM, [address] [place] [address], [phone], Procedure Notes * Category Sub-Category Detail Notes Wart Treatment Procedure Verrucae were de brided to pin-point bleeding margins with sterile 15 surgical blade, silver nitrate chemocautery applied, recomm. immune-boosting meds such as zinc, recomm. follow up with topical chemosurgical agents, Pt defers any other forms of tx (35946) Debride Nail 6-10 Nail debridement Due to the cl inical pathology outlined in the exam findings, performance of this nail treatment is medically necessary as its management by an unskilled/untrained nonprofessional would put this patients foot and overall health at risk. Therefore, debridement to affected nail(s), as described in exam ( TA, T1, T2, T3, T4, T5, T6, T7, T8, T9, ), was performed exclusively by the physician of record to reduce/remove overall nail length, girth, thickness, subungual debris, and necrotic tissue, by manual and/or electrical means through the use of a nail nipper and/or dremel-type drill grinder, to a more viable healthy nail plate or bed tissue 6-10 nails in total. Silver nitrate was used for any petechial bleeding as necessary. Definitive antifungal treatment options, both pharmaceutical and surgical, have been reviewed and discussed with the patient. The patient solely prefers the use of intermittent/as needed professional debridement services for their nail condition and understands the need for additional periodic treatments to maintain effectiveness in symptomatic relief - 13676 Keratoma Treatment Parring or Cutting o f Benign Hyperkeratotic Lesion(s) (-57) More than 4 Lesions - Due to the at risk nature of the patients medical condition as documented in the exam findings, performance of this keratoderma treatment is medically necessary as its management by an unskilled/untrained nonprofessional would put this patients foot and overall health at risk. Therefore, the benign hyperkeratotic lesions, ( 5 ) in total, locations as stated and described in the exam ( TA, T5, Heels B/L, Sub 3 right ), were pared, and/or cut utilizing a sterile 15 blade, tissue nippers, and/or power dremel instrumentation by the physician of record - 54070 Progress Notes * Tammy HARVEYOB:1950 (74 yo M)Acc No.[id number]:11/30/2024 Progress Note Patient:?MEGHAN Сергей Provider:?Jelena Craig DPM :1950???Age:74 Y???Sex:Male Humphrey e:11/30/2024 Address:[address] [place] [address], [facility] Pcp:Neo Baig Subjective: * Chief Complaints: * ???At Risk FootcareSkin Prob lemWart(s) * HPI: ???At Risk footcare:?Pt States Last PCP Visit:?Date?06/08/2024 ? Presents with son who provides translation. ???Skin problems:?Pt States PCP Visit: ?DATE?01/07/2024 ?Nature:?scaling , redness.?Location:?B/L .?Course:?worse.? * ROS:?General/Constitutional:?Nausea?denies.?Vomiting?denies.?Hunger Thirst?denies.?Loss appetite?denies.?Chills?denies.?Fatigue?denies.?Fever?denies.?Night Sweats?denies.?Unexplained weight loss?denies.?Unexplained weight gain?denies.?HEENTM:?Dentures?denies.?Dizziness?denies.?Glasses/contacts?denies.?Retinopathy?de nies.?Blurred/double vision?denies.?TMJ?denies.?Discharge/drainage?denies.?Implants?denies.?Sore throat?denies.?Dental implants?denies.?Hard of hearing ?denies.?Difficulty chewing/swallowing/speaking?denies.?Nose bleeds?denies.?Sore mouth?denies.?Respiratory:?On Oxygen?denies.?Pneumonia/pleurisy?denies.?Bronchitis?denies.?Emphysema?denies.?C oughing?denies.?Cough blood?denies.?Shortness of breath?denies.?Wheezing?denies.?Cardiovascular:?Pacemaker?denies.?MVP?denies.?WPW?denies.?CHF?denies.?Heart attack?denies.?Septal defect?denies.?Rapid beat?denies.?Chest pain ?denies.?Atrial Fib.?denies.?Murmur/Palpitations?denies.?Gastrointestinal:?Hemorrhoids?denies.?Stomach/Abdominal pain?denies.?Dark blood stool?denies.?Irritable bowel ?denies.?Constipation?denies.?Diarrhea?denies.?Hematology:?Swelling?denies.?Clots?denies.?Varicose Veins?denies.?Bruising?denies.?Bleeding problem?denies.?Genitourinary:?Blood urine?denies.?Frequent/Painfu/urination/bladder control?denies.?Kidney stones?denies.?Infection (UTI)?denies.?Nephropathy?denies.?sex trans dis (STD)?denies.?Prostate?denies.?Musculoskeletal:?Hammertoes?denies.?Bunions?denies.?Back Pain?denies.?Muscle Cramps/ Resting?denies.?Muscle cramps / walking?denies.?Generalized aches and pains?denies.?Weakness?denies.?Integ.:?Mathews?denies.?Scars?denies.?Corns/calluses?denies.?Ingrown nails?denies.?Painful nails?denies.?Open Sores?denies.?Rashes?denies.?Neurologic:?Difficulty sleeping?denies.?Brain disorder?denies.?Numbness?denies.?Balance trouble?denies.?Confusion?denies.?Fainting/blackouts?denies.?Tingling?denies.?Tr emors?denies.? * Medical History:? * Surgical History:?kidney sto te 08/2022 * Hospitalization/Major Diagno stic Procedure:?Denies Past Hospitalization * Family History:?Mother: dece ased.?Father: .? * Social History:?Tobacco Use:?Tobacco use other than smoking?Are you an other tobacco user??No ?Tobacco Control (Standard)?Tobacco use:?Nonsmoker ???Miscellaneous:?Caffeine: yes, frequency: 3 cups per day. ?Children: yes. ?Exercise: no. ?Marital status: . ?Occupation: Retired. * Medications:?TakingzzzCompre ssion Stockings 20-30mm Hg 1 pair closed toe- knee high . . . Miconazole Nitrate Clotrimazole Aspirin 81 MG Tablet Chewable 1 tablet Orally Once a day Atorvastatin Calcium 40 MG Tablet 1 tablet Orally Once a day Meloxicam 7.5 MG Tablet 1 tablet Orally Once a day amLODIPine Besylate 5 MG Tablet 1 tablet Orally Once a day Furosemide 20 MG Tablet 1 tablet Orally Once a day Omeprazole , Notes to Pharmacist: 300 mg 3x per daySenna-S 8.6-50 MG Tablet 1 tablet as needed Orally Twice a day Ciclopirox Olamine 0.77 % Cream 1 application Externally Once a day Clotrimazole-Betamethasone 1-0.05 % Cream 1 application to affected area Externally Twice a day to affected areas on feet Extra Depth Orthopedic Shoes (1 Pair) with Customized Heat Molded Multidensity Innersoles (3 Pair) as directed Dx: NIDDM/Polyneuropathy (E11.42), Hammertoe Foot Deformity (M20.41,M20.42), Preulcerative Skin Lesion(s) (L85.1 Ciclopirox Olamine 0.77 % Cream 1 application to affected area Externally Twice a day to effected areas on feet Medication List reviewed and reconciled with the patientTaking zzzCompression Stockings 20-30mm Hg 1 pair closed toe- knee high . . . Taking Miconazole Nitrate Taking Clotrimazole Taking Aspirin 81 MG Tablet Chewable 1 tablet Orally Once a day Taking Atorvastatin Calcium 40 MG Tablet 1 tablet Orally Once a day Taking Meloxicam 7.5 MG Tablet 1 tablet Orally Once a day Taking amLODIPine Besylate 5 MG Tablet 1 tablet Orally Once a day Taking Furosemide 20 MG Tablet 1 tablet Orally Once a day Taking Omeprazole , Notes to Pharmacist: 300 mg 3x per dayTaking Senna-S 8.6-50 MG Tablet 1 tablet as needed Orally Twice a day Taking Ciclopirox Olamine 0.77 % Cream 1 application Externally Once a day Taking Clotrimazole-Betamethasone 1-0.05 % Cream 1 application to affected area Externally Twice a day to affected areas on feet Taking Extra Depth Orthopedic Shoes (1 Pair) with Customized Heat Molded Multidensity Innersoles (3 Pair) as directed Dx: NIDDM/Polyneuropathy (E11.42), Hammertoe Foot Deformity (M20.41,M20.42), Preulcerative Skin Lesion(s) (L85.1 Taking Ciclopirox Olamine 0.77 % Cream 1 application to affected area Externally Twice a day to effected areas on feet Medication List reviewed and reconciled with the patient * Allergies:?N.K.D.A.yes[Aller gies Verified] Objective: * Vitals:?Ht: 5ft8in, Wt:225, BMI:34.21, Shoe size: 10.5, BP:127/89mm Hg, BS: not taken, Ht-cm: 172.72 cm, Wt-k.06 kg. * Examination: ???Ophthalmology Referral: ?DIABETES EYE EXAM?Procedure Performed:?No ?Eye Exam not performed:?No reason specified?Neurological: ?SENSORY:? Neurological exam demonstrates, reduced light touch sensation, reduced sharp/dull pin prick discrimination , B/L, 5.07 monofilament test performed at plantar aspects of 5 varied sites per foot shows sensation, reduced , B/L.?Nails: ?NAILS are:?Elongated, overgrown, dystrophic, lytic, greater than 3mm thick, discolored and friable with crumbly malodorous subungual debris with dull to no pain on palpation due to neuropathy , TA, T1, T2, T3, T4, T5, T6, T7, T8, T9.?Dermatologic: ?SKIN FINDINGS:? Skin exam reveals Keratotic lesion(s) located at TA, T5, Heels B/L, Sub 3 right, , Skin shows cont sign(s) of, erythema, scaling, in a moccasin fashion, no fissure(s) present, B/L.?VERRUCA:? Reveals Multiple ( 4), multi-loculated , mosaic-patterned, round, raised, flat-topped, petechial bleeding papule(s), with cauliflower appearance and interruption of skin lines, with pain to lateral compression, and size estimated at 3mm diameter plantar Forefoot B/L.?Vascular: ?DP PULSES (B):?3/4, B/L.?PT PULSES (B):?3/4, B/L.?CAPILLARY FILL TIME:?immediate, all digits, B/L.?TROPHIC CONDITION-TEXTURE/ELASTICITY/TURGOR/HAIR GROWTH (B):?normal, B/L.?TEMPERTURE GRADIENT (C):? normal, warm to cool, proximal to distal, [...] and time.?FOOT EXAM:?Lower Extremity Neurological Exam performed:?Yes ?Visual exam of foot performed:?Yes ?Date?11/30/2024 ?Footwear Evaluation?Footwear Evaluation performed:?Yes??? Assessment: * Assessment: 1.?Tinea unguium - B35.1???2 .?Tinea pedis of both feet - B35.3 (Primary)???3.?Type 2 diabetes mellitus with diabetic polyneuropathy - E11.42???4.?Right foot pain - M79.671???5.?Plantar wart - B07.0???6.?Left foot pain - M79.672??? Plan: * Treatment: * Procedures:?Debride Nail 6-10:?Nail debridement?Due to the clinical pathology outlined in the exam findings, performance of this nail treatment is medically necessary as its management by an unskilled/untrained nonprofessional would put this patients foot and overall health at risk. Therefore, debridement to affected nail(s), as described in exam ( TA, T1, T2, T3, T4, T5, T6, T7, T8, T9, ), was performed exclusively by the physician of record to reduce/remove overall nail length, girth, thickness, subungual debris, and necrotic tissue, by manual and/or electrical means through the use of a nail nipper and/or dremel-type drill grinder, to a more viable healthy nail plate or bed tissue 6- 10 nails in total. Silver nitrate was used for any petechial bleeding as necessary. Definitive antifungal treatment options, both pharmaceutical and surgical, have been reviewed and discussed with the patient. The patient solely prefers the use of intermittent/as needed professional debridement services for their nail condition and understands the need for additional periodic treatments to maintain effectiveness in symptomatic relief - 51209.?Keratoma Treatment:?Parring or Cutting of Benign Hyperkeratotic Lesion(s)?(-57) More than 4 Lesions - Due to the at risk nature of the patients medical condition as documented in the exam findings, performance of this keratoderma treatment is medically necessary as its management by an unskilled/untrained nonprofessional would put this patients foot and overall health at risk. Therefore, the benign hyperkeratotic lesions, ( 5 ) in total, locations as stated and described in the exam (??TA, T5, Heels B/L, Sub 3?right?), were pared, and/or cut utilizing a sterile 15 blade, tissue nippers, and/or power dremel instrumentation by the physician of record - 74425.?Wart Treatment:?Procedure?Verrucae were debrided to pin-point bleeding margins with sterile 15 surgical blade, silver nitrate chemocautery applied, recomm. immune-boosting meds such as zinc, recomm. follow up with topical chemosurgical agents, Pt defers any other forms of tx (38871).? * Procedure Codes:?22083 DEBRI DE NAIL, 6 OR MORE, Modifiers: XS 86797 Wart Destruction, 1-14, Modifiers: XS 30697 TRIM SKIN LESIONS, OVER 4, Modifiers: XS [...] have encouraged the patient to call the office.?Tinea Pedis:?PREVENTIVE STRATEGIES were reviewed with the patient to avoid recurrent issues ..? * Follow Up:?3 Months * Images: * Sign off status: Completed true * Provider:?Jelena Craig DPM Date:?07/2025 Generated for Fermín calvo/Dante/Rich on:?12/03/2024 11:09 AM EDT History and Physical Notes * HPI (History of Present Illness) Category Sub-Category Detail Notes Category Not es Skin problems Nature: scaling , redness Location: B/L Course: worse Pt States PCP Visit: DATE: 01/07/2024 At Risk footcare Pt States Last PCP Visit: Date: 06/08/2024 Presents with son wh o provides translation Examination Category Sub-Category Detail Notes Category Not es Neurological SENSORY: Neurological exa m demonstrates, reduced light touch sensation, reduced sharp/dull pin prick discrimination , B/L, 5.07 monofilament test performed at plantar aspects of 5 varied sites per foot shows sensation, reduced , B/L Dermatologic SKIN FINDINGS: Skin exam reveal s Keratotic lesion(s) located at TA, T5, Heels B/L, Sub 3 right, , Skin shows cont sign(s) of, erythema, scaling, in a moccasin [...] Lower Extremity Neurological Exa m performed:: Yes Visual exam of foot performed:: Yes Date: 11/30/2024 ORIENTED: person, place, and t iam Footwear Evaluation Footwear Evaluation performe d:: Yes Ophthalmology Referral DIABETES EYE EXAM Procedure Perform ed:: No Eye Exam not performed:: No reason speci fied Vascular DP PULSES (B): 3/4, B/L PT PULSES (B): 3/4, B/L CAPILLARY FILL TIME: immediate, all digi ts, B/L TEMPERTURE GRADIENT (C): normal, warm to cool, proximal to distal, B/L TROPHIC CONDITION-TEXTURE/ELASTICITY/TURGOR/HAIR GROWTH (B): normal, B/L TELANGECTASIA: present VARICOSITIES: present severe nonpa inful PIGMENTATION: brawny, B/L mottled, B/L Nails NAILS are: Elongated, overg rown, dystrophic, lytic, greater than 3mm thick, discolored and friable with crumbly malodorous subungual debris with dull to no pain on palpation due to neuropathy , TA, T1, T2, T3, T4, T5, T6, T7, T8, T9
--- OUTSIDE RECORDS SUMMARY | 2024-12-03 11:09 | XMS_ITS | Continuity of Care Document ---
Author Organization [place] [facility] Address [address] [place] [address] Care Team Providers Care Safety Deposit Clerk Name Role Phone NOBLE COLEMAN Primary Care Provider Assessment Encounter Date Assessment Date Assessment LastModified [...] & hearing handicap, a fitting of a emniinsq-vd-cej- canal hearing device is expected to provide a significant improvement in the patient's ability to communicate. The patient has a 100% coverage [place]RA[place] benefit at an in network provider and would like to investigate this option before ordering hearing aids through [employer] who is out of network. [email or web address] Not available 11/18/2024 10:39:01 Plan of Treatment Reminders Order Date Submit Date Provider Last Modified By Organization Details Last Modified Time Details Appointments None record ed. Lab None record ed. Referral None record ed. Procedures None record ed. Surgeries None record ed. Imaging None record ed. Medication Orders None record ed. Patient TargetsNo targets recorded. Patient InstructionsNo instructions recorded. Reason for Referral None Reported. Results Created Date Observation Date Name Description Value Unit Range Abnormal Flag Note LastModifiedBy Organization Detail LastModifiedTime 10/20/19 audio gram No observ ation record ed. BARCODE Not Available 2024 10:44:55 11/05/19 25 11/04/2024 MRI, brain + brain stem, w/wo contr ast [facility] Access ion Number : [id number] Patisuha t Name: Сергей Harvey Record Number : [id number] Date of : 1949 Date of Exam: 2024 Referr ing Physic garima: Anson harris, Tisha [facility] [place] [address] [place] [address] Exam: MR Brain (C-/C+ ) CPT 34673 Room Descri ption: [facility] Pion 3T MR Brain (C-/C+ ) CPT 81505 INDICA TION / CLINIC AL [facility] ON: [...] the brain with attent ion to the director internal communications al audito ry canals was perfor med [...] or abnorm al enhanc ement in the director internal communications al audito ry canals or cerebe llopon [...] Electr onical ly Signed By: Stephanie garcia [facility] ([facility]) [address] [facility], [place], [address], 11/16/2024 15:58:16 Result Notes None recorded. Problems Name Problem SNOMED Code Status Onset Date Resolution Date Notes Provider Name and Address Organization Details Recorded Time Sensorineur al hearing loss of bilateral ears 886392867 Active 2024 Ana VEGA [address] [address], [place], [address], [facility] 09:52:04 Sensorineur al hearing loss in right ear 4109913389629 0 Active 2024 TISHA Victoria MD [address] [address], [place], [address], [facility] 10:18:17 Bilateral tinnitus 6143726276831 Active 2024 TISHA Victoria MD [address] [address], [place], [address], [facility] 10:18:43 Problem Notes None recorded. Procedures Surgical History Date Name Laterality Status Provider Name and Address Organization Details Recorded Time 10/20/2024 Comp Audio with Tymps (44614 & 31695) completed Ana VEGA [address] [facility],[address] [address], [place], [address], [facility] - [facility] 10/20/2024 09:51:58 Imaging Results None recorded. Procedure Notes None recorded. Medical Equipment None Reported. Allergies No known drug allergies Medications Name Sig Start Date Stop Date [...] (0.736 ML) SUBCUTANEOU SLY EVERY WEEKPAYA BLE 02/16/25 active Not Available Not Available Not Available Vitals None Recorded Social History None recorded. Functional Status None recorded. Mental Status None recorded. Family History Nothing Reported. Medical History No medical history recorded. Past Encounters Encounter ID Performer Location Encounter Start Date Encounter Closed Date Diagnosis/Indication Diagnosis SNOMED-CT Code Diagnosis ICD10 Code Diagnosis Note [id number] TISHA FARR MD [facility] [address] [address] 10/20/2024 09:18:08 10/20/2024 10:19:09 Sensorineural hearing loss of bilateral ears [id number] H90.3 Audiologic al evaluation results:Ri ght ear:Mild to moderate from 250 through {{234 468 8915* 1500 2000 3000 4000 6000 8000}} Hz [...] rising to normal hearing from 500 through {{574 884 4672 1500 2000* 3000 4000 6000 8000}} Hz [...] Sensorineu ral hearing loss in right ear [id number] 9100 H90.A21 Given the asymmetric hearing loss I recommend an MRI IAC with contrast to evaluate for retrocochl ear pathology. We will review results when complete. Bilateral tinnitus 22083 12442 102 H93.13 Ear exam was normal. Audiogram was reviewed. We discussed the associatio n between sensorineu ral hearing loss and tinnitus. We discussed masking for tinnitus. [id number] Ana VEGA [place] [facility] [place] [address] [facility],[address] [place] [address] 11/18/2024 10:15:07 11/19/2024 07:33:37 Sensorineural hearing loss of bilateral ears [id number] H90.3 Health Concerns Section Related Observation LastModified by Organization Detai ls LastModified Time None Recorded Concern Status LastModified by Organization Details LastModified Time None Recorded Payers Encounter Date Sequence Insurance Name Policy Number Policy Chu Covered Member ID Chu Member ID Guarantor Name 11/18/2024 1 [facility] - [facility] (MEDICARE REPLACEMENT/ ADVANTAGE - HMO) Сергей Harvey [id number] Сергей Harvey Notes Date Note Type Note [...] right earhas been recommended. Ana VEGA [address] [facility] [address], [place], [address], [facility] 11/18/2024 10:39:32
--- OUTSIDE RECORDS SUMMARY | 2024-12-03 11:09 | XMS_ITS | Patient Health Record ---
Author Organization [facility] Isaias vergara [place] Address [address] [place] [address] Care Team Providers Care Teaching Music Lessons Name Role Phone Neo Baig Primary Care Provider Jelena Peralta Unavailable [phone] Allergies No Known Allergies Reason For Referral [...] Name Neo Referring Provider Last Name Referred [facility] [place] Referred Provider Jelena Craig Referred Address [address] [facility],[place], [place],[address], Referred Provider Specialty Podiatry Referral Priority Routine Medications Medication SIG (Take, Route, Frequency, Duration) Notes Start Date End Date Status Furosemide 20 MG 1 tablet Orally Once [...] a day for 30 days 09/02/2022 Active Atorvastatin Calcium 40 MG 1 tablet [...] stop date) Never Smoker NA - NA Alcohol Screen Question Answer Notes Did you have a drink containing alcohol in the p ast year? No Points 0 Interpretation Negative Tobacco use other than smoking: Question Answer Notes Are you an other tobacco user? No Tobacco Control (Standard) Question Answer Notes Tobacco use: Nonsmoker Problems Problem Type SNOMED Code ICD Code Onset Dates Problem Status W/U Status Risk Notes Problem Acquired hammer toe of right foot (2370104695533513 ) Other hammer toe(s) (acquired), right foot (M20.41) Active confirmed Problem Acquired hammer toe of left foot (0481392333942485 ) Other hammer toe(s) (acquired), left foot (M20.42) Active confirmed Problem Plantar wart (68175791) Plantar wart (B07.0) Active confirmed Problem Polyneuropathy due to type 2 diabetes mellitus (135932285) Type 2 diabetes mellitus with diabetic polyneuropathy (E11.42) Active confirmed Problem 28398299 Venous insufficiency (I87.2) Active confirmed Vital Signs Blood pressure diastolic 89 mm Hg 11/30/2024 Height 5ft8in in 11/30/2024 Blood pressure systolic 127 mm Hg 11/30/2024 Weight 225 lbs 11/30/2024 BMI 34.21 kg/m2 11/30/2024 Encounters Encounter Location Date Provider Diagnosis [address] [address] 01/27/2024 Jelena Craig Tinea pedis of both feet B35.3 ; Other hammer toe(s) (acquired), right foot M20.41 ; Other hammer toe(s) (acquired), left foot M20.42 ; Tinea unguium B35.1 ; Type 2 diabetes mellitus with diabetic polyneuropathy E11.42 ; Right foot pain M79.671 ; Plantar wart B07.0 and Left foot pain M79.[address] [address] 06/23/2024 Jelena Craig Other hammer toe(s) (acquired), right foot M20.41 ; Muscle cramp, nocturnal R25.2 ; Tinea pedis of both feet B35.3 ; Other hammer toe(s) (acquired), left foot M20.42 ; Tinea unguium B35.1 ; Type 2 diabetes mellitus with diabetic polyneuropathy E11.42 ; Right foot pain M79.671 ; Plantar wart B07.0 and Left foot pain M79.[address] [address] 11/30/2024 Jelena Craig Tinea pedis of both feet B35.3 ; Tinea unguium B35.1 ; Type 2 diabetes mellitus with diabetic polyneuropathy E11.42 ; Right foot pain M79.671 ; Plantar wart B07.0 and Left foot pain M79.[address] [address] 04/27/2024 Jelena Craig [address] [address] 09/24/2024 Jeelna Craig Assessments Encounter Date Diagnosis (ICD Code) Assessment Notes Treatment Notes Treatment Clinical Notes Section Notes 01/27/2024 Tinea pedis of both feet (ICD-10 - B35.3) 06/23/2024 Other hammer toe(s) (acquired), right foot (ICD-10 - M20.41) 06/23/2024 Muscle cramp, nocturnal (ICD-10 - R25.2) 11/30/2024 Tinea unguium (ICD-10 - B35.1) 11/30/2024 Tinea pedis of both feet (ICD-10 - B35.3) 06/23/2024 Tinea pedis of both feet (ICD-10 - B35.3) 11/30/2024 Type 2 diabetes mellitus with diabetic polyneuropathy (ICD-10 - E11.42) 01/27/2024 Other hammer toe(s) (acquired), right foot (ICD-10 - M20.41) Patient Educated with: DIABETIC FOOT CARE INSTRUCTIONS. pdf (DIABETIC FOOT CARE INSTRUCTIONS. pdf) 11/30/2024 Right foot pain (ICD-10 - M79.671) 06/23/2024 Other hammer toe(s) (acquired), left foot (ICD-10 - M20.42) 01/27/2024 Other hammer toe(s) (acquired), left foot (ICD-10 - M20.42) 06/23/2024 Tinea unguium (ICD-10 - B35.1) 11/30/2024 Plantar wart (ICD-10 - B07.0) 01/27/2024 Tinea unguium (ICD-10 - B35.1) 06/23/2024 Type 2 diabetes mellitus with diabetic polyneuropathy (ICD-10 - E11.42) 11/30/2024 Left foot pain (ICD-10 - M79.672) 01/27/2024 Type 2 diabetes mellitus with diabetic polyneuropathy (ICD-10 - E11.42) 01/27/2024 Right foot pain (ICD-10 - M79.671) 06/23/2024 Right foot pain (ICD-10 - M79.671) 01/27/2024 Plantar wart (ICD-10 - B07.0) 06/23/2024 Plantar wart (ICD-10 - B07.0) 01/27/2024 Left foot pain (ICD-10 - M79.672) 06/23/2024 Left foot pain (ICD-10 - M79.672) Plan Of Treatment Pending Test Test Name Order Date [id number] NAIL, 6 OR MORE 09/02/2022 [id number] SKIN LESIONS, OVER 4 09/02/20 22 Next Appt Details Provider Name:Jelena lee, 03/08/2025 01:00:00 PM, [address] [place] [address], [phone], Insurance Providers Payer Name Payer Address Payer Phone Subscriber Number Group Number Insured Name Patient Relationship to Insured Coverage Start Date Coverage End Date [facility] [address] YAZMIN Gomez [phone] [id number] Сергей Harvey Self - patient is the insured Medical (General) History Medical History History ICD Code Arthritis CAD (Cholesterol) type II diabetes Gout osteoarthritis dizziness Auto Pap 6-20 Tinea Pedis Surgical History Surgery Date(Month/Year) kidney stones 08/2022
--- OUTSIDE RECORDS SUMMARY | 2024-12-03 11:09 | XMS_ITS ---
Author Organization [facility] Address [address] [place] [address] Care Team Providers Care Battery Tester Field Name Role Phone Neo Baig Primary Care Provider Jelena Peralta Unavailable [phone] Medications Medication SIG (Take, Route, Frequency, Duration) [...] Active Encounters Encounter Location Date Provider Diagnosis [facility] [address] [address] 09/24/2024 Jelena Craig Plan Of Treatment Next Appt Details Provider Name:Jelena lee, 03/08/2025 01:00:00 PM, [address] [place] [address], [address], Progress Notes * MEGHAN, CashanDOB:1950 (74 yo M)Acc No.[id number]:09/24/2024 Progress Note Patient:?Сергей HARVEY Provider:?Jelena Craig DPM :1950???Age:74 Y???Sex:Male Humphrey e:09/24/2024 Address:[address] [place], [place] [address] Pcp:Neo Baig Subjective: * Chief Complaints: * [...] Craig DPM Date:?11/2024 Generated for Fermín calvo/Dante/Rich on:?12/03/2024 11:08 AM EDT
--- OUTSIDE RECORDS SUMMARY | 2024-12-03 11:09 | XMS_ITS ---
Author Organization [facility] Address [address] [place] [address] Care Team Providers Care Heeler Name Role Phone Neo Baig Primary Care Provider Jelena Peralta [phone] REASON FOR VISIT cx appt Encounters Encounter Location Date Provider Diagnosis [address] [address] 09/24/2024 Jelena Craig Plan Of Treatment Next Appt Details Provider Name:Jelena lee, 03/08/2025 01:00:00 PM, [address] [place], [address], Progress Notes * Tammy HARVEYOB:1950 (74 yo M)Acc No.[id number]:09/24/2024 Patient:?Сергей HARVEY :1950???Age:74 Y???Sex:Male Address:[address] [place] [address], [address] * true * Date:? Generated for Printi ng/Dante/eTransmitting on:?12/03/2024 11:09 AM EDT
--- OUTSIDE RECORDS SUMMARY | 2024-12-03 11:09 | XMS_ITS | Continuity of Care Document ---
Author Organization [place] [facility], [facility] Address [address] [place] [address] Care Team Providers Care Physical Geographer Name Role Phone NOBLE COLEMAN Primary Care [...] Abnormal Flag Note LastModifiedBy Organization Detail LastModifiedTime 11/05/19 25 11/04/2024 MRI, brain + brain stem, w/wo contr ast [facility] te MRI- [facility] Access ion Number : [id number] [address] Name: Сергей Harvey Record Number : [id number] Date of : 1949 Date of Exam: 2024 Referr ing Physic garima: Anson harris, Tisha ENT Sur[facility] [place] [address] [facility] [address] [place] [address] Exam: MR Brain (C-/C+ ) CPT 99180 Room Descri ption: [facility] 3T MR Brain (C-/C+ ) CPT 45415 INDICA TION / CLINIC AL QUESTI ON: [...] the brain with attent ion to the human resources intern al audito ry canals was perfor med [...] or abnorm al enhanc ement in the human resources intern al audito ry canals or cerebe llopon [...] Electr onical ly Signed By: Stephanie garcia [facility] ([facility]) [address], [place], [address], 11/16/2024 15:58:16 Result Notes None recorded. Problems Name Problem SNOMED Code Status Onset Date Resolution Date Notes Provider Name and Address Organization Details Recorded Time Sensorineur al hearing loss of bilateral ears 906975088 Active 2024 Ana VEGA [address] [facility], [place], [address], [facility] [place] 09:52:04 Sensorineur al hearing loss in right ear 0984054449097 0 Active 2024 TISHA Victoria MD [address] [address], [place], [address], [facility] - [facility] [place] 10:18:17 Bilateral tinnitus 8717897421793 Active 2024 TISHA Victoria MD [address] [address], [place], [address], [facility] 10:18:43 Problem Notes None recorded. Procedures Surgical History Date Name Laterality Status Provider Name and Address Organization Details Recorded Time 10/20/2024 Comp Audio with Tymps (56333 & 42358) completed Ana VEGA [address] [facility],[address] [address], [place], [address], [facility] 10/20/2024 09:51:58 Imaging Results None recorded. Procedure [...] Not Available Not Available Not Available Vitals Date Recorded Body height Body mass index (BMI) Body weight Provider Name and Address Organization Details Last Updated DateTime 11/30/2024 175.26 cm 32.5 kg/m2 77398.32 g Sean Walsh [place] [facility] 11/30/2024 08:02:31 Social History None recorded. Functional Status None recorded. Mental Status None recorded. Family History Nothing Reported. Medical History No medical history recorded. Past Encounters Encounter ID Performer Location Encounter Start Date Encounter Closed Date Diagnosis/Indication Diagnosis SNOMED-CT Code Diagnosis ICD10 Code Diagnosis Note [id number] Ana VEGA [place] [facility] [place] [address] [place] [address] 11/18/2024 10:15:07 11/19/2024 07:33:37 Sensorineural hearing loss of bilateral ears 260065612 H90.3 [id number] TISHA FARR MD [facility] [address] [place], [place] [address] 11/30/2024 08:00:41 11/30/2024 08:18:20 Sensorineural hearing loss of bilateral ears 187057137 H90.3 Audiologic al evaluation results:Ri ght ear:Mild to moderate from 250 through {{046 892 5120* 1500 2000 3000 4000 6000 8000}} Hz [...] rising to normal hearing from 500 through {{096 660 3069 1500 2000* 3000 4000 6000 8000}} Hz [...] Sensorineu ral hearing loss in right ear 2534560145 9100 H90.A21 I gave reassuranc e there are no tumors causing the asymmetric HL. 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 I would be glad to see him as needed. I gave medical clearance for hearing aids. I personally reviewed MRI images. Bilateral tinnitus 63805 12060 102 H93.13 We again discussed the associatio n between sensorineu ral hearing loss and tinnitus. We discussed masking for tinnitus. Health Concerns Section Related Observation LastModified by Organization Detai ls LastModified Time None Recorded Concern Status LastModified by Organization Details LastModified Time None Recorded Payers Encounter Date Sequence Insurance Name Policy Number Policy Chu Covered Member ID Chu Member ID Guarantor Name 11/30/2024 1 [facility] [employer] - SENIOR PLAN (MEDICARE REPLACEMENT/ ADVANTAGE - HMO) Сергей Harvey [id number] Сергей Harvey Notes Date Note Type Note Provider Name and Address Organization Details Recorded Time 11/30/2024 text/html Hx of gradual hearing loss over time. Audio at the last visit showed asymmetric SNHL worse AD. We obtained an MRI IAC which I personally reviewed which was negative for retrocochlear pathology. It did show trace sinus disease and a possible old lacunar infarct. TISHA FARR MD [address] [place] [address], [place], [address], [facility] - [facility] 11/30/2024 08:18:15
== END 2024-12-03 10:49 | disposition home or self-care (01) ==
LOC: HO.HMCH 09:58
PROVIDERS: PCP Internal Medicine; Visit Provider Internal Medicine
DX: I25.5 Ischemic cardiomyopathy (principal); E11.65 Type 2 diabetes mellitus with hyperglycemia; I73.9 Peripheral vascular disease, unspecified; J43.1 Panlobular emphysema; N40.1 Benign prostatic hyperplasia with lower urinary tract symptoms; I10 Essential (primary) hypertension; I25.10 Atherosclerotic heart disease of native coronary artery without angina pectoris; E66.9 Obesity, unspecified; E78.00 Pure hypercholesterolemia, unspecified

== ENCOUNTER → 2024-12-03 09:57 | Outpatient (BNVA) | payer OTHER, SELFPAY | PROVIDERS: PCP Internal Medicine; Visit Provider Internal Medicine | DX: I25.5 Ischemic cardiomyopathy (principal); N40.1 Benign prostatic hyperplasia with lower urinary tract symptoms; E11.65 Type 2 diabetes mellitus with hyperglycemia; I10 Essential (primary) hypertension; I25.10 Atherosclerotic heart disease of native coronary artery without angina pectoris; I73.9 Peripheral vascular disease, unspecified; E66.9 Obesity, unspecified; J43.1 Panlobular emphysema; E78.00 Pure hypercholesterolemia, unspecified | CPT/HCPCS: 99212 ==

== ENCOUNTER → 2024-12-20 10:35 | Outpatient (REF) | payer OTHER, SELFPAY ==
--- NOTE | 2024-12-20 10:38 | CA_ITS ---
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 Study Quality: Fair ECG Rhythm: Sinus Conclusions: - The left ventricular systolic function is low normal. The visually estimated ejection fraction is between 50-55%. - The basal inferior segment is akinetic. - No obvious valvular pathology seen on this study. - There is mild dilatation of the ascending aorta measuring 4.30 cm. Findings Left Ventricle Normal left ventricular cavity size. There is mildly increased left ventricular wall thickness. The left ventricular systolic function is low normal. The visually estimated ejection fraction is between 50-55%. Diastolic function is normal for age. Wall Motion Rest Echo Findings The basal inferior segment is akinetic. Right Ventricle Normal right ventricular cavity size. There is mildly decreased right ventricular systolic function. Atria Both atria are normal in size. Aortic Valve There is a normal trileaflet aortic valve. There is no aortic valve stenosis. There is trace (trivial) aortic valve regurgitation. Mitral Valve The mitral valve appears normal. There is no mitral valve regurgitation. There is no mitral valve stenosis. Pulmonic Valve The pulmonic valve is likely normal. Tricuspid Valve There is trace tricuspid valve regurgitation. There is no evidence of pulmonary hypertension. Great Vessels There is mild dilatation of the ascending aorta measuring 4.30 cm. Venous The inferior vena cava is normal in size and collapses greater than 50% with inspiration. Pericardium/Pleural There is no evidence of pericardial effusion. Prior Study Comparison No significant change compared to prior study dated: 11/26/2023. Recommendations, Care & Conclusions No obvious valvular pathology seen on this study. Measurements 2D Linear Measurements IVSd: 1.24 0.6-0.9/0.6-1.0 cm LVIDd: 5.32 3.9-5.3/4.2-5.9 cm LVIDd Index: 2.45 2.4-3.2/2.2-3.1 cm/m2 LVIDs: 3.76 2.0-3.6 cm LVPWd: 1.29 0.7-1.1 cm Ao Root: 3.80 2.1-3.5 cm LA Diam: 4.20 2.7-3.8/3.0-4.0 cm LAIDs Index: 1.94 1.5-2.3 cm/m2 LV Mass: 346.49 67-162/88-224 g LV Mass Index: 159.67 43-95/49-115 g/m2 LVOT Diam: 2.50 3.0+(-)1.3 cm 2D Systolic Function EF 4C: 48.60 >55% EF 2C: 49.80 >55% EF BiP: 49.80 >55% Mitral Valve MV Pk E: 0.55 MV PK A: 0.66 MV Decel Time: 296.00 E/A: 0.80 E'Lateral: 6.53 E'Medial: 4.79 E/E' Med: 11.40 E/E' Lat: 8.40 PHT: 87.00 MVA PHT: 2.53 Decel [place]: 1.86 Aortic Valve AoV Pk Bo: 0.83 AoV Mn Bo: 0.92 AoV VTI: 0.34 AoV Pk Grad: 3.00 Aov Mn Grad: 4.00 ANIRUDH Cont.VTI: 2.87 LVOT LVOT Pk Bo: 0.92 LVOT Mn Bo: 0.59 LVOT VTI: 0.20 LVOT Pk Grad: 3.00 LVOT Mn Grad: 2.00 LVOT Diam: 2.50 LVOT Area: 4.91 Diastolic Function MV Pk E: 0.55 MV Pk A: 0.66 E/A: 0.80 E'Medial: 4.79 E/E' Med: 11.40 E' Laterial: 6.53 E/E' Lat: 8.40 Right Ventricle TAPSE (mm): 24.00 TVS' Bo: 9.00 Tricuspid Valve TR Pk Bo: 1.45 TR Pk Grad: 8.00 RA Press: 3.00 RVSP: 11.00 Great Vessels Aorta Ao Root-2D: 3.80 2.0-3.7 cm Ao Asc: 4.30 2.1-3.4 cm Pulmonary Valve PV Pk Bo: 0.82 Peak PV Grad: 3.00 Updated in Other Vendor System with Status of Final Bryson Templeton MD electronically signed on 12/21/2024 4:31:11 PM with status of Final
--- OUTSIDE RECORDS SUMMARY | 2024-12-20 11:53 | XMS_ITS ---
Author Organization [facility] Address [address] [place] [address] Care Team Providers Care Doctor Of Naturopathic Medicine Name Role Phone Neo Baig Primary Care Provider Jelena Peralta [phone] REASON FOR VISIT cx appt Encounters Encounter Location Date Provider Diagnosis [address] [address] 09/24/2024 Jelena Craig Plan Of Treatment Next Appt Details Provider Name:Jelena lee, 03/08/2025 01:00:00 PM, [address] [place], [address], Progress Notes * Tammy HARVEYOB:1950 (74 yo M)Acc No.[id number]:09/24/2024 Patient:?Сергей HARVEY :1950???Age:74 Y???Sex:Male Address:[address] [place] [address], [address] * true * Date:? Generated for Printi ng/Dante/eTransmitting on:?12/20/2024 11:52 AM EDT
--- OUTSIDE RECORDS SUMMARY | 2024-12-20 11:53 | XMS_ITS ---
Author Organization [facility] Address [address] [place] [address] Care Team Providers Care It Data Architect Name Role Phone Neo Baig Primary Care Provider Jelena Peralta Unavailable [phone] Allergies No Known Allergies REASON FOR VISIT [...] Answer Notes Tobacco use: Nonsmoker Vital Signs Height 5ft8in in 11/30/2024 Weight 225 lbs 11/30/2024 BMI 34.21 kg/m2 11/30/2024 Blood pressure systolic 127 mm Hg 12/01/19 25 Blood pressure diastolic 89 mm Hg 025 Encounters Encounter Location Date Provider Diagnosis [facility] [address] [address] 11/30/2024 Jelena Craig Tinea pedis of both [...] Reason: Provider Name:Jelena lee, 03/08/2025 01:00:00 PM, [address] [place] [address], [address], Procedure Notes * Category Sub-Category Detail Notes Wart Treatment Procedure Verrucae were de brided to pin-point bleeding margins with sterile 15 surgical blade, silver nitrate chemocautery applied, recomm. immune-boosting meds such as zinc, recomm. follow up with topical chemosurgical agents, Pt defers any other forms of tx (70482) Debride Nail 6-10 Nail debridement Due to [...] use of a nail nipper and/or dremel-type perlite grinder, to a more viable healthy nail [...] to maintain effectiveness in symptomatic relief - 08353 Keratoma Treatment Parring or Cutting o f [...] instrumentation by the physician of record - 97108 Progress Notes * Tammy HARVEYOB:1950 (74 yo M)Acc No.[id number]:11/30/2024 Progress Note Patient:?MEGHAN Сергей Provider:?Jelena Craig DPM :1950???Age:74 Y???Sex:Male Humphrey e:11/30/2024 Address:[address] [place] [address], [facility] Pcp:Neo Baig Subjective: * Chief Complaints: * [...] use of a nail nipper and/or dremel-type perlite grinder, to a more viable healthy nail [...] to maintain effectiveness in symptomatic relief - 29464.?Keratoma Treatment:?Parring or Cutting of Benign Hyperkeratotic Lesion(s)?(-57) [...] instrumentation by the physician of record - 46822.?Wart Treatment:?Procedure?Verrucae were debrided to pin-point bleeding margins with sterile 15 surgical blade, silver nitrate chemocautery applied, recomm. immune-boosting meds such as zinc, recomm. follow up with topical chemosurgical agents, Pt defers any other forms of tx (49046).? * Procedure Codes:?30859 DEBRI DE NAIL, 6 OR MORE, Modifiers: XS 44534 Wart Destruction, 1-14, Modifiers: XS 11297 TRIM SKIN LESIONS, OVER 4, Modifiers: XS [...] Craig DPM Date:?07/2025 Generated for Fermín calvo/Dante/Rich on:?12/20/2024 11:53 AM EDT History and Physical Notes * [...] at 3mm diameter plantar Forefoot B/L Orthopedic FOOTWEAR EVALUATION: worn, non-s upportive, shoe gear properties exacerbate patient's foot/toe deformity [...]
--- OUTSIDE RECORDS SUMMARY | 2024-12-20 11:53 | XMS_ITS | Patient Health Record ---
Author Organization [facility] Isaias vergara [place] Address [address] [place] [address] Care Team Providers Care Lead Android Developer Name Role Phone Neo Baig Primary Care Provider Jelena Peralta Unavailable [phone] Allergies No Known Allergies Reason For Referral [...] Name Neo Referring Provider Last Name [facility] [place] Referred Provider Jelena Craig Referred Address [address] [facility],[place], [place],[address], Referred Provider Specialty Podiatry Referral Priority Routine [...] Problem Acquired hammer toe of right foot (8805265028785136 ) Other hammer toe(s) (acquired), right foot (M20.41) Active confirmed Problem Acquired hammer toe of left foot (9504927212947830 ) Other hammer toe(s) (acquired), left foot (M20.42) Active confirmed Problem Plantar wart (95287468) Plantar wart (B07.0) Active confirmed Problem Polyneuropathy due to type 2 diabetes mellitus (868498544) Type 2 diabetes mellitus with diabetic polyneuropathy (E11.42) Active confirmed Problem 58907404 Venous insufficiency (I87.2) Active confirmed Vital Signs Blood pressure diastolic 89 mm Hg 11/30/2024 Height 5ft8in in 11/30/2024 Blood pressure systolic 127 mm Hg 11/30/2024 Weight 225 lbs 11/30/2024 BMI 34.21 kg/m2 11/30/2024 Encounters Encounter Location Date Provider Diagnosis [address] [address] 01/27/2024 Jelena Craig Tinea pedis of both feet B35.3 ; Other hammer toe(s) (acquired), right foot M20.41 ; Other hammer toe(s) (acquired), left foot M20.42 ; Tinea unguium B35.1 ; Type 2 diabetes mellitus with diabetic polyneuropathy E11.42 ; Right foot pain M79.671 ; Plantar wart B07.0 and Left foot pain M79.[address] [address] 06/23/2024 Jelena Craig Other hammer toe(s) (acquired), right foot M20.41 ; Muscle cramp, nocturnal R25.2 ; Tinea pedis of both feet B35.3 ; Other hammer toe(s) (acquired), left foot M20.42 ; Tinea unguium B35.1 ; Type 2 diabetes mellitus with diabetic polyneuropathy E11.42 ; Right foot pain M79.671 ; Plantar wart B07.0 and Left foot pain M79.[address] [address] 11/30/2024 Jelena Craig Tinea pedis of both feet B35.3 ; Tinea unguium B35.1 ; Type 2 diabetes mellitus with diabetic polyneuropathy E11.42 ; Right foot pain M79.671 ; Plantar wart B07.0 and Left foot pain M79.[address] [address] 04/27/2024 Jelena Craig [address] [address] 09/24/2024 Jelena Craig Assessments Encounter Date Diagnosis [...] Treatment Pending Test Test Name Order Date [id number]-[id number] NAIL, 6 OR MORE 09/02/2022 95180-QJDU SKIN LESIONS, OVER 4 09/02/20 22 Next Appt Details Provider Name:Jelena lee, 03/08/2025 01:00:00 PM, [address] [place] [address], [phone], Insurance Providers Payer Name Payer Address Payer Phone Subscriber Number Group Number Insured Name Patient Relationship to Insured Coverage Start Date Coverage End Date [facility] [address] YAZMIN Gomez [phone] [id number] Сергей Harvey Self - patient is the insured Medical (General) History Medical History History ICD Code Arthritis CAD (Cholesterol) type II diabetes Gout osteoarthritis dizziness Auto Pap 6-20 Tinea Pedis Surgical History Surgery Date(Month/Year) kidney stones 08/2022
--- OUTSIDE RECORDS SUMMARY | 2024-12-20 11:53 | XMS_ITS ---
Author Organization [facility] Address [address] [place] [address] Care Team Providers Care Industrial Hygiene Manager Name Role Phone Neo Baig Primary Care Provider Jelena Peralta Unavailable [phone] Medications Medication SIG (Take, Route, Frequency, Duration) [...] Active Encounters Encounter Location Date Provider Diagnosis [facility] [address] [address] 09/24/2024 Jelena Craig Plan Of Treatment Next Appt Details Provider Name:Jelena lee, 03/08/2025 01:00:00 PM, [address] [place] [address], [address], Progress Notes * MEGHAN, CashanDOB:1950 (74 yo M)Acc No.[id number]:09/24/2024 Progress Note Patient:?Сергей HARVEY Provider:?Jelena Craig DPM :1950???Age:74 Y???Sex:Male Humphrey e:09/24/2024 Address:[address] [place], [place] [address] Pcp:Neo Baig Subjective: * Chief Complaints: * [...] Craig DPM Date:?11/2024 Generated for Fermín calvo/Dante/Rich on:?12/20/2024 11:52 AM EDT
== END ==
LOC: HO.CARD 10:35
PROVIDERS: PCP Internal Medicine; Visit Provider Internal Medicine
DX: I25.10 Atherosclerotic heart disease of native coronary artery without angina pectoris (principal)
CPT/HCPCS: 93306

== ENCOUNTER → 2024-12-20 10:38 | Outpatient (BNV) | payer OTHER, SELFPAY | PROVIDERS: PCP Internal Medicine; Visit Provider Internal Medicine | DX: I25.10 Atherosclerotic heart disease of native coronary artery without angina pectoris (principal) | CPT/HCPCS: 93306 ==

== ENCOUNTER 2024-12-28 10:02 | Outpatient (AMB) | payer OTHER, SELFPAY ==
--- NOTE | 2024-12-28 10:03 | A.OFFVIS_ITS ---
Vital Signs 12/28/24 10:04 Height 5 ft 8 in Weight 223 lb 8.78 oz BMI 34.0 BP 120/60 Blood Pressure Location Lt brachial Position Sitting Pulse 53 Intake Visit Reasons: 1 yr follow up /Echo English As A Second Language Instructor Required: Yes English As A Second Language Instructor Services: English As A Second Language Instructor Offered & Declined English As A Second Language Instructor Name: Daughter will interpret Accompanied by: Child Allergies No Known Allergies Allergy (Verified 12/03/24 10:03) Medication List - Last Reconciled 12/28/24 by Bryson Templeton MD aspirin (Adult Aspirin Regimen) 81 mg PO DAILY 90 days atorvastatin 40 mg PO DAILY 90 days blood sugar diagnostic (Cocrystal Discovery Verio test strips) test once daily blood-glucose meter (Cocrystal Discovery Verio Flex Meter) test once daily zohra.stocking,knee,reg,xlrg As directed 20-30 mm HG [DIABETIC SHOES As directed] diclofenac sodium 1% (Voltaren Arthritis Pain) 4 grams topical QID escitalopram oxalate (Lexapro) 5 mg PO DAILY gabapentin 300 mg PO TID hydrochlorothiazide 25 mg PO DAILY lancets (Cocrystal Discovery Delica Plus Lancet) USE TO TEST ONCE DAILY lisinopril 5 mg PO DAILY metoprolol succinate ER 25 mg PO DAILY omeprazole 20 mg PO DAILY pyridoxine (vitamin B6) 100 mg PO DAILY semaglutide (Ozempic) 0.25 mg (0.368 mL) subcut QWEEK 30 days tamsulosin (Flomax) 0.4 mg PO BEDTIME HPI Comments Details: Сергей returns for follow-up regarding suspected coronary disease as well as ascending aortic dilatation. In the past, he had described chest pains that led to stress testing that had shown nontransmural infarct of inferior wall, but without any ischemia. He has been maintained on medical therapy for stable coronary disease. In a prior visit, he was still describing some nonspecific discomfort and that led to cardiac catheterization. However, no significant disease. He is accompanied by his family. Overall, no new concerns. He states he feels well. No cardiac symptoms. [facility] Medical History Obstructive sleep apnea Coronary artery disease Abdominal wall abscess Hearing difficulty Hypertension Nephrolithiasis Flank pain Constipation Dizziness Obesity (BMI 30-39.9) Tubular adenoma of colon Polysubstance abuse Knee osteoarthritis Degenerative disc disease, lumbar Osteoarthritis of right shoulder Ascending aorta dilatation History of renal calculi GERD (gastroesophageal reflux disease) Vitamin D deficiency Peripheral vascular disease Hypercholesterolemia COPD (chronic obstructive pulmonary disease) Surgical History Hx of cardiac cath Hx laparoscopic cholecystectomy Hx of colonoscopy History of esophagogastroduodenoscopy (EGD) Family History Father Stroke Heart attack Mother No problems noted. Sister Breast cancer Social History Household Members: Spouse Housing: House Do you presently have visiting nurse or other home services: No Alcohol intake: former Year quit: 2009 Patient Tobacco Use Status: Never used Tobacco Tobacco use type: Cigarette e-Cigarette/Vaping Use: Never Used Second Hand Smoke Exposure: No service: No Current occupational status: retired and disabled Cognitive needs: No Hearing needs: No Vision needs: Yes Review of Systems Const Denies chills, Denies fatigue, Denies fever(s), Denies weight gain and Denies weight loss ENT Denies dizziness Card Denies chest pain, Denies leg edema, Denies lightheadedness, Denies palpitations, Denies dyspnea on exertion, Denies orthopnea and Denies other Resp Denies cough and Denies dyspnea on exertion GI Denies hematochezia and Denies change in stool character Musc Denies abnormal gait, Denies muscle weakness, Denies numbness, Denies radiating pain into limb and Denies tingling Neuro Denies abnormal gait, Denies dizziness, Denies numbness and Denies tingling Endo Denies fatigue and Denies palpitations Physical Exam Vital Signs: Last Vital Signs Pulse 53 12/28/24 10:04 BP 120/60 12/28/24 10:04 BMI result Body Mass Index 34.0 Const General: comfortable and no acute distress Orientation/consciousness: patient oriented x3 HEENT Other: Unremarkable Head: Yes normal to inspection Neck Neck: Yes normal visual inspection Chest Chest palpation & inspection: normal inspection of the chest Resp Auscultation: clear to auscultation bilaterally Cardio Palpation: normal PMI Heart sounds: S1 normal heart sound present, S2 normal heart sound present, no gallops, no murmurs and no rubs GI Palpation (GI): Soft to palpation Back/Spine/Pelvis Other: unremarkable Skin General skin exam: no rashes or lesions noted Neuro General: patient oriented x3 Extrem Other: 1+ swelling, R LE >L. General: Yes normal to inspection Psych Mental Status: mental status grossly normal Office Procedures EKG Details: EKG with sinus bradycardia, 53/Min; leftward axis; right bundle-branch block; minimal criteria for LVH; [place] [address]-Ogvtcqmbvgymtxwfb, Complete Assessment & Plan Assessment & Plan (1) Atherosclerotic cardiovascular disease: Comment: Cardiac catheterization November 2022 minimal irregularities Code(s): I25.10 - Atherosclerotic heart disease of [place] coronary artery without angina pectoris Category: Medical Plan: Cardiac studies reviewed. Myocardial perfusion imaging study from 2017 had shown nontransmural infarct of the inferior wall without ischemia. In the repeat study, transmural infarct of the basal inferior/possibly inferior apical wall. Mild intensity reversible defect in the basal lateral wall. In the recent echocardiogram, basal inferior akinesis. In the cardiac catheterization, minimal irregularities in the circumflex and right coronary artery but other arteries were essentially normal. Hence etiology for the perfusion abnormalities/wall motion abnormality are clear. Continue aspirin, beta-blockers and statins. Cholesterol is well controlled with an LDL of 51 mg/dL. Triglycerides 126 mg/dL. (2) Ascending aorta dilatation: Code(s): I77.810 - Thoracic aortic ectasia Category: Medical Plan: In the most recent echocardiogram, ascending aortic size 4.3 cm. In the previous studies, 4.1 cm, 4.3 cm at different times. Overall, doubt any significant change. Repeat in one year. (3) Essential hypertension: Code(s): I10 - Essential (primary) hypertension Category: Medical Plan: Previously on amlodipine. Currently listed to be on metoprolol, lisinopril, hydrochlorothiazide. No changes. (4) Right bundle branch block: Code(s): I45.10 - Unspecified right bundle-branch block Category: Medical Plan: Can be followed on EKGs. Plan Discussed with family who came for appointment. Orders: Orders CA echo transthoracic complete 1 Year I77.810 - Thoracic aortic ectasia Coding Level of Care Code Est Pt Level 4 (37722) Complex EM visit Add On G2211 Diagnoses Atherosclerotic cardiovascular disease I25.10 Ascending aorta dilatation I77.810 Essential hypertension I10 Right bundle branch block I45.10 CPT Codes EKG - CPT: 65479-Lhruvwfpfhaoolrzn, Complete ([id number])
[2024-12-28 10:04] VITALS: BP 120/60; PULSE 53; BMI 34.0
--- OUTSIDE RECORDS SUMMARY | 2024-12-28 11:41 | XMS_ITS | Patient Health Record ---
Author Organization [facility] [place] Address [address] [place] [address] Care Team Providers Care Cleater Name Role Phone Neo Baig Primary Care Provider Jelena Peralta Unavailable [phone] Allergies No Known Allergies Reason For Referral [...] Name Neo Referring Provider Last Name [facility] [place] Referred Provider Jelena Craig Referred Address [address] [facility],[place],[address], Referred Provider Specialty Podiatry Referral Priority Routine [...] Problem Acquired hammer toe of right foot (4993868208550477 ) Other hammer toe(s) (acquired), right foot (M20.41) Active confirmed Problem Acquired hammer toe of left foot (5780663398839064 ) Other hammer toe(s) (acquired), left foot (M20.42) Active confirmed Problem Plantar wart (47065754) Plantar wart (B07.0) Active confirmed Problem Polyneuropathy due to type 2 diabetes mellitus (901439808) Type 2 diabetes mellitus with diabetic polyneuropathy (E11.42) Active confirmed Problem 28622434 Venous insufficiency (I87.2) Active confirmed Vital Signs Blood pressure diastolic 89 mm Hg 11/30/2024 Height 5ft8in in 11/30/2024 Blood pressure systolic 127 mm Hg 11/30/2024 Weight 225 lbs 11/30/2024 BMI 34.21 kg/m2 11/30/2024 Encounters Encounter Location Date Provider Diagnosis [address] [address] 01/27/2024 Jelena Craig Tinea pedis of both feet B35.3 ; Other hammer toe(s) (acquired), right foot M20.41 ; Other hammer toe(s) (acquired), left foot M20.42 ; Tinea unguium B35.1 ; Type 2 diabetes mellitus with diabetic polyneuropathy E11.42 ; Right foot pain M79.671 ; Plantar wart B07.0 and Left foot pain M79.[address] [address] 06/23/2024 Jelena Craig Other hammer toe(s) (acquired), right foot M20.41 ; Muscle cramp, nocturnal R25.2 ; Tinea pedis of both feet B35.3 ; Other hammer toe(s) (acquired), left foot M20.42 ; Tinea unguium B35.1 ; Type 2 diabetes mellitus with diabetic polyneuropathy E11.42 ; Right foot pain M79.671 ; Plantar wart B07.0 and Left foot pain M79.[address] [address] 11/30/2024 Jelena Craig Tinea pedis of both feet B35.3 ; Tinea unguium B35.1 ; Type 2 diabetes mellitus with diabetic polyneuropathy E11.42 ; Right foot pain M79.671 ; Plantar wart B07.0 and Left foot pain M79.[address] [address] 04/27/2024 Jelena Craig [address] [address] 09/24/2024 Jelena Craig Assessments Encounter Date Diagnosis [...] Treatment Pending Test Test Name Order Date [id number]-XKQOYFS NAIL, 6 OR MORE 09/02/2022 47445-OQLR SKIN LESIONS, OVER 4 09/02/20 22 Next Appt Details Provider Name:Jelena lee, 03/08/2025 01:00:00 PM, [address] [place] [address], [phone], Insurance Providers Payer Name Payer Address Payer Phone Subscriber Number Group Number Insured Name Patient Relationship to Insured Coverage Start Date Coverage End Date [facility] [address] YAZMIN Gomez [phone] [id number] Сергей Harvey Self - patient is the insured Medical (General) History Medical History History ICD Code Arthritis CAD (Cholesterol) type II diabetes Gout osteoarthritis dizziness Auto Pap 6-20 Tinea Pedis Surgical History Surgery Date(Month/Year) kidney stones 08/2022
--- OUTSIDE RECORDS SUMMARY | 2024-12-28 11:41 | XMS_ITS ---
Author Organization [facility] Address [address] [place] [address] Care Team Providers Care Design Drafter Name Role Phone Neo Baig Primary Care Provider Jelena Peralta Unavailable [phone] Medications Medication SIG (Take, Route, Frequency, Duration) [...] Active Encounters Encounter Location Date Provider Diagnosis [facility] [address] [address] 09/24/2024 Jelena Craig Plan Of Treatment Next Appt Details Provider Name:Jelena lee, 03/08/2025 01:00:00 PM, [address] [place] [address], [phone], Progress Notes * MEGHAN, CashanDOB:1950 (74 yo M)Acc No.[id number]:09/24/2024 Progress Note Patient:?Сергей HARVEY Provider:?Jelena Craig DPM :1950???Age:74 Y???Sex:Male Humphrey e:09/24/2024 Address:[address] [place], [place] [address] Pcp:Neo Baig Subjective: * Chief Complaints: * [...] Provider:?Jelena Craig DPM Date:?11/2024 Generated for Fermín cavlo/Dante/Rich on:?12/28/2024 11:41 AM EDT
--- OUTSIDE RECORDS SUMMARY | 2024-12-28 11:41 | XMS_ITS | Data Portability ---
Author Organization [place] [facility] Address [address] [place] [address] Care Team Providers Care Biological Photographer Name Role Phone NOBLE COLEMAN Primary Care [...] & hearing handicap, a fitting of a stumjfuq-gh-mxk- canal hearing device is expected to provide a significant improvement in the patient's ability to communicate. The patient has a 100% coverage GRAYSON benefit at an in network provider and would like to investigate this option before ordering hearing aids through [employer] who is out of network. [email or web address] Not available 11/18/2024 10:39:01 Plan of Treatment Reminders Order Date Submit Date Provider Last Modified By Organization Details Last Modified Time Details Appointments None recorded. Lab None recorded. Referral None recorded. Procedures None recorded. Surgeries None recorded. Imaging MRI, brain + internal auditory canal, w/wo contrast - MRI, BRAIN + INTERNAL AUDITORY CANAL, W/WO CONTRAST 2024 025 [facility] ([facility]), [address] [facility], [place], [address], 15:28:05 Medication Orders None recorded. Patient TargetsNo [...] [facility] Number : [id number] t Name: Сергей Harvey Record Number : [id number] Date of : 1949 Date of Exam: 2024 Referr ing Physic garima: Anson harris, Tisha ENT [facility] [address] [facility] [address] [place] [address] Exam: MR Brain (C-/C+ ) CPT 62895 Room Descri ption: [facility] Pion 3T MR Brain (C-/C+ ) CPT 86083 INDICA TION / CLINIC [place] QUESTI ON: [...] the brain with attent ion to the pr internship al audito ry canals was perfor [...] or abnorm al enhanc ement in the pr internship al audito ry canals or cerebe [...] onical ly Signed By: Stephanie echevarria MD [facility] ([facility]) [address] [facility], [place], [address], 11/16/2024 15:58:16 Result Notes None recorded. Problems Name Problem SNOMED Code Status Onset Date Resolution Date Notes Provider Name and Address Organization Details Recorded Time Sensorineur al hearing loss of bilateral ears 942449690 Active 2024 TARSHA PHILLIP, Ana [address] [address], [place], [address], [facility] - [facility] 5 09:52:04 Sensorineur al hearing loss in right ear 1132116828611 0 Active 2024 TISHA Victoria MD [address] [address], [place], [address], [facility] [place] 5 10:18:17 Bilateral tinnitus 9531651409433 Active 2024 TISHA Victoria MD [address] [place] [address], [place], [address], [facility] - [facility] 5 10:18:43 Problem Notes None recorded. Procedures Surgical History Date Name Laterality Status Provider Name and Address Organization Details Recorded Time 10/20/2024 Comp Audio with Tymps (07572 & 07019) completed TARSHA PHILLIP, AuD [address] [facility] [address], [place], [address], [facility] - [facility] 10/20/2024 09:51:58 Imaging Results Imaging Date Name Status LastModified by Organiz ation Details LastModified Time 10/20/2024 audiogram completed BARCODE Information no t available 10/20/2024 10:44:55 11/04/2024 MRI, brain + brain stem, w/wo contrast [facility] [address] [facility], [place], [address], 11/16/2024 15:58:16 Procedure Notes None recorded. Medical [...] Updated DateTime 11/30/2024 175.26 cm 32.5 kg/m2 12040.32 g Sean Walsh [place] [facility] 11/30/2024 08:02:31 Social History None recorded. Functional Status None recorded. Mental Status None recorded. Family History Nothing Reported. Medical History No medical history recorded. Past Encounters Encounter ID Performer Location Encounter Start Date Encounter Closed Date Diagnosis/Indication Diagnosis SNOMED-CT Code Diagnosis ICD10 Code Diagnosis Note [id number] TISHA FARR MD [facility] [address] [address] 10/20/2024 09:18:08 10/20/2024 10:19:09 Sensorineural hearing loss of bilateral ears 363053819 H90.3 Audiologic al evaluation results:Ri ght ear:Mild to moderate from 250 through {{377 743 1149* 1500 2000 3000 4000 6000 8000}} Hz [...] rising to normal hearing from 500 through {{179 325 6174 1500 2000* 3000 4000 6000 8000}} Hz [...] Sensorineu ral hearing loss in right ear 6054660218 9100 H90.A21 Given the asymmetric hearing loss I recommend an MRI IAC with contrast to evaluate for retrocochl ear pathology. We will review results when complete. Bilateral tinnitus 63256 13581 102 H93.13 Ear exam was normal. Audiogram was reviewed. We discussed the associatio n between sensorineu ral hearing loss and tinnitus. We discussed masking for tinnitus. [id number] Ana VEGA [place] [facility] [place] [address] [place] [address] ite [address] [place] [address] 11/18/2024 10:15:07 11/19/2024 07:33:37 Sensorineural hearing loss of bilateral ears 399596763 H90.3 [id number] TISHA FARR MD [facility] [address] [place] [address] 11/30/2024 08:00:41 11/30/2024 08:18:20 Sensorineural hearing loss of bilateral ears 512097003 H90.3 Audiologic al evaluation results:Ri ght ear:Mild to moderate from 250 through {{573 206 3155* 1500 2000 3000 4000 6000 8000}} Hz [...] rising to normal hearing from 500 through {{074 819 9138 1500 2000* 3000 4000 6000 8000}} Hz [...] Sensorineu ral hearing loss in right ear 7519748299 9100 H90.A21 I gave reassuranc e there are no tumors causing the asymmetric HL. 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 I would be glad to see him as needed. I gave medical clearance for hearing aids. I personally reviewed MRI images. Bilateral tinnitus 42322 25822 102 H93.13 We again discussed the associatio [...] ID Guarantor Name 10/20/2024 1 [facility] - DUAL ELIGIBLE - [facility] - [facility]IOR [facility] (MEDICARE REPLACEMENT/ ADVANTAGE - HMO) Сергей Harvey [id number] Сергей Harvey 11/18/2024 1 [facility] - DUAL ELIGIBLE - [employer] - SENIOR PLAN (MEDICARE REPLACEMENT/ ADVANTAGE - HMO) Сергей Candice [id number] Сергей Candice 11/30/2024 1 [facility] - DUAL ELIGIBLE - [employer] - SENIOR PLAN (MEDICARE REPLACEMENT/ ADVANTAGE - HMO) Сергей Candice [id number] Сергей Candice Notes Date Note Type Note Provider Name and Address Organization Details Recorded Time 10/20/2024 text/html Hx of gradual hearing loss over time. It has been worse on the right for years. Has tinnitus AU but worse AD. Audio showed asymmetric SNHL worse AD. TISHA FARR MD [address] [facility],[address], [address], [place] [facility] 10/20/2024 10:19:31 11/18/2024 text/html Patient returned [...] earhas been recommended. Ana VEGA [address] [facility],[address], [address], [place] [facility] 11/18/2024 10:39:32 11/30/2024 text/html Hx of gradual hearing loss over time. Audio at the last visit showed asymmetric SNHL worse AD. We obtained an MRI IAC which I personally reviewed which was negative for retrocochlear pathology. It did show trace sinus disease and a possible old lacunar infarct. TISHA FARR MD [address] [facility] [address], [place], [address], [place] [facility] 11/30/2024 08:18:15
--- OUTSIDE RECORDS SUMMARY | 2024-12-28 11:42 | XMS_ITS ---
Author Organization [facility] Address [address] [place] [address] Care Team Providers Care Sports Agent Name Role Phone Neo Baig Primary Care Provider Jelena Peralta Unavailable [phone] Allergies No Known Allergies REASON FOR VISIT [...] 11/30/2024 Encounters Encounter Location Date Provider Diagnosis [facility] [address] [address] 11/30/2024 Jelena Craig Tinea pedis of both [...] Provider Name:Jelena lee, 03/08/2025 01:00:00 PM, [address] [place] [address], [phone], Procedure Notes * Category Sub-Category Detail Notes Wart Treatment Procedure Verrucae were de brided to pin-point bleeding margins with sterile 15 surgical blade, silver nitrate chemocautery applied, recomm. immune-boosting meds such as zinc, recomm. follow up with topical chemosurgical agents, Pt defers any other forms of tx (28761) Debride Nail 6-10 Nail debridement Due to [...] use of a nail nipper and/or dremel-type universal grinder tool, to a more viable healthy nail plate [...] to maintain effectiveness in symptomatic relief - 91537 Keratoma Treatment Parring or Cutting o f [...] instrumentation by the physician of record - 03985 Progress Notes * Tammy HARVEYOB:1950 (74 yo M)Acc No.[id number]:11/30/2024 Progress Note Patient:?MEGHAN Сергей Provider:?Jelena Craig DPM :1950???Age:74 Y???Sex:Male Humphrey e:11/30/2024 Address:[address] [place] [address], [facility] Pcp:Neo Baig Subjective: * Chief Complaints: * [...] use of a nail nipper and/or dremel-type universal grinder tool, to a more viable healthy nail plate [...] to maintain effectiveness in symptomatic relief - 18693.?Keratoma Treatment:?Parring or Cutting of Benign Hyperkeratotic Lesion(s)?(-57) [...] instrumentation by the physician of record - 10045.?Wart Treatment:?Procedure?Verrucae were debrided to pin-point bleeding margins with sterile 15 surgical blade, silver nitrate chemocautery applied, recomm. immune-boosting meds such as zinc, recomm. follow up with topical chemosurgical agents, Pt defers any other forms of tx (08325).? * Procedure Codes:?73016 DEBRI DE NAIL, 6 OR MORE, Modifiers: XS 73753 Wart Destruction, 1-14, Modifiers: XS 40346 TRIM SKIN LESIONS, OVER 4, Modifiers: XS [...] Craig DPM Date:?07/2025 Generated for Fermín calvo/Dante/Rich on:?12/28/2024 11:41 AM EDT History and Physical Notes * [...]
--- OUTSIDE RECORDS SUMMARY | 2024-12-28 11:42 | XMS_ITS ---
Author Organization [facility] Address [address] [place] [address] Care Team Providers Care Petroleum Terminal Plant Operator Name Role Phone Neo Baig Primary Care Provider Jelena Peralta [phone] REASON FOR VISIT cx appt Encounters Encounter Location Date Provider Diagnosis [address] [address] 09/24/2024 Jelena Craig Plan Of Treatment Next Appt Details Provider Name:Jelena lee, 03/08/2025 01:00:00 PM, [address] [place], [address], Progress Notes * Tammy HARVEYOB:1950 (74 yo M)Acc No.[id number]:09/24/2024 Patient:?Сергей HARVEY :1950???Age:74 Y???Sex:Male Address:[address] [place] [address], [address] * true * Date:? Generated for Printi ng/Dante/eTransmitting on:?12/28/2024 11:41 AM EDT
== END 2024-12-28 10:42 | disposition home or self-care (01) ==
LOC: HO.HCS 10:02
PROVIDERS: PCP Internal Medicine; Visit Provider Internal Medicine
DX: I25.10 Atherosclerotic heart disease of native coronary artery without angina pectoris (principal); I77.810 Thoracic aortic ectasia; I10 Essential (primary) hypertension; I45.10 Unspecified right bundle-branch block
CPT/HCPCS: 93010; 99214; G2211

== ENCOUNTER → 2024-12-28 10:02 | Outpatient (BNVA) | payer OTHER, SELFPAY | PROVIDERS: PCP Internal Medicine; Visit Provider Internal Medicine | DX: I83.11 Varicose veins of right lower extremity with inflammation (principal); I25.10 Atherosclerotic heart disease of native coronary artery without angina pectoris; I77.810 Thoracic aortic ectasia; I10 Essential (primary) hypertension; I45.10 Unspecified right bundle-branch block; R94.31 Abnormal electrocardiogram [ECG] [EKG]; R00.1 Bradycardia, unspecified; I49.3 Ventricular premature depolarization | CPT/HCPCS: 93005; 99212 ==

== ENCOUNTER 2024-12-28 13:11 | Outpatient (AMB) | payer OTHER, SELFPAY ==
--- NOTE | 2024-12-28 13:17 | A.OFFVIS_ITS ---
Intake Visit Reasons: follow up s/p R GSV RFA 11/12/24 Intake Note: Patient presents for follow up GSV. Patient's right leg has discoloration , pain and he states he feels like something is coming out . Picture on daughter's phone shows some sort of protrusion? Accompanied by: Children Allergies No Known Allergies Allergy (Verified 12/28/24 13:22) HPI HPI follow up s/p R GSV RFA 11/12/24: Details: Сергей is presenting today with 2 family members for concerns s/p right GSV RFA, performed on 11/12/24. He is Haitian speaking only and we utilized his family as interpreters. He has had a follow up on 11/25/24. He states he continues with right lower extremity pain, particularly around the ankle. He also has concerns about the site that was used, he states that he noticed a bump in the area the other day. He denies any pain at the site of the incision; there is a small scab noted. His family is concerned about the discoloration in his right lower leg. He denies any concerns with his left lower extremity. He denies any injuries or wounds. [facility] Medical History Obstructive sleep apnea Coronary artery disease Abdominal wall abscess Hearing difficulty Hypertension Nephrolithiasis Flank pain Constipation Dizziness Obesity (BMI 30-39.9) Tubular adenoma of colon Polysubstance abuse Knee osteoarthritis Degenerative disc disease, lumbar Osteoarthritis of right shoulder Ascending aorta dilatation History of renal calculi GERD (gastroesophageal reflux disease) Vitamin D deficiency Peripheral vascular disease Hypercholesterolemia COPD (chronic obstructive pulmonary disease) Surgical History Hx of cardiac cath Hx laparoscopic cholecystectomy Hx of colonoscopy History of esophagogastroduodenoscopy (EGD) Family History Father Stroke Heart attack Mother No problems noted. Sister Breast cancer Social History Household Members: Spouse Housing: House Do you presently have visiting nurse or other home services: No Alcohol intake: former Year quit: 2009 Patient Tobacco Use Status: Never used Tobacco Tobacco use type: Cigarette e-Cigarette/Vaping Use: Never Used Second Hand Smoke Exposure: No service: No Current occupational status: retired and disabled Cognitive needs: No Hearing needs: No Vision needs: Yes Review of Systems Const Reports as per HPI and Denies weakness ENT Reports Normal hearing present and Denies dizziness Card Reports as per HPI, Denies chest pain, Denies chest pain at rest, Denies chest pain with activity, Denies dyspnea and Denies dyspnea on exertion Resp Reports as per HPI, Denies cough, Denies dyspnea and Denies dyspnea on exertion GI Reports as per HPI, Denies abdominal pain, Denies nausea and Denies vomiting Musc Denies numbness Skin/Breast Reports as per HPI, Denies erythema and Denies wounds Neuro Reports Normal hearing present, Denies dizziness, Denies numbness, Denies Sensory deficit (Neuro) and Denies weakness Psych Reports no additional complaints Endo Reports no additional complaints Physical Exam Const General: healthy appearing and no acute distress Orientation/consciousness: patient oriented x3 HEENT Head: Yes normal to inspection Ears: hearing grossly normal bilaterally Mouth: Normal oral and palatal mucosa present Resp Effort & Inspection: normal respiratory effort and able to speak in complete se ntences Auscultation: clear to auscultation bilaterally Cardio Jugular venous distension: no JVD Rate: regular rate Rhythm: regular rhythm Heart sounds: S1 normal heart sound present and S2 normal heart sound present Bruits: no abdominal aortic bruits, no carotid bruits, no femoral bruits and no renal bruits Peripheral pulses: Peripheral pulses 2+ throughout GI Inspection: Yes normal to inspection Palpation (GI): No Abdominal aortic bruit present Skin General skin exam: no rashes or lesions noted Wounds: no wounds Hair: normal Neuro General: patient oriented x3 Cranial nerves: Yes Normal hearing present Cognition (Neuro): normal cognition Gait exam (Neuro): Normal gait present Motor exam (neuro): 5/5 motor strength present throughout Sensory Exam: No Sensory deficit (Neuro) Extrem Other: Right lower extremity: +2 non pitting edema noted. Discoloration noted from the mid-calf to the toes. Palpable DP pulse. Scabbed over incision in the medial thigh, above the knee. Not painful to palpation, scab easily removed. No erythema surrounding incision site. Not warm to the touch. General: Yes normal to inspection, Yes full ROM, Yes capillary refill normal and Yes normal gait Assessment & Plan Assessment & Plan (1) Varicose veins of right lower extremity with inflammation: Comment: 11/12/2024 - right great saphenous vein radiofrequency ablation Code(s): I83.11 - Varicose veins of right lower extremity with inflammation Category: Medical Plan: Сергей is presenting today with 2 of his family members for concerns s/p right GSV RFA, performed on 11/12/24. He states he is continuing to have right lower extremity pain, particularly around the ankle as well as swelling and leg discoloration. He has had all of these complaints before the procedure; he does endorse that they have gotten a little better since the procedure. He also has a small scab at the incision site. I had a lengthy discussion with the family that it can take some time for the pain to go away and it may not completely go away, as well. I discussed that the discoloration may not go away, it is due to hemosiderin staining, which may fade, but not completely go away. I discussed the importance of compression socks (the family is unable to get on the patient), elevation, and physical activity. We discussed the importance of a healthy, well balanced diet as well with protein and vegetables. Blood sugar control is also important. We discussed to follow up with us as needed; however, we did discuss that he does have some insufficiency noted in the left lower extremity and we could treat if it starts causing him any pain/discomfort. They will reach out to us as needed. Thank you for allowing us to participate in the patient's care. If there are any questions or concerns, please do not hesitate to reach out to us. Coding Level of Care Code Est Pt Level 3 (57722) Diagnoses Varicose veins of right lower extremity with inflammation I83.11
== END 2024-12-28 13:36 | disposition home or self-care (01) ==
LOC: HO.HVS 13:12
PROVIDERS: PCP Internal Medicine; Visit Provider Physician Assistant Surgical
DX: I83.11 Varicose veins of right lower extremity with inflammation (principal)
CPT/HCPCS: 99213

== ENCOUNTER 2025-01-07 11:33 | Outpatient (AMB) | payer OTHER, SELFPAY ==
--- NOTE | 2025-01-07 11:36 | A.OFFPC_ITS ---
Vital Signs 3 01/07/25 11:37 Height 5 ft 8 in Weight 223 lb 4 oz BMI 33.9 BP 110/62 Blood Pressure Location Lt brachial Position Sitting Pulse 55 Pulse Source Pulse Oximeter Temp 97.5 F Temp Source Temporal Artery Scan Pulse Oximetry (%) 96 Oxygen Delivery Method Room Air Intake Visit Reasons: boils in leg Intake Note: Patient is here to follow up on Boils on right leg with pain. 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 Discussed that patient has peripheral neuropathy and with the pain coming from the sciatic nerve. [facility], [facility] Medical History Obstructive sleep apnea Coronary artery disease Abdominal wall abscess Hearing difficulty Hypertension Nephrolithiasis Flank pain Constipation Dizziness Obesity (BMI 30-39.9) Tubular adenoma of colon Polysubstance abuse Knee osteoarthritis Degenerative disc disease, lumbar Osteoarthritis of right shoulder Ascending aorta dilatation History of renal calculi GERD (gastroesophageal reflux disease) Vitamin D deficiency Peripheral vascular disease Hypercholesterolemia COPD (chronic obstructive pulmonary disease) Surgical History Hx of cardiac cath Hx laparoscopic cholecystectomy Hx of colonoscopy History of esophagogastroduodenoscopy (EGD) Family History Father Stroke Heart attack Mother No problems noted. Sister Breast cancer Social History Household Members: Spouse Housing: House Do you presently have visiting nurse or other home services: No Alcohol intake: former Year quit: 2009 Patient Tobacco Use Status: Never used Tobacco Tobacco use type: Cigarette e-Cigarette/Vaping Use: Never Used Second Hand Smoke Exposure: No service: No Current occupational status: retired and disabled Cognitive needs: No Hearing needs: No Vision needs: Yes (Glasses) Questionnaire Thrive Questionnaire Date Thrive assessed: 10/14/24 AMAURY-7 AMB Questionnaire AMAURY-7 Date AMAURY - 7 assessed: 10/14/24 Source: Developed by Drs. Trae Bailey, Sakshi Ren, Master King and colleagues, with an educational osmel from [employer]. Physical exam (Primary Care) Tobacco/Smoking Status: Tobacco use Status Tobacco use date assessed 10/14/24 12/28/24 10:25 Patient Tobacco Use Status Never used Tobacco 12/28/24 10:25 Tobacco use type Cigarette 12/28/24 10:25 e-Cigarette/Vaping Use Never Used 12/28/24 10:25 Thrive Assessment: Date of Thrive Assessment Date Thrive assessed 10/14/24 12/28/24 10:25 Const General: alert; No acute distress Eyes Conjunctivae: conjunctivae normal Resp Auscultation: clear to auscultation bilaterally Cardio Rate: regular rate Rhythm: regular rhythm GI Inspection: Yes normal to inspection Extrem Upper/lower leg/hip images: 2 1. 3 cm erythematous mass with 1 cm scabin the middle- incisional are from a vascular procedure 10/2024 Results AMB Hemoglobin A1c 2 AMB Hemoglobin A1c 5.7 % Last Edit by WILBER Fan on 01/07/25 11:50 Coding Level of Care Code Est Pt Level 4 (01606) Diagnoses Cellulitis of right thigh L03.115 Sciatic nerve pain M54.30 Peripheral neuropathy G62.9 Assessment & Plan Assessment & Plan (1) Cellulitis of right thigh: Code(s): L03.115 - Cellulitis of right lower limb Category: Medical (2) Sciatic nerve pain: Code(s): M54.30 - Sciatica, unspecified side Category: Medical (3) Peripheral neuropathy: Code(s): G62.9 - Polyneuropathy, unspecified Category: Medical Plan: Patient is on gabapentin already Plan History of Present Illness The patient is a 74-year-old male presenting with a skin infection and sciatic pain. He has a significant medical history of type 2 diabetes mellitus, which may impact his healing process. Recently, he developed an infection at the site of a medical procedure done in October, last consulting a physician regarding this in November. The infection is a mild skin infection, not progressing to a full abscess, and the treatment plan includes a prescription for Bactrim, a sulfamethoxazole and trimethoprim antibiotic. The recommendation is to ensure adequate hydration to support recovery, considering his diabetic status. Concurrently, he reports experiencing sciatic pain, worsened by prolonged sitting. The discomfort lessens with movement, indicating sciatic nerve involvement. Due to concerns about day-time drowsiness, a bedtime dose of a muscle relaxant was advised instead of multiple doses throughout the day. Health Maintenance Social History - Details regarding social history, employment status, housing, education, and family context not discussed in the conversation. Review of Systems - Dermatologic: Reports skin infection - Neurologic: Reports sciatic pain, peripheral neuropathy - Genitourinary: Denies chlamydia Physical Exam - Neurologic- Implications of sciatic pain discussed, however specific objective findings were not mentioned during the examination. Results Plan I recommended treating the skin infection with Bactrim, considering the implications of diabetes mellitus on the patient?s healing process. I emphasized the importance of medication compliance and hydration. For the sciatica, a muscle relaxant is prescribed for use at night to alleviate symptoms while minimizing day-time drowsiness. Continuous monitoring of his symptoms and medication efficacy is necessary. Patient was informed and verbally consented to the use of an ambient scribe for clinic note documentation during this visit. Discussion Notes I discussed the diagnosis of a skin infection and explained the use of Bactrim, a sulfamethoxazole and trimethoprim combination, highlighting the importance of increased fluid intake. We talked about potential risks such as adverse reactions to the medication, emphasizing the importance of hydration due to diabetes mellitus's impact on his healing potential. For his sciatica, I proposed a muscle relaxant regimen, explaining its sedative effects and recommending its use at bedtime. I discussed signs of improvement versus complications and advised staying updated on his response to treatment, ensuring clear communication throughout his recovery process. Patient Instructions - Take Bactrim as prescribed, twice daily. - Drink plenty of fluids while on antibiotics. - Take the muscle relaxant at bedtime. - Move around frequently to prevent sciatic pain. - Monitor for symptoms and contact if there are concerns. - Make sure to bead picker the prescription from the [facility] pharmacy on [address]. Orders: Orders 2 AMB Hemoglobin A1c Today E11.65 - Type 2 diabetes mellitus with hyperglycemia Medications: New 2 sulfamethoxazole-trimethoprim 800-160 mg (Bactrim DS) 1 tab PO BID 14 tabs 0RF L03.115 - Cellulitis of right lower limb sulfamethoxazole-trimethoprim 800-160 mg (Bactrim DS) 1 tab PO BID 14 tabs 0RF L03.115 - Cellulitis of right lower limb cyclobenzaprine 5 mg PO BEDTIME PRN 30 tabs 0RF muscle spasm M54.30 - Sciatica, unspecified side
[2025-01-07 11:37] VITALS: BP 110/62; PULSE 55; TEMP 36.4; O2SAT 96; BMI 33.9
--- OUTSIDE RECORDS SUMMARY | 2025-01-07 12:38 | XMS_ITS ---
Author Organization [facility] Address [address] [place] [address] Care Team Providers Care Detective Lieutenant Name Role Phone Neo Baig Primary Care Provider Jelena Peralta Unavailable [phone] Medications Medication SIG (Take, Route, Frequency, Duration) [...] Active Encounters Encounter Location Date Provider Diagnosis [facility] [address] [address] 09/24/2024 Jelena Craig Plan Of Treatment Next Appt Details Provider Name:Jelena lee, 03/08/2025 01:00:00 PM, [address] [place] [address], [phone], Progress Notes * MEGHAN, CashanDOB:1950 (74 yo M)Acc No.[id number]:09/24/2024 Progress Note Patient:?Сергей HARVEY Provider:?Jelena Craig DPM :1950???Age:74 Y???Sex:Male Humphrey e:09/24/2024 Address:[address] [place], [place] [id number] Pcp:Neo Baig Subjective: * Chief Complaints: * [...] Craig DPM Date:?11/2024 Generated for Fermín calvo/Dante/Rich on:?01/07/2025 12:38 PM EDT
--- OUTSIDE RECORDS SUMMARY | 2025-01-07 12:39 | XMS_ITS ---
Author Organization [facility] Address [address] [place] [address] Care Team Providers Care Pad Tufter Name Role Phone Neo Baig Primary Care Provider Jelena Peralta [phone] REASON FOR VISIT cx appt Encounters Encounter Location Date Provider Diagnosis [address] [address] 09/24/2024 Jelena Craig Plan Of Treatment Next Appt Details Provider Name:Jelena lee, 03/08/2025 01:00:00 PM, [address] [place], [address], Progress Notes * Tammy HARVEYOB:1950 (74 yo M)Acc No.[id number]:09/24/2024 Patient:?Сергей HARVEY :1950???Age:74 Y???Sex:Male Address:[address] [place] [address], [address] * true * Date:? Generated for Printi ng/Faadrieng/eTransmitting on:?01/07/2025 12:38 PM EDT
--- OUTSIDE RECORDS SUMMARY | 2025-01-07 12:39 | XMS_ITS ---
Author Organization [facility] Address [address] [place] [address] Care Team Providers Care Laundry Operator Wash Room Name Role Phone Neo Baig Primary Care Provider Jelena Peralta Unavailable [phone] Allergies No Known Allergies REASON FOR VISIT [...] 025 Encounters Encounter Location Date Provider Diagnosis [facility] [address] [address] 11/30/2024 Jelena Craig Tinea pedis of both [...] Reason: Provider Name:Jelena lee, 03/08/2025 01:00:00 PM, [address] [place] [address], [phone], Procedure Notes * Category Sub-Category Detail Notes Wart Treatment Procedure Verrucae were de brided to pin-point bleeding margins with sterile 15 surgical blade, silver nitrate chemocautery applied, recomm. immune-boosting meds such as zinc, recomm. follow up with topical chemosurgical agents, Pt defers any other forms of tx (82652) Debride Nail 6-10 Nail debridement Due to [...] use of a nail nipper and/or dremel-type instrument lens grinder, to a more viable healthy nail [...] to maintain effectiveness in symptomatic relief - 33821 Keratoma Treatment Parring or Cutting o f [...] instrumentation by the physician of record - 64629 Progress Notes * Tammy HARVEYOB:1950 (74 yo M)Acc No.[id number]:11/30/2024 Progress Note Patient:?MEGHAN Сергей Provider:?Jelena Craig DPM :1950???Age:74 Y???Sex:Male Humphrey e:11/30/2024 Address:[address] [place] [address], [facility] Pcp:Neo Baig Subjective: * Chief Complaints: * [...] use of a nail nipper and/or dremel-type instrument lens grinder, to a more viable healthy nail [...] to maintain effectiveness in symptomatic relief - 70369.?Keratoma Treatment:?Parring or Cutting of Benign Hyperkeratotic Lesion(s)?(-57) [...] instrumentation by the physician of record - 63104.?Wart Treatment:?Procedure?Verrucae were debrided to pin-point bleeding margins with sterile 15 surgical blade, silver nitrate chemocautery applied, recomm. immune-boosting meds such as zinc, recomm. follow up with topical chemosurgical agents, Pt defers any other forms of tx (55806).? * Procedure Codes:?73097 DEBRI DE NAIL, 6 OR MORE, Modifiers: XS 80895 Wart Destruction, 1-14, Modifiers: XS 69472 TRIM SKIN LESIONS, OVER 4, Modifiers: XS [...] Sign off status: Completed true * Provider:?Jelena Carig DPM Date:?07/2025 Generated for Fermín calvo/Dante/Rich on:?01/07/2025 12:39 PM EDT History and Physical Notes * HPI [...]
--- OUTSIDE RECORDS SUMMARY | 2025-01-07 12:39 | XMS_ITS | Patient Health Record ---
Author Organization [facility] Address [address] [place] [address] Care Team Providers Care Elevator Attendant Name Role Phone Neo Baig Primary Care Provider Jelena Peralta Unavailable [phone] Allergies No Known Allergies Reason For Referral [...] Name Neo Referring Provider Last Name [facility] Referred Provider Jelena Craig Referred Address [address] [facility],[place],[address], Referred Provider Specialty Podiatry Referral Priority Routine [...] Problem Acquired hammer toe of right foot (8217573622805424 ) Other hammer toe(s) (acquired), right foot (M20.41) Active confirmed Problem Acquired hammer toe of left foot (4007579978731020 ) Other hammer toe(s) (acquired), left foot (M20.42) Active confirmed Problem Plantar wart (04270025) Plantar wart (B07.0) Active confirmed Problem Polyneuropathy due to type 2 diabetes mellitus (282176640) Type 2 diabetes mellitus with diabetic polyneuropathy (E11.42) Active confirmed Problem 43296214 Venous insufficiency (I87.2) Active confirmed Vital Signs Blood pressure diastolic 89 mm Hg 11/30/2024 Height 5ft8in in 11/30/2024 Blood pressure systolic 127 mm Hg 11/30/2024 Weight 225 lbs 11/30/2024 BMI 34.21 kg/m2 11/30/2024 Encounters Encounter Location Date Provider Diagnosis [address] [address] 01/27/2024 Jelena Craig Tinea pedis of both feet B35.3 ; Other hammer toe(s) (acquired), right foot M20.41 ; Other hammer toe(s) (acquired), left foot M20.42 ; Tinea unguium B35.1 ; Type 2 diabetes mellitus with diabetic polyneuropathy E11.42 ; Right foot pain M79.671 ; Plantar wart B07.0 and Left foot pain M79.[address] [address] 06/23/2024 Jelena Craig Other hammer toe(s) (acquired), right foot M20.41 ; Muscle cramp, nocturnal R25.2 ; Tinea pedis of both feet B35.3 ; Other hammer toe(s) (acquired), left foot M20.42 ; Tinea unguium B35.1 ; Type 2 diabetes mellitus with diabetic polyneuropathy E11.42 ; Right foot pain M79.671 ; Plantar wart B07.0 and Left foot pain M79.[address] [address] 11/30/2024 Jelena Craig Tinea pedis of both feet B35.3 ; Tinea unguium B35.1 ; Type 2 diabetes mellitus with diabetic polyneuropathy E11.42 ; Right foot pain M79.671 ; Plantar wart B07.0 and Left foot pain M79.[address] [address] 04/27/2024 Jelena Craig [address] [address] 09/24/2024 Jelena Craig Assessments Encounter Date Diagnosis [...] Treatment Pending Test Test Name Order Date [id number] NAIL, 6 OR MORE 09/02/2022 [id number] SKIN LESIONS, OVER 4 09/02/20 22 Next Appt Details Provider Name:Jelena lee, 03/08/2025 01:00:00 PM, [address] [place] [address], [phone], Insurance Providers Payer Name Payer Address Payer Phone Subscriber Number Group Number Insured Name Patient Relationship to Insured Coverage Start Date Coverage End Date [facility] [address] YAZMIN Gomez [phone] [id number] Сергей Harvey Self - patient is the insured Medical (General) History Medical History History ICD Code Arthritis CAD (Cholesterol) type II diabetes Gout osteoarthritis dizziness Auto Pap 6-20 Tinea Pedis Surgical History Surgery Date(Month/Year) kidney stones 08/2022
== END 2025-01-07 11:56 | disposition home or self-care (01) ==
LOC: HO.HMCH 11:33
PROVIDERS: PCP Internal Medicine; Visit Provider Internal Medicine
DX: L03.115 Cellulitis of right lower limb (principal); M54.30 Sciatica, unspecified side; G62.9 Polyneuropathy, unspecified; E11.65 Type 2 diabetes mellitus with hyperglycemia

== ENCOUNTER → 2025-01-07 11:33 | Outpatient (BNVA) | payer OTHER, SELFPAY | PROVIDERS: PCP Internal Medicine; Visit Provider Internal Medicine | DX: L03.115 Cellulitis of right lower limb (principal); M54.30 Sciatica, unspecified side; G62.9 Polyneuropathy, unspecified; E11.65 Type 2 diabetes mellitus with hyperglycemia | CPT/HCPCS: 83036; 99212 ==

== ENCOUNTER → 2025-01-19 23:59 | Outpatient (BNV) | payer OTHER, SELFPAY | PROVIDERS: PCP Internal Medicine; Visit Provider Internal Medicine | DX: I10 Essential (primary) hypertension (principal); E11.51 Type 2 diabetes mellitus with diabetic peripheral angiopathy without gangrene; I73.9 Peripheral vascular disease, unspecified | CPT/HCPCS: G0180 ==

== ENCOUNTER 2025-01-20 10:26 | Outpatient (AMB) | payer MEDICARE, SELFPAY ==
[2025-01-20 10:38] VITALS: BP 134/72; PULSE 54; O2SAT 97; BMI 33.3
--- NOTE | 2025-01-20 10:38 | A.OFFPC_ITS ---
Vital Signs 01/20/25 10:38 Height 5 ft 8 in Weight 219 lb BMI 33.3 BP 134/72 Blood Pressure Location Lt brachial Position Sitting Pulse 54 Pulse Source Pulse Oximeter Pulse Oximetry (%) 97 Oxygen Delivery Method Room Air Intake Visit Reasons: DM , Allergies No Known Allergies Allergy (Verified 01/20/25 10:39) Medication List - Last Reconciled 01/20/25 by Neo Baig MD aspirin (Adult Aspirin Regimen) 81 mg PO DAILY 90 days atorvastatin 40 mg PO DAILY 90 days blood sugar diagnostic (E4 [employer] Verio test strips) test once daily blood-glucose meter ([employer] Verio Flex Meter) test once daily zohra.stocking,knee,reg,xlrg As directed 20-30 mm HG [DIABETIC SHOES As directed] diclofenac sodium 1% (Voltaren Arthritis Pain) 4 grams topical QID escitalopram oxalate (Lexapro) 5 mg PO DAILY gabapentin 300 mg PO TID hydrochlorothiazide 25 mg PO DAILY lancets ([employer]4 [employer] Delica Plus Lancet) USE TO TEST ONCE DAILY lisinopril 5 mg PO DAILY metoprolol succinate ER 25 mg PO DAILY omeprazole 20 mg PO DAILY pyridoxine (vitamin B6) 100 mg PO DAILY semaglutide (Ozempic) 0.25 mg (0.368 mL) subcut QWEEK 30 days tamsulosin (Flomax) 0.4 mg PO BEDTIME tizanidine 4 mg PO BID PRN Tobacco use date assessed: 01/07/25 Fall risk assessment: No Falls in past year Last assessed Fall Risk: 01/20/25 Dental Screening Dental Screen Date: 12/03/24 [facility] Medical History Obstructive sleep apnea Coronary artery disease Abdominal wall abscess Hearing difficulty Hypertension Nephrolithiasis Flank pain Constipation Dizziness Obesity (BMI 30-39.9) Tubular adenoma of colon Polysubstance abuse Knee osteoarthritis Degenerative disc disease, lumbar Osteoarthritis of right shoulder Ascending aorta dilatation History of renal calculi GERD (gastroesophageal reflux disease) Vitamin D deficiency Peripheral vascular disease Hypercholesterolemia COPD (chronic obstructive pulmonary disease) Surgical History Hx of cardiac cath Hx laparoscopic cholecystectomy Hx of colonoscopy History of esophagogastroduodenoscopy (EGD) Family History Father Stroke Heart attack Mother No problems noted. Sister Breast cancer Social History Household Members: Spouse Housing: House Do you presently have visiting nurse or other home services: No Alcohol intake: former Year quit: 2010 Patient Tobacco Use Status: Never used Tobacco Tobacco use type: Cigarette e-Cigarette/Vaping Use: Never Used Second Hand Smoke Exposure: No service: No Current occupational status: retired and disabled Cognitive needs: No Hearing needs: No Vision needs: Yes (Glasses) Questionnaire PHQ-9 Over the last 2 weeks, how often have you been bothered by any of the following problems? 1. Little interest or pleasure in doing things: not at all 2. Feeling down, depressed, or hopeless: not at all 3. Trouble falling or staying asleep, or sleeping too much: not at all 4. Feeling tired or having little energy: nearly every day 5. Poor appetite or overeating: not at all 6. Feeling bad about yourself - or that you are a failure or have let yourself or your family down: not at all 7. Trouble concentrating on things, such as reading the newspaper or watching television: not at all 8. Moving or speaking so slowly that other people could have noticed. Or the opposite - being so fidgety or restless that you have been moving around a lot more than usual: nearly every day 9. Thoughts that you would be better off or of hurting yourself in some way: not at all Total score: 6 Depression Screening Interpretation: Positive Depression Screening Done: Yes 44371 - PHQ-9 Billing: Yes Source: Developed by Drs. Trae Bailey, Sakshi Ren, Master King and colleagues, with an educational osmel from [employer]. Thrive Questionnaire Date Thrive assessed: 10/14/24 I am a: Patient What is your living situation today?: I have a steady place to live Within the past 12 months, did the food you bought not last and you didn't have the money to get more?: Often true Within the past 12 months, did you worry whether your food would run out before you got money to buy more?: Often true Do you have trouble paying for medicines?: Yes Do you have trouble getting transportation to medical appointments?: No Do you have trouble paying your heating and electricity bill?: Yes Do you have trouble taking care of your child, family member or friend?: No Do you have trouble with day-to-day activities such as bathing, preparing meals, shopping, managing finances, etc.?: Yes Are you currently unemployed and looking for a job?: Yes Are you interested in more education?: No Please select the resources that you would like help with: Housing/Senior Living, Food, Paying for medicine and Utilities Currently or been in a relationship where the following occur: I choose not to answer THRIVE Score: 3 AUDIT C Alcohol Use Questionnaire (AUDIT-C) 1. How often do you have a drink containing alcohol?: Never Total Score: 0 AMAURY-7 AMB Questionnaire AMAURY-7 Date AMAURY - 7 assessed: 10/14/24 Feeling nervous, anxious, or on edge: 0 = Not at all Not being able to stop or control worryin = Not at all Worrying too much about different things: 0 = Not at all Trouble relaxin = Not at all Being so restless that it is hard to sit still: 0 = Not at all Becoming easily annoyed or irritable: 0 = Not at all Feeling afraid as if something awful might happen: 0 = Not at all Total AMAURY-7 score (0-4 normal; 5-9 mild; 10-14 moderate; 15-21 severe): 0 Source: Developed by Drs. Trae Bailey, Sakshi Ren, Master King and colleagues, with an educational osmel from [employer]. Physical exam (Primary Care) Vital Signs: Last Vital Signs Pulse 54 01/20/25 10:38 BP 134/72 01/20/25 10:38 Pulse Ox 97 01/20/25 10:38 Oxygen Delivery Method Room Air 01/20/25 10:38 BMI result Body Mass Index 33.3 Tobacco/Smoking Status: Tobacco use Status Tobacco use date assessed 01/07/25 01/20/25 10:40 Patient Tobacco Use Status Never used Tobacco 01/20/25 10:40 Tobacco use type Cigarette 01/20/25 10:40 e-Cigarette/Vaping Use Never Used 01/20/25 10:40 PHQ-9: PHQ-9 Score PHQ-9: Total score 6 01/20/25 11:26 Depression Screening Interpretation: Positive Thrive Assessment: Date of Thrive Assessment Date Thrive assessed 10/14/24 01/20/25 10:40 Currently or been in a relationship where the following occur: I choose not to answer Const General: alert; No acute distress Eyes Conjunctivae: conjunctivae normal Resp Auscultation: clear to auscultation bilaterally Cardio Rate: regular rate Rhythm: regular rhythm GI Inspection: Yes normal to inspection Coding Level of Care Code Est Pt Level 4 (06193) Diagnoses Obesity (BMI 30-39.9) E66.9 Atherosclerotic cardiovascular disease I25.10 Type 2 diabetes mellitus with hyperglycemia, without long-term current use of insulin E11.65 Diabetes mellitus fci insulin use: without intermediate school teacher use Cellulitis of right thigh L03.115 Additional Codes PHQ-9 - 92130 - PHQ-9 Billing: Yes ([id number]) Assessment & Plan Assessment & Plan (1) Obesity (BMI 30-39.9): Code(s): E66.9 - Obesity, unspecified Category: Medical Plan: Patient needs to lose weight (2) Atherosclerotic cardiovascular disease: Comment: Cardiac catheterization November 2022 minimal irregularities Code(s): I25.10 - Atherosclerotic heart disease of [place] coronary artery without angina pectoris Category: Medical Plan: Control the cholesterol, weight, blood pressure, diabetes and continue with aspirin (3) Type 2 diabetes mellitus with hyperglycemia: Comment: Dr. Bee Code(s): E11.65 - Type 2 diabetes mellitus with hyperglycemia Category: Medical Qualifiers: Diabetes mellitus fci insulin use: without intermediate school teacher use Qualified Code(s): E11.65 - Type 2 diabetes mellitus with hyperglycemia Plan: Decrease the amount of carbohydrate intake, pasta, bread, rice and potatoes are all sugar and that is aside from all the sweet stuff, remember that fruits are good but they are Sweet also. Continue with diabetes medication (4) Cellulitis of right thigh: Code(s): L03.115 - Cellulitis of right lower limb Category: Medical Plan History of Present Illness The patient is a 74-year-old male presenting with a follow-up for right thigh swelling and cellulitis. The patient has been treated with Bactrim for 14 days, and there have been positive improvements, as the patient has not reported any gastrointestinal side effects. The patient's medical history includes obesity, diabetes mellitus, cardiovascular disease, COPD, and other chronic conditions. Additionally, there is a report of back pain not effectively managed due to insurance issues with muscle relaxants. This visit is focused on evaluating the current status of the cellulitis and addressing any remaining discomfort. Health Maintenance - Continue monitoring and management of hypertension with prescribed medication. - Continue aspirin for cardiovascular disease prevention. - Encourage weight loss strategies to manage obesity. - Maintain glycemic control. Social History - Reduced activity likely due to chronic obstructive pulmonary disease (COPD) and persistent back pain. Review of Systems - Musculoskeletal: Reports back pain. - Gastrointestinal: Denies diarrhea. - Skin: Reports right thigh swelling, redness resolved. - General: Denies new systemic symptoms. Physical Exam - Musculoskeletal- Right thigh swelling noted. Results - Labs: Cholesterol test last completed in June 2024. Plan The patient will discontinue the antibiotic Bactrim with careful monitoring for any recurrence of symptoms. I will prescribe a different muscle relaxant to address back pain associated with sciatica, pending insurance coverage, and recommend regular stretching exercises. Continuation of aspirin therapy and weight management strategies are advised for cardiovascular health. Glycemic control will remain a focus through diabetes management. Follow-up for any symptom changes or concerns will be monitored. Patient was informed and verbally consented to the use of an ambient scribe for clinic note documentation during this visit. Discussion Notes During the visit, I explained the benefits and necessity of discontinuing the antibiotic Bactrim to avoid potential side effects like diarrhea. We discussed alternative options for muscle relaxants to manage persistent back pain and emphasized engaging in stretching exercises, considering sciatica. We reviewed ongoing cardiovascular management through aspirin use and the importance of weight management for cardiovascular health. I also highlighted the need for continued glucose monitoring for diabetes management. The patient acknowledged understanding of the proposed plan and agreed to follow through with the recommendations. Patient Instructions - Stop taking Bactrim. - Engage in daily stretching exercises for back pain. - Continue taking aspirin as prescribed. - Follow weight loss and management strategies. - Monitor sugar levels regularly. - Report any new or worsening symptoms. Medications: New tizanidine 4 mg PO BID PRN 60 tabs 0RF muscle spasticity M54.30 - Sciatica, unspecified side Discontinued sulfamethoxazole-trimethoprim 800-160 mg (Bactrim DS) Discontinued Reason: Order 1 tab PO BID 14 tabs 0RF L03.115 - Cellulitis of right lower limb cyclobenzaprine Discontinued Reason: Insurance Denied 5 mg PO BEDTIME PRN 30 tabs 0RF muscle spasm M54.30 - Sciatica, unspecified side
--- OUTSIDE RECORDS SUMMARY | 2025-01-20 11:54 | XMS_ITS ---
[facility] Organization [facility] Address [address] [place] [address] Care Team Providers Care Managed Care Provider Name Role Phone Neo Baig Primary Care Provider Jelena Peralta Unavailable [phone] Allergies No Known Allergies REASON FOR VISIT [...] 025 Encounters Encounter Location Date Provider Diagnosis [facility] [address] [address] 11/30/2024 Jelena Craig Tinea pedis of both [...] Reason: Provider Name:Jelena lee, 03/08/2025 01:00:00 PM, [address] [place] [address], [phone], Procedure Notes * Category Sub-Category Detail Notes Wart Treatment Procedure Verrucae were de brided to pin-point bleeding margins with sterile 15 surgical blade, silver nitrate chemocautery applied, recomm. immune-boosting meds such as zinc, recomm. follow up with topical chemosurgical agents, Pt defers any other forms of tx (65822) Debride Nail 6-10 Nail debridement Due to [...] use of a nail nipper and/or dremel-type gold nib grinder, to a more viable healthy nail [...] to maintain effectiveness in symptomatic relief - 37307 Keratoma Treatment Parring or Cutting o f [...] instrumentation by the physician of record - 32793 Progress Notes * Tammy HARVEYOB:1950 (74 yo M)Acc No.[id number]:11/30/2024 Progress Note Patient:?MEGHAN Сергей Provider:?Jelena Craig DPM :1950???Age:74 Y???Sex:Male Humphrey e:11/30/2024 Address:[address] [place] [address], [facility] Pcp:Neo Baig Subjective: * Chief Complaints: * [...] use of a nail nipper and/or dremel-type gold nib grinder, to a more viable healthy nail [...] to maintain effectiveness in symptomatic relief - 98150.?Keratoma Treatment:?Parring or Cutting of Benign Hyperkeratotic Lesion(s)?(-57) [...] instrumentation by the physician of record - 68989.?Wart Treatment:?Procedure?Verrucae were debrided to pin-point bleeding margins with sterile 15 surgical blade, silver nitrate chemocautery applied, recomm. immune-boosting meds such as zinc, recomm. follow up with topical chemosurgical agents, Pt defers any other forms of tx (49653).? * Procedure Codes:?76960 DEBRI DE NAIL, 6 OR MORE, Modifiers: XS 56924 Wart Destruction, 1-14, Modifiers: XS 63541 TRIM SKIN LESIONS, OVER 4, Modifiers: XS [...] Craig DPM Date:?07/2025 Generated for Fermín calvo/Dante/Rich on:?01/20/2025 11:54 AM EDT History and Physical Notes * [...]
--- OUTSIDE RECORDS SUMMARY | 2025-01-20 11:54 | XMS_ITS ---
Author Organization [facility] Address [address] [place] [address] Care Team Providers Care Shooting Gallery Operator Name Role Phone Neo Baig Primary Care Provider Jelena Peralta Unavailable [phone] Medications Medication SIG (Take, Route, Frequency, Duration) [...] Active Encounters Encounter Location Date Provider Diagnosis [facility] [address] [address] 09/24/2024 Jelena Craig Plan Of Treatment Next Appt Details Provider Name:Jelena lee, 03/08/2025 01:00:00 PM, [address] [place] [address], [phone], Progress Notes * MEGHAN, CashanDOB:1950 (74 yo M)Acc No.[id number]:09/24/2024 Progress Note Patient:?Сергей HARVEY Provider:?Jelena Craig DPM :1950???Age:74 Y???Sex:Male Humphrey e:09/24/2024 Address:[address] [place], [place] [id number] Pcp:Neo Baig Subjective: * Chief Complaints: * [...] Craig DPM Date:?11/2024 Generated for Fermín calvo/Dante/Rich on:?01/20/2025 11:53 AM EDT
--- OUTSIDE RECORDS SUMMARY | 2025-01-20 11:54 | XMS_ITS | Data Portability ---
Author Organization [place] - [facility], Allergy Address [address] [place] [address] Care Team Providers Care Machines Technician Name Role Phone NOBLE COLEMAN Primary Care [...] & hearing handicap, a fitting of a pkntcmmp-zd-zfy- canal hearing device is expected to provide a significant improvement in the patient's ability to communicate. The patient has a 100% coverage GRAYS[place] benefit at an in network provider and would like to investigate this option before ordering hearing aids through [employer] who is out of network. [email or web address] Not available 11/18/2024 10:39:01 Plan of Treatment Reminders Order Date Submit Date Provider Last Modified By Organization Details Last Modified Time Details Appointments None recorded. Lab None recorded. Referral None recorded. Procedures None recorded. Surgeries None recorded. Imaging MRI, brain + internal auditory canal, w/wo contrast - MRI, BRAIN + INTERNAL AUDITORY CANAL, W/WO CONTRAST 2024 025 [facility] ([facility] [address], [place], [address], 15:28:05 Medication Orders None recorded. Patient TargetsNo targets recorded. Patient InstructionsNo instructions recorded. Reason for Referral None Reported. Results Created Date Observation Date Name Description Value Unit Range Abnormal Flag Note LastModifiedBy Organization Detail LastModifiedTime 10/20/19 audio gram No observ ation record ed. BARCODE Not Available 2024 10:44:55 11/05/19 25 11/04/2024 MRI, brain + brain stem, w/wo contr ast [facility] Access ion Number : [id number] [place] t Name: Сергей Harvey Record Number : [id number] Date of : 1949 Date of Exam: 2024 Referr ing Physic garima: Anson harris, Tisha [facility] [address] [place] [address] Exam: MR Brain (C-/C+ ) CPT 76215 Room Descri ption: [facility] Pion 3T MR Brain (C-/C+ ) CPT 41323 INDICA TION / CLINIC AL QUESTI ON: [...] the brain with attent ion to the mba internship al audito ry canals was perfor [...] or abnorm al enhanc ement in the mba internship al audito ry canals or cerebe [...] onical ly Signed By: Stephanie echevarria MD [facility] ([facility]) [address], [place], [address], 11/16/2024 15:58:16 Result Notes None recorded. Problems Name Problem SNOMED Code Status Onset Date Resolution Date Notes Provider Name and Address Organization Details Recorded Time Sensorineur al hearing loss of bilateral ears 549326937 Active 2024 TARSHA PHILLIP, Ana [address] [address], [place], [address], [facility] - [facility] 5 09:52:04 Sensorineur al hearing loss in right ear 7924444302209 0 Active 2024 TISHA Victoria MD [address] [address], [place], [address], [facility] - [facility] 5 10:18:17 Bilateral tinnitus 3775702239847 Active 2024 TISHA Victoria MD [address] [place] [address], [place], [address], [facility] - [facility] 5 10:18:43 Problem Notes None recorded. Procedures Surgical History Date Name Laterality Status Provider Name and Address Organization Details Recorded Time 10/20/2024 Comp Audio with Tymps (71054 & 94048) completed TARSHA PHILLIP, AuD [address] [facility] [address], [place], [address], [facility] - [facility] 10/20/2024 09:51:58 Imaging Results Imaging Date Name Status LastModified by Organiz ation Details LastModified Time 10/20/2024 audiogram completed BARCODE Information no t available 10/20/2024 10:44:55 11/04/2024 MRI, brain + brain stem, w/wo contrast [facility] [address], [place], [address], 11/16/2024 15:58:16 Procedure Notes None recorded. Medical [...] Updated DateTime 11/30/2024 175.26 cm 32.5 kg/m2 17711.32 g Sean Walsh [place] - [facility] 11/30/2024 08:02:31 Social History None recorded. Functional Status None recorded. Mental Status None recorded. Family History Nothing Reported. Medical History No medical history recorded. Past Encounters Encounter ID Performer Location Encounter Start Date Encounter Closed Date Diagnosis/Indication Diagnosis SNOMED-CT Code Diagnosis ICD10 Code Diagnosis Note [id number] TISHA FARR MD [facility] [address] [address] 10/20/2024 09:18:08 10/20/2024 10:19:09 Sensorineural hearing loss of bilateral ears 680993569 H90.3 Audiologic al evaluation results:Ri ght ear:Mild to moderate from 250 through {{596 096 8009* 1500 2000 3000 4000 6000 8000}} Hz [...] rising to normal hearing from 500 through {{070 029 7072 1500 2000* 3000 4000 6000 8000}} Hz [...] Sensorineu ral hearing loss in right ear 4588011337 9100 H90.A21 Given the asymmetric hearing loss I recommend an MRI IAC with contrast to evaluate for retrocochl ear pathology. We will review results when complete. Bilateral tinnitus 89000 05820 102 H93.13 Ear exam was normal. Audiogram was reviewed. We discussed the associatio n between sensorineu ral hearing loss and tinnitus. We discussed masking for tinnitus. [id number] Ana VEGA [facility] [place] [address] [place] [address] ite [address] [place] [address] 11/18/2024 10:15:07 11/19/2024 07:33:37 Sensorineural hearing loss of bilateral ears 344877179 H90.3 [id number] TISHA FARR MD [facility] [address] [place] [address] 11/30/2024 08:00:41 11/30/2024 08:18:20 Sensorineural hearing loss of bilateral ears 827572842 H90.3 Audiologic al evaluation results:Ri ght ear:Mild to moderate from 250 through {{734 212 1391* 1500 2000 3000 4000 6000 8000}} Hz [...] rising to normal hearing from 500 through {{350 860 2809 1500 2000* 3000 4000 6000 8000}} Hz [...] Sensorineu ral hearing loss in right ear 6878953007 9100 H90.A21 I gave reassuranc e there are no tumors causing the asymmetric HL. 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 I would be glad to see him as needed. I gave medical clearance for hearing aids. I personally reviewed MRI images. Bilateral tinnitus 38622 76882 102 H93.13 We again discussed the associatio [...] Chu Member ID Guarantor Name 10/20/2024 1 [facility] - DUAL ELIGIBLE - [facility] (MEDICARE REPLACEMENT/ ADVANTAGE - HMO) Сергей Harvey [id number] Сергей Harvey 11/18/2024 1 [facility] - DUAL ELIGIBLE - [employer] - SENIOR PLAN (MEDICARE REPLACEMENT/ ADVANTAGE - HMO) Сергей Candice [id number] Сергей Candice 11/30/2024 1 [facility] - DUAL ELIGIBLE - [employer] - SENIOR PLAN (MEDICARE REPLACEMENT/ ADVANTAGE - HMO) Сергей Candice [id number] Сергей Candice Notes Date Note Type Note Provider Name and Address Organization Details Recorded Time 10/20/2024 text/html Hx of gradual hearing loss over time. It has been worse on the right for years. Has tinnitus AU but worse AD. Audio showed asymmetric SNHL worse AD. TISHA FARR MD [address] [facility],[address], [address], [place] - [facility] 10/20/2024 10:19:31 11/18/2024 text/html Patient returned to [...] earhas been recommended. Ana VEGA [address] [facility],[address], [address], [place] - [facility] 11/18/2024 10:39:32 11/30/2024 text/html Hx of gradual hearing loss over time. Audio at the last visit showed asymmetric SNHL worse AD. We obtained an MRI IAC which I personally reviewed which was negative for retrocochlear pathology. It did show trace sinus disease and a possible old lacunar infarct. TISHA FARR MD [address] [facility] [address], [place], [address], [place] - [facility] 11/30/2024 08:18:15
--- OUTSIDE RECORDS SUMMARY | 2025-01-20 11:54 | XMS_ITS | Patient Health Record ---
Author Organization [facility] Isaias vergara Warne Address [address] [place] [address] Care Team Providers Care Hand Scraper Name Role Phone Neo Baig Primary Care Provider Jelena Peralta Unavailable [phone] Allergies No Known Allergies Reason For Referral [...] Neo Referring Provider Last Name [facility]erred [facility] Referred Provider Jelena Craig Referred Address [address] [facility],[place],[address], Referred Provider Specialty Podiatry Referral Priority Routine [...] Problem Acquired hammer toe of right foot (2849126116767501 ) Other hammer toe(s) (acquired), right foot (M20.41) Active confirmed Problem Acquired hammer toe of left foot (0789566258579828 ) Other hammer toe(s) (acquired), left foot (M20.42) Active confirmed Problem Plantar wart (50868917) Plantar wart (B07.0) Active confirmed Problem Polyneuropathy due to type 2 diabetes mellitus (976434003) Type 2 diabetes mellitus with diabetic polyneuropathy (E11.42) Active confirmed Problem 72533563 Venous insufficiency (I87.2) Active confirmed Vital Signs Blood pressure diastolic 89 mm Hg 11/30/2024 Height 5ft8in in 11/30/2024 Blood pressure systolic 127 mm Hg 11/30/2024 Weight 225 lbs 11/30/2024 BMI 34.21 kg/m2 11/30/2024 Encounters Encounter Location Date Provider Diagnosis [address] [address] 01/27/2024 Jelena Craig Tinea pedis of both feet B35.3 ; Other hammer toe(s) (acquired), right foot M20.41 ; Other hammer toe(s) (acquired), left foot M20.42 ; Tinea unguium B35.1 ; Type 2 diabetes mellitus with diabetic polyneuropathy E11.42 ; Right foot pain M79.671 ; Plantar wart B07.0 and Left foot pain M79.[address] [address] 06/23/2024 Jelena Craig Other hammer toe(s) (acquired), right foot M20.41 ; Muscle cramp, nocturnal R25.2 ; Tinea pedis of both feet B35.3 ; Other hammer toe(s) (acquired), left foot M20.42 ; Tinea unguium B35.1 ; Type 2 diabetes mellitus with diabetic polyneuropathy E11.42 ; Right foot pain M79.671 ; Plantar wart B07.0 and Left foot pain M79.[address] [address] 11/30/2024 Jelena Craig Tinea pedis of both feet B35.3 ; Tinea unguium B35.1 ; Type 2 diabetes mellitus with diabetic polyneuropathy E11.42 ; Right foot pain M79.671 ; Plantar wart B07.0 and Left foot pain M79.[address] [address] 04/27/2024 Jelena Craig [address] [address] 09/24/2024 Jelena Craig Assessments Encounter Date Diagnosis [...] Treatment Pending Test Test Name Order Date 36455-[id number] NAIL, 6 OR MORE 09/02/2022 35444-TWQN SKIN LESIONS, OVER 4 09/02/20 22 Next Appt Details Provider Name:Jelena lee, 03/08/2025 01:00:00 PM, [address] [place] [address], [address], Insurance Providers Payer Name Payer Address Payer Phone Subscriber Number Group Number Insured Name Patient Relationship to Insured Coverage Start Date Coverage End Date [facility] [address] YAZMIN Gomez [phone] [id number] Сергей Harvey Self - patient is the insured Medical (General) History Medical History History ICD Code Arthritis CAD (Cholesterol) type II diabetes Gout osteoarthritis dizziness Auto Pap 6-20 Tinea Pedis Surgical History Surgery Date(Month/Year) kidney stones 08/2022
--- OUTSIDE RECORDS SUMMARY | 2025-01-20 11:54 | XMS_ITS ---
Author Organization [facility] Address [address] [place] [address] Care Team Providers Care Resistor Tester Name Role Phone Neo Baig Primary Care Provider Jelena Peralta [phone] REASON FOR VISIT cx appt Encounters Encounter Location Date Provider Diagnosis [address] [address] 09/24/2024 Jelena Craig Plan Of Treatment Next Appt Details Provider Name:Jelena lee, 03/08/2025 01:00:00 PM, [address] [place], [address], Progress Notes * Tammy HARVEYOB:1950 (74 yo M)Acc No.[id number]:09/24/2024 Patient:?Сергей HARVEY :1950???Age:74 Y???Sex:Male Address:[address] [place] [address], [address] * true * Date:? Generated for Printi ng/Dante/eTransmitting on:?01/20/2025 11:53 AM EDT
== END 2025-01-20 11:36 | disposition home or self-care (01) ==
LOC: HO.HMCH 10:26
PROVIDERS: PCP Internal Medicine; Visit Provider Internal Medicine
DX: E11.65 Type 2 diabetes mellitus with hyperglycemia (principal); E66.9 Obesity, unspecified; Z68.33 Body mass index [BMI] 33.0-33.9, adult; I25.10 Atherosclerotic heart disease of native coronary artery without angina pectoris; L03.115 Cellulitis of right lower limb

== ENCOUNTER → 2025-01-20 10:26 | Outpatient (BNVA) | payer MEDICARE, SELFPAY | PROVIDERS: PCP Internal Medicine; Visit Provider Internal Medicine | DX: E66.9 Obesity, unspecified (principal); I25.10 Atherosclerotic heart disease of native coronary artery without angina pectoris; E11.65 Type 2 diabetes mellitus with hyperglycemia; L03.115 Cellulitis of right lower limb; J44.9 Chronic obstructive pulmonary disease, unspecified; Z68.33 Body mass index [BMI] 33.0-33.9, adult | CPT/HCPCS: 96127; 99212 ==

== ENCOUNTER 2025-01-31 08:45 | Outpatient (AMB) | payer OTHER, SELFPAY ==
--- NOTE | 2025-01-31 08:47 | MHC.OFFVIS ---
Intake Visit Reasons: 3 month follow up Intake Note: Patient is present for 3 month follow up Urology Medication:VITAMIN B6 Antibiotic Allergy:NONE Blood Thinner:ASPIRIN Apprentice/Lineman Required: No Apprentice/Lineman Services: Apprentice/Lineman Present Apprentice/Lineman Name: Jc Garibay Information Interpreted: non-clinical & clinical Allergies No Known Allergies Allergy (Verified 01/31/25 08:59) HPI Comments Details: 01/31/25-- 11/01/24--Сергей is here with his son who interprets for him he has been followed for kidney stones. He had a renal ultrasound in August, no recurrent kidney stones. The patient complains of daytime urinary frequency and nocturia. In discussion with the patient he admits to multiple cups of coffee daily. Discussed to decrease caffeine intake; in addition started the patient on tamsulosin 0.4 mg daily. 01/01/24--Сергей is a 73-year-old male who presents today to the office for a follow-up. Сергей is followed for BPH and kidney stones. LV-07/10/23?He is followed today to review 24-hour urine collection. discussed refer to nephrology for hypercalcuria on prior testing his urine calcium was 333 and urine sodium was 164. The patient is a Yi speaking male. Certified parking officer was present during the visit. He has a past medical history significant for diabetes and hypertension. Discussed renal US 10/24/23 no recurrent renal stones. Review of chart: 24-hour urine collection results from 05/08/23 revealed urine volume 2.38 litres, urine calcium was 367, urine oxalate was 34, urine citrate was 911, and urine sodium was 207. [facility] Medical History Obstructive sleep apnea Coronary artery disease Abdominal wall abscess Hearing difficulty Hypertension Nephrolithiasis Flank pain Constipation Dizziness Obesity (BMI 30-39.9) Tubular adenoma of colon Polysubstance abuse Knee osteoarthritis Degenerative disc disease, lumbar Osteoarthritis of right shoulder Ascending aorta dilatation History of renal calculi GERD (gastroesophageal reflux disease) Vitamin D deficiency Peripheral vascular disease Hypercholesterolemia COPD (chronic obstructive pulmonary disease) Surgical History Hx of cardiac cath Hx laparoscopic cholecystectomy Hx of colonoscopy History of esophagogastroduodenoscopy (EGD) Family History Father Stroke Heart attack Mother No problems noted. Sister Breast cancer Social History Household Members: Spouse Housing: House Do you presently have visiting nurse or other home services: No Alcohol intake: former Year quit: 2009 Patient Tobacco Use Status: Never used Tobacco Tobacco use type: Cigarette e-Cigarette/Vaping Use: Never Used Second Hand Smoke Exposure: No service: No Current occupational status: retired and disabled Cognitive needs: No Hearing needs: No Vision needs: Yes (Glasses) Results AMB Urinalysis, Automated UA Leukoctes 0 John Paul/uL Last Edit by Alethea Love on 01/31/25 16:27 UA Nitrite Negative Last Edit by Alethea Love on 01/31/25 16:27 UA Urobilinogen 1 mg/dL Last Edit by Alethea Love on 01/31/25 16:27 UA Protein 0 mg/dL Last Edit by Alethea Love on 01/31/25 16:27 UA pH 6.5 Last Edit by Alethea Love on 01/31/25 16:27 UA Blood 0 Markus/uL Last Edit by Alethea Love on 01/31/25 16:27 UA Specific [place] 1.010 Last Edit by Alethea Love on 01/31/25 16:27 UA Ketone Negative Last Edit by Alethea Love on 01/31/25 16:27 UA Bilirubin 0 mg/dL Last Edit by Alethea Love on 01/31/25 16:27 UA Glucose 100 mg/dL Last Edit by Alethea Love on 01/31/25 16:27 Assessment & Plan Assessment & Plan Orders: Orders AMB Urinalysis Automated Today Z13.9 - Encounter for screening, unspecified Coding
--- OUTSIDE RECORDS SUMMARY | 2025-01-31 08:49 | XMS_ITS ---
Author Organization [facility] Address [address] [place] [address] Care Team Providers Care Medical Radiation Dosimetrist Name Role Phone Neo Baig Primary Care Provider Jelena Peralta Unavailable [phone] Medications Medication SIG (Take, Route, Frequency, Duration) [...] Active Encounters Encounter Location Date Provider Diagnosis [facility] [address] [address] 09/24/2024 Jelena Craig Plan Of Treatment Next Appt Details Provider Name:Jelena lee, 03/08/2025 01:00:00 PM, [address] [place] [address], [address], Progress Notes * MEGHAN, CashanDOB:1950 (74 yo M)Acc No.[id number]:09/24/2024 Progress Note Patient:?Сергей HARVEY Provider:?Jelena Craig DPM :1950???Age:74 Y???Sex:Male Humphrey e:09/24/2024 Address:[address] [place], [place] [phone] Pcp:Neo Baig Subjective: * Chief Complaints: * [...] Craig DPM Date:?11/2024 Generated for Fermín calvo/Dante/Rich on:?01/31/2025 08:49 AM EDT
--- OUTSIDE RECORDS SUMMARY | 2025-01-31 08:49 | XMS_ITS | Patient Health Record ---
Author Organization [facility] Isaias vergara Williams Address [address] [place] [address] Care Team Providers Care Inspector Mechanical Name Role Phone Neo Baig Primary Care Provider Jelena Peralta Unavailable [phone] Allergies No Known Allergies Reason For Referral [...] Name Neo Referring Provider Last Name [facility] Referred Provider Jelena Craig Referred Address [address] [facility],[place], [place],[address], Referred Provider Specialty Podiatry Referral Priority Routine [...] Problem Acquired hammer toe of right foot (9650657288370711 ) Other hammer toe(s) (acquired), right foot (M20.41) Active confirmed Problem Acquired hammer toe of left foot (5373573645293764 ) Other hammer toe(s) (acquired), left foot (M20.42) Active confirmed Problem Plantar wart (B07.0) Active confirmed Problem Polyneuropathy due to type 2 diabetes mellitus (981562838) Type 2 diabetes mellitus with diabetic polyneuropathy (E11.42) Active confirmed Problem 59758512 Venous insufficiency (I87.2) Active confirmed Vital Signs Blood pressure diastolic 89 mm Hg 11/30/2024 Height 5ft8in in 11/30/2024 Blood pressure systolic 127 mm Hg 11/30/2024 Weight 225 lbs 11/30/2024 BMI 34.21 kg/m2 11/30/2024 Encounters Encounter Location Date Provider Diagnosis [address] [address] 06/23/2024 Jelena Carig Other hammer toe(s) (acquired), right foot M20.41 ; Muscle cramp, nocturnal R25.2 ; Tinea pedis of both feet B35.3 ; Other hammer toe(s) (acquired), left foot M20.42 ; Tinea unguium B35.1 ; Type 2 diabetes mellitus with diabetic polyneuropathy E11.42 ; Right foot pain M79.671 ; Plantar wart B07.0 and Left foot pain M79.[address] [address] 11/30/2024 Jelena Craig Tinea pedis of both feet B35.3 ; Tinea unguium B35.1 ; Type 2 diabetes mellitus with diabetic polyneuropathy E11.42 ; Right foot pain M79.671 ; Plantar wart B07.0 and Left foot pain M79.[address] [address] 04/27/2024 Jelena Craig [address] [address] 09/24/2024 Jelena Craig Assessments Encounter Date Diagnosis [...] B35.1) 11/30/2024 Plantar wart (ICD-10 - B07.0) 06/23/2024 Type 2 diabetes mellitus with diabetic polyneuropathy (ICD-10 - E11.42) 11/30/2024 Left foot pain (ICD-10 - M79.672) 06/23/2024 Right foot pain (ICD-10 - M79.671) 06/23/2024 Plantar wart (ICD-10 - B07.0) 06/23/2024 Left foot pain (ICD-10 - M79.672) Plan Of Treatment Pending Test Test Name Order Date [id number] NAIL, 6 OR MORE 09/02/2022 [id number] SKIN LESIONS, OVER 4 09/02/20 22 Next Appt Details Provider Name:Jelena lee, 03/08/2025 01:00:00 PM, [address] [place] [address], [address], Insurance Providers Payer Name Payer Address Payer Phone Subscriber Number Group Number Insured Name Patient Relationship to Insured Coverage Start Date Coverage End Date [facility] [address] YAZMIN Gomez [phone] [id number] Сергей Harvey Self - patient is the insured Medical (General) History Medical History History ICD Code Arthritis CAD (Cholesterol) type II diabetes Gout osteoarthritis dizziness Auto Pap 6-20 Tinea Pedis Surgical History Surgery Date(Month/Year) kidney stones 08/2022
--- OUTSIDE RECORDS SUMMARY | 2025-01-31 08:49 | XMS_ITS ---
Author Organization [facility] Address [address] [place] [address] Care Team Providers Care Slps Name Role Phone Neo Baig Primary Care Provider Jelena Peralta [phone] REASON FOR VISIT cx appt Encounters Encounter Location Date Provider Diagnosis [address] [address] 09/24/2024 Jelena Craig Plan Of Treatment Next Appt Details Provider Name:Jelena lee, 03/08/2025 01:00:00 PM, [address] [place], [address], Progress Notes * Tammy HARVEYOB:1950 (74 yo M)Acc No.[id number]:09/24/2024 Patient:?Сергей HARVEY :1950???Age:74 Y???Sex:Male Address:[address] [place] [address], [address] * true * Date:? Generated for Printi ng/Dante/eTransmitting on:?01/31/2025 08:49 AM EDT
--- OUTSIDE RECORDS SUMMARY | 2025-01-31 08:49 | XMS_ITS | Data Portability ---
Author Organization [place] [facility] Address [address] [place] [address] Care Team Providers Care Fixture Repairer Fabricator Name Role Phone NOBLE COLEMAN Primary Care Provider [phone] Assessment Encounter Date Assessment Date Assessment LastModified [...] & hearing handicap, a fitting of a fxthuznc-tj-ygc- canal hearing device is expected to provide a significant improvement in the patient's ability to communicate. The patient has a 100% coverage GRAYSON benefit at an in network provider and would like to investigate this option before ordering hearing aids through [employer] who is out of network. [email or web address] Not available 11/18/2024 10:39:01 Plan of Treatment [...] [facility] [address] [facility], [place], [address], 15:28:05 Medication Orders None recorded. Patient TargetsNo targets recorded. Patient InstructionsNo instructions recorded. Reason for Referral None Reported. Results Created Date Observation Date Name Description Value Unit Range Abnormal Flag Note LastModifiedBy Organization Detail LastModifiedTime 10/20/19 audio gram No observ ation record ed. BARCODE Not Available 2024 10:44:55 11/05/19 25 11/04/2024 MRI, brain + brain stem, w/wo contr ast [facility] Access ion Number : [id number] 594 Patisuha t Name: Сергей Harvey Record Number : [id number] Date of : 1949 Date of Exam: 2024 Referr ing Physic garima: Anson harris, Tisha [facility] [address] [facility] [address] [place] [address] Exam: MR Brain (C-/C+ ) CPT 33311 Room Descri ption: [facility] Pion 3T MR Brain (C-/C+ ) CPT 21713 INDICA TION / CLINIC AL QUESTI ON: [...] the brain with attent ion to the seo intern al audito ry canals was perfor [...] or abnorm al enhanc ement in the seo intern al audito ry canals or cerebe [...] onical ly Signed By: Stephanie echevarria MD [facility] ([facility]) [address] [facility], [place], [address], 11/16/2024 15:58:16 Result Notes None recorded. Problems Name Problem SNOMED Code Status Onset Date Resolution Date Notes Provider Name and Address Organization Details Recorded Time Sensorineur al hearing loss of bilateral ears 567439139 Active 2024 TARSHA PHILLIP, Ana [address] [address], [place], [address], [facility] - [facility] 5 09:52:04 Sensorineur al hearing loss in right ear 5745862857974 0 Active 2024 TISHA Victoria MD [address] [address], [place], [address], [facility] - [facility] [place] 5 10:18:17 Bilateral tinnitus 6555416373831 Active 2024 TISHA Victoria MD [address] [place] [address], [place], [address], [facility] - [facility] 5 10:18:43 Problem Notes None recorded. Procedures Surgical History Date Name Laterality Status Provider Name and Address Organization Details Recorded Time 10/20/2024 Comp Audio with Tymps - 05731 & 43010 completed TARSHA PHILLIP, AuD [address] [facility] [address], [place], [address], [facility] - [facility] 10/20/2024 09:51:58 Imaging Results Imaging Date Name Status LastModified by Organiz ation Details LastModified Time 10/20/2024 audiogram completed BARCODE Information no t available 10/20/2024 10:44:55 11/04/2024 MRI, brain + brain stem, w/wo contrast [facility] [address] [facility] [facility], [place], [address], 11/16/2024 15:58:16 Procedure Notes None recorded. Medical [...] Updated DateTime 11/30/2024 175.26 cm 32.5 kg/m2 18394.32 g Sean Walsh [place] - [facility] 11/30/2024 08:02:31 Social History None recorded. Functional Status None recorded. Mental Status None recorded. Family History Nothing Reported. Medical History No medical history recorded. Past Encounters Encounter ID Performer Location Encounter Start Date Encounter Closed Date Diagnosis/Indication Diagnosis SNOMED-CT Code Diagnosis ICD10 Code Diagnosis Note [id number] TISHA FARR MD [facility] [address] [address] 10/20/2024 09:18:08 10/20/2024 10:19:09 Sensorineural hearing loss of bilateral ears 714453172 H90.3 Audiologic al evaluation results:Ri ght ear:Mild to moderate from 250 through {{343 196 6294* 1500 2000 3000 4000 6000 8000}} Hz [...] rising to normal hearing from 500 through {{617 991 9497 1500 2000* 3000 4000 6000 8000}} Hz [...] Sensorineu ral hearing loss in right ear 7490037112 9100 H90.A21 Given the asymmetric hearing loss I recommend an MRI IAC with contrast to evaluate for retrocochl ear pathology. We will review results when complete. Bilateral tinnitus 42961 74457 102 H93.13 Ear exam was normal. Audiogram was reviewed. We discussed the associatio n between sensorineu ral hearing loss and tinnitus. We discussed masking for tinnitus. [id number] Ana VEGA G[place] [facility] [place] [address] [place] [address] [address] [place] [address] 11/18/2024 10:15:07 11/19/2024 07:33:37 Sensorineural hearing loss of bilateral ears 128870072 H90.3 [id number] TISHA FARR MD [facility] [address] [place] [address] 11/30/2024 08:00:41 11/30/2024 08:18:20 Sensorineural hearing loss of bilateral ears 780075735 H90.3 Audiologic al evaluation results:Ri ght ear:Mild to moderate from 250 through {{865 162 7250* 1500 2000 3000 4000 6000 8000}} Hz [...] rising to normal hearing from 500 through {{004 483 6007 1500 2000* 3000 4000 6000 8000}} Hz [...] Sensorineu ral hearing loss in right ear 8879463941 9100 H90.A21 I gave reassuranc e there are no tumors causing the asymmetric HL. 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 I would be glad to see him as needed. I gave medical clearance for hearing aids. I personally reviewed MRI images. Bilateral tinnitus 80528 04753 102 H93.13 We again discussed the associatio n between sensorineu ral hearing loss and tinnitus. We discussed masking for tinnitus. Health Concerns Section Related Observation LastModified by Organization Detai ls LastModified Time None Recorded Concern Status LastModified by Organization Details LastModified Time None Recorded Advance Directives Directive None Recorded Payers Insurance Date Sequence Insurance Name Policy Number Policy Chu Covered Member ID Chu Member ID Guarantor Name 10/15/2024 1 [employer] Сергей Harvey [id number] Сергей Harvey 11/30/2024 1 [employer] - DUAL ELIGIBLE - [employer] - SENIOR PLAN (MEDICARE REPLACEMENT/ ADVANTAGE - HMO) Сергей Harvey [id number] Сергей Harvey Notes Date Note Type Note Provider Name and Address Organization Details Recorded Time 10/20/2024 text/html Hx of gradual hearing loss over time. It has been worse on the right for years. Has tinnitus AU but worse AD. Audio showed asymmetric SNHL worse AD. TISHA FARR MD [address] [facility],[address] [address], [place], [address], [place] [facility] 10/20/2024 10:19:31 11/18/2024 text/html Patient returned [...] right earhas been recommended. Ana VEGA [address] [facility],[address] [address], [place], [address], [facility] - [facility] 11/18/2024 10:39:32 11/30/2024 text/html Hx of gradual hearing loss over time. Audio at the last visit showed asymmetric SNHL worse AD. We obtained an MRI IAC which I personally reviewed which was negative for retrocochlear pathology. It did show trace sinus disease and a possible old lacunar infarct. TISHA FARR MD [address] [facility], [place], [address], [facility] - [facility] 11/30/2024 08:18:15
--- OUTSIDE RECORDS SUMMARY | 2025-01-31 08:50 | XMS_ITS ---
Author Organization [facility] Address [address] [place] [address] Care Team Providers Care Fruit I Farmworker Name Role Phone Neo Baig Primary Care Provider Jelena Peralta Unavailable [phone] Allergies No Known Allergies REASON FOR VISIT [...] 025 Encounters Encounter Location Date Provider Diagnosis [facility] [address] [address] 11/30/2024 Jelena Craig Tinea pedis of both [...] Reason: Provider Name:Jelena lee, 03/08/2025 01:00:00 PM, [address] [place] [address], [address], Procedure Notes * Category Sub-Category Detail Notes Wart Treatment Procedure Verrucae were de brided to pin-point bleeding margins with sterile 15 surgical blade, silver nitrate chemocautery applied, recomm. immune-boosting meds such as zinc, recomm. follow up with topical chemosurgical agents, Pt defers any other forms of tx (80882) Debride Nail 6-10 Nail debridement Due to [...] use of a nail nipper and/or dremel-type grinder and honer operator automatic, to a more viable healthy nail plate [...] to maintain effectiveness in symptomatic relief - 55291 Keratoma Treatment Parring or Cutting o f [...] instrumentation by the physician of record - 92219 Progress Notes * Tammy HARVEYOB:1950 (74 yo M)Acc No.[id number]:11/30/2024 Progress Note Patient:?MEGHAN Сергей Provider:?Jleena Craig DPM :1950???Age:74 Y???Sex:Male Humphrey e:11/30/2024 Address:[address] [place] [address], [facility] Pcp:Neo Baig Subjective: * Chief Complaints: * [...] * Medical History:? * Surgical History:?kidney sto et 08/2022 * Hospitalization/Major Diagno stic Procedure:?Denies Past [...] use of a nail nipper and/or dremel-type grinder and honer operator automatic, to a more viable healthy nail plate [...] to maintain effectiveness in symptomatic relief - 51956.?Keratoma Treatment:?Parring or Cutting of Benign Hyperkeratotic Lesion(s)?(-57) [...] instrumentation by the physician of record - 17672.?Wart Treatment:?Procedure?Verrucae were debrided to pin-point bleeding margins with sterile 15 surgical blade, silver nitrate chemocautery applied, recomm. immune-boosting meds such as zinc, recomm. follow up with topical chemosurgical agents, Pt defers any other forms of tx (12465).? * Procedure Codes:?12414 DEBRI DE NAIL, 6 OR MORE, Modifiers: XS 46272 Wart Destruction, 1-14, Modifiers: XS 54189 TRIM SKIN LESIONS, OVER 4, Modifiers: XS [...] Craig DPM Date:?07/2025 Generated for Fermín calvo/Dante/Rich on:?01/31/2025 08:49 AM EDT History and Physical Notes * [...]
== END 2025-01-31 09:33 | disposition home or self-care (01) ==
LOC: HO.HUSH 08:46
PROVIDERS: PCP Internal Medicine; Visit Provider Urology
DX: Z13.9 Encounter for screening, unspecified (principal)

== ENCOUNTER → 2025-01-31 08:45 | Outpatient (BNVA) | payer OTHER, SELFPAY | PROVIDERS: PCP Internal Medicine; Visit Provider Urology | DX: N40.1 Benign prostatic hyperplasia with lower urinary tract symptoms (principal); N13.8 Other obstructive and reflux uropathy; R35.0 Frequency of micturition; R35.1 Nocturia; R82.994 Hypercalciuria; E66.9 Obesity, unspecified; Z87.442 Personal history of urinary calculi; Z79.899 Other long term (current) drug therapy | CPT/HCPCS: 81003; 99212 ==

== ENCOUNTER 2025-03-24 10:31 | Outpatient (AMB) | payer OTHER, SELFPAY ==
--- OUTSIDE RECORDS SUMMARY | 2024-09-24 09:00 | XMS_ITS ---
Author Organization [facility] Address [address] [place] [address] Care Team Providers Care Punchboard Assembler Name Role Phone Neo Baig Primary Care Provider Jelena Peralta Unavailable [phone] Medications Medication SIG (Take, Route, Frequency, Duration) [...] Active Encounters Encounter Location Date Provider Diagnosis [facility] [place] [address] [place] [address] 09/24/2024 Jelena Craig Plan Of Treatment Next Appt Details Provider Name:Jelena lee, 06/07/2025 01:00:00 PM, [address] [place], [address], Progress Notes * Cash HARVEYJaneenOB:1950 (74 yo M)Acc No.[id number]:09/24/2024 Progress Note Patient: Сергей FAIRCHILD Provider: Basilio Craig DPM :1950 A ge:74 Y S ex:Male Date:09/24/2024 Address:[address] [place], [place] [id number] Pcp:Neo Baig Subjective: * Chief Complaints: * [...] DPM Date: 0 09/24/2024 Generated for Fermín clavo/Dante/Rich on: 0 03/24/2025 11:15 AM EDT
--- NOTE | 2025-03-24 10:34 | HO.NEPHOV_ITS ---
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 ) Accompanied by: Son Allergies No Known Allergies Allergy (Verified 03/24/25 10:35) Medication List - Last Reconciled 03/24/25 by Taran Contreras MD aspirin (Adult Aspirin Regimen) 81 mg PO DAILY 90 days atorvastatin 40 mg PO DAILY 90 days blood sugar diagnostic ([employer] Verio test strips) test once daily blood-glucose meter ([employer] Verio Flex Meter) test once daily zohra.stocking,knee,reg,xlrg As directed 20-30 mm HG [DIABETIC SHOES As directed] diclofenac sodium 1% (Voltaren Arthritis Pain) 4 grams topical QID escitalopram oxalate (Lexapro) 5 mg PO DAILY gabapentin 300 mg PO TID hydrochlorothiazide 25 mg PO DAILY lancets ([employer] Delica Plus Lancet) USE TO TEST ONCE DAILY lisinopril 5 mg PO DAILY metoprolol succinate ER 25 mg PO DAILY omeprazole 20 mg PO DAILY pyridoxine (vitamin B6) 100 mg PO DAILY semaglutide (Ozempic) 0.25 mg (0.368 mL) subcut QWEEK 30 days tamsulosin (Flomax) 0.4 mg PO BEDTIME tizanidine 4 mg PO BID PRN HPI Comments Details: Elderly man with referred for nephrolithiasis and hypercalciuria Accompanied by family Tolerating HCTZ Edema is better No specific complaints today No new issues today As per family , he is not on salt restriction! Did not perform 24 hr urine studies as ordered 03/24/25 The patient is a 74-year-old male presenting for follow-up on kidney stones and urinary frequency. The patient reports no new kidney stones since the last visit six months ago and has experienced a decrease in urinary frequency, indicating an improvement in symptoms. Previously, it was noted that the patient was not consuming adequate water, which may have contributed to his symptoms. A 24-hour urine collection is planned to assess kidney function and ensure adequate hydration. [facility] Medical History Obstructive sleep apnea Coronary artery disease Abdominal wall abscess Hearing difficulty Hypertension Nephrolithiasis Flank pain Constipation Dizziness Obesity (BMI 30-39.9) Tubular adenoma of colon Polysubstance abuse Knee osteoarthritis Degenerative disc disease, lumbar Osteoarthritis of right shoulder Ascending aorta dilatation History of renal calculi GERD (gastroesophageal reflux disease) Vitamin D deficiency Peripheral vascular disease Hypercholesterolemia COPD (chronic obstructive pulmonary disease) Surgical History Hx of cardiac cath Hx laparoscopic cholecystectomy Hx of colonoscopy History of esophagogastroduodenoscopy (EGD) Family History Father Stroke Heart attack Mother No problems noted. Sister Breast cancer Social History Household Members: Spouse Housing: House Do you presently have visiting nurse or other home services: No Alcohol intake: former Year quit: 2009 Patient Tobacco Use Status: Never used Tobacco Tobacco use type: Cigarette e-Cigarette/Vaping Use: Never Used Second Hand Smoke Exposure: No service: No Current occupational status: retired and disabled Cognitive needs: No Hearing needs: No Vision needs: Yes (Glasses) Physical Exam Vital Signs: Last Vital Signs Pulse 62 03/24/25 10:36 BP 80/50 L 03/24/25 10:36 Pulse Ox 97 03/24/25 10:36 Oxygen Delivery Method Room Air 03/24/25 10:36 BMI result Body Mass Index 34.1 Const General: comfortable; No acute distress Orientation/consciousness: patient oriented x3 Eyes General: appearance normal, both eyes and all related structures Visual Silver: normal visual silver by confrontation Neck Neck: Yes supple and Yes no JVD Resp Effort & Inspection: normal respiratory effort and respiratory effort not decreased Auscultation: rhonchi Cardio Palpation: no palpable S3 and no palpable S4 Heart sounds: no rubs GI Inspection: Yes normal to inspection Palpation (GI): Soft to palpation Percussion: Yes normal to percussion Auscultation: normal bowel sounds General: Yes no CVA tenderness Back/Spine/Pelvis Back: no CVA tenderness Skin General skin exam: no petechiae and no purpura Neuro General: patient oriented x3 and no focal motor deficits Extrem General: No clubbing and No edema Results Reviewed Nephrology Results: Renal US 09/09/24 Assessment & Plan Assessment & Plan (1) Hypertension: Code(s): I10 - Essential (primary) hypertension Category: Medical Qualifiers: Hypertension type: essential hypertension Qualified Code(s): I10 - Essential (primary) hypertension (2) Nephrolithiasis: Code(s): N20.0 - Calculus of kidney Category: Medical (3) Hypercalciuria: Code(s): R82.994 - Hypercalciuria Category: Medical Plan Elderly man with nephrolithiasis and hypercalciuria Serum calcium normal Serum calcium is normal. Intact is mildly elevated as expected. Blood pressure is well controlled. In view of the hypercalciuria, keep hydrochlorothiazide 25 mg a day. Amlodipine stopped due to edema. The leg edema improved after discontinuing amlodipine. Repeat 24 hr urine for calcium excretion - reordered Discussed LOW sodium diet Increase PO fluid intake Orders: Orders Creatinine, 24 Hr Group Today N20.0 - Calculus of kidney Oxalate, 24 Hr Today N20.0 - Calculus of kidney Citric Acid 24hr Urine Today N20.0 - Calculus of kidney Basic Metabolic Panel Today N20.0 - Calculus of kidney Parathyroid Hormone Intact Today N20.0 - Calculus of kidney Sodium, 24Hr Urine Group Today N20.0 - Calculus of kidney Calcium, 24 Hr Ur Today N20.0 - Calculus of kidney Uric Acid, 24Hr Urine Group Today N20.0 - Calculus of kidney Phosphorus Today N20.0 - Calculus of kidney Coding Level of Care Code Est Pt Level 4 (55082) Diagnoses Essential hypertension I10 Hypertension type: essential hypertension Nephrolithiasis N20.0 Hypercalciuria R82.994
[2025-03-24 10:36] VITALS: BP 80/50; PULSE 62; O2SAT 97; BMI 34.1
--- OUTSIDE RECORDS SUMMARY | 2025-03-24 11:15 | XMS_ITS | Data Portability ---
Author Organization [place] - [facility], Allergy Address [address] [address] Care Team Providers Care Lathe Hand Name Role Phone NOBLE COLEMAN Primary Care Provider [phone] Assessment Encounter Date Assessment Date Assessment LastModified [...] & hearing handicap, a fitting of a rqkrqcdu-sr-qnr- canal hearing device is expected to provide a significant improvement in the patient's ability to communicate. The patient has a 100% coverage [place] benefit at an in network provider and would like to investigate this option before ordering hearing aids through [employer] who is out of network. [email or web address] Not available 11/18/2024 10:39:01 Plan of Treatment Reminders Order Date Submit Date Provider Last Modified By Organization Details Last Modified Time Details Appointments None recorded. Lab None recorded. Referral None recorded. Procedures None recorded. Surgeries None recorded. Imaging MRI, brain + internal auditory canal, w/wo contrast - MRI, BRAIN + INTERNAL AUDITORY CANAL, W/WO CONTRAST 2024 025 [facility] ([facility]), [address] [facility], [place], [address], 15:28:05 Medication Orders None recorded. Patient TargetsNo targets recorded. Patient InstructionsNo instructions recorded. Reason for Referral None Reported. Results Created Date Observation Date Name Description Value Unit Range Abnormal Flag Note LastModifiedBy Organization Detail LastModifiedTime 10/20/19 audio gram No observ ation record ed. BARCODE Not Available 2024 10:44:55 11/05/19 25 11/04/2024 MRI, brain + brain stem, w/wo contr ast [facility] Access ion Number : [id number] Patien t Name: Сергей Harvey Record Number : [id number] Date of : 1949 Date of Exam: 2024 Referr ing Physic garima: Tisha Felipe [facility] [address] [facility] [address] [place] [address] Exam: MR Brain (C-/C+ ) CPT 39392 Room Descri ption: [facility] Pion 3T MR Brain (C-/C+ ) CPT 75910 INDICA TION / CLINIC AL QUESTI ON: [...] the brain with attent ion to the internet marketing specialist al audito ry canals was perfor med [...] or abnorm al enhanc ement in the internet marketing specialist al audito ry canals or cerebe llopon [...] Electr onical ly Signed By: Stephanie garcia [facility] ([facility]) [address] [place], [address], 11/16/2024 15:58:16 Result Notes Documentation Provider Name and Address Organization Details Recorded Time Mri, Brain + Brain Stem, W/wo Contrast : [facility] Accession Number: [id number] Patient Name: Сергей Harvey Date of : 1950 Date of Exam: 11-04-2024 Referring Physician: Tisha Farr [facility] [address] [address] Exam: MR Brain (C-/C+) CPT 93899 Room Description: [facility] 3T MR Brain (C-/C+) CPT 78728 INDICATION / CLINICAL QUESTION: - Snsrnrl hear loss, uni, r ear, with rstrcd hear cntra side, Clinical Indication: Asymmetric sensorineural hearing loss - Snsrnrl hear loss, uni, r ear, with rstrcd hear cntra side, Clinical Indication: Asymmetric sensorineural hearing loss TECHNIQUE: MRI of the brain with attention to the internal auditory canals was performed with and without contrast utilizing sagittal T1, axial T2, axial CUBE, axial and coronal T1, and post-contrast axial and coronal T1-weighted sequences. 20 mL Dotarem intravenous contrast was administered. COMPARISON: Head CT 07/14/2024. FINDINGS: IAC: There is no mass or abnormal enhancement in the internal auditory canals or cerebellopontine angles. Course and caliber of the 7th and 8th cranial nerves is normal bilaterally. Fluid signal is preserved in the inner ear structures bilaterally. Brainstem demonstrates normal signal. BRAIN and EXTRA-AXIAL SPACES: The ventricles and sulci are prominent reflecting volume loss and there are scattered nonspecific T2 hyperintensities in the white matter probably reflecting chronic small vessel disease. Possible small chronic lacunar infarcts in the left cerebellar hemisphere. EXTRACRANIAL SOFT TISSUES: Visualized portions of the extracranial soft tissues are unremarkable. There is scattered paranasal sinus mucosal thickening, most prominent in the right maxillary sinus. Partially imaged asymmetric fatty replacement of the left parotid gland is noted. BONES: Visualized marrow signal is preserved. IMPRESSION: No retrocochlear abnormality to explain the patient?s symptoms. Electronically Signed By: [facility] 11/16/2024 15:58:16 Problems Name Problem SNOMED Code Status Onset Date Resolution Date Notes Provider Name and Address Organization Details Recorded Time Sensorineur al hearing loss of bilateral ears 806736987 Active 20[address] VEGA [address] [place] [address], [phone], [facility] 09:52:04 Sensorineur al hearing loss in right ear 2514149528048 0 Active 2024 TISHA Victoria MD [address] [place] [address], [phone], [facility] 5 10:18:17 Bilateral tinnitus 1679503475763 Active 2024 TISHA Victoria MD [address] [place] [address], [phone], [facility] 5 10:18:43 Problem Notes None recorded. Procedures Surgical History Date Name Laterality Status Provider Name and Address Organization Details Recorded Time 10/20/2024 Comp Audio with Tymps - 56903 & 91271 completed TARSHA PHILLIP, AuD [address] [facility] [address], [place], [address], [facility] - [facility] 10/20/2024 09:51:58 Imaging Results None recorded. [...] Updated DateTime 11/30/2024 175.26 cm 32.5 kg/m2 06671.32 g Sean Walsh [place] - [facility] 11/30/2024 08:02:31 Social History None recorded. Functional Status None recorded. Mental Status None recorded. Family History Nothing Reported. Medical History No medical history recorded. Past Encounters Encounter ID Performer Location Encounter Start Date Encounter Closed Date Diagnosis/Indication Diagnosis SNOMED-CT Code Diagnosis ICD10 Code Diagnosis Note [id number] TISHA FARR MD [facility] [address] [place] [address] 10/20/2024 09:18:08 10/20/2024 10:19:09 Sensorineural hearing loss of bilateral ears [id number] H90.3 Audiologic al evaluation results:Ri ght ear:Mild to moderate from 250 through 1000 Hz sloping to severe sensorineu ral hearing loss with poor word recognitio n.Left ear:Mild at 250 Hz rising to normal hearing from 500 through 2000 Hz sloping to severe sensorineu ral hearing loss with good word recognitio n. Tympanomet ry:Right Ear:Type ALeft Ear:Type A I recommende d a hearing aid evaluation . Sensorineu ral hearing loss in right ear [id number] 9100 H90.A21 Given the asymmetric hearing loss I recommend an MRI IAC with contrast to evaluate for retrocochl ear pathology. We will review results when complete. Bilateral tinnitus 17448 85128 102 H93.13 Ear exam was normal. Audiogram was reviewed. We discussed the associatio n between sensorineu ral hearing loss and tinnitus. We discussed masking for tinnitus. [id number] Ana VEGA [facility] [place] [facility] [address] [place] [address] [place] [address] 11/18/2024 10:15:07 11/19/2024 07:33:37 Sensorineural hearing loss of bilateral ears [id number] H90.3 [id number] TISHA FARR MD [facility] [address] [place] [address] 11/30/2024 08:00:41 11/30/2024 08:18:20 Sensorineural hearing loss of bilateral ears 741251874 H90.3 Audiologic al evaluation results:Ri ght ear:Mild to moderate from 250 through 1000 Hz sloping to severe sensorineu ral hearing loss with poor word recognitio n.Left ear:Mild at 250 Hz rising to normal hearing from 500 through 2000 Hz sloping to severe sensorineu ral hearing loss with good word recognitio n. Tympanomet ry:Right Ear:Type ALeft Ear:Type A I recommende d a hearing aid evaluation . Sensorineu ral hearing loss in right ear 1466676592 9100 H90.A21 I gave reassuranc e there are no tumors causing the asymmetric HL. 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 I would be glad to see him as needed. I gave medical clearance for hearing aids. I personally reviewed MRI images. Bilateral tinnitus 49517 96462 102 H93.13 We again discussed the associatio [...] Chu Member ID Guarantor Name 10/15/2024 1 [employer] Сергей Candice [id number] Сергей Candice 11/30/2024 1 [employer] - DUAL ELIGIBLE - [employer] - SENIOR PLAN (MEDICARE REPLACEMENT/ ADVANTAGE - HMO) Сергей Candice [id number] Сергей Candice Notes Date Note Type Note Provider Name and Address Organization Details Recorded Time 10/20/2024 text/html Hx of gradual hearing loss over time. It has been worse on the right for years. Has tinnitus AU but worse AD. Audio showed asymmetric SNHL worse AD. TISHA AFRR MD 100 [facility] [address], [place], [address], [facility] - [facility] 10/20/2024 10:19:31 11/18/2024 text/html Patient returned to our office for the initial fitting of hearing devices as a previously user of amplification (BTE style). They reportedly last used amplification ~10 years ago. They have reported significant difficulty communicating in adverse listening situations and amplification in the right earhas been recommended. Ana VEGA [address], [address], [facility] - [facility] 11/18/2024 10:39:32 11/30/2024 text/html Hx of gradual hearing loss over time. Audio at the last visit showed asymmetric SNHL worse AD. We obtained an MRI IAC which I personally reviewed which was negative for retrocochlear pathology. It did show trace sinus disease and a possible old lacunar infarct. TISHA FARR MD 100 [facility] [address], [place], [address], [facility] - [facility] 11/30/2024 08:18:15
== END 2025-03-24 10:45 | disposition home or self-care (01) ==
LOC: HO.HKA 10:32
PROVIDERS: PCP Internal Medicine; Visit Provider Internal Medicine Hypertension Specialist
DX: I10 Essential (primary) hypertension (principal); N20.0 Calculus of kidney; R82.994 Hypercalciuria
CPT/HCPCS: 99214

== ENCOUNTER 2025-05-19 09:57 | Outpatient (AMB) | payer MEDICARE, SELFPAY ==
--- OUTSIDE RECORDS SUMMARY | 2024-09-24 09:00 | XMS_ITS ---
Author Organization [facility] Address [address] [place] [address] Care Team Providers Care Allergy And Immunology Specialist Name Role Phone Neo Baig Primary Care Provider Jelena Peralta Unavailable [phone] Medications Medication SIG (Take, Route, Frequency, Duration) Notes Start Date End Date Status Clotrimazole-Betamethas one 1-0.05 % 1 application to affected area Externally Twice a day to affected areas on feet; Duration: 30 days 10/29/2023 Active Extra Depth Orthopedic Shoes (1 Pair) with Customized Heat Molded Multidensity Innersoles (3 Pair) as directed Dx: NIDDM/Polyneuropathy (E11.42), Hammertoe Foot Deformity (M20.41,M20.42), Preulcerative Skin Lesion(s) (L85.1 Active Senna-S 8.6-50 MG 1 tablet as needed Orally Twice a day Active Ciclopirox Olamine 0.77 % 1 application Externally Once a day; Duration: 30 days 09/02/2022 Active Ciclopirox Olamine 0.77 % 1 application to affected area Externally Twice a day to effected areas on feet; Duration: 30 days 01/27/2024 Active Furosemide 20 MG 1 tablet Orally Once a day; Duration: 30 day(s) Active Omeprazole 300 mg 3x per day Active Meloxicam 7.5 MG 1 tablet Orally Once a day; Duration: 30 day(s) Active amLODIPine Besylate 5 MG 1 tablet Orally Once a day; Duration: 30 day(s) Active Atorvastatin Calcium 40 MG 1 tablet Orally Once a day; Duration: 30 day(s) Active zzzCompression Stockings 20-30mm Hg . . .; Duration: . A ctive Miconazole Nitrate A ctive Clotrimazole Active Aspirin 81 MG 1 tablet Orally Once a day; Duration: 30 day(s) Active Encounters Encounter Location Date Provider Diagnosis [facility] [place] [address] [place] [address] 09/24/2024 Jelena Craig Plan Of Treatment Next Appt Details Provider Name:Jelena lee, 06/07/2025 01:00:00 PM, [address] [place], [address], Progress Notes * Cash HARVEYJaneenOB:1950 (74 yo M)Acc No.[id number]:09/24/2024 Progress Note Patient: Сергей FAIRCHILD Provider: Basilio Craig DPM :1950 A ge:74 Y S ex:Male Date:09/24/2024 Address:[address] [place], [place] [id number] Pcp:Neo Baig Subjective: * Chief Complaints: * * Medical History: A rthritis, CAD (Cholesterol), type II diabetes, Gout, Osteoarthritis, Dizziness, Auto Pap 6-20, Tinea Pedis. * Medications: T aking zzzCompression Stockings 20-30mm [...] provider. Sign off status: Pending * Provider: Basilio Craig DPM Date: 0 09/24/2024 Generated for Fermín calvo/Dante/Rich on: 0 05/19/2025 11:08 AM EDT
[2025-05-19 10:02] VITALS: BP 152/82; PULSE 69; O2SAT 97; BMI 33.6
--- NOTE | 2025-05-19 10:02 | MHC.PC.OV ---
Vital Signs 05/19/25 10:02 Height 5 ft 8 in Weight 221 lb BMI 33.6 BP 152/82 H Blood Pressure Location Lt brachial Position Sitting Pulse 69 Pulse Source Pulse Oximeter Pulse Oximetry (%) 97 Oxygen Delivery Method Room Air Intake Visit Reasons: 3mth f/u Allergies No Known Allergies Allergy (Verified 05/19/25 10:02) Tobacco use date assessed: 01/07/25 Fall risk assessment: No Falls in past year Last assessed Fall Risk: 05/19/25 Dental Screening Dental Screen Date: 12/03/24 HPI 3mth f/u HPI Details complains of bilateral thigh pain , feels like pulling, not numb, started after vascular surgery done 2 months ago. complains of pain on the gluteal area that radiates to the posterior thigh PFSH Medical History Obstructive sleep apnea Coronary artery disease Abdominal wall abscess Hearing difficulty Hypertension Nephrolithiasis Flank pain Constipation Dizziness Obesity (BMI 30-39.9) Tubular adenoma of colon Polysubstance abuse Knee osteoarthritis Degenerative disc disease, lumbar Osteoarthritis of right shoulder Ascending aorta dilatation History of renal calculi GERD (gastroesophageal reflux disease) Vitamin D deficiency Peripheral vascular disease Hypercholesterolemia COPD (chronic obstructive pulmonary disease) Surgical History Hx of cardiac cath Hx laparoscopic cholecystectomy Hx of colonoscopy History of esophagogastroduodenoscopy (EGD) Family History Father Stroke Heart attack Mother No problems noted. Sister Breast cancer Social History Household Members: Spouse Housing: House Do you presently have visiting nurse or other home services: No Alcohol intake: former Year quit: 2009 Patient Tobacco Use Status: Never used Tobacco Tobacco use type: Cigarette e-Cigarette/Vaping Use: Never Used Second Hand Smoke Exposure: No service: No Current occupational status: retired and disabled Cognitive needs: No Hearing needs: No Vision needs: Yes (Glasses) Questionnaire PHQ-9 Over the last 2 weeks, how often have you been bothered by any of the following problems? 1. Little interest or pleasure in doing things: not at all 2. Feeling down, depressed, or hopeless: not at all 3. Trouble falling or staying asleep, or sleeping too much: not at all 4. Feeling tired or having little energy: nearly every day 5. Poor appetite or overeating: not at all 6. Feeling bad about yourself - or that you are a failure or have let yourself or your family down: not at all 7. Trouble concentrating on things, such as reading the newspaper or watching television: not at all 8. Moving or speaking so slowly that other people could have noticed. Or the opposite - being so fidgety or restless that you have been moving around a lot more than usual: nearly every day 9. Thoughts that you would be better off or of hurting yourself in some way: not at all Total score: 6 Depression Screening Interpretation: Positive Depression Screening Done: Yes 88560 - PHQ-9 Billing: Yes Source: Developed by Drs. Trae Bailey, Sakshi Ren, Master King and colleagues, with an educational osmel from [employer]. Thrive Questionnaire Date Thrive assessed: 01/20/25 I am a: Patient What is your living situation today?: I have a steady place to live Within the past 12 months, did the food you bought not last and you didn't have the money to get more?: Often true Within the past 12 months, did you worry whether your food would run out before you got money to buy more?: Often true Do you have trouble paying for medicines?: Yes Do you have trouble getting transportation to medical appointments?: No Do you have trouble paying your heating and electricity bill?: Yes Do you have trouble taking care of your child, family member or friend?: No Do you have trouble with day-to-day activities such as bathing, preparing meals, shopping, managing finances, etc.?: Yes Are you currently unemployed and looking for a job?: Yes Are you interested in more education?: No Currently or been in a relationship where the following occur: I choose not to answer THRIVE Score: 3 AUDIT C Alcohol Use Questionnaire (AUDIT-C) 1. How often do you have a drink containing alcohol?: Never 3. How often do you have six or more drinks on one occasion?: Never Total Score: 0 AMAURY-7 AMB Questionnaire AMAURY-7 Date AMAURY - 7 assessed: 10/14/24 Source: Developed by Drs. Trae Bailey, Sakshi Ren, Master King and colleagues, with an educational osmel from [employer]. Physical exam (Primary Care) Vital Signs: Last Vital Signs Pulse 69 05/19/25 10:02 BP 152/82 H 05/19/25 10:02 Pulse Ox 97 05/19/25 10:02 Oxygen Delivery Method Room Air 05/19/25 10:02 BMI result Body Mass Index 33.6 Tobacco/Smoking Status: Tobacco use Status Tobacco use date assessed 01/07/25 05/19/25 10:03 Patient Tobacco Use Status Never used Tobacco 05/19/25 10:03 Tobacco use type Cigarette 05/19/25 10:03 e-Cigarette/Vaping Use Never Used 05/19/25 10:03 PHQ-9: PHQ-9 Score PHQ-9: Total score 6 05/19/25 10:39 Depression Screening Interpretation: Positive Thrive Assessment: Date of Thrive Assessment Date Thrive assessed 01/20/25 05/19/25 10:03 Currently or been in a relationship where the following occur: I choose not to answer Const General: alert; No acute distress Eyes Conjunctivae: conjunctivae normal Resp Auscultation: clear to auscultation bilaterally Cardio Rate: regular rate Rhythm: regular rhythm GI Inspection: Yes normal to inspection Extrem General: Yes normal to inspection and No edema Results AMB Hemoglobin A1c AMB Hemoglobin A1c 4.5 % Last Edit by Yelena Simpson CMA on 05/19/25 10:39 Results Reviewed Results Reviewed: Laboratory Last Values Hgb A1c (Clinic) 4.5 % (4.0-6.0) 05/19/25 10:04 Coding Level of Care Code Est Pt Level 4 (99304) Complex EM visit Add On G2211 Diagnoses Type 2 diabetes mellitus with hyperglycemia, without long-term current use of insulin E11.65 Diabetes mellitus dredge pipeman insulin use: without detention use Hypercholesterolemia E78.00 Atherosclerotic cardiovascular disease I25.10 Essential hypertension I10 Obesity (BMI 30-39.9) E66.9 Gastroesophageal reflux disease without esophagitis K21.9 Esophagitis presence: without esophagitis History of renal calculi Z87.442 BPH loc w urin obs/LUTS N40.1 Panlobular emphysema J43.1 COPD type: emphysema Emphysema type: panlobular Sciatic nerve pain M54.30 Additional Codes PHQ-9 - 22252 - PHQ-9 Billing: Yes ([id number]) Assessment & Plan Assessment & Plan (1) Type 2 diabetes mellitus with hyperglycemia: Comment: Dr. Bee Code(s): E11.65 - Type 2 diabetes mellitus with hyperglycemia Category: Medical Qualifiers: Diabetes mellitus detention insulin use: without dredge pipeman use Qualified Code(s): E11.65 - Type 2 diabetes mellitus with hyperglycemia Plan: Decrease the amount of carbohydrate intake, pasta, bread, rice and potatoes are all sugar and that is aside from all the sweet stuff, remember that fruits are good but they are Sweet also. Controlled hemoglobin A1c goal of less than 7.0. Patient presently on semaglutide (2) Hypercholesterolemia: Code(s): E78.00 - Pure hypercholesterolemia, unspecified Category: Medical Plan: Avoid fried foods, chicken skin, eggs, butter margarine, pastries and meat. Be it pork or beef they have a lot of cholesterol LDL goal of less than 70 and triglyceride of less than 150 on atorvastatin 40 mg once a day (3) Atherosclerotic cardiovascular disease: Comment: Cardiac catheterization November 2022 minimal irregularities Code(s): I25.10 - Atherosclerotic heart disease of [place] coronary artery without angina pectoris Category: Medical Plan: Control the cholesterol, weight, blood pressure, diabetes continue with aspirin (4) Essential hypertension: Code(s): I10 - Essential (primary) hypertension Category: Medical Plan: Continue with blood pressure medication. Decrease salt intake and exercise patient is taking hydrochlorothiazide 25 mg once a day metoprolol 25 mg once a day lisinopril 5 mg once a day (5) Obesity (BMI 30-39.9): Code(s): E66.9 - Obesity, unspecified Category: Medical Plan: Diet and exercise (6) GERD (gastroesophageal reflux disease): Code(s): K21.9 - Gastro-esophageal reflux disease without esophagitis Category: Medical Qualifiers: Esophagitis presence: without esophagitis Qualified Code(s): K21.9 - Gastro-esophageal reflux disease without esophagitis Plan: Avoid the foods that causes that usually spicy foods, tomato products, juices, coffee, soda and foods that your sensitive to. After eating do not lie down, allow 3-4 hours before in lie down. And keep the head of bed above 30 degrees to avoid the acid from going up. (7) History of renal calculi: Code(s): Z87.442 - Personal history of urinary calculi Category: Medical Plan: Patient recent ultrasound is negative patient follows up with urology as well as Nephrology. On hydrochlorothiazide keep well hydrated (8) BPH loc w urin obs/LUTS: Code(s): N40.1 - Benign prostatic hyperplasia with lower urinary tract symptoms Category: Medical Plan: Continue with tamsulosin (9) COPD (chronic obstructive pulmonary disease): Comment: HE MAY HAVE VERY MILD DEGREE OF CHRONIC OBSTRUCTIVE PULMONARY DISEASE, AND IS STAYING RELATIVELY ASYMPTOMATIC. PLAN WAS TO DO A PULMONARY FUNCTION TEST, AND THEN DECIDE IF HE IS GOING TO NEED SOME BRONCHODILATOR INHALER. IT HAS NOT BEEN DONE YET . Code(s): J44.9 - Chronic obstructive pulmonary disease, unspecified Category: Medical Qualifiers: COPD type: emphysema Emphysema type: panlobular Qualified Code(s): J43.1 - Panlobular emphysema Plan: Stable (10) Sciatic nerve pain: Code(s): M54.30 - Sciatica, unspecified side Category: Medical Plan History of Present Illness The patient is a 74-year-old male presenting for a follow-up visit. He has a history of Chronic Obstructive Pulmonary Disease (COPD), hypercholesterolemia, and Gastroesophageal Reflux Disease (GERD). His medical history also includes tubular adenoma of the colon, with the last colonoscopy performed in 2020. The patient has been diagnosed with peripheral vascular disease and atherosclerotic cardiovascular disease. He also has hypertension and diabetes mellitus, which are being managed with medications. He has a history of nephrolithiasis, specifically left-sided, and benign prostatic hyperplasia (BPH). The patient follows up with nephrology and urology for these conditions. He has ischemic cardiomyopathy and is on a regimen that includes aspirin and atorvastatin for cardiovascular risk management. His blood pressure is controlled with hydrochlorothiazide, metoprolol, and lisinopril. Health Maintenance - Colonoscopy last performed in 2020 for tubular adenoma surveillance - Blood pressure monitoring at home with a goal of 120/80 mmHg - LDL cholesterol goal of less than 70 mg/dL, currently on atorvastatin - Diabetes management with semaglutide, aiming for hemoglobin A1c less than 7.0% - Regular follow-up with nephrology and urology - Vaccination status: Shingles and flu shots discussed Social History - Reports engaging in exercise, including gym activities, but experiences pain post-exercise - Reports consuming candy frequently, impacting weight management Review of Systems - Cardiovascular: Reports dizziness and fluctuating blood pressure, especially in the morning - Musculoskeletal: Reports pain after exercise Physical Exam Results - Labs: Last blood work in June 2024 showed mild anemia, hemoglobin A1c at 5.7%, LDL at 51 mg/dL - Imaging: Last ultrasound in October 2023 showed no kidney stones Plan Patient was informed and verbally consented to the use of an ambient scribe for clinic note documentation during this visit. 1. Chronic Obstructive Pulmonary Disease (Copd) The patient will continue with current management for COPD, with regular monitoring of symptoms and lung function. 2. Hypercholesterolemia The patient is on atorvastatin with a goal to maintain LDL cholesterol below 70 mg/dL. 3. Hypertension Blood pressure is managed with hydrochlorothiazide, metoprolol, and lisinopril, aiming for a target of 120/80 mmHg. 4. Diabetes Mellitus Diabetes is managed with semaglutide, with a target hemoglobin A1c of less than 7.0%. 5. Nephrolithiasis The patient is advised to maintain hydration and continues on tamsulosin, with regular follow-up with nephrology. 6. Benign Prostatic Hyperplasia (Bph) The patient is on tamsulosin and follows up with urology for BPH management. 7. Ischemic Cardiomyopathy Management includes aspirin and atorvastatin for cardiovascular risk reduction. Discussion Notes During the visit, we discussed the management of the patient's chronic conditions, including COPD, hypercholesterolemia, hypertension, diabetes, nephrolithiasis, BPH, and ischemic cardiomyopathy. We emphasized the importance of medication adherence, lifestyle modifications, and regular follow-ups with specialists. Patient Instructions - Continue taking all prescribed medications as directed. - Maintain a low sodium diet and increase fluid intake. - Monitor blood pressure at home and record readings. - Schedule follow-up appointments with nephrology and urology. - Get the shingles and flu vaccinations as discussed. Orders: Orders Creatinine Urine Today E11.65 - Type 2 diabetes mellitus with hyperglycemia IRON PROFILE Today E11.65 - Type 2 diabetes mellitus with hyperglycemia Reticulocyte Count Today E11.65 - Type 2 diabetes mellitus with hyperglycemia B Type Natriuretic Peptide Today E11.65 - Type 2 diabetes mellitus with hyperglycemia PT Evaluation and Treatment Today M54.30 - Sciatica, unspecified side AMB Hemoglobin A1c Today Z13.9 - Encounter for screening, unspecified Complete Blood Count Auto Diff Today E11.65 - Type 2 diabetes mellitus with hyperglycemia Comprehensive Met. Panel Today E11.65 - Type 2 diabetes mellitus with hyperglycemia Free T4 (Free Thyroxine) Today E11.65 - Type 2 diabetes mellitus with hyperglycemia Thyroid Stimulating Hormone Today E11.65 - Type 2 diabetes mellitus with hyperglycemia Microalbumin, Random (w Creat) Today E11.65 - Type 2 diabetes mellitus with hyperglycemia Hemoglobin A1c Today E11.65 - Type 2 diabetes mellitus with hyperglycemia Prostate Specific Antigen Scr Today E11.65 - Type 2 diabetes mellitus with hyperglycemia Vitamin B12 and Folate Today E11.65 - Type 2 diabetes mellitus with hyperglycemia Lipid Panel Today E11.65 - Type 2 diabetes mellitus with hyperglycemia, E78.00 - Pure hypercholesterolemia, unspecified Ferritin Today E11.65 - Type 2 diabetes mellitus with hyperglycemia UA CC w/rflx Micro + Cult Today E11.65 - Type 2 diabetes mellitus with hyperglycemia, R30.0 - Dysuria Magnesium Today E11.65 - Type 2 diabetes mellitus with hyperglycemia Medications: Changed From semaglutide (Ozempic) 0.25 mg (0.368 mL) subcut QWEEK 30 days 1.84 mL 3RF I77.810 - Thoracic aortic ectasia To semaglutide (Ozempic) 0.5 mg (0.736 mL) subcut QWEEK 3.68 mL 3RF 30 days I77.810 - Thoracic aortic ectasia
--- OUTSIDE RECORDS SUMMARY | 2025-05-19 11:08 | XMS_ITS | Patient Health Record ---
Author Organization [facility] Isaias jai Colome Address [address] [place] [address] Care Team Providers Care Transcription Manager Name Role Phone Neo Baig Primary Care Provider Jelena Peralta Unavailable [phone] Allergies No Known Allergies Results Component Value Reference Range Notes HEMOGLOBIN A1C (GLYCOHEMOGLO BIN) Reviewed date:03/08/2025 03:18:08 PM Interpretation: Performing Lab: Notes/Report: HEMOGLOBIN A1C % (HH) 5.7 Reason For Referral Diagnosis 1 Other hammer [...] Name Neo Referring Provider Last Name Referred Organization [facility] Nader Referred Provider Jelena Craig Referred Address [address] [facility],[place], [place],[address], Referred Provider Specialty Podiatry Referral Priority Routine Medications Medication SIG (Take, Route, Frequency, Duration) Notes Start Date End Date Status Miconazole Nitrate A ctive Extra Depth Orthopedic Shoes (1 Pair) with Customized Heat Molded Multidensity Innersoles (3 Pair) as directed Dx: NIDDM/Polyneuropathy (E11.42), Hammertoe Foot Deformity (M20.41,M20.42), Preulcerative Skin Lesion(s) (L85.1 Active zzzCompression Stockings 20-30mm Hg . . .; Duration: . A ctive Clotrimazole-Betamethas one 1-0.05 % 1 application to affected area Externally Twice a day to affected areas on feet; Duration: 30 days 10/29/2023 Active Ozempic (0.25 or 0.5 MG/DOSE) Active Ciclopirox Olamine 0.77 % 1 application Externally Once a day; Duration: 30 days 09/02/2022 Active Senna-S 8.6-50 MG 1 tablet as needed Orally Twice a day Active Omeprazole 300 mg 3x per day Active Furosemide 20 MG 1 tablet Orally Once a day; Duration: 30 day(s) Active amLODIPine Besylate 5 MG 1 tablet Orally Once a day; Duration: 30 day(s) Active Meloxicam 7.5 MG 1 tablet Orally Once a day; Duration: 30 day(s) Active Ketoconazole 2 % 1 application Apply a thin layer of cream externally Twice a day to scaling areas on feet including between the toes; Duration: 30 days 03/08/2025 Active Atorvastatin Calcium 40 MG 1 tablet Orally Once a day; Duration: 30 day(s) Active Aspirin 81 MG 1 tablet Orally Once a day; Duration: 30 day(s) Active Clotrimazole Active Ciclopirox Olamine 0.77 % 1 application to affected area Externally Twice a day to effected areas on feet; Duration: 30 days 01/27/2024 Active Immunizations Vaccine Route Administration Date Status Comme nts Influenza Unknown 07/23/2023 Administered Influenza Unknown 07/23/2024 Administered Social History Tobacco Use: Social History [...] Problem Acquired hammer toe of right foot (2462831729261716 ) Other hammer toe(s) (acquired), right foot (M20.41) Active confirmed Problem Acquired hammer toe of left foot (5749215507310623 ) Other hammer toe(s) (acquired), left foot (M20.42) Active confirmed Problem Plantar wart (92298164) Plantar wart (B07.0) Active confirmed Problem Polyneuropathy due to type 2 diabetes mellitus (455839637) Type 2 diabetes mellitus with diabetic polyneuropathy (E11.42) Active confirmed Problem Venous insufficiency of leg (disorder) (287263562) Venous insufficiency (I87.2) Active confirmed Vital Signs Blood pressure diastolic 80 mm Hg 03/08/2025 Height 5ft8in in 03/08/2025 Blood pressure systolic 125 mm Hg 03/08/2025 Weight 220 lbs 03/08/2025 BMI 33.45 kg/m2 03/08/2025 Encounters Encounter Location Date Provider Diagnosis [address] [address] 06/23/2024 Jelena Pericrosa Other hammer toe(s) (acquired), right foot M20.41 ; Muscle cramp, nocturnal R25.2 ; Tinea pedis of both feet B35.3 ; Other hammer toe(s) (acquired), left foot M20.42 ; Tinea unguium B35.1 ; Type 2 diabetes mellitus with diabetic polyneuropathy E11.42 ; Right foot pain M79.671 ; Plantar wart B07.0 and Left foot pain M79.[address] [address] 11/30/2024 Jelena Perica Tinea pedis of both feet B35.3 ; Tinea unguium B35.1 ; Type 2 diabetes mellitus with diabetic polyneuropathy E11.42 ; Right foot pain M79.671 ; Plantar wart B07.0 and Left foot pain M79.[address] [address] 03/08/2025 Jelena Perica Tinea pedis of both feet B35.3 ; Tinea unguium B35.1 ; Type 2 diabetes mellitus with diabetic polyneuropathy E11.42 ; Right foot pain M79.671 ; Plantar wart B07.0 and Left foot pain M79.672 [facility] [address] [address] 09/24/2024 Jelena Craig [facility] [address] [address] 03/08/2025 Jelena Craig Assessments Encounter Date Diagnosis (ICD Code) Assessment Notes Treatment Notes Treatment Clinical Notes Section Notes 06/23/2024 Other hammer toe(s) (acquired), right foot (ICD-10 - M20.41) 06/23/2024 Muscle cramp, nocturnal (ICD-10 - R25.2) 11/30/2024 Tinea unguium (ICD-10 - B35.1) 11/30/2024 Tinea pedis of both feet (ICD-10 - B35.3) 03/08/2025 Tinea pedis of both feet (ICD-10 - B35.3) 06/23/2024 Tinea pedis of both feet (ICD-10 - B35.3) 03/08/2025 Tinea unguium (ICD-10 - B35.1) 11/30/2024 Type 2 diabetes mellitus with diabetic polyneuropathy (ICD-10 - E11.42) 11/30/2024 Right foot pain (ICD-10 - M79.671) 06/23/2024 Other hammer toe(s) (acquired), left foot (ICD-10 - M20.42) 03/08/2025 Type 2 diabetes mellitus with diabetic polyneuropathy (ICD-10 - E11.42) 03/08/2025 Right foot pain (ICD-10 - M79.671) 06/23/2024 Tinea unguium (ICD-10 - B35.1) 11/30/2024 Plantar wart (ICD-10 - B07.0) 06/23/2024 Type 2 diabetes mellitus with diabetic polyneuropathy (ICD-10 - E11.42) 11/30/2024 Left foot pain (ICD-10 - M79.672) 03/08/2025 Plantar wart (ICD-10 - B07.0) 06/23/2024 Right foot pain (ICD-10 - M79.671) 03/08/2025 Left foot pain (ICD-10 - M79.672) 06/23/2024 Plantar wart (ICD-10 - B07.0) 06/23/2024 Left foot pain (ICD-10 - M79.672) Plan Of Treatment Pending Test Test Name Order Date [id number] NAIL, 6 OR MORE 09/02/2022 [id number] SKIN LESIONS, OVER 4 09/02/20 22 Next Appt Details Provider Name:Jelena lee, 06/07/2025 01:00:00 PM, [address] [place] [address], [phone], Insurance Providers Payer Name Payer Address Payer Phone Subscriber Number Group Number Insured Name Patient Relationship to Insured Coverage Start Date Coverage End Date [facility] [address] YAZMIN Gomez [phone] [id number] Сергей Harvey Self - patient is the insured Medical (General) History Medical History History ICD Code Arthritis CAD (Cholesterol) type II diabetes Gout osteoarthritis dizziness Auto Pap 6-20 Tinea Pedis Surgical History Surgery Date(Month/Year) kidney stones 08/2022
== END 2025-05-19 10:37 | disposition home or self-care (01) ==
LOC: HO.HMCH 09:58
PROVIDERS: PCP Internal Medicine; Visit Provider Internal Medicine
DX: E11.65 Type 2 diabetes mellitus with hyperglycemia (principal); J43.1 Panlobular emphysema; E66.9 Obesity, unspecified; Z68.33 Body mass index [BMI] 33.0-33.9, adult; E78.00 Pure hypercholesterolemia, unspecified; I25.10 Atherosclerotic heart disease of native coronary artery without angina pectoris; I10 Essential (primary) hypertension; K21.9 Gastro-esophageal reflux disease without esophagitis; Z87.442 Personal history of urinary calculi; N40.1 Benign prostatic hyperplasia with lower urinary tract symptoms; M54.30 Sciatica, unspecified side

== ENCOUNTER → 2025-05-19 09:57 | Outpatient (BNVA) | payer MEDICARE, SELFPAY | PROVIDERS: PCP Internal Medicine; Visit Provider Internal Medicine | DX: M79.652 Pain in left thigh (principal); M79.651 Pain in right thigh; E11.65 Type 2 diabetes mellitus with hyperglycemia; E78.00 Pure hypercholesterolemia, unspecified; I25.10 Atherosclerotic heart disease of native coronary artery without angina pectoris; I10 Essential (primary) hypertension; E66.9 Obesity, unspecified; K21.9 Gastro-esophageal reflux disease without esophagitis; N40.1 Benign prostatic hyperplasia with lower urinary tract symptoms; J43.1 Panlobular emphysema; M54.30 Sciatica, unspecified side; Z87.442 Personal history of urinary calculi; E11.51 Type 2 diabetes mellitus with diabetic peripheral angiopathy without gangrene; I77.810 Thoracic aortic ectasia; Z79.899 Other long term (current) drug therapy | CPT/HCPCS: 83036; 96127; 99212 ==

== ENCOUNTER 2025-05-20 06:53 | Outpatient (REF) | payer MEDICARE, SELFPAY ==
--- OUTSIDE RECORDS SUMMARY | 2024-04-27 07:15 | XMS_ITS ---
Author Organization [facility] Address [address] [place] [address] Care Team Providers Care Commanding Officer Garage Name Role Phone Neo Baig Primary Care Provider Jelena Peralta Unavailable [phone] Medications Medication SIG (Take, Route, Frequency, Duration) Notes Start Date End Date Status Omeprazole 300 mg 3x per day Active amLODIPine Besylate 5 MG 1 tablet Orally Once a day; Duration: 30 day(s) Active Furosemide 20 MG 1 tablet Orally Once a day; Duration: 30 day(s) Active Atorvastatin Calcium 40 MG 1 tablet Orally Once a day; Duration: 30 day(s) Active Meloxicam 7.5 MG 1 tablet Orally Once a day; Duration: 30 day(s) Active Miconazole Nitrate A ctive zzzCompression Stockings 20-30mm Hg . . .; Duration: . A ctive Clotrimazole Active Ciclopirox Olamine 0.77 % 1 application to affected area Externally Twice a day to effected areas on feet; Duration: 30 days 01/27/2024 Active Aspirin 81 MG 1 tablet Orally Once a day; Duration: 30 day(s) Active Clotrimazole-Betamethas one 1-0.05 % 1 application to affected area Externally Twice a day to affected areas on feet; Duration: 30 days 10/29/2023 Active Extra Depth Orthopedic Shoes (1 Pair) with Customized Heat Molded Multidensity Innersoles (3 Pair) as directed Dx: NIDDM/Polyneuropathy (E11.42), Hammertoe Foot Deformity (M20.41,M20.42), Preulcerative Skin Lesion(s) (L85.1 Active Ciclopirox Olamine 0.77 % 1 application Externally Once a day; Duration: 30 days 09/02/2022 Active Senna-S 8.6-50 MG 1 tablet as needed Orally Twice a day Active Encounters Encounter Location Date Provider Diagnosis [facility] [address] [place] [address] 04/27/2024 Jelena Craig Plan Of Treatment Next Appt Details Provider Name:Jelena lee, 06/07/2025 01:00:00 PM, [address] [place], [address], Progress Notes * Cash HARVEYJaneenOB:1950 (74 yo M)Acc No.[id number]:04/27/2024 Progress Note Patient: Сергей FAIRCHILD Provider: Basilio Craig DPM :1950 A ge:73 Y S ex:Male Date:04/27/2024 Address:[address] [place], [place] [id number] Pcp:Neo Baig Subjective: * Chief Complaints: * * HPI: A t Risk footcare: Pt States Last PCP Visit: D ate 0 12/31/2023 Presents with son who provides translation. * Medical History: * Medications: T aking zzzCompression Stockings 20-30mm Hg 1 pair closed toe- knee high . . . , Taking Miconazole Nitrate , Taking Clotrimazole , Taking Aspirin 81 MG Tablet Chewable 1 tablet Orally Once a day , Taking Atorvastatin Calcium 40 MG Tablet 1 tablet Orally Once a day , Taking Meloxicam 7.5 MG Tablet 1 tablet Orally Once a day , Taking amLODIPine Besylate 5 MG Tablet 1 tablet Orally Once a day , Taking Furosemide 20 MG Tablet 1 tablet Orally Once a day , Taking Omeprazole , Notes to Pharmacist: 300 mg 3x per day, Taking Senna-S 8.6-50 MG Tablet 1 tablet as needed Orally Twice a day , Taking Ciclopirox Olamine 0.77 % Cream 1 application Externally Once a day , Taking Clotrimazole-Betamethasone 1-0.05 % Cream 1 application to affected area Externally Twice a day to affected areas on feet , Taking Extra Depth Orthopedic Shoes (1 Pair) with Customized Heat Molded Multidensity Innersoles (3 Pair) as directed Dx: NIDDM/Polyneuropathy (E11.42), Hammertoe Foot Deformity (M20.41,M20.42), Preulcerative Skin Lesion(s) (L85.1 , Taking Ciclopirox Olamine 0.77 % Cream 1 application to affected area Externally Twice a day to effected areas on feet Objective: * Vitals: Assessment: Plan: * Treatment: * Images: * The named appointment provid er may or may not be the originator of this progress note, and it is not deemed complete until electronically signed by the appointment provider. Sign off status: Pending * Provider: Basiilo Craig DPM Date: 04/27/2024 Generated for Fermín Garcia/Rich on: 0 05/20/2025 06:57 AM EDT History and Physical Notes * HPI (History of Present Illness) Category Sub-Category Detail Notes Category Not es At Risk footcare Pt States Last PCP Visit: Date: 12/31/2023 Presents with son wh o provides translation
--- OUTSIDE RECORDS SUMMARY | 2024-09-24 09:00 | XMS_ITS ---
Author Organization [facility] Address [address] [place] [address] Care Team Providers Care Shield Installer Name Role Phone Neo Baig Primary Care Provider Jelena Peralta Unavailable [phone] Medications Medication SIG (Take, Route, Frequency, Duration) [...] Active Encounters Encounter Location Date Provider Diagnosis [facility] [place] [address] [place] [address] 09/24/2024 Jelena Craig Plan Of Treatment Next Appt Details Provider Name:Jelena lee, 06/07/2025 01:00:00 PM, [address] [place], [address], Progress Notes * Cash HARVEYJaneenOB:1950 (74 yo M)Acc No.[id number]:09/24/2024 Progress Note Patient: Сергей FAIRCHILD Provider: Basilio Craig DPM :1950 A ge:74 Y S ex:Male Date:09/24/2024 Address:[address] [place], [place] [id number] Pcp:Neo Baig Subjective: * Chief Complaints: * [...] 09/24/2024 Generated for Fermín calvo/Dante/Rich on: 0 05/20/2025 06:56 AM EDT
--- OUTSIDE RECORDS SUMMARY | 2025-05-20 06:57 | XMS_ITS | Patient Health Record ---
Author Organization [facility]ai[facility] jai [place] Address [address] [place] [address] Care Team Providers Care Bark Skinner Name Role Phone Neo Baig Primary Care Provider Jelena Peralta Unavailable [phone] Allergies No Known Allergies Results Component Value [...] Neo Referring Provider Last Name [facility] Referred Provider Jelena Craig Referred Address [address] [facility],[place], [place],[address], Referred Provider Specialty Podiatry Referral Priority Routine [...] Problem Acquired hammer toe of right foot (5030410945305474 ) Other hammer toe(s) (acquired), right foot (M20.41) Active confirmed Problem Acquired hammer toe of left foot (9029018969121174 ) Other hammer toe(s) (acquired), left foot (M20.42) Active confirmed Problem Plantar wart (78581968) Plantar wart (B07.0) Active confirmed Problem Polyneuropathy due to type 2 diabetes mellitus (347921023) Type 2 diabetes mellitus with diabetic polyneuropathy (E11.42) Active confirmed Problem Venous insufficiency of leg (disorder) (510554631) Venous insufficiency (I87.2) Active confirmed Vital Signs Blood pressure diastolic 80 mm Hg 03/08/2025 Height 5ft8in in 03/08/2025 Blood pressure systolic 125 mm Hg 03/08/2025 Weight 220 lbs 03/08/2025 BMI 33.45 kg/m2 03/08/2025 Encounters Encounter Location Date Provider Diagnosis [address] [address] 06/23/2024 Jelena Pericrosa Other hammer toe(s) (acquired), right foot M20.41 ; Muscle cramp, nocturnal R25.2 ; Tinea pedis of both feet B35.3 ; Other hammer toe(s) (acquired), left foot M20.42 ; Tinea unguium B35.1 ; Type 2 diabetes mellitus with diabetic polyneuropathy E11.42 ; Right foot pain M79.671 ; Plantar wart B07.0 and Left foot pain M79.[address] [address] 11/30/2024 Jelena Perica Tinea pedis of both feet B35.3 ; Tinea unguium B35.1 ; Type 2 diabetes mellitus with diabetic polyneuropathy E11.42 ; Right foot pain M79.671 ; Plantar wart B07.0 and Left foot pain M79.[address] [address] 03/08/2025 Jelena Perica Tinea pedis of both feet B35.3 ; Tinea unguium B35.1 ; Type 2 diabetes mellitus with diabetic polyneuropathy E11.42 ; Right foot pain M79.671 ; Plantar wart B07.0 and Left foot pain M79.672 [facility] [address] [address] 09/24/2024 Jelena Craig [facility] [address] [address] 03/08/2025 Jelena Craig Assessments Encounter Date Diagnosis [...] Treatment Pending Test Test Name Order Date [id number] NAIL, 6 OR MORE 09/02/2022 [id number]-GZVD SKIN LESIONS, OVER 4 09/02/20 22 Next Appt Details Provider Name:Jelena lee, 06/07/2025 01:00:00 PM, [address] [place] [address], [id number], Insurance Providers Payer Name Payer Address Payer Phone Subscriber Number Group Number Insured Name Patient Relationship to Insured Coverage Start Date Coverage End Date [facility] [address] YAZMIN Gomez [phone] [id number] Сергей Harvey Self - patient is the insured Medical (General) History Medical History History ICD Code Arthritis CAD (Cholesterol) type II diabetes Gout osteoarthritis dizziness Auto Pap 6-20 Tinea Pedis Surgical History Surgery Date(Month/Year) kidney stones 08/2022
[2025-05-20 07:08] LABS: MANUAL DIFF FLAG NO
[2025-05-20 07:31] LABS: Hematocrit 40.9 % (42.0-52.0); Hemoglobin 13.7 g/dl (14.0-18.0); Imm Gran Abs Auto 0.03 X10*3/uL (0.00-0.03); Imm Gran Pct Auto 0.5 % (0.0-0.4); Lymphocytes Absolute Auto 1.6 X10*3/uL (1.2-4.9); Mean Corpuscular HGB Conc 33.5 g/dl (31.0-36.0); Mean Corpuscular Hemoglobin 32.1 pg (27.0-33.0); Mean Corpuscular Volume 95.8 fL (80.0-98.0); NRBC Abs Auto 0.000 X10*3/uL (0.0-0.012); NRBC Pct Auto 0.0 /100WBC (0.0-0.2); Platelet Count 152 X10*3/uL (160-400); Red Blood Count 4.27 X10*6/uL (4.60-5.80); Reticulocytes Absolute 0.068 X10*6/uL (0.026-0.095); White Blood Count 5.9 X10*3/uL (4.8-10.8)
[2025-05-20 07:59] LABS: Alanine Aminotransferase 26 U/L (0-40); Albumin Level 3.9 g/dL (3.5-5.0); Alkaline Phosphatase 76 U/L (39-117); Anion Gap 13 (12-20); Aspartate Amino Transferase 39 U/L (5-37); Blood Urea Nitrogen 7 mg/dL (9-16); Calcium 9.3 mg/dL (8.4-10.2); Carbon Dioxide 32 mmol/L (22-29); Chloride 98 mmol/L (96-108); Cholesterol 154 mg/dL (<200); Estimated Glomerular Filt Rate 59; HDL Cholesterol 50 mg/dL (>40); Iron 89 mcg/dL (45-160); Magnesium 1.6 mg/dL (1.6-2.6); Percent Iron Saturation 36 % (15-50); Potassium 4.6 mmol/L (3.3-5.1); Sodium 138 mmol/L (135-145); Total Iron Binding Capacity 244 mcg/dL (228-428); Total Protein 7.3 g/dL (6.5-8.0); Triglycerides 120 mg/dL (<150); Unsaturated Iron Binding 155 ug/dL
[2025-05-20 08:01] LABS: B Type Natriuretic Peptide 35 pg/mL (<100)
[2025-05-20 08:13] LABS: Hemoglobin A1C 132.9979 umol/L; Total Hemoglobin (HGBA1C) 3615.8218 umol/L
[2025-05-20 08:15] LABS: Ferritin 343 ng/mL (20-250); Free T4 (Free Thyroxine) 0.96 ng/dL (0.71-1.85); Thyroid Stimulating Hormone 1.47 uIU/mL (0.32-4.0)
[2025-05-20 08:32] LABS: Folate 4.1 ng/mL (> or = 4.0); Vitamin B12 384 pg/mL (200-900)
[2025-05-20 08:59] LABS: Appearance Urine Clear; Glucose Urine UA Negative (Negative); PH 7.0 (5.0-9.0); Specific Gravity - Urine 1.010 (1.005-1.025); UMIC TRIGGER UACC YES
[2025-05-20 09:48] LABS: Microalbum/Creatinine Ratio Ur 5.2 ug/mg cr (<30)
== END 2025-05-20 06:54 | disposition home or self-care (01) ==
LOC: HO.LAB 06:53
PROVIDERS: PCP Internal Medicine; Visit Provider Internal Medicine
DX: Z12.5 Encounter for screening for malignant neoplasm of prostate (principal); E11.65 Type 2 diabetes mellitus with hyperglycemia; R30.0 Dysuria
CPT/HCPCS: 36415; 80053; 80061; 81001; 82043; 82570; 82607; 82728; 82746; 83036; 83540; 83735; 83880; 84153; 84439; 84443; 85025; 85045

== ENCOUNTER 2025-06-10 10:29 | Outpatient (REF) | payer MEDICARE, SELFPAY ==
[2025-06-10 12:26] LABS: Creatinine, mg/dL 70.19; Sodium, 24 Hr Urine 81.0 mmol/L
[2025-06-10 12:40] LABS: Total Volume 24 Hour Urine 1575 mL
[2025-06-10 12:45] LABS: Creatinine, mg/dL 70.71; Uric Acid, mg/dL 20.0 mg/dL
[2025-06-10 12:47] LABS: Total Volume 24 Hour Urine 1575 mL
[2025-06-13 17:39] LABS: Calcium/Creatinine Ratio 52 mg/g creat (30-210); Creatinine 24Hr Urine 1.12 g/24 h (0.50-2.15)
[2025-06-15 05:54] LABS: 24hr Urine Total Volume 1575 mL; Oxalic Acid 24 Urine 19.0 mg/24 h (3.6-38.0)
[2025-06-22 06:14] LABS: 24hr Urine Total Volume 1575 mL; Citric Acid, 24hr Urine 725 mg/24 h (100-1300); Citric Acid/Creat Ratio 24U 619 mg/g creat (60-660); Creatinine, 24U 1.17 g/24 h (0.50-2.15)
== END 2025-06-10 10:30 | disposition home or self-care (01) ==
LOC: HO.LNP 10:29
PROVIDERS: Visit Provider Internal Medicine Hypertension Specialist
DX: N20.0 Calculus of kidney (principal)
CPT/HCPCS: 82340; 82507; 83945; 84300; 84560

== ENCOUNTER → 2025-06-16 23:59 | Outpatient (BNV) | payer MEDICARE, SELFPAY | PROVIDERS: PCP Internal Medicine; Visit Provider Internal Medicine | DX: I10 Essential (primary) hypertension (principal); E11.9 Type 2 diabetes mellitus without complications; G47.30 Sleep apnea, unspecified | CPT/HCPCS: G0179 ==

== ENCOUNTER 2025-07-07 11:00 | Outpatient (RCR) | payer MEDICARE, SELFPAY ==
--- NOTE | 2025-06-08 14:01 | MHC.PT.EP ---
[facility] [place] [facility] [place] [facility] [place] [facility] [address] Lucille Jennings [address] [phone] F: [phone] F: [phone] F: [phone] F: [phone] Physical Therapy Plan of Care Date of Evaluation: 06/08/25 Date of Surgery: N/A Diagnosis: sciatic nerve pain (RL) Assessment: pt is a 74 y/o male presenting to physical therapy w/ referring diagnosis of sciatic nerve pain. pt's primary impairments are B knee weakness/instability and poor balance w/ distractions and uneven surfaces. Impairments include pain, decreased range of motion, decreased strength, impaired functional mobility, impaired postural awareness, and altered ambulation mechanics. pt is a fair candidate for skilled PT due to age, potential remediation of impairments, typical disease/condition progression and prognosis, comorbidities, and motivation. pt would benefit from skilled PT intervention to provide a tailored strengthening and stretching exercise program, functional training, gait training, postural re-training, neuromuscular re-education, modalities as needed for pain, equipment safety demonstration. Frequency and Duration: The patient will be seen 2x/wk for 4 wks Short Term Goals: pt will be setup level-I w/ HEP to promote self-management of condition. pt will improve B knee extension strength to 5/5 to promote ease in sit<>stand transfers. Senior Living Goals: pt will demo proper cane sequencing/placement w/ ambulation at all times w/o verbal cueing to promote safety w/ household ambulation. pt will ascend/descend 12 stairs using railing close spv level to promote ease in entering/exiting home. Treatment Plan: Modalities to reduce pain, spasms and effusion. Manual therapy to restore motion and function. Therapeutic exercise to improve strength and flexibility. Neuromuscular re-education for posture and balance. Therapeutic activities to return to functional activities of daily living. Electronically signed by: Sanjuanita Mcintosh PT, DPT Please sign and return to therapist. Thank you for your referral.
--- NOTE | 2025-07-07 11:52 | MHC.PT.DC ---
[facility] [place] [facility] [address] Lucille Jennings 140 [facility] [phone] F: [phone] F: [phone] F: [phone] F: [phone] Physical Therapy Discharge Report Diagnosis: sciatic nerve pain (RL) Date of Surgery: N/A Date of Evaluation: 06/08/25 Date of Discharge: 07/07/25 Treatments to Date: 8 Cancellations to Date: 1 No Shows to Date: 0 Discharge Status: Improved Function Discharge Summary: The patient overall has demonstrated improved gait mechanics and consistency using his cane. 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 At this time, he has made excellent progress with physical therapy and is discharged from this physical therapy plan of care with the recommendation to continue his exercise program at home. Electronically signed by: Sanjuanita Mcintosh PT, DPT Please sign and return to therapist. Thank you for your referral.
== END 2025-07-07 11:52 | disposition home or self-care (01) ==
LOC: HO.PT 11:00
PROVIDERS: PCP Internal Medicine; Visit Provider Internal Medicine
DX: M54.31 Sciatica, right side (principal); M54.32 Sciatica, left side
CPT/HCPCS: 97110; 97163; 97530

== ENCOUNTER 2025-08-23 09:40 | Outpatient (REF) | payer MEDICARE, SELFPAY ==
[2025-08-23 10:31] LABS: Appearance Urine Clear; Glucose Urine UA Negative (Negative); PH 7.5 (5.0-9.0); Specific Gravity - Urine 1.010 (1.005-1.025); UMIC TRIGGER UACC YES
--- OUTSIDE RECORDS SUMMARY | 2025-08-23 10:37 | XMS_ITS | Data Portability ---
Author Organization [place] - [facility], Allergy Address [address] [address] Care Team Providers Care Child Life Therapist Name Role Phone NOBLE COLEMAN Primary Care [...] & hearing handicap, a fitting of a oaafurut-sr-mlh- canal hearing device is expected to provide a significant improvement in the patient's ability to communicate. The patient has a 100% coverage GRA[place] benefit at an in network provider and would like to investigate this option before ordering hearing aids through [employer] who is out of network. Not available 11/18/2024 10:39:01 Plan of Treatment Reminders Order Date Submit Date Provider Last Modified By Organization Details Last Modified Time Details Appointments None recorded. Lab None recorded. Referral None recorded. Procedures None recorded. Surgeries None recorded. Imaging MRI, brain + internal auditory canal, w/wo contrast - MRI, BRAIN + INTERNAL AUDITORY CANAL, W/WO CONTRAST 2024 025 [facility] ([facility]), [address] [facility], [place], [address], 15:28:05 Medication Orders None recorded. Patient TargetsNo [...] MRI- [facility] Access ion Number : [id number] Patien t Name: Сергей Harvey Record Number : [id number] Date of : 1949 Date of Exam: 2024 Referr ing Physic garima: Tisha Felipe [facility] 100 [facility] [address] [place] [address] Exam: MR Brain (C-/C+ ) CPT 89942 Room Descri ption: [facility] Pion 3T MR Brain (C-/C+ ) CPT 07350 INDICA TION / CLINIC AL QUESTI ON: [...] the brain with attent ion to the internal controls specialist al audito ry canals was perfor [...] or abnorm al enhanc ement in the internal controls specialist al audito ry canals or cerebe [...] Electr onical ly Signed By: Stephanie garcia [facility] ([facility]) [address] [place], [address], 11/16/2024 15:58:16 Result Notes Documentation Provider Name and Address Organization Details Recorded Time Mri, Brain + Brain Stem, W/wo Contrast : [facility] Accession Number: [id number] Patient Name: Сергей Harvey Date of : 1950 Date of Exam: 11-04-2024 Referring Physician: Tisha Farr [facility] [address] [address] Exam: MR Brain (C-/C+) CPT 25855 Room Description: [facility] 3T MR Brain (C-/C+) CPT 19232 INDICATION / CLINICAL QUESTION: - Snsrnrl hear [...] the patient?s symptoms. Electronically Signed By: [facility] 11/16/2024 15:58:16 Problems Name Problem SNOMED Code Status Onset Date Resolution Date Notes Provider Name and Address Organization Details Recorded Time Sensorineur al hearing loss of bilateral ears 545910024 Active 2024 [address] VEGA [address] [place] [address], [phone], [facility] 09:52:04 Sensorineur al hearing loss in right ear 8797176748982 0 Active 2024 TISHA Victoria MD [address] [place] [address], [phone], [facility] 5 10:18:17 Bilateral tinnitus 7781555875155 Active 2024 TISHA Victoria MD [address] [place] [address], [phone], [facility] 5 10:18:43 Problem Notes None recorded. Procedures Surgical History Date Name Laterality Status Provider Name and Address Organization Details Recorded Time 10/20/2024 Comp Audio with Tymps - 55493 & 46579 completed TARSHA PHILLIP, AuD 100 [facility], [place], [address], [facility] - [facility] 10/20/2024 09:51:58 Imaging Results None recorded. Procedure [...] Updated DateTime 11/30/2024 175.26 cm 32.5 kg/m2 72970.32 g Sean Walsh [place] - [facility] 11/30/2024 08:02:31 Social History None recorded. Functional Status None recorded. Mental Status None recorded. Family History Nothing Reported. Medical History No medical history recorded. Past Encounters Encounter ID Performer Location Encounter Start Date Encounter Closed Date Diagnosis/Indication Diagnosis SNOMED-CT Code Diagnosis ICD10 Code Diagnosis IMO Codes Diagnosis Note [id number] TISHA FARR MD [facility] [address] [place] [address] 10/20/2024 09:18:08 10/20/2024 10:19:09 Sensorineural hearing loss of bilateral ears 300160995 H90.3 Audiologic al evaluation results:Ri ght ear:Mild [...] Sensorineu ral hearing loss in right ear 5127537852 9100 H90.A21 Given the asymmetric hearing loss I recommend an MRI IAC with contrast to evaluate for retrocochl ear pathology. We will review results when complete. Bilateral tinnitus 91681 20494 102 H93.13 Ear exam was normal. Audiogram was reviewed. We discussed the associatio n between sensorineu ral hearing loss and tinnitus. We discussed masking for tinnitus. [id number] Ana VEGA [place] [place] [facility] [address] [place] [address] 11/18/2024 10:15:07 11/19/2024 07:33:37 Sensorineural hearing loss of bilateral ears 716230379 H90.3 [id number] TISHA FARR MD [facility] 100 [place] [address] 11/30/2024 08:00:41 11/30/2024 08:18:20 Sensorineural hearing loss of bilateral ears 881242899 H90.3 Audiologic al evaluation results:Ri ght ear:Mild [...] Sensorineu ral hearing loss in right ear 2116158654 9100 H90.A21 I gave reassuranc e there are no tumors causing the asymmetric HL. 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 I would be glad to see him as needed. I gave medical clearance for hearing aids. I personally reviewed MRI images. Bilateral tinnitus 62187 03178 102 H93.13 We again discussed the associatio [...] Chu Member ID Guarantor Name 10/15/2024 1 [employer] Сергей Candice [id number] Сергей Candice 11/30/2024 1 [employer] - DUAL ELIGIBLE - [employer] - SENIOR PLAN (MEDICARE REPLACEMENT/ ADVANTAGE - HMO) Сергей Candice [id number] Сергей Harvey Notes Date Note Type Note Provider Name and Address Organization Details Recorded Time 10/20/2024 text/html ROS as noted in the HPI Hx of gradual hearing loss over time. It has been worse on the right for years. Has tinnitus AU but worse AD. Audio showed asymmetric SNHL worse AD. TISHA FARR MD [address] [place] [address],[address], [address], [facility] - [facility] 10/20/2024 10:19:31 11/18/2024 text/html Patient returned to our office for the initial fitting of hearing devices as a previously user of amplification (BTE style). They reportedly last used amplification ~10 years ago. They have reported significant difficulty communicating in adverse listening situations and amplification in the right earhas been recommended. Ana VEGA 100 [facility],[address], [address], [facility] - [facility] 11/18/2024 10:39:32 11/30/2024 text/html ROS as noted in the HPI Hx of gradual hearing loss over time. Audio at the last visit showed asymmetric SNHL worse AD. We obtained an MRI IAC which I personally reviewed which was negative for retrocochlear pathology. It did show trace sinus disease and a possible old lacunar infarct. TISHA FARR MD 100 [facility],[place] [address], [place], [address], [facility] - [facility] 11/30/2024 08:18:15
[2025-08-23 10:45] LABS: Parathyroid Hormone Intact 81.2 pg/mL (8.7-77.1)
[2025-08-23 10:53] LABS: Anion Gap 12 (12-20); Blood Urea Nitrogen 7 mg/dL (9-16); Calcium 9.9 mg/dL (8.4-10.2); Carbon Dioxide 31 mmol/L (22-29); Chloride 100 mmol/L (96-108); Estimated Glomerular Filt Rate > 60; Potassium 3.5 mmol/L (3.3-5.1); Sodium 139 mmol/L (135-145)
[2025-08-23 11:20] LABS: Prostate Specific Antigen 1.24 ng/mL (<0.05-4.0)
== END 2025-08-23 09:41 | disposition home or self-care (01) ==
LOC: HO.LAB 09:40
PROVIDERS: Urology; Absent Provider Internal Medicine; PCP Internal Medicine; Visit Provider Internal Medicine Hypertension Specialist
DX: N40.1 Benign prostatic hyperplasia with lower urinary tract symptoms (principal); E11.65 Type 2 diabetes mellitus with hyperglycemia; N20.0 Calculus of kidney; R30.0 Dysuria; Z12.5 Encounter for screening for malignant neoplasm of prostate
CPT/HCPCS: 36415; 80048; 81001; 82570; 83970; 84100; 84153

== ENCOUNTER 2025-08-25 11:49 | Outpatient (REF) | payer MEDICARE, SELFPAY ==
[2025-08-25 12:51] LABS: Creatinine, mg/dL 157.82; Sodium, 24 Hr Urine 63.0 mmol/L
[2025-08-25 14:08] LABS: Total Volume 24 Hour Urine 925 mL
[2025-08-30 20:19] LABS: Calcium/Creatinine Ratio 43 mg/g creat (30-210); Creatinine 24Hr Urine 1.30 g/24 h (0.50-2.15)
== END 2025-08-25 11:50 | disposition home or self-care (01) ==
LOC: HO.LNP 11:49
PROVIDERS: Visit Provider Internal Medicine Hypertension Specialist
DX: N20.0 Calculus of kidney (principal); R82.994 Hypercalciuria
CPT/HCPCS: 82340; 84300

== ENCOUNTER 2025-08-29 10:01 | Outpatient (AMB) | payer OTHER, SELFPAY ==
--- NOTE | 2025-08-29 10:04 | A.OFFVIS_ITS ---
Intake Visit Reasons: 7m/ PSA/ US kidney Intake Note: Patient is present for a 7m follow up with PSA/US * 05/20 PSA:1.58 * 08/26 Renal US-No Show Urology Medication:Vitamin B6, Tamsulosin Antibiotic Allergy:NONE Blood Thinner:ASPIRIN PVR:80ml Fuel Dock Attendant Required: No Allergies No Known Allergies Allergy (Verified 10/03/25 05:21) HPI Comments Details: 08/29/2025--Сергей is a 75-year-old male who has been followed for BPH and nephrolithiasis. He is on tamsulosin and vitamin B6 last PSA on 05/20/2025 was 1.58. He presents for follow-up he had renal ultrasound on 08/26/2025. History of Present Illness The patient is a 75 year old male presenting for a follow-up visit for benign prostatic hyperplasia (BPH) and nephrolithiasis. He is currently taking tamsulosin for BPH and vitamin B6 for the prevention of nephrolithiasis. His last PSA was 1.58 on 05/20/2025. He is also followed by a risk control director for hypercalciuria, for which he takes hydrochlorothiazide. A previous renal ultrasound showed no kidney stones. The patient did not attend a scheduled renal ultrasound on 08/26/2025. He recently submitted a 24-hour urine sample, and the results are currently pending. Results - Labs - PSA from 05/20/2025 was 1.58. - Imaging - A prior renal ultrasound was negative for kidney stones. - Tests - 24-hour urine collection: Results are pending. Plan 1. Benign Prostatic Hyperplasia (Bph) - Continue tamsulosin 0.4 mg at bedtime. - Follow up in 6 months with blood work to check prostate labs. 2. Nephrolithiasis And Hypercalciuria - Continue vitamin B6 for stone prevention. - Continue hydrochlorothiazide for hypercalciuria. - A renal ultrasound will be reordered for monitoring. - Follow-up visit is scheduled in 8 weeks to discuss the results of the pending 24-hour urine test and the renal ultrasound. 01/31/25--Сергей is a 74-year-old male who presents today to the office for a follow-up. Сергей is followed for BPH and kidney stones. The patient complains of daytime urinary frequency and nocturia. The patient on tamsulosin 0.4 mg daily. Results: Bladder US - 2/20/25-- estimated prostate volume 41 mL, PVR - WNL. 11/01/24--Сергей is here with his son who interprets for him he has been followed for kidney stones. He had a renal ultrasound in August, no recurrent kidney stones. The patient complains of daytime urinary frequency and nocturia. In discussion with the patient he admits to multiple cups of coffee daily. Discussed to decrease caffeine intake; in addition started the patient on tamsulosin 0.4 mg daily. 01/01/24--Сергей is a 73-year-old male who presents today to the office for a follow-up. Сергей is followed for BPH and kidney stones. LV-07/10/23?He is followed today to review 24-hour urine collection. discussed refer to nephrology for hypercalcuria on prior testing his urine calcium was 333 and urine sodium was 164. The patient is a Lao speaking male. Certified interpreter was present during the visit. He has a past medical history significant for diabetes and hypertension. Discussed renal US 10/24/23 no recurrent renal stones. Review of chart: 24-hour urine collection results from 05/08/23 revealed urine volume 2.38 litres, urine calcium was 367, urine oxalate was 34, urine citrate was 911, and urine sodium was 207. [facility] Medical History (Updated 10/03/25 @ 05:47 by Monroe Moses MD) Depression Mixed hyperlipidemia Diabetes mellitus Obstructive sleep apnea Coronary artery disease Abdominal wall abscess Hearing difficulty Hypertension Nephrolithiasis Flank pain Constipation Dizziness Obesity (BMI 30-39.9) Tubular adenoma of colon Polysubstance abuse Knee osteoarthritis Degenerative disc disease, lumbar Osteoarthritis of right shoulder Ascending aorta dilatation History of renal calculi GERD (gastroesophageal reflux disease) Vitamin D deficiency Peripheral vascular disease Hypercholesterolemia COPD (chronic obstructive pulmonary disease) Surgical History Hx of cardiac cath Hx laparoscopic cholecystectomy Hx of colonoscopy History of esophagogastroduodenoscopy (EGD) Family History Father Stroke Heart attack Mother No problems noted. Sister Breast cancer Social History Household Members: Spouse Housing: House Do you presently have visiting nurse or other home services: No Alcohol intake: former Year quit: 2010 Patient Tobacco Use Status: Never used Tobacco Tobacco use type: Cigarette e-Cigarette/Vaping Use: Never Used Second Hand Smoke Exposure: No service: No Current occupational status: retired and disabled Cognitive needs: No Hearing needs: No Vision needs: Yes (Glasses) Review of Systems Const All systems reviewed & are unremarkable except as noted in HPI and below Reports no additional complaints Eyes Reports no additional complaints ENT Reports no additional complaints Card Reports no additional complaints Resp Reports no additional complaints GI Reports no additional complaints Reports as per HPI Musc Reports no additional complaints Skin/Breast Reports system reviewed and no additional complaints, except as documented Neuro Reports no additional complaints Psych Reports no additional complaints Endo Reports no additional complaints Tadeo/Lymph Reports no additional complaints Aller/Immun Reports no additional complaints Results Reviewed Results Reviewed: Date of Service: 11/11/24 PELVIS LIMITED (BLADDER) CLINICAL INFORMATION: Frequency micturition. COMPARISON: None available. TECHNIQUE: Real-time imaging of the bladder. FINDINGS: BLADDER: Fluid-filled. Bilateral ureteral jets are demonstrated. Prevoid bladder volume is 201 mL. Postvoid bladder volume is 19 mL. Prostate gland measures 5 cm in maximum length. Prostate volume: 41 cc. IMPRESSION: 19 cc residual urine in a post void image. Normal-sized prostate gland.. Date of Service: 09/09/24 US RETROPERITONEAL LIMITED (RENAL ONLY) CLINICAL INFORMATION: Personal history of urinary calculi. COMPARISON: Renal ultrasound 10/24/2023 and 11/25/2022. X-ray KUB 09/25/2022 and 08/28/2022. CT abdomen and pelvis 08/28/2022. TECHNIQUE: Real-time imaging of the kidneys. Limited visualization due to bowel gas. FINDINGS: RIGHT KIDNEY: 11.0 x 6.3 x 6.1 cm (SAG x AP x TRV). No hydronephrosis. No renal calculi. Renal cortical thickness is normal. Limited visualization. LEFT KIDNEY: 10.9 x 5.4 x 3.9 cm (SAG x AP x TRV). No hydronephrosis. No renal calculi. Renal cortical thickness is normal. Limited visualization. IMPRESSION: No hydronephrosis. No renal calculi.. Date of Service: 10/24/23 EXAMINATION: US RETROPERITONEAL LIMITED (RENAL ONLY) CLINICAL INFORMATION: Calculus of kidney. COMPARISON: Renal ultrasound 11/25/2022 and 03/05/2017. TECHNIQUE: Real-time imaging of the kidneys. FINDINGS: RIGHT KIDNEY: 11.2 x 6.2 x 6.5 cm (SAG x AP x TRV). The kidney is normal in size, contour, and echogenicity. Renal cortical thickness is normal. No calculi or focal parenchymal lesions. No hydronephrosis. LEFT KIDNEY: 10.8 x 5.1 x 4.6 cm (SAG x AP x TRV). The kidney is normal in size, contour, and echogenicity. Renal cortical thickness is normal. No calculi or focal parenchymal lesions. No hydronephrosis. IMPRESSION: No visible nephrolithiasis. No hydronephrosis. Assessment & Plan Assessment & Plan (1) Obesity (BMI 30-39.9): Code(s): E66.9 - Obesity, unspecified Category: Medical (2) Frequency of micturition: Code(s): R35.0 - Frequency of micturition Category: Medical (3) History of renal calculi: Code(s): Z87.442 - Personal history of urinary calculi Category: Medical (4) BPH loc w urin obs/LUTS: Code(s): N40.1 - Benign prostatic hyperplasia with lower urinary tract symptoms Category: Medical (5) Hypercalciuria: Code(s): R82.994 - Hypercalciuria Category: Medical Plan 1. Benign Prostatic Hyperplasia (Bph) - Continue tamsulosin 0.4 mg at bedtime. - Follow up in 6 months with blood work to check prostate labs. 2. Nephrolithiasis And Hypercalciuria - Continue vitamin B6 for stone prevention. - Continue hydrochlorothiazide for hypercalciuria. - A renal ultrasound will be reordered for monitoring. - Follow-up visit is scheduled in 8 weeks to discuss the results of the pending 24-hour urine test and the renal ultrasound. Coding Level of Care Code Est Pt Level 4 (68491) Diagnoses Obesity (BMI 30-39.9) E66.9 Frequency of micturition R35.0 History of renal calculi Z87.442 BPH loc w urin obs/LUTS N40.1 Hypercalciuria R82.994
== END 2025-08-29 10:57 | disposition home or self-care (01) ==
LOC: HO.HUSH 10:02
PROVIDERS: PCP Internal Medicine; Visit Provider Urology
DX: N40.1 Benign prostatic hyperplasia with lower urinary tract symptoms (principal); R35.0 Frequency of micturition; R82.994 Hypercalciuria; Z87.442 Personal history of urinary calculi; E66.811 Obesity, class 1; Z68.33 Body mass index [BMI] 33.0-33.9, adult
CPT/HCPCS: 99214